=== PATIENT | male | born 1995 | race Caucasian/White ===

== ENCOUNTER 2016-10-31 11:24 | Outpatient (RCR) | payer OTHER ==
--- OUTSIDE RECORDS SUMMARY | 2016-08-06 13:36 | XMS REPORT | Continuity of Care Document ---
Author Author [facility] Organization [facility] Address Unknown Phone Unavailable Care Team Providers Care Product Management Analyst Name Role Phone Benjamín Herron PCP [phone] Source Comments Some departments are not documenting in the electronic medical record. If you do not see the information that you expected, contact Release of Information in the Health Information Management department at [phone] for further assistance in locating additional records.[facility] Active Allergies and Adverse Reactions No Known Allergies Current Medications Prescription Sig. Disp. Refills Start End Date Status Date Protein powd Take by mouth. Active NON-FORMULARY five times weekly. Active Pre-Workout NSF approved cetirizine (ZYRTEC) 10 mg Take 10 mg by mouth every Active tablet morning. clindamycin(+) (CLEOCIN Apply topically to Active T; CLINDAMAX) 1 % topical affected area twice lotion daily. vitamins, multiple tablet Take 1 Tab by mouth Active daily. diphenhydrAMINE HCl Take by mouth at bedtime Active (ZZZQUIL) 50 mg/30 mL as needed. liqd bacitracin 500 unit/gram Apply to the wound area 3.5 g 1 05/17/20 Active ophthalmic ointment starting Friday once a 16 day oxyCODONE/acetaminophen Take 1-2 Tabs by mouth 60 Tab 0 06/27/20 Active (PERCOCET; ENDOCET; every 4 hours as needed 16 ROXICET) 5/325 mg tablet for Pain peginterferon(+) teodora-2B Inject 0.406 mL under the 4 Kit 1 07/23/20 Active (SYLATRON) 120 mcg/0.1 mL skin every 7 days. 16 injection peginterferon(+) teodora-2B Inject 0.406 mL under the 4 Kit 1 07/08/20 07/23/20 Discontin (SYLATRON) 120 mcg/0.1 mL skin once for 1 dose. 16 16 ued injection Active Problems Problem Noted Date Malignant melanoma (HCC) 06/20/2016 Elective surgery 05/16/2016 Melanoma (HCC) 05/10/2016 Melanoma of scalp (HCC) 04/22/2016 History of wisdom tooth extraction 04/22/2016 Most Recent Encounters Date Type Specialty Providers Description 07/31/2016 Hospital Oncology Canceled (Error) Encounter 07/31/2016 Hospital Oncology Walter Mathias II, MD Arrived Encounter 07/31/2016 Telephone Oncology Walter Mathias II, MD Lab Results 07/26/2016 [facility] Oncology Kimberley Meeks, SIXTO Encounter 07/26/2016 Office Visit Oncology Kimberley Meeks APRN Malignant melanoma of scalp (HCC) 07/26/2016 [facility] Oncology Kimberley Meeks APRN Encounter 07/26/2016 Telephone Oncology Walter Mathias II, MD Treatment 07/25/2016 Orders Only Oncology Walter Mathias II, MD Malignant melanoma, unspecified site (HCC) (Primary Dx); Encounter for long-term (current) use of high-risk medication 07/08/2016 Office Visit Oncology Walter Mathias II, MD Melanoma of scalp (HCC) (Primary Dx); S/P dissection of cervical lymph nodes 07/04/2016 Office Visit Oncology John Garsia MD Melanoma of scalp (HCC) (Primary Dx) 06/28/2016 [facility] Oncology John Garsia MD Encounter 06/28/2016 Documentation Oncology John Garsia MD 06/27/2016 Orders Only Oncology John Garsia MD 06/25/2016 Telephone Oncology John Garsia MD Appointment 06/20/2016 Hospital John Garsia MD Malignant melanoma (HCC) - Encounter 06/21/2016 06/20/2016 Anesthesia Pedro Pablo Cohen, PABLO Event 06/20/2016 Surgery John Garsia MD RIGHT MODIFIED RADICAL NECK DISSECTION 06/14/2016 Office Visit Plastic Surgery Ralf Velez MD Melanoma of scalp (HCC) (Primary Dx) 06/06/2016 Office Visit Oncology John Gasria MD Melanoma of scalp (HCC) (Primary Dx) 06/06/2016 Prep for Case Oncology John Garsia MD 06/06/2016 Prep for Case Oncology John Garsia MD 06/03/2016 Office Visit Oncology Walter Mathias II, MD Melanoma of congregational (HCC) (Primary Dx); 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/2016 Office Visit Plastic Surgery Ralf Velez MD Melanoma of scalp (HCC) (Primary Dx) 06/02/2016 Documentation Oncology Walter Mathias II, MD 05/28/2016 Cancer Oncology Walter Mathias II, MD Conference 05/24/2016 Nurse Only Plastic Surgery Sara Zavala LPN 05/24/2016 Telephone Plastic Surgery Ralf Velez MD Medication Refill 05/21/2016 Telephone Oncology John Garsia MD Appointment 05/17/2016 Screening Form 05/16/2016 Hospital Ralf Velez MD Elective surgery - Encounter 05/17/2016 05/16/2016 Telephone Oncology Walter Mathias II, MD Appointment; Treatment 05/16/2016 Surgery Ralf eVlez MD LOCAL TISSUE REARRANGEMENT SCALP 05/15/2016 Anesthesia Willow Gutiérrez, Event ENDODONTIST 05/15/2016 Telephone Oncology Mónica Waddell PA-C Results 05/10/2016 Office Visit Plastic Surgery Ralf Velez MD Melanoma of scalp (HCC) (Primary Dx) 05/10/2016 Surgery John Garsia MD WIDE LOCAL EXCISION OF RIGHT FOREHEAD, INTRAOPERATIVE LYMPHATIC MAPPING; PLACEMENT OF EZ- DERM 05/07/2016 Prep for Case Plastic Surgery Ralf Velez MD Social History Tobacco Use Types Packs/Day Years Used Date Never Smoker Smokeless Tobacco: Never Used Tobacco Cessation: Counseling Given: Yes Comments: Alcohol Use Drinks/Week oz/Week Comments Yes 0 Standard 0.0 social drinks or equivalent Last Filed Vital Signs Vital Sign Reading Time Taken Blood Pressure 119/66 07/26/2016 2:34 PM FINANCE ADMIN Pulse 63 07/26/2016 2:34 PM FINANCE ADMIN Temperature 36.3 C (97.4 F) 07/26/2016 2:34 PM FINANCE ADMIN Respiratory Rate 18 07/26/2016 2:34 PM FINANCE ADMIN Height 1.778 m (5' 10") 07/26/2016 2:34 PM FINANCE ADMIN Weight 81.375 kg (179 lb 6.4 oz) 07/26/2016 2:34 PM FINANCE ADMIN Body Mass Index 25.74 07/26/2016 2:34 PM FINANCE ADMIN Oxygen Saturation 97% 07/26/2016 2:34 PM FINANCE ADMIN Plan of Care Date Type Specialty Providers Description 08/09/2016 Appointment Plastic Surgery Ralf Velez MD [address] [place] [address] [phone] (Fax) 08/09/2016 Appointment Oncology Walter Mathias II, MD [address] [place] [address] [phone] (Fax) 08/09/2016 Appointment Oncology Walter Mathias II, MD [address] [place] [address] [phone] (Fax) 08/23/2016 Appointment Plastic Surgery Ralf Velez MD [address] [place] [address] [phone] (Fax) 08/26/2016 Appointment Oncology Walter Mathias II, MD [address] [place] [address] [phone] (Fax) 08/29/2016 Appointment Oncology Walter Mathias II, MD [address] [place] [address] [phone] (Fax) 11/05/2016 Appointment Oncology Mónica Waddell PA-C [address] [place] [address] [phone] (Fax) Health Maintenance Due Date Last Done Comments Physical (Comprehensive) 2002 Exam Hpv Vaccines (#1) 2006 Pertussis Vaccine 2006 Tetanus Vaccine 2012 Influenza Vaccine 05/09/2016 Procedures from Last 3 Months Procedure Name Priority Date/Time Associated Diagnosis Comments PROCEDURES-SCAN 06/24/2016 Results for this 1:31 PM CDT procedure are in the results section. RIGHT MODIFIED RADICAL 06/20/2016 Malignant melanoma (HCC) NECK DISSECTION 6:00 PM CDT Special Needs 06/06 LEFT VOICEMAIL FOR SARA; DR. GARSIA HAD PREVIOUSLY RELEASED HIS BLOCK FOR THIS DAY SO THIS CASE WILL GO ON WAITING LIST FOR 0800 START TIME - Sally SANTOS RN ([id number])06/07 PER CHANGE FORM, CASE MOVED FROM 06/21 TO 06/20 REQ 1800 START TIME - Alfredo SANTOS RN ([id number])06/13 PER CHANGE FORM, PT STATUS TYPE CHANGED FROM EXT REC TO SDA - Sally SANTOS RN ([id number]) PROCEDURES-SCAN 05/21/2016 Results for this 8:45 AM CDT procedure are in the results section. PROCEDURES-SCAN 05/21/2016 Results for this 8:45 AM CDT procedure are in the results section. LOCAL TISSUE 05/16/2016 Melanoma of scalp (HCC) REARRANGEMENT SCALP 7:30 PM CDT PROCEDURES-SCAN 05/15/2016 Results for this 2:35 PM CDT procedure are in the results section. NECK SENTINEL LYMPH NODE 05/10/2016 Melanoma (HCC) BIOPSY 5:35 PM CDT WIDE LOCAL EXCISION OF 05/10/2016 Melanoma (HCC) RIGHT FOREHEAD, 5:35 PM CDT INTRAOPERATIVE LYMPHATIC MAPPING; PLACEMENT OF EZ- DERM Results from Last 3 Months COMPREHENSIVE METABOLIC PANEL (07/31/2016 12:59 PM)Only the most recent of 4 results within the time period is included. Component Value Range Sodium 138 137-147 MMOL/L Potassium 4.3 3.5-5.1 MMOL/L Chloride 104 98-110 MMOL/L Glucose 103 (H) 70-100 MG/DL Blood Urea Nitrogen 13 7-25 MG/DL Creatinine 1.14 0.4-1.24 MG/DL Calcium 9.2 8.5-10.6 MG/DL Total Protein 7.1 6.0-8.0 G/DL Total Bilirubin 0.4 0.3-1.2 MG/DL Albumin 4.5 3.5-5.0 G/DL Alk Phosphatase 51 25-110 U/L AST (SGOT) 75 (H) 7-40 U/L CO2 28 21-30 MMOL/L ALT (SGPT) 33 7-56 U/L Anion Gap 6 3-12 eGFR Non >60Comment: >60 mL/min The eGFR is not validated for use in drug dosing adjustments. Continue to use estimated creatinine clearance per dosing reference text. Please contact the Clinical Pharmacist for questions. eGFR >60Comment: >60 mL/min The eGFR is not validated for use in drug dosing adjustments. Continue to use estimated creatinine clearance per dosing reference text. Please contact the Clinical Pharmacist for questions. Specimen Blood CBC AND DIFF (07/31/2016 12:59 PM)Only the most recent of 4 results within the time period is included. Component Value Range White Blood Cells 2.5 (L) 4.5-11.0 K/UL RBC 5.15 4.4-5.5 M/UL Hemoglobin 15.9 13.5-16.5 GM/DL Hematocrit 46.5 40-50 % MCV 90.2 80-100 FL MCH 30.9 26-34 PG MCHC 34.2 32.0-36.0 G/DL RDW 13.3 11-15 % Platelet Count 86 (L) 150-400 K/UL MPV 9.0 7-11 FL Neutrophils 42 41-77 % Lymphocytes 45 (H) 24-44 % Monocytes 11 4-12 % Eosinophils 1 0-5 % Basophils 1 0-2 % Absolute Neutrophil Count 1.10 (L) 1.8-7.0 K/UL Absolute Lymph Count 1.10 1.0-4.8 K/UL Absolute Monocyte Count 0.30 0-0.80 K/UL Absolute Eosinophil Count 0.00 0-0.45 K/UL Absolute Basophil Count 0.00 0-0.20 K/UL Specimen Blood LDH-LACTATE DEHYDROGENASE (07/26/2016 2:32 PM)Only the most recent of 3 results within the time period is included. Component Value Range Lactate Dehydrogenase 152 100-210 U/L Specimen Blood PROCEDURES-SCAN (06/24/2016 1:31 PM) Narrative Ordered by an unspecified provider. SURGICAL PATHOLOGY (06/20/2016 8:01 AM)Only the most recent of 3 results within the time period is included. Component Value Range PATHOLOGY REPORT [email or web address] Xochitl Mcneill MD, PhD, Director of Anatomic Pathology Department of Pathology and Laboratory Medicine [address] [place] [phone] Surgical Pathology Office: [phone] SURGICAL PATHOLOGY REPORT NAME: NICKOLAS LUDWIG SURG PATH #: [id number] MR #: [id number] SPECIMEN CLASS: SR BILLING #: [id number] ALT ID #: LOCATION: [id number] DATE OF PROCEDURE: 06/20/2016 AGE: 20 SEX: M DATE RECEIVED: 06/21/2016 : 1995 TIME RECEIVED: 08:01 PHYSICIAN: JOHN GARSIA DATE OF REPORT: 06/24/2016 COPY TO: DATE OF PRINTIN06/24/2016 ################################################## ###################### Final Diagnosis: A. Right cervical contents: --- Negative for melanoma () Attestation: By this signature, I attest that I have personally formulated the final interpretation expressed in this report and that the above diagnosis is based upon my examination of the slides and/or other material indicated in this report. +++Electronically Signed Out By+++ ksw/06/21/2016 Interpreted by: Michael Welch MD, Attending Physician 06/24/2016 ################################################## ###################### Material Received: A: Right Cervical Contents History: 20-year-old male with a clinical history of malignant melanoma. Gross Description: A. Received in formalin, labeled with the patient's name and "right cervical contents" is a 7.6 x 6.3 x 2.8 cm aggregate of yellow, lobulated adipose tissue. One fragment is surfaced by a 2.5 x 0.9 cm ellipse of skin. The skin surface is grossly unremarkable for discrete lesion. The aggregate is sectioned and palpated to reveal twenty-seven possible lymph nodes ranging from 0.5 cm to 2.6 cm. Also, within the aggregate of tissue there is a 3.5 x 1.5 x 1.3 cm possible [place]-brown, lobulated fragment possibly consistent with salivary gland. The specimen is submitted as follows: A1 Object Oriented Developer section of skin. A2 Object Oriented Developer section of possible salivary gland. A3-A4 Each cassette contains 10 possible lymph nodes. A5-A7 Each cassette contains two possible lymph nodes bisected, one is inked black. A8-A11 Each cassette contains one possible lymph node bisected. A12 One possible lymph node trisected. (dlk) ksw/06/21/2016 PROCEDURES-SCAN (05/21/2016 8:45 AM) Narrative Ordered by an unspecified provider. PROCEDURES-SCAN (05/21/2016 8:45 AM) Narrative Ordered by an unspecified provider. MRI HEAD WO/W CONTRAST (05/17/2016 7:34 AM) Impressions Normal MRI of the brain without intracranial metastatic disease. Approved by Deandre Piña M.D. on 05/17/2016 10:16 AM By my electronic signature, I attest that I have personally reviewed the images for this examination and formulated the interpretations and opinions expressed in this report Finalized by Mik Trevino M.D. on 05/17/2016 10:43 AM. Dictated by Deandre Piña M.D. on 05/17/2016 8:39 AM. Narrative EXAM: MRI BRAIN HISTORY: 20-year-old male, melanoma, metastatic melanoma of scalp TECHNIQUE: Multiplanar and multisequence MR imaging of the head was performed. This was done both before and after the administration of gadolinium contrast. COMPARISON: None FINDINGS: Mik Trevino M.D. has personally reviewed these images and formulated the interpretations and opinions expressed in this report. The ventricles and subarachnoid spaces are normal in size and configuration. Brain parenchyma is normal in signal. There is no midline shift or mass effect. There is no area of abnormal contrast enhancement. The vascular flow-voids are unremarkable. Diffusion weighted imaging is not indicative of acute or recent infarct. Procedure Note Interface, Radiant Results - FriMay 17, 2016 10:46 AM CDT EXAM: MRI BRAIN HISTORY: 20-year-old male, melanoma, metastatic melanoma of scalp TECHNIQUE: Multiplanar and multisequence MR imaging of the head was performed. This was done both before and after the administration of gadolinium contrast. COMPARISON: None FINDINGS: Mik Trevino M.D. has personally reviewed these images and formulated the interpretations and opinions expressed in this report. The ventricles and subarachnoid spaces are normal in size and configuration. Brain parenchyma is normal in signal. There is no midline shift or mass effect. There is no area of abnormal contrast enhancement. The vascular flow-voids are unremarkable. Diffusion weighted imaging is not indicative of acute or recent infarct. IMPRESSION Normal MRI of the brain without intracranial metastatic disease. Approved by Deandre Piña M.D. on 05/17/2016 10:16 AM By my electronic signature, I attest that I have personally reviewed the images for this examination and formulated the interpretations and opinions expressed in this report Finalized by Mik Trevino M.D. on 05/17/2016 10:43 AM. Dictated by Deandre Piña M.D. on 05/17/2016 8:39 AM. PROCEDURES-SCAN (05/15/2016 2:35 PM) Narrative Ordered by an unspecified provider. NM LYMPH NODE SPECT (05/10/2016 11:54 AM) Impressions PERIOPERATIVE INTRADERMAL INJECTION OF TC 99M SULFUR COLLOID FOR THE PURPOSE OF LYMPH NODE LOCALIZATION.PLEASE SEE SEPARATELY DICTATED OPERATIVE REPORT FOR COMPLETE DESCRIPTION OF THE PROCEDURE. Approved by Jason Chopra M.D. on 05/10/2016 3:00 PM By my electronic signature, I attest that I have personally reviewed the images for this examination and formulated the interpretations and opinions expressed in this report Finalized by Quintin Coreas M.D. on 05/10/2016 4:07 PM. Dictated by Jason Chopra M.D. on 05/10/2016 1:40 PM. Narrative LYMPH NODE INJECTION: Clinical History: Malignant melanoma. [place] lymph node biopsy TECHNIQUES: After explanation of the procedure, including risks and benefits, verbal consent was obtained. A total of 1 mCi of technetium 99 sulfur colloid was injected in 4 equivalent aliquots surrounding a right temporal scalp lesion. Planar anterior and lateral projections were obtained of the head at 5 and 10 minutes post injection. SPECT-CT imaging was obtained of the head and neck. Findings: No immediate complications were observed. At 5 minutes, radiotracer uptake is visualized inferior to the right scalp injection site at the level of the skull base. SPECT-CT images demonstrate radiotracer uptake at 2 foci within the right parotid gland. The more superior area of uptake was marked for operation. Procedure Note Interface, Radiant Results - Tue May 14, 2016 10:27 AM CDT LYMPH NODE INJECTION: Clinical History: Malignant melanoma. [place] lymph node biopsy TECHNIQUES: After explanation of the procedure, including risks and benefits, verbal consent was obtained. A total of 1 mCi of technetium 99 sulfur colloid was injected in 4 equivalent aliquots surrounding a right temporal scalp lesion. Planar anterior and lateral projections were obtained of the head at 5 and 10 minutes post injection. SPECT-CT imaging was obtained of the head and neck. Findings: No immediate complications were observed. At 5 minutes, radiotracer uptake is visualized inferior to the right scalp injection site at the level of the skull base. SPECT-CT images demonstrate radiotracer uptake at 2 foci within the right parotid gland. The more superior area of uptake was marked for operation. IMPRESSION PERIOPERATIVE INTRADERMAL INJECTION OF TC 99M SULFUR COLLOID FOR THE PURPOSE OF LYMPH NODE LOCALIZATION. PLEASE SEE SEPARATELY DICTATED OPERATIVE REPORT FOR COMPLETE DESCRIPTION OF THE PROCEDURE. Approved by Jason Chopra M.D. on 05/10/2016 3:00 PM By my electronic signature, I attest that I have personally reviewed the images for this examination and formulated the interpretations and opinions expressed in this report Finalized by Quintin Coreas M.D. on 05/10/2016 4:07 PM. Dictated by Jason Chopra M.D. on 05/10/2016 1:40 PM. NM LYMPH NODE SCAN (05/10/2016 11:54 AM) Impressions PERIOPERATIVE INTRADERMAL INJECTION OF TC 99M SULFUR COLLOID FOR THE PURPOSE OF LYMPH NODE LOCALIZATION.PLEASE SEE SEPARATELY DICTATED OPERATIVE REPORT FOR COMPLETE DESCRIPTION OF THE PROCEDURE. Approved by Jason Chopra M.D. on 05/10/2016 3:00 PM By my electronic signature, I attest that I have personally reviewed the images for this examination and formulated the interpretations and opinions expressed in this report Finalized by Quintin Coreas M.D. on 05/10/2016 4:07 PM. Dictated by Jason Chopra M.D. on 05/10/2016 1:40 PM. Narrative LYMPH NODE INJECTION: Clinical History: Malignant melanoma. [place] lymph node biopsy TECHNIQUES: After explanation of the procedure, including risks and benefits, verbal consent was obtained. A total of 1 mCi of technetium 99 sulfur colloid was injected in 4 equivalent aliquots surrounding a right temporal scalp lesion. Planar anterior and lateral projections were obtained of the head at 5 and 10 minutes post injection. SPECT-CT imaging was obtained of the head and neck. Findings: No immediate complications were observed. At 5 minutes, radiotracer uptake is visualized inferior to the right scalp injection site at the level of the skull base. SPECT-CT images demonstrate radiotracer uptake at 2 foci within the right parotid gland. The more superior area of uptake was marked for operation. Procedure Note Interface, Radiant Results - Tue May 14, 2016 10:27 AM CDT LYMPH NODE INJECTION: Clinical History: Malignant melanoma. [place] lymph node biopsy TECHNIQUES: After explanation of the procedure, including risks and benefits, verbal consent was obtained. A total of 1 mCi of technetium 99 sulfur colloid was injected in 4 equivalent aliquots surrounding a right temporal scalp lesion. Planar anterior and lateral projections were obtained of the head at 5 and 10 minutes post injection. SPECT-CT imaging was obtained of the head and neck. Findings: No immediate complications were observed. At 5 minutes, radiotracer uptake is visualized inferior to the right scalp injection site at the level of the skull base. SPECT-CT images demonstrate radiotracer uptake at 2 foci within the right parotid gland. The more superior area of uptake was marked for operation. IMPRESSION PERIOPERATIVE INTRADERMAL INJECTION OF TC 99M SULFUR COLLOID FOR THE PURPOSE OF LYMPH NODE LOCALIZATION. PLEASE SEE SEPARATELY DICTATED OPERATIVE REPORT FOR COMPLETE DESCRIPTION OF THE PROCEDURE. Approved by Jason Chopra M.D. on 05/10/2016 3:00 PM By my electronic signature, I attest that I have personally reviewed the images for this examination and formulated the interpretations and opinions expressed in this report Finalized by Quintin Coreas M.D. on 05/10/2016 4:07 PM. Dictated by Jason Chopra M.D. on 05/10/2016 1:40 PM.
[2016-08-06 13:45] LABS: BASOPHILS % (AUTO) 0 % (0-10); EOSINOPHILS # (AUTO) 0.1 10^3/uL (0.0-0.3); EOSINOPHILS % (AUTO) 2 % (0-10); LYMPHOCYTES # (AUTO) 1.6 X 10^3 (1.0-4.0); LYMPHOCYTES % (AUTO) 42 % (12-44); MEAN CORPUSCULAR HEMOGLOBIN 31 PG (25-34); MEAN CORPUSCULAR HGB CONC 36 G/DL (32-36); MEAN CORPUSCULAR VOLUME 87 FL (80-99); MEAN PLATELET VOLUME 10.2 FL (7.4-10.4); MONOCYTES # (AUTO) 0.4 X 10^3 (0.0-1.0); MONOCYTES % (AUTO) 9 % (0-12); NEUTROPHILS # (AUTO) 1.8 X 10^3 (1.8-7.8); NEUTROPHILS % (AUTO) 47 % (42-75); PLATELET COUNT 230 10^3/uL (130-400); RED BLOOD COUNT 5.03 10^6/uL (4.35-5.85); RED CELL DISTRIBUTION WIDTH 13.2 % (10.0-14.5); WHITE BLOOD COUNT 3.9 10^3/uL (4.3-11.0)
[2016-08-06 14:04] LABS: ALANINE AMINOTRANSFERASE 30 U/L (0-55); ALBUMIN 4.4 G/DL (3.2-4.5); ANION GAP 6 MMOL/L (5-14); ASPARTATE AMINO TRANSFERASE 19 U/L (5-34); BILIRUBIN,TOTAL 0.6 MG/DL (0.1-1.0); BLOOD UREA NITROGEN 11 MG/DL (7-18); BUN/CREATININE RATIO 11; CALCIUM 8.9 MG/DL (8.5-10.1); CARBON DIOXIDE 24 MMOL/L (21-32); CHLORIDE 110 MMOL/L (98-107); CREATININE SERUM 1.01 MG/DL (0.60-1.30); GFR ESTIMATED > 60; GLUCOSE 109 MG/DL (70-105); POTASSIUM 4.3 MMOL/L (3.6-5.0); SODIUM 140 MMOL/L (135-145); TOTAL PROTEIN 6.3 G/DL (6.4-8.2)
[2016-08-15 11:06] LABS: BASOPHILS % (AUTO) 0 % (0-10); EOSINOPHILS % (AUTO) 1 % (0-10); LYMPHOCYTES # (AUTO) 1.4 X 10^3 (1.0-4.0); LYMPHOCYTES % (AUTO) 44 % (12-44); MEAN CORPUSCULAR HEMOGLOBIN 30 PG (25-34); MEAN CORPUSCULAR HGB CONC 35 G/DL (32-36); MEAN CORPUSCULAR VOLUME 86 FL (80-99); MEAN PLATELET VOLUME 11.2 FL (7.4-10.4); MONOCYTES # (AUTO) 0.5 X 10^3 (0.0-1.0); MONOCYTES % (AUTO) 14 % (0-12); NEUTROPHILS # (AUTO) 1.3 X 10^3 (1.8-7.8); NEUTROPHILS % (AUTO) 41 % (42-75); PLATELET COUNT 127 10^3/uL (130-400); RED BLOOD COUNT 5.14 10^6/uL (4.35-5.85); RED CELL DISTRIBUTION WIDTH 12.9 % (10.0-14.5); WHITE BLOOD COUNT 3.2 10^3/uL (4.3-11.0)
[2016-08-15 11:32] LABS: ALANINE AMINOTRANSFERASE 135 U/L (0-55); ALBUMIN 4.3 G/DL (3.2-4.5); ANION GAP 8 MMOL/L (5-14); ASPARTATE AMINO TRANSFERASE 132 U/L (5-34); BILIRUBIN,TOTAL 0.4 MG/DL (0.1-1.0); BLOOD UREA NITROGEN 11 MG/DL (7-18); BUN/CREATININE RATIO 11; CALCIUM 8.9 MG/DL (8.5-10.1); CARBON DIOXIDE 26 MMOL/L (21-32); CHLORIDE 106 MMOL/L (98-107); GFR ESTIMATED > 60; GLUCOSE 96 MG/DL (70-105); POTASSIUM 4.5 MMOL/L (3.6-5.0); SODIUM 140 MMOL/L (135-145); TOTAL PROTEIN 6.8 G/DL (6.4-8.2)
[2016-08-22 11:06] LABS: BASOPHILS % (AUTO) 0 % (0-10); EOSINOPHILS % (AUTO) 1 % (0-10); LYMPHOCYTES # (AUTO) 1.2 X 10^3 (1.0-4.0); LYMPHOCYTES % (AUTO) 37 % (12-44); MEAN CORPUSCULAR HEMOGLOBIN 30 PG (25-34); MEAN CORPUSCULAR HGB CONC 35 G/DL (32-36); MEAN CORPUSCULAR VOLUME 88 FL (80-99); MEAN PLATELET VOLUME 11.6 FL (7.4-10.4); MONOCYTES # (AUTO) 0.5 X 10^3 (0.0-1.0); MONOCYTES % (AUTO) 17 % (0-12); NEUTROPHILS # (AUTO) 1.4 X 10^3 (1.8-7.8); NEUTROPHILS % (AUTO) 45 % (42-75); PLATELET COUNT 140 10^3/uL (130-400); RED BLOOD COUNT 5.34 10^6/uL (4.35-5.85); RED CELL DISTRIBUTION WIDTH 12.9 % (10.0-14.5); WHITE BLOOD COUNT 3.1 10^3/uL (4.3-11.0)
[2016-08-22 11:41] LABS: ALANINE AMINOTRANSFERASE 73 U/L (0-55); ALBUMIN 4.7 G/DL (3.2-4.5); ANION GAP 6 MMOL/L (5-14); ASPARTATE AMINO TRANSFERASE 52 U/L (5-34); BILIRUBIN,TOTAL 0.6 MG/DL (0.1-1.0); BLOOD UREA NITROGEN 9 MG/DL (7-18); BUN/CREATININE RATIO 9; CALCIUM 9.1 MG/DL (8.5-10.1); CARBON DIOXIDE 28 MMOL/L (21-32); CHLORIDE 105 MMOL/L (98-107); CREATININE SERUM 1.01 MG/DL (0.60-1.30); GFR ESTIMATED > 60; GLUCOSE 87 MG/DL (70-105); POTASSIUM 4.4 MMOL/L (3.6-5.0); SODIUM 139 MMOL/L (135-145); TOTAL PROTEIN 7.1 G/DL (6.4-8.2)
[2016-09-19 12:50] LABS: BASOPHILS % (AUTO) 0 % (0-10); EOSINOPHILS % (AUTO) 0 % (0-10); LYMPHOCYTES # (AUTO) 1.4 X 10^3 (1.0-4.0); LYMPHOCYTES % (AUTO) 22 % (12-44); MEAN CORPUSCULAR HEMOGLOBIN 30 PG (25-34); MEAN CORPUSCULAR HGB CONC 35 G/DL (32-36); MEAN CORPUSCULAR VOLUME 84 FL (80-99); MEAN PLATELET VOLUME 10.9 FL (7.4-10.4); MONOCYTES # (AUTO) 0.6 X 10^3 (0.0-1.0); MONOCYTES % (AUTO) 9 % (0-12); NEUTROPHILS # (AUTO) 4.4 X 10^3 (1.8-7.8); NEUTROPHILS % (AUTO) 68 % (42-75); PLATELET COUNT 129 10^3/uL (130-400); RED BLOOD COUNT 4.77 10^6/uL (4.35-5.85); RED CELL DISTRIBUTION WIDTH 12.9 % (10.0-14.5); WHITE BLOOD COUNT 6.5 10^3/uL (4.3-11.0)
[2016-09-19 13:14] LABS: ALANINE AMINOTRANSFERASE 47 U/L (0-55); ALBUMIN 4.3 G/DL (3.2-4.5); ANION GAP 9 MMOL/L (5-14); ASPARTATE AMINO TRANSFERASE 93 U/L (5-34); BILIRUBIN,TOTAL 0.8 MG/DL (0.1-1.0); BLOOD UREA NITROGEN 11 MG/DL (7-18); BUN/CREATININE RATIO 13; CALCIUM 8.6 MG/DL (8.5-10.1); CARBON DIOXIDE 21 MMOL/L (21-32); CHLORIDE 108 MMOL/L (98-107); CREATININE SERUM 0.88 MG/DL (0.60-1.30); GFR ESTIMATED > 60; GLUCOSE 95 MG/DL (70-105); POTASSIUM 4.1 MMOL/L (3.6-5.0); SODIUM 138 MMOL/L (135-145); TOTAL PROTEIN 6.9 G/DL (6.4-8.2)
[2016-10-03 11:24] LABS: BASOPHILS % (AUTO) 0 % (0-10); EOSINOPHILS % (AUTO) 0 % (0-10); LYMPHOCYTES # (AUTO) 1.2 X 10^3 (1.0-4.0); LYMPHOCYTES % (AUTO) 44 % (12-44); MEAN CORPUSCULAR HEMOGLOBIN 30 PG (25-34); MEAN CORPUSCULAR HGB CONC 35 G/DL (32-36); MEAN CORPUSCULAR VOLUME 85 FL (80-99); MEAN PLATELET VOLUME 11.2 FL (7.4-10.4); MONOCYTES # (AUTO) 0.4 X 10^3 (0.0-1.0); MONOCYTES % (AUTO) 15 % (0-12); NEUTROPHILS # (AUTO) 1.1 X 10^3 (1.8-7.8); NEUTROPHILS % (AUTO) 41 % (42-75); PLATELET COUNT 125 10^3/uL (130-400); RED BLOOD COUNT 4.75 10^6/uL (4.35-5.85); RED CELL DISTRIBUTION WIDTH 13.9 % (10.0-14.5); WHITE BLOOD COUNT 2.8 10^3/uL (4.3-11.0)
[2016-10-03 11:42] LABS: ALANINE AMINOTRANSFERASE 47 U/L (0-55); ALBUMIN 4.3 G/DL (3.2-4.5); ANION GAP 7 MMOL/L (5-14); ASPARTATE AMINO TRANSFERASE 45 U/L (5-34); BILIRUBIN,TOTAL 0.5 MG/DL (0.1-1.0); BLOOD UREA NITROGEN 10 MG/DL (7-18); BUN/CREATININE RATIO 11; CALCIUM 8.8 MG/DL (8.5-10.1); CARBON DIOXIDE 24 MMOL/L (21-32); CHLORIDE 104 MMOL/L (98-107); GFR ESTIMATED > 60; GLUCOSE 83 MG/DL (70-105); POTASSIUM 4.4 MMOL/L (3.6-5.0); SODIUM 135 MMOL/L (135-145); TOTAL PROTEIN 6.8 G/DL (6.4-8.2)
[2016-10-31 11:34] LABS: BASOPHILS % (AUTO) 0 % (0-10); EOSINOPHILS % (AUTO) 0 % (0-10); LYMPHOCYTES # (AUTO) 1.4 X 10^3 (1.0-4.0); LYMPHOCYTES % (AUTO) 49 % (12-44); MEAN CORPUSCULAR HEMOGLOBIN 30 PG (25-34); MEAN CORPUSCULAR HGB CONC 35 G/DL (32-36); MEAN CORPUSCULAR VOLUME 86 FL (80-99); MEAN PLATELET VOLUME 10.9 FL (7.4-10.4); MONOCYTES # (AUTO) 0.5 X 10^3 (0.0-1.0); MONOCYTES % (AUTO) 16 % (0-12); NEUTROPHILS % (AUTO) 35 % (42-75); PLATELET COUNT 117 10^3/uL (130-400); RED BLOOD COUNT 4.62 10^6/uL (4.35-5.85); RED CELL DISTRIBUTION WIDTH 14.8 % (10.0-14.5); WHITE BLOOD COUNT 2.9 10^3/uL (4.3-11.0)
[2016-10-31 11:51] LABS: ALANINE AMINOTRANSFERASE 52 U/L (0-55); ALBUMIN 4.2 G/DL (3.2-4.5); ANION GAP 7 MMOL/L (5-14); ASPARTATE AMINO TRANSFERASE 39 U/L (5-34); BILIRUBIN,TOTAL 0.6 MG/DL (0.1-1.0); BLOOD UREA NITROGEN 13 MG/DL (7-18); BUN/CREATININE RATIO 14; CALCIUM 8.8 MG/DL (8.5-10.1); CARBON DIOXIDE 26 MMOL/L (21-32); CHLORIDE 107 MMOL/L (98-107); CREATININE SERUM 0.93 MG/DL (0.60-1.30); GFR ESTIMATED > 60; GLUCOSE 83 MG/DL (70-105); POTASSIUM 4.1 MMOL/L (3.6-5.0); SODIUM 140 MMOL/L (135-145); TOTAL PROTEIN 6.8 G/DL (6.4-8.2)
== END 2016-11-04 | disposition home or self-care (01) ==
LOC: LAB 11:24
PROVIDERS: ATTEND Internal Medicine Hematology & Oncology
DX: C43.9 Malignant melanoma of skin, unspecified (principal); Z79.899 Other long term (current) drug therapy
CPT/HCPCS: 36415; 80053; 85025

== ENCOUNTER 2016-12-26 11:07 | Outpatient (RCR) | payer OTHER ==
--- OUTSIDE RECORDS SUMMARY | 2016-11-14 10:59 | XMS REPORT | Continuity of Care Document ---
Author Author [facility] Organization [facility] Address Unknown Phone Unavailable Care Team Providers Care Family Preservation Worker Name Role Phone Benjamín Herron PCP [phone] Source Comments Some departments are not documenting in the electronic medical record. If you do not see the information that you expected, contact Release of Information in the Health Information Management department at [phone] for further assistance in locating additional records.[facility] Active Allergies and Adverse Reactions No Known [...] as needed. liqd bacitracin 500 unit/gram Apply the areas of the 3.5 g 3 08/28/20 Active ophthalmic ointment incision with blue 16 sutures daily as needed to keep moist oxyCODONE (ROXICODONE, Take 1 Tab by mouth every 60 Tab 0 08/28/20 Active OXY-IR) 5 mg tablet 4 hours as needed for 16 Pain senna (SENOKOT) 8.6 mg Take 2 Tabs by mouth at 90 Tab 3 08/28/20 Active tablet bedtime as needed for 16 Constipation. ondansetron hcl (ZOFRAN) Take 1 Tab by mouth every 50 Tab 0 08/28/20 Active 4 mg tablet 8 hours as needed for 16 Nausea or Vomiting. betamethasone valerate Apply to scar bid 45 g 0 09/16/19 Active (VALISONE) 0.1 % topical 17 cream peginterferon(+) teodora-2b Inject 0.592 mL under the 4 Kit 3 09/26/19 Active (SYLATRON) 40 mcg/0.1 mL skin every 7 days. 17 injection Indications: ADJUVANT TREATMENT OF MELANOMA Active Problems Problem Noted Date Malignant melanoma (HCC) 06/20/2016 Elective surgery 05/16/2016 Melanoma (HCC) 05/10/2016 Melanoma of scalp (HCC) 04/22/2016 History of wisdom tooth extraction 04/22/2016 Most Recent Encounters Date Type Specialty Providers Description 10/31/2016 Orders Only Oncology Walter Mathias II, MD Melanoma of right sikhism (HCC) 10/31/2016 Telephone Oncology Mónica Waddell PA-C Appointment Request 10/14/2016 Office Visit Oncology Walter Mathias II, MD Melanoma of right sikhism (HCC) (Primary Dx); Pancytopenia (HCC); Adverse effect of interferon, sequela 10/14/2016 Hospital Oncology Walter Mathias II, MD Encounter 10/14/2016 Hospital Radiology Walter Mathias II, MD Encounter 10/14/2016 Telephone Oncology Walter Mathias II, MD Results 10/14/2016 Screening Form 10/11/2016 Orders Only Walter Murry II, MD Melanoma of scalp (HCC) (Primary Dx) 10/03/2016 Telephone Walter Murry II, MD Treatment 10/03/2016 Orders Only Walter Murry II, MD Melanoma of scalp (HCC) 09/26/2016 Orders Only Walter Murry II, MD 09/26/2016 Refill Walter Murry II, MD 09/25/2016 Orders Only Walter Murry II, MD 09/20/2016 Telephone Walter Murry II, MD Medication Dose Change 09/20/2016 Telephone Oncology Walter Mathias II, MD Medication Follow- up 09/19/2016 Orders Only Walter Murry II, MD Melanoma of scalp (HCC) 09/18/2016 Orders Only Walter Murry II, MD 09/16/2016 Office Visit Plastic Surgery Osmany Qiu MD Melanoma of scalp (HCC) (Primary Dx) 09/12/2016 Telephone Oncology Osmany Palacio MD Prescription Assistance - [facility] mail order pharmacy 09/10/2016 Telephone Oncology Walter Mathias II, MD Medication Dose Change - Sylatron 09/10/2016 Orders Only Oncology Walter Mathias II, MD 09/06/2016 Office Visit Plastic Surgery Osmany Qiu MD Melanoma of scalp (HCC) (Primary Dx) 09/05/2016 [facility] Oncology Wlater Mtahias II, MD Encounter 09/05/2016 Telephone Oncology Walter Mathias II, MD Appointment 09/05/2016 Orders Only Oncology Bev Lunsford APRN 09/04/2016 Telephone Oncology Osmany Palacio MD Medication Refill 09/03/2016 Orders Only Oncology Merlene Zuniga, PHARMD 08/30/2016 Telephone Oncology Walter Mathias II, MD Results - Lab 08/29/2016 Hospital Oncology Walter Mathias II, MD Encounter 08/29/2016 Office Visit Oncology Walter Mathias II, MD Melanoma of scalp (HCC) (Primary Dx); Other drug-induced neutropenia (HCC); Thrombocytopenia (HCC) 08/28/2016 Hospital Osmany Qiu MD Melanoma of scalp (HCC) Encounter 08/28/2016 Surgery Osmany Qiu MD SCAR REVISION SCALP AND NECK WITH LOCAL TISSUE REARRANGEMENT 08/27/2016 Anesthesia VerMena buckner, PABLO Event 08/26/2016 Prep for Case Plastic Surgery Osmany Qiu MD 08/23/2016 Office Visit Plastic Surgery Osmany Qiu MD Melanoma of scalp (HCC) (Primary Dx) 08/23/2016 Orders Only Oncology Walter Mathias II, MD Malignant melanoma, unspecified site (HCC); Encounter for long-term (current) use of high-risk medication 08/16/2016 Telephone Oncology Walter Mathias II, MD Treatment 08/16/2016 Orders Only Walter Murry II, MD Malignant melanoma, unspecified site (HCC); Encounter for long-term (current) use of high-risk medication Social History Tobacco Use Types Packs/Day Years Used Date Never Smoker Smokeless Tobacco: Never Used Tobacco Cessation: Counseling Given: Yes Comments: Alcohol Use Drinks/Week oz/Week Comments Yes 0 Standard 0.0 social drinks or equivalent Last Filed Vital Signs Vital Sign Reading Time Taken Blood Pressure 115/75 10/14/2016 8:57 AM SLIDE ATTENDANT Pulse 82 10/14/2016 8:57 AM SLIDE ATTENDANT Temperature 36.7 C (98.1 F) 10/14/2016 8:57 AM SLIDE ATTENDANT Respiratory Rate 20 10/14/2016 8:57 AM SLIDE ATTENDANT Height 1.778 m (5' 10") 10/14/2016 8:57 AM SLIDE ATTENDANT Weight 75.297 kg (166 lb) 10/14/2016 8:57 AM SLIDE ATTENDANT Body Mass Index 23.82 10/14/2016 8:57 AM SLIDE ATTENDANT Oxygen Saturation 99% 10/14/2016 8:57 AM SLIDE ATTENDANT Plan of Care Date Type Specialty Providers Description 11/26/2016 Appointment Oncology Mónica Waddell PA-C [address] [place] [address] [phone] (Fax) 12/02/2016 Appointment Oncology 12/02/2016 Appointment Oncology Walter Mathias II, MD [address] [place] [address] [phone] (Fax) Health Maintenance Due Date Last Done Comments Physical (Comprehensive) 2002 Exam Hpv Vaccines (#1) 2006 Pertussis Vaccine 2006 Tetanus Vaccine 2012 Influenza Vaccine 05/09/2017 Procedures from Last 3 Months Procedure Name Priority Date/Time Associated Diagnosis Comments TELEMETRY STRIPS-SCAN 08/29/2016 Results for this 12:49 PM SLIDE ATTENDANT procedure are in the results section. SCAR REVISION SCALP AND 08/28/2016 Melanoma of scalp (HCC) NECK WITH LOCAL TISSUE 1:25 PM SLIDE ATTENDANT REARRANGEMENT Results from Last 3 Months COMPREHENSIVE METABOLIC PANEL (10/31/2016)Only the most recent of 7 results within the time period is included. Specimen Blood CBC AND DIFF (10/31/2016)Only the most recent of 7 results within the time period is included. Specimen Blood NM PET SCAN WHOLEBODY (HEAD-TOES) (10/14/2016 9:22 AM) Impressions 1. No PET/CT evidence of metastatic disease. Finalized by Pedrito Rush M.D. on 10/14/2016 9:24 AM. Dictated by Pedrito Rush M.D. on 10/14/2016 9:00 AM. Narrative PET/CT HEAD, NECK, CHEST, ABDOMEN, PELVIS AND EXTREMITIES (WHOLE BODY) CLINICAL HISTORY: Male, 21 years old.Melanoma. Currently receiving interferon. RADIOPHARMACEUTICAL:15.9 mCi F-18 Fluorodeoxyglucose (FDG) IV. TECHNIQUE:Beginning approximately 63 minutes after tracer administration, routine whole body PET/CT imaging was performed from the top of the head to the tip of the toes.PET images were reviewed in standard orthogonal projections. Low dose non-contrast CT imaging was performed for attenuation correction and localization purposes. BLOOD GLUCOSE LEVEL AT THE TIME OF RADIOPHARMACEUTICAL ADMINISTRATION:97 mg/ dl COMPARISON: PET/CT scan dated 04/26/2016. FINDINGS: The current mean hepatic SUV is 1.8, previously 2.1 Head/Neck: There is prominent symmetrical uptake within both tonsils likely secondary to mild inflammation. No suspicious hypermetabolic lesions are noted within the neck. Chest: No suspicious hypermetabolic lesions are identified within the chest. Abdomen/Pelvis: No suspicious hypermetabolic lesions are seen within the abdomen or pelvis. Physiological activity is noted within the kidneys and bladder. Osseous Structures: No suspicious hypermetabolic osseous lesions are seen. Extremities: No suspicious hypermetabolic lesions are noted within the extremities. Additional significant low dose CT findings: Nothing significant. Uncorrected PET images:The uncorrected PET images demonstrate no additional abnormality. Procedure Note Interface, Radiant Results - FriOct 14, 2016 9:27 AM SLIDE ATTENDANT PET/CT HEAD, NECK, CHEST, ABDOMEN, PELVIS AND EXTREMITIES (WHOLE BODY) CLINICAL HISTORY: Male, 21 years old. Melanoma. Currently receiving interferon. RADIOPHARMACEUTICAL: 15.9 mCi F-18 Fluorodeoxyglucose (FDG) IV. TECHNIQUE: Beginning approximately 63 minutes after tracer administration, routine whole body PET/CT imaging was performed from the top of the head to the tip of the toes. PET images were reviewed in standard orthogonal projections. Low dose non-contrast CT imaging was performed for attenuation correction and localization purposes. BLOOD GLUCOSE LEVEL AT THE TIME OF RADIOPHARMACEUTICAL ADMINISTRATION: 97 mg/dl COMPARISON: PET/CT scan dated 04/26/2016. FINDINGS: The current mean hepatic SUV is 1.8, previously 2.1 Head/Neck: There is prominent symmetrical uptake within both tonsils likely secondary to mild inflammation. No suspicious hypermetabolic lesions are noted within the neck. Chest: No suspicious hypermetabolic lesions are identified within the chest. Abdomen/Pelvis: No suspicious hypermetabolic lesions are seen within the abdomen or pelvis. Physiological activity is noted within the kidneys and bladder. Osseous Structures: No suspicious hypermetabolic osseous lesions are seen. Extremities: No suspicious hypermetabolic lesions are noted within the extremities. Additional significant low dose CT findings: Nothing significant. Uncorrected PET images: The uncorrected PET images demonstrate no additional abnormality. IMPRESSION 1. No PET/CT evidence of metastatic disease. Finalized by Pedrito Rush M.D. on 10/14/2016 9:24 AM. Dictated by Pedrito Rush M.D. on 10/14/2016 9:00 AM. NURSING COMMUNICATION: (09/19/2016)SURGICAL PATHOLOGY (08/29/2016 2: 51 PM) Component Value Range PATHOLOGY REPORT [facility] [email or web address] Xochitl Mcneill MD, PhD, Director of Anatomic Pathology Department of Pathology and Laboratory Medicine [address] [place] [id number] Surgical Pathology Office: [phone] SURGICAL PATHOLOGY REPORT NAME: NICKOLAS MCCURDY SURG PATH #: [id number] MR #: [id number] SPECIMEN CLASS: SR BILLING #: [id number] ALT ID #: LOCATION: [facility] DATE OF PROCEDURE: 08/29/2016 AGE: 20 SEX: M DATE RECEIVED: 08/29/2016 : 1995 TIME RECEIVED: 14:51 PHYSICIAN: OSMANY QIU DATE OF REPORT: 08/30/2016 COPY TO: DATE OF PRINTIN08/30/2016 ################################################## ###################### Final Diagnosis: A. Right sikhism: -- Scar and inflammation; negative for malignancy Attestation: By this signature, I attest that I have personally formulated the final interpretation expressed in this report and that the above diagnosis is based upon my examination of the slides and/or other material indicated in this report. +++Electronically Signed Out By+++ gf/08/30/2016 Interpreted by: Michael Welch MD, Attending Physician 08/30/2016 ################################################## ###################### Material Received: A: right sikhism History: A. Melanoma Gross Description: A. Labeled "right sikhism" excision, measuring 5.8 x 1.2 x 0.8 cm, resection margin inked blue, serially sectioned, retail sales representative sections submitted in [id number]. (jdn) jdn2/08/29/2016 TELEMETRY STRIPS-SCAN (08/29/2016 12:49 PM) Narrative Ordered by an unspecified provider.
[2016-11-14 11:11] LABS: BASOPHILS % (AUTO) 0 % (0-10); EOSINOPHILS % (AUTO) 0 % (0-10); LYMPHOCYTES # (AUTO) 1.3 X 10^3 (1.0-4.0); LYMPHOCYTES % (AUTO) 45 % (12-44); MEAN CORPUSCULAR HEMOGLOBIN 30 PG (25-34); MEAN CORPUSCULAR HGB CONC 35 G/DL (32-36); MEAN CORPUSCULAR VOLUME 86 FL (80-99); MEAN PLATELET VOLUME 11.7 FL (7.4-10.4); MONOCYTES # (AUTO) 0.5 X 10^3 (0.0-1.0); MONOCYTES % (AUTO) 17 % (0-12); NEUTROPHILS # (AUTO) 1.1 X 10^3 (1.8-7.8); NEUTROPHILS % (AUTO) 38 % (42-75); PLATELET COUNT 127 10^3/uL (130-400); RED BLOOD COUNT 4.69 10^6/uL (4.35-5.85); RED CELL DISTRIBUTION WIDTH 14.7 % (10.0-14.5)
[2016-11-14 11:28] LABS: ALANINE AMINOTRANSFERASE 85 U/L (0-55); ALBUMIN 4.3 G/DL (3.2-4.5); ANION GAP 6 MMOL/L (5-14); ASPARTATE AMINO TRANSFERASE 67 U/L (5-34); BILIRUBIN,TOTAL 0.6 MG/DL (0.1-1.0); BLOOD UREA NITROGEN 14 MG/DL (7-18); BUN/CREATININE RATIO 15; CALCIUM 8.8 MG/DL (8.5-10.1); CARBON DIOXIDE 27 MMOL/L (21-32); CHLORIDE 107 MMOL/L (98-107); CREATININE SERUM 0.93 MG/DL (0.60-1.30); GFR ESTIMATED > 60; GLUCOSE 90 MG/DL (70-105); POTASSIUM 4.4 MMOL/L (3.6-5.0); SODIUM 140 MMOL/L (135-145); TOTAL PROTEIN 6.9 G/DL (6.4-8.2)
[2016-11-28 13:28] LABS: BASOPHILS % (AUTO) 0 % (0-10); EOSINOPHILS % (AUTO) 1 % (0-10); LYMPHOCYTES # (AUTO) 1.6 X 10^3 (1.0-4.0); LYMPHOCYTES % (AUTO) 39 % (12-44); MEAN CORPUSCULAR HEMOGLOBIN 30 PG (25-34); MEAN CORPUSCULAR HGB CONC 35 G/DL (32-36); MEAN CORPUSCULAR VOLUME 85 FL (80-99); MEAN PLATELET VOLUME 11.7 FL (7.4-10.4); MONOCYTES # (AUTO) 0.4 X 10^3 (0.0-1.0); MONOCYTES % (AUTO) 11 % (0-12); NEUTROPHILS # (AUTO) 1.9 X 10^3 (1.8-7.8); NEUTROPHILS % (AUTO) 49 % (42-75); PLATELET COUNT 132 10^3/uL (130-400); RED BLOOD COUNT 4.55 10^6/uL (4.35-5.85); RED CELL DISTRIBUTION WIDTH 14.2 % (10.0-14.5)
[2016-11-28 13:44] LABS: ALANINE AMINOTRANSFERASE 41 U/L (0-55); ALBUMIN 4.4 G/DL (3.2-4.5); ANION GAP 9 MMOL/L (5-14); ASPARTATE AMINO TRANSFERASE 36 U/L (5-34); BILIRUBIN,TOTAL 0.6 MG/DL (0.1-1.0); BLOOD UREA NITROGEN 16 MG/DL (7-18); BUN/CREATININE RATIO 17; CALCIUM 8.8 MG/DL (8.5-10.1); CARBON DIOXIDE 24 MMOL/L (21-32); CHLORIDE 107 MMOL/L (98-107); CREATININE SERUM 0.92 MG/DL (0.60-1.30); GFR ESTIMATED > 60; GLUCOSE 88 MG/DL (70-105); POTASSIUM 4.5 MMOL/L (3.6-5.0); SODIUM 140 MMOL/L (135-145); TOTAL PROTEIN 6.8 G/DL (6.4-8.2)
[2016-12-26 11:14] LABS: BASOPHILS % (AUTO) 0 % (0-10); EOSINOPHILS % (AUTO) 1 % (0-10); LYMPHOCYTES # (AUTO) 1.1 X 10^3 (1.0-4.0); LYMPHOCYTES % (AUTO) 35 % (12-44); MEAN CORPUSCULAR HEMOGLOBIN 30 PG (25-34); MEAN CORPUSCULAR HGB CONC 35 G/DL (32-36); MEAN CORPUSCULAR VOLUME 86 FL (80-99); MEAN PLATELET VOLUME 11.6 FL (7.4-10.4); MONOCYTES # (AUTO) 0.3 X 10^3 (0.0-1.0); MONOCYTES % (AUTO) 10 % (0-12); NEUTROPHILS # (AUTO) 1.7 X 10^3 (1.8-7.8); NEUTROPHILS % (AUTO) 54 % (42-75); PLATELET COUNT 124 10^3/uL (130-400); RED BLOOD COUNT 5.02 10^6/uL (4.35-5.85); WHITE BLOOD COUNT 3.2 10^3/uL (4.3-11.0)
[2016-12-26 11:32] LABS: ALANINE AMINOTRANSFERASE 24 U/L (0-55); ALBUMIN 4.5 G/DL (3.2-4.5); ANION GAP 9 MMOL/L (5-14); ASPARTATE AMINO TRANSFERASE 22 U/L (5-34); BILIRUBIN,TOTAL 0.5 MG/DL (0.1-1.0); BLOOD UREA NITROGEN 14 MG/DL (7-18); BUN/CREATININE RATIO 13; CALCIUM 8.7 MG/DL (8.5-10.1); CARBON DIOXIDE 26 MMOL/L (21-32); CHLORIDE 106 MMOL/L (98-107); CREATININE SERUM 1.12 MG/DL (0.60-1.30); GFR ESTIMATED > 60; GLUCOSE 117 MG/DL (70-105); POTASSIUM 4.2 MMOL/L (3.6-5.0); SODIUM 141 MMOL/L (135-145); TOTAL PROTEIN 7.2 G/DL (6.4-8.2)
== END 2017-02-12 | disposition home or self-care (01) ==
LOC: LAB 11:07
PROVIDERS: ATTEND Internal Medicine Hematology & Oncology
DX: C43.9 Malignant melanoma of skin, unspecified (principal); Z79.899 Other long term (current) drug therapy
CPT/HCPCS: 36415; 80053; 85025

== ENCOUNTER 2017-08-05 15:04 | Emergency (ER) | payer OTHER ==
[~2017-08-05] VITALS: Ht 177.8 cm; Wt 79.4 kg
--- OUTSIDE RECORDS SUMMARY | 2017-08-05 15:12 | XMS REPORT | Continuity of Care Document ---
Author Author [facility] Address Unknown Phone Unavailable Care Team Providers Care Solar Sales Energy Advisor Name Role Phone [employer] Unavailable Unavailable Problems Medications Allergies, Adverse Reactions, Alerts Immunizations Results Vital Signs Encounters Location Location Details Encounter Type Encounter Number Reason For Visit Attending Provider ADM Date DC Date Status Source [place] SERIES [id number] MONIKA WANGDA 04/14/2017 04/14/2017 Active [facility] CA SERIES [id number] DUSTY GARSIA 05/01/2017 05/01/2017 Active [facility] OUTPATIENT [id number] 05/02/2017 Active [facility] OUTPATIENT [id number] DUSTY SOMMERSEN 05/04/2017 05/04/2017 Active [facility] CA SERIES [id number] MONIKA WANGDA 05/08/2017 Active [facility] OP SURGERY [id number] DUSTY GARSIA 05/13/2017 05/13/2017 Active [facility] SPECIMEN [id number] 05/19/2017 05/19/2017 Active [facility] OUTPATIENT [id number] MONIKA CHUDA 05/23/2017 05/23/2017 Active [facility] CA SERIES [id number] VIVI BEJARANO 06/05/2017 06/05/2017 Active [facility] OUTPATIENT [id number] VIVI BEJARANO 06/12/2017 06/12/2017 Active [facility] OP SURGERY [id number] VIVI BEJARANO 06/18/2017 06/18/2017 Active [facility] CA SERIES [id number] JAMARI SAMANO 06/20/2017 06/20/2017 Active [facility] CA SERIES [id number] MONIKA JORDAN 06/26/2017 06/26/2017 Active [facility] CA SERIES [id number] MARIE NOGUERA 07/04/20172016 Active [facility] CA SERIES [id number] MARIE NOGUERA 07/25/20172016 Active [facility] Mai ALVARES 09/09/2017 Active [facility] Procedures Plan of Care Social History Assessment and Plan Family History Value Date Source Advance Directives Order Name Results Value Date Source
--- OUTSIDE RECORDS SUMMARY | 2017-08-05 15:13 | XMS REPORT | Encounter Summary ---
Author Author [facility] Organization [facility] Address Unknown Phone Unavailable Care Team Providers Care Car Scrubber Name Role Phone PCP Unavailable Reason for Visit * Reason Comments Heme/Onc Care Encounter Details Date Type Department Care Team Description 07/25/2017 Nurse Only [facility] Brook Bose APRN Malignant melanoma, [facility] Exam [address] unspecified site (HCC) [address] (Primary Dx) [place] [address] [place] [address] [phone] Social History Tobacco Use Types Packs/Day Years Used Date Never Smoker Smokeless Tobacco: Never Used Alcohol Use Drinks/Week oz/Week Comments Yes 0 Standard 0.0 social drinks or equivalent Sex Assigned at Date Recorded Not on file as of this encounter Functional Status Functional Status Response Date of Assessment Does the patient have a hearing impairment: No 02/18/2017 Does the patient have a visual impairment: No 02/18/2017 Does the patient have impaired ambulation: No 02/18/2017 Does the patient have an activity of daily living No 01/31/2017 (ADL) impairment: Does the patient have an instrumental activity of No 02/18/2017 daily living (IADL) impairment: Cognitive Status Response Date of Assessment Does the patient have a cognitive impairment: No 02/18/2017 as of this encounter Plan of Treatment Not on fileas of this encounter Results * CORTISOL,RANDOM (07/25/2017 1:24 PM) Component Value Ref Range Cortisol, Random 5.4 5.0 - 20.0 MCG/DL Specimen Performing Laboratory Blood [facility] [address] [place] [address] * ACTH (07/25/2017 1:24 PM) Component Value Ref Range Adrenocorticotropic 9.7 Hormone Comment: Unit: pg/mL REFERENCE VALUE 7.2-63 (a.m. collection) [facility], [address] [place] [id number] Specimen Performing Laboratory Blood [facility] * TSH WITH FREE T4 REFLEX (07/25/2017 1:24 PM) Component Value Ref Range TSH 0.412 0.35 - 5.00 MCU/ML Specimen Performing Laboratory Blood [facility] [address] [place] [address] * COMPREHENSIVE METABOLIC PANEL (07/25/2017 1:24 PM) Component Value Ref Range Sodium 135 (L) 137 - 147 MMOL/L Potassium 4.4 3.5 - 5.1 MMOL/L Chloride 104 98 - 110 MMOL/L Glucose 75 70 - 100 MG/DL Blood Urea Nitrogen 16 7 - 25 MG/DL Creatinine 1.09 0.4 - 1.24 MG/DL Calcium 9.5 8.5 - 10.6 MG/DL Total Protein 7.2 6.0 - 8.0 G/DL Total Bilirubin 0.6 0.3 - 1.2 MG/DL Albumin 4.4 3.5 - 5.0 G/DL Alk Phosphatase 67 25 - 110 U/L AST (SGOT) 16 7 - 40 U/L CO2 28 21 - 30 MMOL/L ALT (SGPT) 14 7 - 56 U/L Anion Gap 3 3 - 12 eGFR Non >60 >60 mL/min Comment: The eGFR is not validated for use in drug dosing adjustments. Continue to use estimated creatinine clearance per dosing reference text. Please contact the Clinical Pharmacist for questions. eGFR >60 >60 mL/min Comment: The eGFR is not validated for use in drug dosing adjustments. Continue to use estimated creatinine clearance per dosing reference text. Please contact the Clinical Pharmacist for questions. Specimen Performing Laboratory Blood [facility] [address] [place] [address] * CBC AND DIFF (07/25/2017 1:24 PM) Component Value Ref Range White Blood Cells 8.2 4.5 - 11.0 K/UL RBC 4.93 4.4 - 5.5 M/UL Hemoglobin 15.2 13.5 - 16.5 GM/DL Hematocrit 43.9 40 - 50 % MCV 88.9 80 - 100 FL MCH 30.9 26 - 34 PG MCHC 34.7 32.0 - 36.0 G/DL RDW 13.2 11 - 15 % Platelet Count 197 150 - 400 K/UL MPV 8.4 7 - 11 FL Neutrophils 65 41 - 77 % Lymphocytes 25 24 - 44 % Monocytes 6 4 - 12 % Eosinophils 3 0 - 5 % Basophils 1 0 - 2 % Absolute Neutrophil Count 5.20 1.8 - 7.0 K/UL Absolute Lymph Count 2.00 1.0 - 4.8 K/UL Absolute Monocyte Count 0.50 0 - 0.80 K/UL Absolute Eosinophil Count 0.30 0 - 0.45 K/UL Absolute Basophil Count 0.10 0 - 0.20 K/UL Specimen Performing Laboratory Blood [facility] [address] [place] [address] in this encounter Visit Diagnoses Diagnosis Malignant melanoma, unspecified site (HCC) - Primary in this encounter
--- OUTSIDE RECORDS SUMMARY | 2017-08-05 15:13 | XMS REPORT | Encounter Summary ---
Author Author [facility] Organization [facility] Address Unknown Phone Unavailable Care Team Providers Care Executive Recruiter Name Role Phone PCP Unavailable Encounter Details Date Type Department Care Team Description 07/22/2017 Orders Only [facility] Brook Bose APRN [facility] Exam [address] [place] [address] [place] [address] [phone] Social History Tobacco Use Types Packs/Day Years [...] Treatment Not on fileas of this encounter Visit Diagnoses Not on filein this encounter
--- OUTSIDE RECORDS SUMMARY | 2017-08-05 15:13 | XMS REPORT | Encounter Summary ---
Author Author [facility] Organization [facility] Address Unknown Phone Unavailable Care Team Providers Care Social Services Analyst Name Role Phone PCP Unavailable Reason for Visit * Reason Comments Heme/Onc Care Encounter Details Date Type Department Care Team Description 07/25/2017 Office Visit [facility] Brook Bose APRN Melanoma of scalp [facility] Exam [address] (HCC);Encounter for [address] [place] [address] [place] [address] immunotherapy;Bone [phone] metastases (HCC) Social History Tobacco Use Types Packs/Day Years Used Date Never Smoker Smokeless Tobacco: Never Used Alcohol Use Drinks/Week oz/Week Comments Yes 0 Standard 0.0 social drinks or equivalent Sex Assigned at Date Recorded Not on file as of this encounter Last Filed Vital Signs Vital Sign Reading Time Taken Blood Pressure 132/59 07/25/2017 1:37 PM WATER QUALITY SPECIALIST Pulse 58 07/25/2017 1:37 PM WATER QUALITY SPECIALIST Temperature 36.8 C (98.3 F) 07/25/2017 1:37 PM WATER QUALITY SPECIALIST Respiratory Rate 20 07/25/2017 1:37 PM WATER QUALITY SPECIALIST Oxygen Saturation 98% 07/25/2017 1:37 PM WATER QUALITY SPECIALIST Inhaled Oxygen - - Concentration Weight 78.1 kg (172 lb 3.2 oz) 07/25/2017 1:37 PM WATER QUALITY SPECIALIST Height 177.8 cm (5' 10") 07/25/2017 1:37 PM WATER QUALITY SPECIALIST Body Mass Index 24.71 07/25/2017 1:37 PM WATER QUALITY SPECIALIST in this encounter Functional Status Functional Status Response [...] impairment: No 02/18/2017 as of this encounter Progress Notes * Brook Bose, SIXTO - 07/25/2017 1:30 PM WATER QUALITY SPECIALIST Formatting of this note may be different from the original. Name: Nickolas Mccurdy : 1995 AGE: 21 y.o. DATE OF SERVICE: 07/25/2017 Subjective: Reason for Visit: Heme/Onc Care Nickolas Mccurdy is a 21 y.o. male. Melanoma of scalp (HCC) Staging form: Melanoma of the Skin, AJCC 7th Edition - Clinical: Stage Unknown (T4b, NX, M0) - Unsigned History of Present Illness Nickolas presents today for follow up of his metastatic melanoma. He is scheduled for his second cycle of ipilimumab + nivolumab. He tolerated his first cycle well without adverse symptoms. He feels well today. Denies complaints or concerns. He denies signs or symptoms suggestive of infection. He denies pain. Review of Systems Constitutional: Negative for activity change, appetite change, chills, fatigue and fever. HENT: Negative for mouth sores. Respiratory: Negative for shortness of breath. Cardiovascular: Negative for chest pain and leg swelling. Gastrointestinal: Negative for diarrhea, nausea and vomiting. Musculoskeletal: Negative for arthralgias and myalgias. Skin: Negative for rash. Neurological: Negative for seizures, weakness, light-headedness and headaches. Psychiatric/Behavioral: The patient is not nervous/anxious. Objective: cetirizine (ZYRTEC) 10 mg tablet Take 10 mg by mouth every morning. clindamycin(+) (CLEOCIN T; CLINDAMAX) 1 % topical lotion DAPSONE (ACZONE TP) Apply topically to affected area. diphenhydrAMINE HCl (ZZZQUIL) 50 mg/30 mL liqd Take by mouth at bedtime as needed. NON-FORMULARY five times weekly. Pre-Workout [facility] approved ondansetron (ZOFRAN) 8 mg tablet Take 1 tablet by mouth every 8 hours as needed for Nausea or Vomiting. oxyCODONE (ROXICODONE, OXY-IR) 5 mg tablet Take 1-2 tablets by mouth every 4 hours as needed for Pain Earliest Fill Date: 05/13/17 oxyCODONE (ROXICODONE, OXY-IR) 5 mg tablet Take 1 tablet by mouth every 4 hours as needed for Pain Protein powd Take by mouth. vitamins, multiple tablet Take 1 Tab by mouth daily. Vitals: 07/25/17 1337 BP: 132/59 Pulse: 58 Resp: 20 Temp: 36.8 C (98.3 F) TempSrc: Oral SpO2: 98% Weight: 78.1 kg (172 lb 3.2 oz) Height: 177.8 cm (70") Body mass index is 24.71 kg/(m^2). Pain Score: Zero Pain Addressed: N/A Patient Evaluated for a Clinical Trial: No treatment clinical trial available for this patient. Eastern Cooperative Oncology Group performance status is 0, Fully active, able to carry on all pre-disease performance without restriction.. Physical Exam Constitutional: He is oriented to person, place, and time. He appears well- developed and well-nourished. No distress. HENT: Head: Normocephalic. Mouth/Throat: Oropharynx is clear and moist. Postsurgical changes to right face extending in to scalp Eyes: Conjunctivae and EOM are normal. Pupils are equal, round, and reactive to light. Cardiovascular: Normal rate, regular rhythm and normal heart sounds. Pulmonary/Chest: Effort normal and breath sounds normal. Abdominal: Soft. Bowel sounds are normal. He exhibits no mass. There is no hepatosplenomegaly. There is no tenderness. There is no guarding. Musculoskeletal: He exhibits no edema. Lymphadenopathy: Head (right side): Preauricular and posterior auricular adenopathy present. He has cervical adenopathy. Neurological: He is alert and oriented to person, place, and time. No cranial nerve deficit. Skin: Skin is warm and dry. No rash noted. Psychiatric: He has a normal mood and affect. His behavior is normal. Judgment and thought content normal. CBC w/Diff Lab Results Component Value Date/Time WBC 8.2 07/25/2017 01:24 PM RBC 4.93 07/25/2017 01:24 PM HGB 15.2 07/25/2017 01:24 PM HCT 43.9 07/25/2017 01:24 PM MCV 88.9 07/25/2017 01:24 PM MCH 30.9 07/25/2017 01:24 PM MCHC 34.7 07/25/2017 01:24 PM RDW 13.2 07/25/2017 01:24 PM PLTCT 197 07/25/2017 01:24 PM MPV 8.4 07/25/2017 01:24 PM Lab Results Component Value Date/Time NEUT 65 07/25/2017 01:24 PM ANC 5.20 07/25/2017 01:24 PM LYMA 25 07/25/2017 01:24 PM ALC 2.00 07/25/2017 01:24 PM MARITZA 6 07/25/2017 01:24 PM AMC 0.50 07/25/2017 01:24 PM EOSA 3 07/25/2017 01:24 PM AEC 0.30 07/25/2017 01:24 PM BASA 1 07/25/2017 01:24 PM ABC 0.10 07/25/2017 01:24 PM Comprehensive Metabolic Profile Lab Results Component Value Date/Time NA 135 (L) 07/25/2017 01:24 PM K 4.4 07/25/2017 01:24 PM CL 104 07/25/2017 01:24 PM CO2 28 07/25/2017 01:24 PM GAP 3 07/25/2017 01:24 PM BUN 16 07/25/2017 01:24 PM CR 1.09 07/25/2017 01:24 PM GLU 75 07/25/2017 01:24 PM Lab Results Component Value Date/Time CA 9.5 07/25/2017 01:24 PM ALBUMIN 4.4 07/25/2017 01:24 PM TOTPROT 7.2 07/25/2017 01:24 PM ALKPHOS 67 07/25/2017 01:24 PM AST 16 07/25/2017 01:24 PM ALT 14 07/25/2017 01:24 PM TOTBILI 0.6 07/25/2017 01:24 PM GFR >60 07/25/2017 01:24 PM GFRAA >60 07/25/2017 01:24 PM Assessment and Plan: Problem Bone Metastases (Hcc) Encounter for Antineoplastic Immunotherapy Melanoma of Scalp (Hcc) Melanoma of scalp (HCC) Now with right preauricular and cervical adenopathy. This may be an immune response vs progression of disease. Will continue to monitor Encounter for antineoplastic immunotherapy Denies adverse symptoms related to immunotherapy Bone metastases (HCC) Proceed with Xgeva today PLAN -Nickolas has developed right preauricular and right cervical adenopathy. This likely immune response from ipilimumab + nivolumab less likely disease progression. Will continue to monitor closely. -Proceed with cycle 2 ipilimumab + nivolumab today -Xgeva injection today. He will get this monthly -RTC in 3 weeks with labs prior to visit. Will plan for cycle 3 ipi/nivo that day should counts and symptoms allow -Encouraged close F/U in the interim as needed. Nickolas and his parents verbalized understanding and agree to plan as outlined above PIERRE Ortega in this encounter Miscellaneous Notes * Assessment & Plan Note - Brook Bose, SIXTO - 07/25/2017 2:29 PM WATER QUALITY SPECIALIST Associated Problem(s): Bone metastases (HCC) Proceed with Xgeva today * Assessment & Plan Note - Brook Bose, METROLOGY ENGINEER - 07/25/2017 2:29 PM WATER QUALITY SPECIALIST Associated Problem(s): Encounter for antineoplastic immunotherapy Denies adverse symptoms related to immunotherapy * Assessment & Plan Note - Brook Bose, - 07/25/2017 2:28 PM WATER QUALITY SPECIALIST Associated Problem(s): Melanoma of scalp (HCC) Now with right preauricular and cervical adenopathy. This may be an immune response vs progression of disease. Will continue to monitor in this encounter Plan of Treatment Not on fileas of this encounter Visit Diagnoses Diagnosis Melanoma of scalp (HCC) Malignant melanoma of skin of scalp and neck Encounter for antineoplastic immunotherapy Bone metastases (HCC) Secondary malignant neoplasm of bone and bone marrow in this encounter
--- OUTSIDE RECORDS SUMMARY | 2017-08-05 15:13 | XMS REPORT | Encounter Summary ---
Author Author [facility] Organization [facility] Address Unknown Phone Unavailable Care Team Providers Care Windows Systems Architect Name Role Phone PCP Unavailable Encounter Details Date Type Department Care Team Description 08/04/2017 Documentation [facility] Kb [facility] MD [facility] Exam [address] [place] [address] [place] [address] [phone] Social History Tobacco Use Types Packs/Day Years [...] as of this encounter Progress Notes * Sherrie Barksdale, AYALA - 08/04/2017 9:33 AM COMPLETION MANAGER Returned call to patient mother and reports pain im middle of his back, the pain comes and goes. Patient has returned to school. . Called patient and left message to return call today to discuss increased pain. Follow up number given. in this encounter Plan of Treatment Not on fileas of this encounter Visit Diagnoses Not on filein this encounter
--- OUTSIDE RECORDS SUMMARY | 2017-08-05 15:13 | XMS REPORT | Encounter Summary ---
Author Author [facility] Organization [facility] Address Unknown Phone Unavailable Care Team Providers Care Gastroenterology Technician Name Role Phone PCP Unavailable Reason for Visit * Reason Comments Heme/Onc Care labs Encounter Details Date Type Department Care Team Description 07/04/2017 Nurse Only [facility] Brook Bose APRN Malignant melanoma, Cancer Center - [facility] Exam [address] unspecified site (HCC) [address] (Primary Dx) [place] [address] [place] [address] [phone] Social History Tobacco Use Types Packs/Day Years [...] fileas of this encounter Results * CORTISOL,RANDOM (07/04/2017 1:15 PM) Component Value Ref Range Cortisol, Random 7.0 5.0 - 20.0 MCG/DL Specimen Performing Laboratory Blood [facility] [address] [place] [address] * ACTH (07/04/2017 1:15 PM) Component Value Ref Range Adrenocorticotropic 26 Hormone Comment: Unit: pg/mL REFERENCE VALUE 7.2-63 (a.m. collection) [facility], [address] [place] [id number] Specimen Performing Laboratory [facility] * TSH WITH FREE T4 REFLEX (07/04/2017 1:15 PM) Component Value Ref Range TSH 0.602 0.35 - 5.00 MCU/ML Specimen Performing Laboratory Blood [facility] [address] [place] [address] * COMPREHENSIVE METABOLIC PANEL (07/04/2017 1:15 PM) Component Value Ref Range Sodium 137 137 - 147 MMOL/L Potassium 4.0 3.5 - 5.1 MMOL/L Chloride 106 98 - 110 MMOL/L Glucose 98 70 - 100 MG/DL Blood Urea Nitrogen 14 7 - 25 MG/DL Creatinine 1.02 0.4 - 1.24 MG/DL Calcium 9.5 8.5 - 10.6 MG/DL Total Protein 7.1 6.0 - 8.0 G/DL Total Bilirubin 0.5 0.3 - 1.2 MG/DL Albumin 4.4 3.5 - 5.0 G/DL Alk Phosphatase 53 25 - 110 U/L AST (SGOT) 18 7 - 40 U/L CO2 27 21 - 30 MMOL/L ALT (SGPT) 17 7 - 56 U/L Anion Gap 4 3 - 12 eGFR Non >60 >60 [...] Specimen Performing Laboratory Blood [facility] [address] [place] [address] * CBC AND DIFF (07/04/2017 1:15 PM) Component Value Ref Range White Blood Cells 6.1 4.5 - 11.0 K/UL RBC 5.10 4.4 - 5.5 M/UL Hemoglobin 15.9 13.5 - 16.5 GM/DL Hematocrit 45.8 40 - 50 % MCV 89.9 80 - 100 FL MCH 31.1 26 - 34 PG MCHC 34.6 32.0 - 36.0 G/DL RDW 13.7 11 - 15 % Platelet Count 180 150 - 400 K/UL MPV 8.9 7 - 11 FL Neutrophils 61 41 - 77 % Lymphocytes 27 24 - 44 % Monocytes 8 4 - 12 % Eosinophils 3 0 - 5 % Basophils 1 0 - 2 % Absolute Neutrophil Count 3.70 1.8 - 7.0 K/UL Absolute Lymph Count 1.70 1.0 - 4.8 K/UL Absolute Monocyte Count 0.50 0 - 0.80 K/UL Absolute Eosinophil Count 0.20 0 - 0.45 K/UL Absolute Basophil Count 0.10 0 - 0.20 K/UL Specimen Performing Laboratory Blood [facility] [address] [place] [address] in this encounter Visit Diagnoses Diagnosis Malignant melanoma, unspecified site (HCC) - Primary in this encounter
--- OUTSIDE RECORDS SUMMARY | 2017-08-05 15:13 | XMS REPORT | Encounter Summary ---
Author Author [facility] Organization [facility] Address Unknown Phone Unavailable Care Team Providers Care Coater Smoking Pipe Name Role Phone PCP Unavailable Encounter Details Date Type Department Care Team Description 07/11/2017 Orders Only [facility] Brook Bose APRN Bone metastases (HCC) Cancer Center - [facility] Exam [address] [place] [address] [place] [address] [phone] Social History Tobacco Use Types Packs/Day Years [...] fileas of this encounter Visit Diagnoses Diagnosis Bone metastases (HCC) Secondary malignant neoplasm of bone and bone marrow in this encounter
--- OUTSIDE RECORDS SUMMARY | 2017-08-05 15:13 | XMS REPORT | Encounter Summary ---
Author Author [facility] Organization [facility] Address Unknown Phone Unavailable Care Team Providers Care Music Therapist Name Role Phone PCP Unavailable Encounter Details Date Type Department Care Team Description 07/17/2017 Documentation [facility] Kb North MD [facility] Exam [address] [place] [address] [place] [address] [phone] Social History Tobacco Use Types Packs/Day Years [...] Progress Notes * Sherrie Barksdale, AYALA - 07/17/2017 10:24 AM WEIR FISHER returned call to patient mother and answer questions records. Follow up number given in this encounter Plan of Treatment Not on fileas of this encounter Visit Diagnoses Not on filein this encounter
--- OUTSIDE RECORDS SUMMARY | 2017-08-05 15:13 | XMS REPORT | Encounter Summary ---
Author Author [facility] Organization [facility] Address Unknown Phone Unavailable Care Team Providers Care Audit Partner Name Role Phone PCP Unavailable Reason for Visit * Reason Comments Chest Pain Encounter Details Date Type Department Care Team Description 08/05/2017 Telephone [facility] Kb North MD Chest Pain [facility] Exam [address] [place] [address] [place] [address] [phone] Social History Tobacco Use Types Packs/Day Years [...] impairment: No 02/18/2017 as of this encounter Miscellaneous Notes * Telephone Encounter - Mildred Campbell RN - 08/05/2017 2:22 PM STRAPPER AND BUFFER Patient left a message stating he is experiencing back and chest pressure. Called patient and he reports this has been happening since last Friday and has gotten slightly worse. States pressure on his back "feels more muscular" and pressure on his chest is "just pressure". Notified Dr. North and he would like to see patient today. Assisted patient with scheduling appointment. No further needs at this time. in this encounter Plan of Treatment Name Priority Associated Diagnoses Order Schedule CBC AND DIFF Routine Malignant melanoma, Expected: 08/05/2017 unspecified site (HCC) (Approximate), Expires: 08/05/2018 COMPREHENSIVE METABOLIC PANEL Routine Malignant melanoma, Expected: unspecified site (HCC) (Approximate), Expires: 08/05/2018 as of this encounter Visit Diagnoses Diagnosis Malignant melanoma, unspecified site (HCC) - Primary in this encounter
--- OUTSIDE RECORDS SUMMARY | 2017-08-05 15:13 | XMS REPORT | Encounter Summary ---
Author Author [facility] Organization [facility] Address Unknown Phone Unavailable Care Team Providers Care E Learning Specialist Name Role Phone PCP Unavailable Reason for Visit * Reason Comments Heme/Onc Care Encounter Details Date Type Department Care Team Description 07/04/2017 Office Visit [facility] Brook Bose APRN Melanoma of scalp (HCC) [facility] Exam [address] (Primary Dx);Encounter [address] [place] [address] [place] [address] immunotherapy [phone] Social History Tobacco Use Types Packs/Day Years Used Date Never Smoker Smokeless Tobacco: Never Used Alcohol Use Drinks/Week oz/Week Comments Yes 0 Standard 0.0 social drinks or equivalent Sex Assigned at Date Recorded Not on file as of this encounter Last Filed Vital Signs Vital Sign Reading Time Taken Blood Pressure 118/58 07/04/2017 1:26 PM CDT Pulse 58 07/04/2017 1:26 PM CDT Temperature 36.6 C (97.8 F) 07/04/2017 1:26 PM CDT Respiratory Rate 16 07/04/2017 1:26 PM CDT Oxygen Saturation 99% 07/04/2017 1:26 PM CDT Inhaled Oxygen - - Concentration Weight 80.6 kg (177 lb 9.6 oz) 07/04/2017 1:26 PM CDT Height 177.8 cm (5' 10") 07/04/2017 1:26 PM CDT Body Mass Index 25.48 07/04/2017 1:26 PM CDT in this encounter Functional Status Functional Status [...] of this encounter Progress Notes * Brook Bose APRN - 07/04/2017 1:30 PM CDT Formatting of this note may be different from the original. Name: Nickolas Mccurdy : 1995 AGE: 21 y.o. DATE OF SERVICE: 07/04/2017 Subjective: Reason for Visit: melanoma Heme/Onc Care Nickolas Mccurdy is a 21 y.o. male. Melanoma of scalp (HCC) Staging form: Melanoma of the Skin, AJCC 7th Edition - Clinical: Stage Unknown (T4b, NX, M0) - Unsigned History of Present Illness Nickolas Mccurdy presents for follow up of his metastatic melanoma. He is scheduled to start cycle 1 Yervoy today in addition to nivolumab. Prior to now patient has been treated in [place] by Dr. Lyn with single agent nivolumab. He had recent PET scan that showed progression of disease. His treatment approach was changed to incorporate Yervoy for 4 doses every three weeks. He denies signs or symptoms consistent with infection. He is currently in school at [employer] studying business. Review of Systems Constitutional: Negative for appetite change, chills, fatigue, fever and unexpected weight change. HENT: Negative for sore throat and trouble swallowing. Eyes: Negative for visual disturbance. Respiratory: Negative for cough, choking, chest tightness and shortness of breath. Cardiovascular: Negative for chest pain, palpitations and leg swelling. Gastrointestinal: Negative for abdominal distention, abdominal pain, blood in stool, constipation, diarrhea, nausea and vomiting. Genitourinary: Negative for dysuria and hematuria. Musculoskeletal: Negative for arthralgias, myalgias and neck stiffness. Skin: Negative for rash. Neurological: Negative for dizziness, speech difficulty, weakness, light- headedness and numbness. Hematological: Negative for adenopathy. Does not bruise/bleed easily. Psychiatric/Behavioral: Negative for confusion, dysphoric mood and sleep disturbance. The patient is nervous/anxious. All other systems reviewed and are negative. Objective: cetirizine (ZYRTEC) 10 mg tablet Take 10 mg by mouth every morning. clindamycin(+) (CLEOCIN T; CLINDAMAX) 1 % topical lotion DAPSONE (ACZONE TP) Apply topically to affected area. diphenhydrAMINE HCl (ZZZQUIL) 50 mg/30 mL liqd Take by mouth at bedtime as needed. NON-FORMULARY five times weekly. Pre-Workout [facility] approved ondansetron (ZOFRAN) 8 mg tablet [...] Take 1 Tab by mouth daily. Vitals: 07/04/17 1326 BP: 118/58 Pulse: 58 Resp: 16 Temp: 36.6 C (97.8 F) TempSrc: Oral SpO2: 99% Weight: 80.6 kg (177 lb 9.6 oz) Height: 177.8 cm (70") Body mass index is 25.48 kg/(m^2). Pain Score: Zero Pain Addressed: N/A Patient Evaluated for a Clinical Trial: Patient not eligible for a treatment trial (including not needing treatment, needs palliative care, in remission). he has had a dose of nivolumab in the last week [employer] performance status is 0, Fully active, able to carry on all pre-disease performance without restriction.. Physical Exam Constitutional: He is oriented to person, place, and time. He appears well- developed and well-nourished. HENT: Head: Normocephalic and atraumatic. Eyes: EOM are normal. Right eye exhibits no discharge. Left eye exhibits no discharge. No scleral icterus. Neck: Normal range of motion. Neck supple. No JVD present. Cardiovascular: Normal rate, regular rhythm and normal heart sounds. Exam reveals no gallop and no friction rub. No murmur heard. Pulmonary/Chest: Effort normal and breath sounds normal. No respiratory distress. He has no wheezes. He has no rales. He exhibits no tenderness. Abdominal: Soft. Bowel sounds are normal. He exhibits no distension and no mass. There is no hepatosplenomegaly. There is no tenderness. There is no rebound and no guarding. Musculoskeletal: Normal range of motion. He exhibits no edema or tenderness. Lymphadenopathy: Head (right side): No submandibular adenopathy present. Head (left side): No submandibular adenopathy present. He has cervical adenopathy (positive cervical LN on the right). He has no axillary adenopathy. Right: No supraclavicular adenopathy present. Left: No supraclavicular adenopathy present. Neurological: He is alert and oriented to person, place, and time. No cranial nerve deficit. Coordination normal. Skin: Skin is warm and dry. No rash noted. No erythema. Postsurgical changes to right orthodoxy area, no suspicious lesions Psychiatric: He has a normal mood and affect. His behavior is normal. Judgment and thought content normal. Vitals reviewed. CBC w/Diff Lab Results Component Value Date/Time WBC 6.1 07/04/2017 01:15 PM RBC 5.10 07/04/2017 01:15 PM HGB 15.9 07/04/2017 01:15 PM HCT 45.8 07/04/2017 01:15 PM MCV 89.9 07/04/2017 01:15 PM MCH 31.1 07/04/2017 01:15 PM MCHC 34.6 07/04/2017 01:15 PM RDW 13.7 07/04/2017 01:15 PM PLTCT 180 07/04/2017 01:15 PM MPV 8.9 07/04/2017 01:15 PM Lab Results Component Value Date/Time NEUT 61 07/04/2017 01:15 PM ANC 3.70 07/04/2017 01:15 PM LYMA 27 07/04/2017 01:15 PM ALC 1.70 07/04/2017 01:15 PM MARITZA 8 07/04/2017 01:15 PM AMC 0.50 07/04/2017 01:15 PM EOSA 3 07/04/2017 01:15 PM AEC 0.20 07/04/2017 01:15 PM BASA 1 07/04/2017 01:15 PM ABC 0.10 07/04/2017 01:15 PM Comprehensive Metabolic Profile Lab Results Component Value Date/Time NA 137 07/04/2017 01:15 PM K 4.0 07/04/2017 01:15 PM CL 106 07/04/2017 01:15 PM CO2 27 07/04/2017 01:15 PM GAP 4 07/04/2017 01:15 PM BUN 14 07/04/2017 01:15 PM CR 1.02 07/04/2017 01:15 PM GLU 98 07/04/2017 01:15 PM Lab Results Component Value Date/Time CA 9.5 07/04/2017 01:15 PM ALBUMIN 4.4 07/04/2017 01:15 PM TOTPROT 7.1 07/04/2017 01:15 PM ALKPHOS 53 07/04/2017 01:15 PM AST 18 07/04/2017 01:15 PM ALT 17 07/04/2017 01:15 PM TOTBILI 0.5 07/04/2017 01:15 PM GFR >60 07/04/2017 01:15 PM GFRAA >60 07/04/2017 01:15 PM Other labs No results found for: ESR Lab Results Component Value Date/Time LDH 160 01/20/2017 10:19 AM Problem Encounter for Antineoplastic Immunotherapy Melanoma of Scalp (Hcc) Melanoma of scalp (HCC) Now with metastatic disease Proceed with cycle 1 ipilimumab + nivolumab Encounter for antineoplastic immunotherapy Pt educated on immunotherapy: ipilimumab + nivolumab. The side effects were reviewed and include (but are not limited to) the following: fever, chills, headache, myalgias, arthralgias; anorexia; fatigue; confusion; depression; myelosuppression, increases in serum transaminases; renal toxicity (uncommon); thinning hair, sometimes alopecia; impotence, decreased libido; autoimmune disorders are rare including thrombocytopenia, vasculitis, and thyroiditis. Discussed with pt when to call the Cancer Center: fevers, diarrhea, constipation , N/V, pain, rash, mucositis or with any other questions or concerns. Pt verbalized understanding and that all questions had been answered. Informed consent obtained for treatment. PLAN -Proceed with cycle 1 ipilimumab + nivolumab today, consent signed -RTC in 3 weeks with labs prior to visit. Will plan for cycle 2 ipilimumab + nivolumab that day should counts and symptoms allow -Encouraged close F/U in the interim as needed. Nickolas and his father verbalized understanding and agrees to plan of care Total time: 45 minutes, with > 50% time spent counseling with regard to disease status, treatment options, necessity for further testing, and outlining a follow up plan. This conversation was had with the patient, and his father in this encounter Miscellaneous Notes * Assessment & Plan Note - Brook Bose APRN - 07/07/2017 11:57 AM CDT Associated Problem(s): Encounter for antineoplastic immunotherapy Pt educated on immunotherapy: ipilimumab + nivolumab. The side effects were reviewed and include (but are not limited to) the following: fever, chills, headache, myalgias, arthralgias; anorexia; fatigue; confusion; depression; myelosuppression, increases in serum transaminases; renal toxicity (uncommon); thinning hair, sometimes alopecia; impotence, decreased libido; autoimmune disorders are rare including thrombocytopenia, vasculitis, and thyroiditis. Discussed with pt when to call the Cancer Center: fevers, diarrhea, constipation , N/V, pain, rash, mucositis or with any other questions or concerns. Pt verbalized understanding and that all questions had been answered. Informed consent obtained for treatment. * Assessment & Plan Note - Brook Bose APRN - 07/07/2017 11:55 AM CDT Associated Problem(s): Melanoma of scalp (HCC) Now with metastatic disease Proceed with cycle 1 ipilimumab + nivolumab in this encounter Plan of Treatment Not on fileas of this encounter Visit Diagnoses Diagnosis Melanoma of scalp (HCC) - Primary Malignant melanoma of skin of scalp and neck Encounter for antineoplastic immunotherapy in this encounter
--- OUTSIDE RECORDS SUMMARY | 2017-08-05 15:13 | XMS REPORT | Encounter Summary ---
Author Author [facility] Organization [facility] Address Unknown Phone Unavailable Care Team Providers Care Maintenance Planning Clerk Name Role Phone PCP Unavailable Reason for Visit * Reason Comments Heme/Onc Care evans Shepherd Encounter Details Date Type Department Care Team Description 07/04/2017 [facility] Brook Bose APRN Encounter Cancer Center - [address] [place] [address] [place] [address] [place] [address] [facility] [address] [place] [address] [phone] Social History Tobacco Use Types Packs/Day Years [...] impairment: No 02/18/2017 as of this encounter Medications at Time of Discharge Medication Sig. Disp. Refills Start Date End Date cetirizine (ZYRTEC) 10 mg Take 10 mg by mouth every tablet morning. clindamycin(+) (CLEOCIN 06/03/2017 T; CLINDAMAX) 1 % topical lotion DAPSONE (ACZONE TP) Apply topically to affected area. diphenhydrAMINE HCl Take by mouth at bedtime (ZZZQUIL) 50 mg/30 mL as needed. liqd NON-FORMULARY five times weekly. Pre-Workout [facility] approved ondansetron (ZOFRAN) 8 mg Take 1 tablet by mouth 30 tablet 3 2016 tablet every 8 hours as needed for Nausea or Vomiting. oxyCODONE (ROXICODONE, Take 1-2 tablets by mouth 50 tablet 0 2016 OXY-IR) 5 mg tablet every 4 hours as needed for Pain Earliest Fill Date: 05/13/17 oxyCODONE (ROXICODONE, Take 1 tablet by mouth 30 tablet 0 04/15/2017 OXY-IR) 5 mg every 4 hours as needed tabletIndications: Mass for Pain of scalp Protein powd Take by mouth. vitamins, multiple tablet Take 1 Tab by mouth daily. as of this encounter Progress Notes * Amber Villegas RN - 07/04/2017 2:44 PM CDT CHEMO NOTE Verified chemo consent signed and in chart. Verified initiate chemo order in O2 Blood return positive via: Peripheral (22 ga) BSA and dose double checked (agree with orders as written) with: yes Labs/applicable tests checked: CBC and CMP Chemo regime: Drug/cycle/day C1D1 Opdivo 243.6, yervoy 81.2 Rate verified and armband double checkwith second RN: yes Patient education offered and stated understanding. Denies questions at this time. Patient seen in clinic prior to treatment. Patient without questions or concerns. Patient to receive Opdivo, yervoy. Patient given an AVS. Treatment completed without complication. PIV flushed with NS dc'd, and patient discharged ambulatory with family. in this encounter Miscellaneous Notes * Addendum Note - Eli Thapa - 07/04/2017 11:59 PM CDT Encounter addended by: Eli Thapa on: 07/10/2017 10:08 AM
Actions taken: Charge Capture section accepted in this encounter Plan of Treatment Not on fileas of this encounter Visit Diagnoses Diagnosis Malignant melanoma, unspecified site (HCC) in this encounter Administered Medications Medication Order MAR Action Action Date Dose Rate Site ipilimumab (YERVOY) 243.6 mg in sodium Given - New 07/04/2017 243.6 mg 132.5 mL/hr chloride 0.9% (NS) 198.72 mL IVPB Bag 16:46 CDT 243.6 mg (3 mg/kg 81.2 kg Treatment plan recorded weight), Intravenous, 198.72 mL, Administer over 90 Minutes, ONCE, 1 dose, Fri07/04/17 at 1630, Administer second. Start no sooner than 30 minutes after completion of Nivolumab. Flush line with NS after infusion. NOTE: This is a HIGH ALERT Medication. nivolumab (OPDIVO) 81.2 mg in sodium Given - New 07/04/2017 81.2 mg 108.1 mL/hr chloride 0.9% (NS) 108.12 mL IVPB Bag 15:12 CDT 81.2 mg (1 mg/kg 81.2 kg Treatment plan recorded weight), Intravenous, 108.12 mL, Administer over 60 Minutes, ONCE, 1 dose, Fri07/04/17 at 1500, NOTE: This is a HIGH ALERT Medication. in this encounter
--- OUTSIDE RECORDS SUMMARY | 2017-08-05 15:13 | XMS REPORT | Encounter Summary ---
Author Author [facility] Organization [facility] Address Unknown Phone Unavailable Care Team Providers Care Switch Maker Name Role Phone PCP Unavailable Encounter Details Date Type Department Care Team Description 07/25/2017 Orders Only [facility] Brook Bose APRN Cancer [facility] Exam [address] [place] [address] [place] [address] [phone] Social History Tobacco Use Types Packs/Day Years [...]
--- OUTSIDE RECORDS SUMMARY | 2017-08-05 15:13 | XMS REPORT | Clinical Summary ---
Author Author [facility] Organization [facility] Address Unknown Phone Unavailable Care Team Providers Care Bag Worker Name Role Phone PCP Unavailable Source Comments Some departments are not documenting in the electronic medical record. If you do not see the information that you expected, contact Release of Information in the Health Information Management department at [phone] for further assistance in locating additional records.[facility] Allergies No Known Allergies Current Medications Prescription Sig. Disp. Refills Start End Date Status Date Protein powd Take by mouth. Active NON-FORMULARY five times weekly. Active Pre-Workout NSF approved cetirizine (ZYRTEC) 10 mg Take 10 mg by mouth every Active tablet morning. vitamins, multiple tablet Take 1 Tab by mouth Active daily. diphenhydrAMINE HCl Take by mouth at bedtime Active (ZZZQUIL) 50 mg/30 mL as needed. liqd DAPSONE (ACZONE TP) Apply topically to Active affected area. oxyCODONE (ROXICODONE, Take 1 tablet by mouth 30 tablet 0 04/15/20 Active OXY-IR) 5 mg every 4 hours as needed 17 tabletIndications: Mass for Pain of scalp oxyCODONE (ROXICODONE, Take 1-2 tablets by mouth 50 tablet 0 05/13/20 Active OXY-IR) 5 mg tablet every 4 hours as needed 17 for Pain Earliest Fill Date: 05/13/17 clindamycin(+) (CLEOCIN 06/03/20 Active T; CLINDAMAX) 1 % topical 17 lotion ondansetron (ZOFRAN) 8 mg Take 1 tablet by mouth 30 tablet 3 07/04/20 Active tablet every 8 hours as needed 17 for Nausea or Vomiting. Active Problems Problem Noted Date Bone metastases (HCC) 07/11/2017 Last Assessment & Plan: Proceed with Xgeva today Encounter for antineoplastic immunotherapy 07/07/2017 Last Assessment & Plan: Denies adverse symptoms related to immunotherapy Mass of scalp 04/21/2017 Hypertrophic scar - scalp and neck - post surgical 02/18/2017 Malignant melanoma (HCC) 06/20/2016 Melanoma (HCC) 05/10/2016 Last Assessment & Plan: Now with recurrence disease right cervical area. PET shows disease as follows: 1. Right cervical and mediastinal lymph node 2. Right upper lobe subpleural nodule 3. Bone: left scapula, spine, sacrum and sternum, compatible with osseous metastatic disease. 4. 4. Development of a hypermetabolic left hepatic lobe lesion, compatible with hepatic metastatic disease. Melanoma of scalp (HCC) 04/22/2016 Last Assessment & Plan: Now with right preauricular and cervical adenopathy. This may be an immune response vs progression of disease. Will continue to monitor History of wisdom tooth extraction 04/22/2016 Resolved Problems Problem Noted Date Resolved Date Elective surgery 05/16/2016 05/01/2017 Encounters Date Type Specialty Care Team Description 08/05/2017 Telephone Oncology Kb North MD Chest Pain 08/04/2017 Documentation Oncology Kb North MD 07/25/2017 [facility] Oncology Brook Bose APRN Encounter 07/25/2017 Office Visit Oncology Brook Bose APRN Melanoma of scalp (HCC);Encounter for antineoplastic immunotherapy;Bone metastases (HCC) 07/25/2017 Nurse Only Oncology Brook Bose APRN Malignant melanoma, unspecified site (HCC) (Primary Dx) 07/25/2017 Orders Only Oncology Brook Bose APRN 07/22/2017 Orders Only Oncology Brook Bose APRN 07/17/2017 Documentation Oncology Kb North MD 07/11/2017 Orders Only Oncology Brook Bose APRN Bone metastases (HCC) 07/07/2017 Telephone Oncology Kb North MD Other 07/04/2017 Hospital Oncology Brook Bose APRN Encounter 07/04/2017 Office Visit Oncology Brook Bose APRN Melanoma of scalp (HCC) (Primary Dx);Encounter for antineoplastic immunotherapy 07/04/2017 Nurse Only Oncology Brook Bose APRN Malignant melanoma, unspecified site (HCC) (Primary Dx) 06/30/2017 Telephone Oncology Kb North MD Other ( Appointments and f/u in [place], [place]) 06/27/2017 Orders Only Oncology Kb North MD 06/27/2017 Orders Only Oncology Brook Bose APRN 06/26/2017 Office Visit Oncology Kb North MD Malignant melanoma, unspecified site (HCC) 06/26/2017 [facility] Radiology Edson Lyn MD Encounter 06/25/2017 Procedure Pass Radiology 06/25/2017 Orders Only Oncology John Garsia MD ERRONEOUS ENCOUNTER--DISREGARD (Primary Dx) 06/25/2017 Orders Only Oncology Edson Lyn MD Malignant melanoma , unspecified site (HCC) (Primary Dx) 06/24/2017 Procedure Pass Radiology 06/24/2017 Orders Only Oncology Edson Lyn MD Malignant melanoma , unspecified site (HCC) (Primary Dx) 06/23/2017 Documentation Oncology Terri Browne 06/23/2017 Telephone Oncology Vivi Waddell PA-C Results 06/20/2017 Hospital Oncology Kimberley Meeks APRN Encounter 06/20/2017 Office Visit Oncology Kimberley Meeks APRN Malignant melanoma of scalp (HCC) (Primary Dx) 06/20/2017 Hospital Lab Kimberley Meeks, SIXTO Encounter 06/18/2017 [facility] Radiology Vivi Waddell PA-C Encounter Patti Stark RN Dinoni, Quintin Yates MD 06/13/2017 Orders Only Oncology Vivi Waddell PA-C Malignant melanoma of face excluding eyelid, nose, lip, and ear (HCC) (Primary Dx) 06/12/2017 [facility] Radiology Vivi Waddell PA-C Encounter 06/11/2017 Orders Only Oncology Edson Lyn MD Malignant melanoma , unspecified site (HCC) (Primary Dx) 06/09/2017 Orders Only Oncology Edson Lyn MD 06/06/2017 Clinical Oncology Alpa Reno Support 06/05/2017 Office Visit Oncology Waddell, Vivi, PA-C Melanoma of scalp (HCC) (Primary Dx) 06/05/2017 Office Visit Oncology Edson Lyn MD Malignant melanoma of scalp (HCC) (Primary Dx) 05/23/2017 Hospital Lab Edson Lyn MD Malignant melanoma of Encounter scalp and neck (HCC) 05/23/2017 Office Visit Plastic Surgery Ralf Velez MD Melanoma of scalp (HCC) (Primary Dx) 05/19/2017 Hospital Lab Edson Lyn MD Malignant melanoma of Encounter scalp and neck (HCC) 05/19/2017 Orders Only Oncology Edson Lyn MD Melanoma of scalp (HCC) (Primary Dx) 05/15/2017 Telephone Oncology John Garsia MD Results 05/15/2017 Telephone Oncology John Garsia MD Results 05/13/2017 Hospital John Garsia MD Melanoma (HCC) Encounter 05/13/2017 Procedure Pass 05/13/2017 Surgery John Garsia MD WIDE LOCAL EXCISION OF RIGHT SYNAGOGUE 05/12/2017 Anesthesia Shruthi Padron, [facility] SOCIAL WORKER Event 05/05/2017 Telephone Oncology John Garsia MD Results from Last 3 Months Family History Medical History Relation Name Comments Heart Disease Maternal Grandfather Depression Maternal Grandmother Relation Name Status Comments Maternal Grandfather Maternal Grandmother Alive Social History Tobacco Use Types Packs/Day Years Used Date Never Smoker Smokeless Tobacco: Never Used Tobacco Cessation: Counseling Given: Yes Alcohol Use Drinks/Week oz/Week Comments Yes 0 Standard 0.0 social drinks or equivalent Sex Assigned at Date Recorded Not on file Last Filed Vital Signs Vital Sign Reading Time Taken Blood Pressure 132/59 07/25/2017 1:37 PM [employer] Pulse 58 07/25/2017 1:37 PM [employer] Temperature 36.8 C (98.3 F) 07/25/2017 1:37 PM [employer] Respiratory Rate 20 07/25/2017 1:37 PM [employer] Oxygen Saturation 98% 07/25/2017 1:37 PM [employer] Inhaled Oxygen - - Concentration Weight 78.1 kg (172 lb 3.2 oz) 07/25/2017 1:37 PM [employer] Height 177.8 cm (5' 10") 07/25/2017 1:37 PM [employer] Body Mass Index 24.71 07/25/2017 1:37 PM [employer] Plan of Treatment Health Maintenance Due Date Last Done Comments PHYSICAL (COMPREHENSIVE) 2002 EXAM HPV VACCINES (1 of 3 - 2006 Male 3 Dose Series) PERTUSSIS VACCINE 2006 TETANUS VACCINE 2012 INFLUENZA VACCINE 04/08/2017 Implants Implanted Type Area Patient Relations Specialist Device Expiration Model / Identifier Date Serial / Lot Ez Derm Perforated [facility] 05/08/2017 [id number] / Implanted: Qty: 1 on 05/10/2016 by CARE:[facility] [id number] Tom Hua, / [id number] Procedures Procedure Name Priority Date/Time Associated Diagnosis Comments TELEMETRY STRIPS-SCAN 05/14/2017 Results for this 4:10 PM CDT procedure are in the results section. LOCAL TISSUE 05/13/2017 Melanoma (HCC) REARRANGEMENT RIGHT 9:00 AM CDT SYNAGOGUE 5X5 CM, SPLIT THICKNESS SKIN GRAFT 25 CM2 Special Needs 05/06 ANOTHER CASE ADDED TO GO BEFORE THIS ONE, NEW START TIME IS 1435 - C. AYALA SANTOS ([id number]) SPLIT THICKNESS SKIN 05/13/2017 Melanoma (HCC) GRAFT 9:00 AM CDT Special Needs 05/06 ANOTHER CASE ADDED TO GO BEFORE THIS ONE, NEW START TIME IS 1435 - C. AYALA SANTOS ([id number]) WIDE LOCAL EXCISION OF 05/13/2017 Melanoma (HCC) RIGHT SYNAGOGUE 9:00 AM CDT Special Needs 05/06 ANOTHER CASE ADDED TO GO BEFORE THIS ONE, NEW START TIME IS 1435 - C. AYALA SANTOS ([id number]) from Last 3 Months Results * PATHOLOGY REPORTS FROM OUTSIDE SCAN (07/28/2017 11:35 AM) Narrative Ordered by an unspecified provider. * CORTISOL,RANDOM (07/25/2017 1:24 PM) Only the most recent of 2 results within the time period is included. Component Value Ref Range Cortisol, Random 5.4 5.0 - 20.0 MCG/DL Specimen Performing Laboratory [facility] [address] [place] [address] * TSH WITH FREE T4 REFLEX (07/25/2017 1:24 PM) Only the most recent of 4 results within the time period is included. Component Value Ref Range TSH 0.412 0.35 - 5.00 MCU/ML Specimen Performing Laboratory [facility] [address] [place] [address] * ACTH (07/25/2017 1:24 PM) Only the most recent of 2 results within the time period is included. Component Value Ref Range Adrenocorticotropic 9.7 Hormone Comment: Unit: pg/mL REFERENCE VALUE 7.2-63 (a.m. collection) [facility], [address] [place] [address] Specimen Performing Laboratory Blood REFERENCE [facility] * CBC AND DIFF (07/25/2017 1:24 PM) Only the most recent of 4 results within the time period is included. Component Value Ref Range White Blood Cells [...] - 0.20 K/UL Specimen Performing Laboratory Blood [facility] [address] [place] [address] * COMPREHENSIVE METABOLIC PANEL (07/25/2017 1:24 PM) Only the most recent of 4 results within the time period is included. Component Value Ref Range Sodium 135 (L) [...] Specimen Performing Laboratory Blood [facility] [address] [place] [address] * NM PET SCAN WHOLEBODY (HEAD-TOES) (06/26/2017 1:43 PM) Specimen Performing Laboratory [facility] RESULTS Impressions 1. Postsurgical changes along the right moravian with development of hypermetabolic preauricular soft tissue nodules, compatible with biopsy-proven metastatic tumor. 2. Development of hypermetabolic right cervical and mediastinal lymph nodes, compatible with seth metastatic disease. Cluster of small left level 2 lymph nodes demonstrate low-grade FDG uptake and may be reactive or from early seth metastases. 3. Development of a hypermetabolic right upper lobe subpleural nodule, most compatible with pulmonary metastatic disease. Additional tiny pulmonary nodules are too small to characterize by PET/CT, though new since prior examination and suspicious for additional metastases. 4. Development of a hypermetabolic left hepatic lobe lesion, compatible with hepatic metastatic disease. 5. Development of hypermetabolic lytic lesions involving the left scapula, spine , sacrum and sternum, compatible with osseous metastatic disease. 6. Focal nodular FDG uptake within the right parotid gland, suspicious for seth metastatic disease. Although, no discrete mass is visualized on the CT images. By my electronic signature, I attest that I have personally reviewed the images for this examination and formulated the interpretations and opinions expressed in this report Finalized by LUIS HANDY M.D. on 06/26/2017 3:30 PM. Dictated by Polly Arzola M.D. on 06/26/2017 2:13 PM. Narrative PET/CT HEAD, NECK, CHEST, ABDOMEN, PELVIS AND EXTREMITIES (WHOLE BODY) RADIOPHARMACEUTICAL:17.7 mCi F-18 Fluorodeoxyglucose (FDG) IV. TECHNIQUE:Beginning approximately 65 minutes after tracer administration, routine whole body PET/CT imaging was performed from the level of the base of the skull to the tip of the toes.PET images were reviewed in standard orthogonal projections.Low dose non-contrast CT imaging was performed for attenuation correction and localization purposes. BLOOD GLUCOSE LEVEL AT THE TIME OF RADIOPHARMACEUTICAL ADMINISTRATION:86 mg/ dl CLINICAL HISTORY:Melanoma with progressive disease. Melanoma diagnosed in 2016. COMPARISON: Multiple prior examinations dating back to March 26, 2017 FINDINGS: Dr. LUIS HANDY M.D. has personally reviewed these images and formulated the interpretations and opinions expressed in this report. The current mean hepatic SUV is 1.8, previously 1.4 Head/Neck: Postsurgical changes are again noted along the right moravian. Small hypermetabolic preauricular nodules are noted, with maximal SUV of 4.1 (CT image 41). There is more focal nodular uptake within the right parotid gland ( CT image 50), without discrete mass visualized on same-day CT. Mildly enlarged hypermetabolic right level 2A cervical lymph node is present, with maximal SUV of 3.8 (CT image 64). Additional hypermetabolic right level 1B cervical lymph nodes are noted immediately adjacent to the right submandibular gland. Chest: There is a hypermetabolic subpleural nodule within the right lung apex, measuring up to 1.8 cm, maximal SUV of 6.0 (CT image 86). Several additional sub -5 mm pulmonary nodules have developed, which are too small to characterize by PET/CT, for example within the right lung (image 104) and left lung (image 107) . Mildly enlarged hypermetabolic right paratracheal lymph node is present (CT image 92). Abdomen/Pelvis: There has been development of a hypermetabolic lesion within hepatic segment 4, with maximal SUV of 5.1 (CT image 140). Physiological activity is noted within the kidneys and bladder. Osseous Structures: There is a focal hypermetabolic lytic lesion within the left inferior scapula, with maximal SUV of 3.9 (CT image 104). Additional hypermetabolic lytic lesions are now seen within the right aspect of the T7 vertebral body, sternum and left sacrum. Extremities: No suspicious hypermetabolic lesions are noted within the extremities. Additional significant low dose CT findings: None. Uncorrected PET images:The uncorrected PET images demonstrate no additional abnormality. Procedure Note Interface, Radiant Results - 06/26/2017 3:33 PM CDT PET/CT HEAD, NECK, CHEST, ABDOMEN, PELVIS AND EXTREMITIES (WHOLE BODY) RADIOPHARMACEUTICAL: 17.7 mCi F-18 Fluorodeoxyglucose (FDG) IV. TECHNIQUE: Beginning approximately 65 minutes after tracer administration, routine whole body PET/CT imaging was performed from the level of the base of the skull to the tip of the toes. PET images were reviewed in standard orthogonal projections. Low dose non-contrast CT imaging was performed for attenuation correction and localization purposes. BLOOD GLUCOSE LEVEL AT THE TIME OF RADIOPHARMACEUTICAL ADMINISTRATION: 86 mg/dl CLINICAL HISTORY: Melanoma with progressive disease. Melanoma diagnosed in 2016. COMPARISON: Multiple prior examinations dating back to March 26, 2017 FINDINGS: Dr. LUIS HANDY M.D. has personally reviewed these images and formulated the interpretations and opinions expressed in this report. The current mean hepatic SUV is 1.8, previously 1.4 Head/Neck: Postsurgical changes are again noted along the right moravian. Small hypermetabolic preauricular nodules are noted, with maximal SUV of 4.1 (CT image 41). There is more focal nodular uptake within the right parotid gland ( CT image 50), without discrete mass visualized on same-day CT. Mildly enlarged hypermetabolic right level 2A cervical lymph node is present, with maximal SUV of 3.8 (CT image 64). Additional hypermetabolic right level 1B cervical lymph nodes are noted immediately adjacent to the right submandibular gland. Chest: There is a hypermetabolic subpleural nodule within the right lung apex, measuring up to 1.8 cm, maximal SUV of 6.0 (CT image 86). Several additional sub -5 mm pulmonary nodules have developed, which are too small to characterize by PET/CT, for example within the right lung (image 104) and left lung (image 107) . Mildly enlarged hypermetabolic right paratracheal lymph node is present (CT image 92). Abdomen/Pelvis: There has been development of a hypermetabolic lesion within hepatic segment 4, with maximal SUV of 5.1 (CT image 140). Physiological activity is noted within the kidneys and bladder. Osseous Structures: There is a focal hypermetabolic lytic lesion within the left inferior scapula, with maximal SUV of 3.9 (CT image 104). Additional hypermetabolic lytic lesions are now seen within the right aspect of the T7 vertebral body, sternum and left sacrum. Extremities: No suspicious hypermetabolic lesions are noted within the extremities. Additional significant low dose CT findings: None. Uncorrected PET images: The uncorrected PET images demonstrate no additional abnormality. IMPRESSION 1. Postsurgical changes along the right moravian with development of hypermetabolic preauricular soft tissue nodules, compatible with biopsy-proven metastatic tumor. 2. Development of hypermetabolic right cervical and mediastinal lymph nodes, compatible with seth metastatic disease. Cluster of small left level 2 lymph nodes demonstrate low-grade FDG uptake and may be reactive or from early seth metastases. 3. Development of a hypermetabolic right upper lobe subpleural nodule, most compatible with pulmonary metastatic disease. Additional tiny pulmonary nodules are too small to characterize by PET/CT, though new since prior examination and suspicious for additional metastases. 4. Development of a hypermetabolic left hepatic lobe lesion, compatible with hepatic metastatic disease. 5. Development of hypermetabolic lytic lesions involving the left scapula, spine, sacrum and sternum, compatible with osseous metastatic disease. 6. Focal nodular FDG uptake within the right parotid gland, suspicious for seth metastatic disease. Although, no discrete mass is visualized on the CT images. By my electronic signature, I attest that I have personally reviewed the images for this examination and formulated the interpretations and opinions expressed in this report Finalized by LUIS HANDY M.D. on 06/26/2017 3:30 PM. Dictated by Polly Arzola M.D. on 06/26/2017 2:13 PM. * CT NECK W/CONTRAST (06/26/2017 1:43 PM) Specimen Performing Laboratory [facility] RESULTS Impressions 1. Postsurgical changes along the right moravian with development of preauricular soft tissue nodules, compatible with known biopsy-proven metastatic melanoma. 2. Development of right cervical and mediastinal lymphadenopathy, which is hypermetabolic on same-day PET/CT, compatible with seth metastatic disease. Cluster of small left level 2 lymph nodes demonstrate low level FDG uptake on same day PET/CT and may be reactive or early seth metastases. 3. Development of a pleural-based nodule within the right lung apex, which is hypermetabolic on same-day PET/CT, compatible with pulmonary metastatic disease. 4. Please see same day PET/CT for further discussion. By my electronic signature, I attest that I have personally reviewed the images for this examination and formulated the interpretations and opinions expressed in this report Finalized by LUIS HANDY M.D. on 06/26/2017 3:30 PM. Dictated by Polly Arzola M.D. on 06/26/2017 2:[address] Neck Clinical Indication: 21-year-old male with malignant melanoma, unspecified site Technique: Multiple contiguous axial images were obtained through the neck following the administration of Omnipaque 240 IV contrast material. Post processing coronal and sagittal reconstruction images were made from the axial images. Comparison: Same day PET/CT, prior PET/CT of March 26, 2017 Findings: Brain and Orbits: Normal. Sinuses and Mastoids: Normal. Suprahyoid Neck: Normal nasal cavity, nasopharynx, oral cavity, oropharynx, parapharyngeal space, and retropharyngeal space. Infrahyoid Neck: Normal larynx, hypopharynx, and supraglottis. Lymph Nodes: Multiple surgical clips are noted along the right moravian with associated soft tissue thickening of the skin and subcutaneous tissues. There has been development of preauricular soft tissue nodularity, which demonstrates increased FDG uptake within a PET/CT (series 2 images 12 and 19). Interval development of a mildly enlarged right level 2A cervical lymph node, measuring up to 1.6 x 1.1 cm (series 2 image 42), which demonstrates increased FDG uptake on same-day PET/CT. Additional mildly enlarged right level 1B lymph nodes are seen immediately adjacent to the right submandibular gland (series 2 image 40). Cluster of small left level 2 lymph nodes (series 2 image 35) demonstrates low level FDG uptake on same day PET/CT. Parotid and Submandibular Glands: No discrete mass is seen within the right parotid gland to correspond with area of increased FDG uptake seen on same-day PET/CT. The left parotid gland and bilateral submandibular glands are unremarkable. Thyroid: Normal. Vasculature: Normal. Osseous Structures: No destructive osseous lesion is identified. Hypermetabolic lytic lesions involving the sternum and left scapula are not included on the [id number]. Thoracic inlet: Interval development of a 1.7 cm pleural-based nodule within the medial right lung apex, which is hypermetabolic on same-day PET/CT. Mildly enlarged right paratracheal lymph node has developed (series 2 image 85), also hypermetabolic on same-day PET/CT. Procedure Note Interface, Radiant Results - 06/26/2017 3:[address] Neck Clinical Indication: 21-year-old male with malignant melanoma, unspecified site Technique: Multiple contiguous axial images were obtained through the neck following the administration of Omnipaque 240 IV contrast material. Post processing coronal and sagittal reconstruction images were made from the axial images. Comparison: Same day PET/CT, prior PET/CT of March 26, 2017 Findings: Brain and Orbits: Normal. Sinuses and Mastoids: Normal. Suprahyoid Neck: Normal nasal cavity, nasopharynx, oral cavity, oropharynx, parapharyngeal space, and retropharyngeal space. Infrahyoid Neck: Normal larynx, hypopharynx, and supraglottis. Lymph Nodes: Multiple surgical clips are noted along the right moravian with associated soft tissue thickening of the skin and subcutaneous tissues. There has been development of preauricular soft tissue nodularity, which demonstrates increased FDG uptake within a PET/CT (series 2 images 12 and 19). Interval development of a mildly enlarged right level 2A cervical lymph node, measuring up to 1.6 x 1.1 cm (series 2 image 42), which demonstrates increased FDG uptake on same-day PET/CT. Additional mildly enlarged right level 1B lymph nodes are seen immediately adjacent to the right submandibular gland (series 2 image 40). Cluster of small left level 2 lymph nodes (series 2 image 35) demonstrates low level FDG uptake on same day PET/CT. Parotid and Submandibular Glands: No discrete mass is seen within the right parotid gland to correspond with area of increased FDG uptake seen on same-day PET/CT. The left parotid gland and bilateral submandibular glands are unremarkable. Thyroid: Normal. Vasculature: Normal. Osseous Structures: No destructive osseous lesion is identified. Hypermetabolic lytic lesions involving the sternum and left scapula are not included on the [id number]. Thoracic inlet: Interval development of a 1.7 cm pleural-based nodule within the medial right lung apex, which is hypermetabolic on same-day PET/CT. Mildly enlarged right paratracheal lymph node has developed (series 2 image 85), also hypermetabolic on same-day PET/CT. IMPRESSION 1. Postsurgical changes along the right moravian with development of preauricular soft tissue nodules, compatible with known biopsy-proven metastatic melanoma. 2. Development of right cervical and mediastinal lymphadenopathy, which is hypermetabolic on same-day PET/CT, compatible with seth metastatic disease. Cluster of small left level 2 lymph nodes demonstrate low level FDG uptake on same day PET/CT and may be reactive or early seth metastases. 3. Development of a pleural-based nodule within the right lung apex, which is hypermetabolic on same-day PET/CT, compatible with pulmonary metastatic disease. 4. Please see same day PET/CT for further discussion. By my electronic signature, I attest that I have personally reviewed the images for this examination and formulated the interpretations and opinions expressed in this report Finalized by LUIS HANDY M.D. on 06/26/2017 3:30 PM. Dictated by Polly Arzola M.D. on 06/26/2017 2:47 PM. * IR PERCUTANEOUS BIOPSY (06/18/2017 3:46 PM) Specimen Performing Laboratory [facility] RESULTS Impressions 1. Successful right periauricular lymph node FNA biopsy. I, Quintin Coreas M.D, the attending radiologist, was present for the critical and gilmore portions of the procedure with a midlevel, resident, and/or fellow participating.Overlapping portions were non gilmore and I was immediately available.I interpret the critical and gilmore portion of this procedure to have been needle access. @TT Approved by Mraco Hernandez M.D. on 06/18/2017 5:57 PM By my electronic signature, I attest that I have personally reviewed the images for this examination and formulated the interpretations and opinions expressed in this report Finalized by Quintin Coreas M.D. on 06/18/2017 6:03 PM. Dictated by Marco Hernandez M.D. on 06/18/2017 5:54 PM. Narrative ULTRASOUND GUIDED BIOPSY OF RIGHT PERIAURICULAR LYMPHADENOPATHY: Clinical Indication: Periauricular lymphadenopathy. History of periauricular melanoma. Findings/Technique: A brief history and physical was obtained and appropriate imaging studies were reviewed, if available. An explanation of the procedure was provided to the patient including risks and benefits. Written informed consent was obtained. The patient was brought to the procedure room and placed supine on the examination table. The right periauricular region was prepped and draped in the usual sterile fashion. Survey sonographic images demonstrates morphologically abnormal paratracheal lymph nodes, targeted for percutaneous FNA. Local anesthesia was achieved with 1% lidocaine. Multiple 25-gauge FNA samples were then obtained and submitted to cytopathology for analysis confirming adequate sample. The needle was removed and sterile dressing was applied. Patient tolerated procedure well without immediate complication. Procedure Note Interface, Radiant Results - 06/18/2017 6:06 PM CDT ULTRASOUND GUIDED BIOPSY OF RIGHT PERIAURICULAR LYMPHADENOPATHY: Clinical Indication: Periauricular lymphadenopathy. History of periauricular melanoma. Findings/Technique: A brief history and physical was obtained and appropriate imaging studies were reviewed, if available. An explanation of the procedure was provided to the patient including risks and benefits. Written informed consent was obtained. The patient was brought to the procedure room and placed supine on the examination table. The right periauricular region was prepped and draped in the usual sterile fashion. Survey sonographic images demonstrates morphologically abnormal paratracheal lymph nodes, targeted for percutaneous FNA. Local anesthesia was achieved with 1% lidocaine. Multiple 25-gauge FNA samples were then obtained and submitted to cytopathology for analysis confirming adequate sample. The needle was removed and sterile dressing was applied. Patient tolerated procedure well without immediate complication. IMPRESSION 1. Successful right periauricular lymph node FNA biopsy. I, Quintin Coreas M.D, the attending radiologist, was present for the critical and gilmore portions of the procedure with a midlevel, resident, and/or fellow participating. Overlapping portions were non gilmore and I was immediately available. I interpret the critical and gilmore portion of this procedure to have been needle access. @TT Approved by Marco Hernandez M.D. on 06/18/2017 5:57 PM By my electronic signature, I attest that I have personally reviewed the images for this examination and formulated the interpretations and opinions expressed in this report Finalized by Quintin Coreas M.D. on 06/18/2017 6:03 PM. Dictated by Marco Hernandez M.D. on 06/18/2017 5:54 PM. * FINE NEEDLE ASPIRATE (FNA) (06/18/2017 8:11 AM) Component Value Ref Range Cytology [facility] [email or web address] Xochitl Mcneill MD, Director Cytopathology Department of Pathology and Laboratory Medicine [address] [place] [address] Surgical Pathology Office: [phone] CYTOLOGY REPORT NAME: NICKOLAS LUDWIG SURG PATH #: [id number] MR #: [id number] ALT ID #: BILLING #: [id number] LOCATION: DATE OF PROCEDURE: 06/18/2017 AGE: 21 SEX: M DATE RECEIVED: 06/19/2017 : 1995 TIME RECEIVED: 08:11 PHYSICIAN: VIVI WADDELL PA-C DATE OF REPORT: 06/23/2017 COPY TO: DATE OF PRINTIN06/23/2017 Material Received: A: FNA Lymph Node-Right Parotid History: 21 year old male, history of recurrent facial melanoma. Gross Description: (1 DQ, 1 Pap, 1 Cell block) Rapid determination of adequacy was performed by the political researcher, ESTEFANI, on Diff-Quik stained slide(s). The first pass was adequate for evaluation. Two additional passes were obtained for cell block preparation. ################################################## ###################### Final Diagnosis: A. Right Parotid Lymph Node, US-FNA: Malignant cells present, consistent with metastatic melanoma. See comment. Comment: Immunohistochemical stains performed on the cell block show the tumor cells are positive for SOX-10 and MART-1 and negative for CD45 and zepeda-cytokeratin supporting the above diagnosis. Attestation: By this signature, I attest that I have personally formulated the final interpretation expressed in this report and that the above diagnosis is based upon my examination of the slides and/or other material indicated in this report. +++Electronically Signed Out By+++ [facility]/06/23/2017 Interpreted by: Xochitl Mcneill MD, PhD Walter Seth MD Fellow Specimen Performing Laboratory [facility] RESULTS * US HEAD AND NECK (06/12/2017 7:50 AM) Specimen Performing Laboratory [facility] RESULTS Impressions 1.Multiple right preauricular, intraparotid and right cervical nodes which are morphologically suspicious with lobular configuration and loss of normal fatty bill. Percutaneous biopsy could be obtained as clinically indicated. 2.Reactive appearing an indeterminate left cervical nodes. Approved by Luiz Lima M.D. on 06/12/2017 9:01 AM By my electronic signature, I attest that I have personally reviewed the images for this examination and formulated the interpretations and opinions expressed in this report Finalized by Jp Beckford M.D. on 06/12/2017 10:11 AM. Dictated by Luiz Lima M.D. on 06/12/2017 8:03 AM. Narrative Ultrasound of the neck: Clinical Indication: Melanoma of scalp, history of recurrent melanoma of the right moravian with palpable node in the right preauricular region Technique: Multiple real-time grayscale sonographic images were obtained throughout the neck and head with evaluation of the regions of interest. Findings: 2 adjacent lobular hypoechoic lymph nodes are seen within the preauricular region of palpable abnormality measuring 0.9 x 0.8 x 0.8 cm and 0.7 x 0.7 x 0.8 cm. Additional mildly enlarged lobular nodes are seen within the upper right neck and within the right parotid gland with the reference intraparotid node measuring 1.3 x 0.9 x 0.9 cm. Additional sub-5 mm intraparotid nodules are seen. A few additional right neck nodes with preserved bill are seen. Limited imaging of the left neck demonstrate a few mildly prominent upper cervical and submandibular nodes and an indeterminate cervical node measuring 1.6 x 0.4 cm. Limited imaging of the left parotid gland appears unremarkable. No loculated fluid collections are identified. Procedure Note Interface, Radiant Results - 06/12/2017 10:14 AM CDT Ultrasound of the neck: Clinical Indication: Melanoma of scalp, history of recurrent melanoma of the right moravian with palpable node in the right preauricular region Technique: Multiple real-time grayscale sonographic images were obtained throughout the neck and head with evaluation of the regions of interest. Findings: 2 adjacent lobular hypoechoic lymph nodes are seen within the preauricular region of palpable abnormality measuring 0.9 x 0.8 x 0.8 cm and 0.7 x 0.7 x 0.8 cm. Additional mildly enlarged lobular nodes are seen within the upper right neck and within the right parotid gland with the reference intraparotid node measuring 1.3 x 0.9 x 0.9 cm. Additional sub-5 mm intraparotid nodules are seen. A few additional right neck nodes with preserved bill are seen. Limited imaging of the left neck demonstrate a few mildly prominent upper cervical and submandibular nodes and an indeterminate cervical node measuring 1.6 x 0.4 cm. Limited imaging of the left parotid gland appears unremarkable. No loculated fluid collections are identified. IMPRESSION 1. Multiple right preauricular, intraparotid and right cervical nodes which are morphologically suspicious with lobular configuration and loss of normal fatty bill. Percutaneous biopsy could be obtained as clinically indicated. 2. Reactive appearing an indeterminate left cervical nodes. Approved by Luiz Lima M.D. on 06/12/2017 9:01 AM By my electronic signature, I attest that I have personally reviewed the images for this examination and formulated the interpretations and opinions expressed in this report Finalized by Jp Beckford M.D. on 06/12/2017 10:11 AM. Dictated by Luiz Lima M.D. on 06/12/2017 8:03 AM. * RIGOBERTO PATH MOLEC REF LAB SCAN (06/02/2017 11:44 AM) Narrative Ordered by an unspecified provider. * BRAF GENE ANALYSIS (05/19/2017 4:00 PM) Component Value Ref Range BRAF Gene Analysis SEE REGISTERED MEDICAL ASSISTANT FOR REPORT Specimen Performing Laboratory [facility] * TELEMETRY STRIPS-SCAN (05/14/2017 4:10 PM) Narrative Ordered by an unspecified provider. * SURGICAL PATHOLOGY (05/13/2017 1:06 PM) Component Value Ref Range PATHOLOGY REPORT [facility] [email or web address] Xochitl Mcneill MD, PhD, Director of Anatomic Pathology Department of Pathology and Laboratory Medicine [address] [place] [id number] Surgical Pathology Office: [phone] SURGICAL PATHOLOGY REPORT NAME: VANINICKOLAS Lilly SURG PATH #: [id number] MR #: [id number] SPECIMEN CLASS: SR BILLING #: [id number] ALT ID #: LOCATION: WIL DATE OF PROCEDURE: 05/13/2017 AGE: 21 SEX: M DATE RECEIVED: 05/13/2017 : 1995 TIME RECEIVED: 13:06 PHYSICIAN: JOHN GARSIA DATE OF REPORT: 05/15/2017 COPY TO: DATE OF PRINTIN05/15/2017 ################################################## ###################### Final Diagnosis: A. Right moravian, wide local excision: -- Postoperative scar; negative for residual melanoma Attestation: By this signature, I attest that I have personally formulated the final interpretation expressed in this report and that the above diagnosis is based upon my examination of the slides and/or other material indicated in this report. +++ +++ freya/05/13/2017 ################################################## ###################### Material Received: A: wide local excision of right moravian-short superior, long lateral History: 21-year-old male with a history of melanoma. Gross Description: A. Received in formalin, labeled with the patient's name and "wide local excision of right moravian, short superior, long lateral" is an elliptical direct excision of skin measuring 4.6 cm in length, 3.2 cm in width and 0.5 cm in depth. The short suture marked superior by the surgeon is designated as 12:00 and the long suture marked as lateral is designated as 9:00 for orientation purposes. The 9-12-3:00 circumferential and deep margin is inked blue and the 3-6-9:00 circumferential and deep margin is inked black. There is a scar measuring 2.0 cm in length and 0.3 cm in width. The scar is 1.2 cm from the closest peripheral side margin at 6:00. The skin is serially sectioned from 9-3:00 to reveal the scar is 0.4 cm from the deep resection margin. The scar and associated marginal tissue is sequentially submitted from 9-3:00 in cassettes A1-A8. (sld) 05/13/2017 Specimen Performing Laboratory [facility] RESULTS from Last 3 Months
--- OUTSIDE RECORDS SUMMARY | 2017-08-05 15:13 | XMS REPORT | Encounter Summary ---
Author Author [facility] Organization [facility] Address Unknown Phone Unavailable Care Team Providers Care Inspectors And Regulatory Officers Name Role Phone PCP Unavailable Reason for Visit * Reason Comments Other Encounter Details Date Type Department Care Team Description 07/07/2017 Telephone [facility] Kb North MD Other Cancer Center - [facility] Exam [address] [place] [address] [place] [address] [phone] Social History Tobacco Use Types Packs/Day Years [...] Telephone Encounter - Mildred Campbell RN - 07/07/2017 1:40 PM CDT Patient's mom left a message stating she has a few financial questions. This RN emailed Francesca Ravi with Financial counseling and requested she contact patient 's mom. Left patient's mom a message with this information. Left call back number to clinic for any questions or concerns. in this encounter Plan of Treatment Not on fileas of this encounter Visit Diagnoses Not on filein this encounter
--- OUTSIDE RECORDS SUMMARY | 2017-08-05 15:13 | XMS REPORT | Encounter Summary ---
Author Author [facility] Organization [facility] Address Unknown Phone Unavailable Care Team Providers Care Auto Parker Name Role Phone PCP Unavailable Reason for Visit * Reason Comments Heme/Onc Care OPDIVO & ipilimumab (YERVOY) Encounter Details Date Type Department Care Team Description 07/25/2017 [facility] Brook Bose APRN Encounter Cancer Center - [address] [place] [address] [place] [address] [place] [address] [phone] Social History Tobacco Use Types Packs/Day Years [...] needed. liqd NON-FORMULARY five times weekly. Pre-Workout [facility] approved ondansetron (ZOFRAN) 8 mg Take [...] as of this encounter Progress Notes * Dani Prieto RN - 07/25/2017 6:47 PM PROCEDURE RN CHEMO NOTE Verified chemo consent signed and in chart. Yes Verified initiate chemo order in O2 Yes Blood return positive via: Peripheral (24 ga) BSA and dose double checked (agree with orders as written) with: yes Labs/applicable tests checked: CBC and CMP Chemo regime: Drug/cycle/day nivolumab (OPDIVO) 81.2 mg in sodium chloride 0.9% (NS) 108.12 mL IVPB ipilimumab (YERVOY) 240 mg in sodium chloride 0.9% (NS) 198 mL IVPB Rate verified and armband double checkwith second RN: yes Patient education offered and stated understanding. Denies questions at this time. Yes Pt was seen by DASHAWN Vieira in exam room prior coming to treatment area, Pt arrived treatment area ambulatory accompanied by his visitors for D1C2 , issues and concerns addressed in exam, Pt denies any complain, infusion completed without any complication, PIV removed intact, Pt dismissed ambulatory A&O at 1920. in this encounter Miscellaneous Notes * Addendum Note - Tiffanie Perdomo - 07/25/2017 11:59 PM PROCEDURE RN Encounter addended by: Tiffanie Perdomo on: 08/04/2017 11:31 AM
Actions taken : Charge Capture section accepted in this encounter Plan of Treatment Not on fileas of this encounter Visit Diagnoses Diagnosis Malignant melanoma, unspecified site (HCC) Bone metastases (HCC) Secondary malignant neoplasm of bone and bone marrow Malignant melanoma of scalp (HCC) Malignant melanoma of skin of scalp and neck in this encounter Administered Medications Medication Order MAR Action Action Date Dose Rate Site denosumab (XGEVA) injection 120 mg Given 07/25/2017 120 mg Abdomen: LLQ 120 mg, Subcutaneous, ONCE, 1 dose, Fri 18:56 PROCEDURE RN 07/25/17 at 1515, Allow vial to come to room temperature prior to administration. NOTE: This is a HIGH ALERT Medication. ipilimumab (YERVOY) 240 mg in sodium Given - New 07/25/2017 240 mg 132 mL/hr chloride 0.9% (NS) 198 mL IVPB Bag 17:39 PROCEDURE RN 240 mg (rounded from 243.6 mg=3 mg/kg 81.2 kg Treatment plan recorded weight), Intravenous, 198 mL, Administer over 90 Minutes, ONCE, 1 dose, Fri07/25/17 at 1715, Administer second. Start no sooner than 30 minutes after completion of Nivolumab. Flush line with NS after infusion. NOTE: This is a HIGH ALERT Medication. nivolumab (OPDIVO) 81.2 mg in sodium Given - New 07/25/2017 81.2 mg 108.1 mL/hr chloride 0.9% (NS) 108.12 mL IVPB Bag 15:59 PROCEDURE RN 81.2 mg (1 mg/kg 81.2 kg Treatment plan recorded weight), Intravenous, 108.12 mL, Administer over 60 Minutes, ONCE, 1 dose, Fri07/25/17 at 1545, NOTE: This is a HIGH ALERT Medication. in this encounter
--- OUTSIDE RECORDS SUMMARY | 2017-08-05 15:14 | XMS REPORT | Encounter Summary ---
Author Author [facility] Organization [facility] Address Unknown Phone Unavailable Care Team Providers Care Sales Recruiting Coordinator Name Role Phone PCP Unavailable Encounter Details Date Type Department Care Team Description 06/23/[address] [facility] Terri Browne [facility] [address] [place] [address] Social History Tobacco Use Types Packs/Day Years [...] as of this encounter Progress Notes * Terri Browne - 06/23/2017 4:57 PM CDT Nickolas Mccurdy has been enrolled into the [employer] Co-Pay Assistance Program to help cover the costs of Opdivo (Nivolumab). The enrollment dates are 06/23/2017 until 09/07/2017 with a look-back time of 120 days. The maximum amount awarded is $25,000.00. Terri Browne Medication Account Services Associate Cancer Care and Infusion Therapy [phone] in this encounter Plan of Treatment Not on fileas of this encounter Visit Diagnoses Not on filein this encounter
--- OUTSIDE RECORDS SUMMARY | 2017-08-05 15:14 | XMS REPORT | Encounter Summary ---
Author Author [facility] Organization [facility] Address Unknown Phone Unavailable Care Team Providers Care Environmental Engineering Professor Name Role Phone PCP Unavailable Encounter Details Date Type Department Care Team Description 06/25/2017 Procedure Pass [facility] Radiology [address] [place] [address] Social History Tobacco Use Types Packs/Day Years [...]
--- OUTSIDE RECORDS SUMMARY | 2017-08-05 15:14 | XMS REPORT | Encounter Summary ---
Author Author [facility] Organization [facility] Address Unknown Phone Unavailable Care Team Providers Care Cattle Trader Name Role Phone PCP Unavailable Reason for Visit * Reason Comments Results Encounter Details Date Type Department Care Team Description 06/23/2017 Telephone [facility] Mónica Waddell PA-C [facility] - [facility] Exam [address] [place] [address] [place] [address] [phone] Social History Tobacco Use Types Packs/Day Years [...] encounter Miscellaneous Notes * Telephone Encounter - Mónica Waddell PA-C - 06/23/2017 3:17 PM CDT Mother notified of FNA result of the parotid lymph node confirming metastatic melanoma. Nickolas will continue with treatment with Dr. Lyn. Mother expresses understanding and agrees. in this encounter Plan of Treatment Not on fileas of this encounter Visit Diagnoses Not on filein this encounter
--- OUTSIDE RECORDS SUMMARY | 2017-08-05 15:14 | XMS REPORT | Encounter Summary ---
Author Author [facility] Organization [facility] Address Unknown Phone Unavailable Care Team Providers Care Mechanical Fitter Name Role Phone PCP Unavailable Encounter Details Date Type Department Care Team Description 06/27/2017 Orders Only [facility] Kb North MD Cancer Center - [facility] Exam [address] [place] [address] [place] [address] [phone] Social History Tobacco Use Types Packs/Day Years [...]
--- OUTSIDE RECORDS SUMMARY | 2017-08-05 15:14 | XMS REPORT | Encounter Summary ---
Author Author [facility] Organization [facility] Address Unknown Phone Unavailable Care Team Providers Care Manager Performance Name Role Phone PCP Unavailable Reason for Referral * Radiology Services Status Reason Specialty Diagnoses / Referred By Referred To Procedures Contact Contact New Request Radiology Diagnoses Edson Lyn Malignant melanoma, [address] unspecified site [place] (HCC) [address] [address] rocedures Phone: CT NECK [phone] W/CONTRAST Encounter Details Date Type Department Care Team Description 06/25/2017 Orders Only [facility] Edson Lyn MD Malignant melanoma, Cancer Center - Exam [address] [place] unspecified site (HCC) [address] [place] [address] (Primary Dx) [place] [address] [phone] Social History Tobacco Use Types Packs/Day Years [...] as of this encounter Progress Notes * Amalia Funes, RN - 06/25/2017 9:[address] Lyn ordered a CT neck to include hindu and area of concerns. in this encounter Plan of Treatment Not on fileas of this encounter Results * CT NECK W/CONTRAST (06/26/2017 1:43 PM) Specimen Performing Laboratory [facility] RESULTS Impressions 1. Postsurgical changes along the right hindu with development of preauricular soft tissue nodules, [...] surgical clips are noted along the right hindu with associated soft tissue thickening of the [...] left scapula are not included on the srima-ad-fuuk. Thoracic inlet: Interval development of a 1.7 [...] surgical clips are noted along the right hindu with associated soft tissue thickening of the [...] left scapula are not included on the osdkl-sv-kvha. Thoracic inlet: Interval development of a 1.7 cm pleural-based nodule within the medial right lung apex, which is hypermetabolic on same-day PET/CT. Mildly enlarged right paratracheal lymph node has developed (series 2 image 85), also hypermetabolic on same-day PET/CT. IMPRESSION 1. Postsurgical changes along the right hindu with development of preauricular soft tissue nodules, [...] Polly Arzola M.D. on 06/26/2017 2:47 PM. in this encounter Visit Diagnoses Diagnosis Malignant melanoma, unspecified site (HCC) - Primary in this encounter
--- OUTSIDE RECORDS SUMMARY | 2017-08-05 15:14 | XMS REPORT | Encounter Summary ---
Author Author [facility] Organization [facility] Address Unknown Phone Unavailable Care Team Providers Care Electrician Second Name Role Phone PCP Unavailable Reason for Visit * Reason Comments Other Appointments and f/u in [place], [place] Encounter Details Date Type Department Care Team Description 06/30/2017 Telephone [facility] Kb North MD Other (Appointments and Cancer Center - [facility] Exam [address] f/u in [place], [place]) [address] [place] [address] [place] [address] [phone] Social History Tobacco Use Types Packs/Day Years [...] Telephone Encounter - Mildred Campbell RN - 06/30/2017 10:52 AM CDT Patient's mom left a message asking if plastics appointment still necessary on 07/[address] Sinclair and also wondering name of oncologist in [place] for patient to follow up with. Also wondering if appointments for this Friday were still good to go. Called patient's mom to let her know appointment with Dr. Sinclair has been cancelled per Dr. North and oncologist in [place] is Dr. Tracey Light. This RN called and spoke with Dr. Light's RN, faxed most recent clinic note and set tentative appointment with Dr. Light for 08/07 at 9 am. Faxed note to . Confirmed appointment times for this Friday. No further needs at this time. Encouraged her to call with any further questions or concerns. Patient's mom verbalized understanding. in this encounter Plan of Treatment Not on fileas of this encounter Visit Diagnoses Not on filein this encounter
--- OUTSIDE RECORDS SUMMARY | 2017-08-05 15:14 | XMS REPORT | Encounter Summary ---
Author Author [facility] Organization [facility] Address Unknown Phone Unavailable Care Team Providers Care Business Insight And Analytics Manager Name Role Phone PCP Unavailable Reason for Referral * Radiology Services Status Reason Specialty Diagnoses / Referred By Referred To Procedures Contact Contact New Request Radiology Diagnoses Edson Lyn Malignant melanoma, [address] unspecified site [place] (HCC) [place], [place] [address] rocedures Phone: CT NECK [phone] W/CONTRAST * Radiology Services Status Reason Specialty Diagnoses / Referred By Referred To Procedures Contact Contact New Request Radiology Diagnoses Edson Lny Malignant MD melanoma, [address] unspecified site [place] (HCC) [place], [place] [address] rocedures Phone: CT NECK [phone] W/CONTRAST * Radiology Services Status Reason Specialty Diagnoses / Referred By Referred To Procedures Contact Contact No Auth Needed Radiology Diagnoses Edson Lyn Kucc Ls Nuclear Malignant Med melanoma, [address] unspecified site [place] [facility] (HCC) [place] [facility] [place] [address] [facility] Phone: Phone: [place] PET SCAN [phone] [facility] Fax: (HEAD-TOES) [phone] CT HEAD WO/W CONTRAST * Radiology Services Status Reason Specialty Diagnoses / Referred By Referred To Procedures Contact Contact No Auth Needed Radiology Diagnoses Edson Lyn Kucc Ls Nuclear Malignant MD Med melanoma, [address] unspecified site [place] [facility] (HCC) [place], [place], [place] [address] rocedures Phone: Phone: NM PET SCAN [phone] [facility] Fax: (HEAD-TOES) [phone] CT HEAD WO/W CONTRAST Reason for Visit * Radiology Services Status Reason Specialty Diagnoses / Referred By Referred To Procedures Contact Contact No Auth Needed Radiology Diagnoses Edson Lyn katiana Ls Nuclear Malignant MD Med melanoma, [address] unspecified site [place] [facility] (HCC) [place] [facility] [place] [address] rocedures Phone: Phone: NM PET SCAN [phone] [facility] Fax: (HEAD-TOES) [phone] CT HEAD WO/W CONTRAST Encounter Details Date Type Department Care Team Description 06/26/2017 [facility] Edson Lyn MD Encounter Cancer Center Radiology [address] [place] [address] [place] [address] [place] [address] [phone] Social History Tobacco Use Types Packs/Day Years [...] needed. liqd NON-FORMULARY five times weekly. Pre-Workout [facility] approved oxyCODONE (ROXICODONE, Take 1-2 tablets by mouth [...] by mouth daily. as of this encounter Plan of Treatment Not on fileas of this encounter Results * CT NECK W/CONTRAST (06/26/2017 1:43 PM) Specimen Performing Laboratory [facility] RAD RESULTS Impressions 1. Postsurgical changes along the right evangelical with development of preauricular soft tissue nodules, [...] surgical clips are noted along the right evangelical with associated soft tissue thickening of the [...] left scapula are not included on the gokqd-uw-efof. Thoracic inlet: Interval development of a 1.7 [...] surgical clips are noted along the right evangelical with associated soft tissue thickening of the [...] left scapula are not included on the lwuxi-aa-qbbi. Thoracic inlet: Interval development of a 1.7 cm pleural-based nodule within the medial right lung apex, which is hypermetabolic on same-day PET/CT. Mildly enlarged right paratracheal lymph node has developed (series 2 image 85), also hypermetabolic on same-day PET/CT. IMPRESSION 1. Postsurgical changes along the right evangelical with development of preauricular soft tissue nodules, [...] Arzola M.D. on 06/26/2017 2:47 PM. * NM PET SCAN [facility] (HEAD-TOES) (06/26/2017 1:43 PM) Specimen Performing Laboratory [facility] RAD RESULTS Impressions 1. Postsurgical changes along the right evangelical with development of hypermetabolic preauricular soft tissue [...] changes are again noted along the right evangelical. Small hypermetabolic preauricular nodules are noted, with [...] changes are again noted along the right evangelical. Small hypermetabolic preauricular nodules are noted, with [...] IMPRESSION 1. Postsurgical changes along the right evangelical with development of hypermetabolic preauricular soft tissue [...] Polly Arzola M.D. on 06/26/2017 2:13 PM. in this encounter Visit Diagnoses Diagnosis Malignant melanoma, unspecified site (HCC) in this encounter Administered Medications Medication Order MAR Action Action Date Dose Rate Site iohexol (OMNIPAQUE-240) 240 mg/mL Given 06/26/2017 100 mL injection 100 mL 11:45 CDT 100 mL, Intravenous, ONCE, 1 dose, Heather 06/26/17 at 1145, NOTE: This is a HIGH ALERT Medication. RP DX F-18 FDG injection 15 millicurie Given 06/26/2017 17.7 15 millicurie, Intravenous, ONCE, 1 11:45 CDT millicuries dose, Heather 06/26/17 at 1145 in this encounter
--- OUTSIDE RECORDS SUMMARY | 2017-08-05 15:14 | XMS REPORT | Encounter Summary ---
Author Author [facility] Organization [facility] Address Unknown Phone Unavailable Care Team Providers Care Dining Room Hostess Name Role Phone PCP Unavailable Reason for Referral * Radiology Services Status Reason Specialty Diagnoses / Referred By Referred To Procedures Contact Contact No Auth Needed Radiology Diagnoses Edson Lyn, [facility] Nuclear Malignant MD Med melanoma, [address] unspecified site [place] [facility] (HCC) [place] [address] rocedures Phone: Phone: NM PET SCAN [phone] [facility] Fax: (HEAD-TOES) [phone] CT HEAD WO/W CONTRAST Encounter Details Date Type Department Care Team Description 06/24/2017 Orders Only [facility] Edson Lyn MD Malignant melanoma, Cancer Center - Exam [address] [place] unspecified site (HCC) [address] [place] [address] (Primary Dx) [place] [address] [phone] Social History Tobacco Use Types Packs/Day Years [...] as of this encounter Progress Notes * Ania Joyce - 06/24/2017 2:40 PM CDT pet scan @ [facility] 06-26-17 in this encounter Plan of Treatment Not on fileas of this encounter Results * NM PET SCAN [facility] (HEAD-TOES) (06/26/2017 1:43 PM) Specimen Performing Laboratory [facility] RAD RESULTS Impressions 1. Postsurgical changes along the right yarsani with development of hypermetabolic preauricular soft tissue [...] changes are again noted along the right yarsani. Small hypermetabolic preauricular nodules are noted, with [...] changes are again noted along the right yarsani. Small hypermetabolic preauricular nodules are noted, with [...] IMPRESSION 1. Postsurgical changes along the right yarsani with development of hypermetabolic preauricular soft tissue [...]
--- OUTSIDE RECORDS SUMMARY | 2017-08-05 15:14 | XMS REPORT | Encounter Summary ---
Author Author [facility] Organization [facility] Address Unknown Phone Unavailable Care Team Providers Care Music Librarian Name Role Phone PCP Unavailable Encounter Details Date Type Department Care Team Description 06/24/2017 Procedure Pass [facility] Radiology [address] [facility] [place] [address] Social History Tobacco Use Types Packs/Day Years Used Date Never Smoker Smokeless Tobacco: Never Used Alcohol Use Drinks/Week oz/Week Comments Yes 0 Standard 0.0 social drinks or equivalent Sex Assigned at Date Recorded Not on file as of this encounter Last Filed Vital Signs Vital Sign Reading Time Taken Blood Pressure - - Pulse - - Temperature - - Respiratory Rate - - Oxygen Saturation - - Inhaled Oxygen - - Concentration Weight 79.4 kg (175 lb) 06/26/2017 11:23 AM CDT Height - - Body Mass Index 25.11 06/26/2017 11:23 AM CDT in this encounter Functional Status Functional [...]
--- OUTSIDE RECORDS SUMMARY | 2017-08-05 15:14 | XMS REPORT | Encounter Summary ---
Author Author [facility] Organization [facility] Address Unknown Phone Unavailable Care Team Providers Care Emergency Communications Dispatcher Name Role Phone PCP Unavailable Encounter Details Date Type Department Care Team Description 06/25/2017 Orders Only [facility] John Osborn MD [facility] Exam [address] ENCOUNTER--DISREGARD [address] (Primary Dx) [place] [address] [place] [address] [phone] Social History Tobacco Use Types Packs/Day Years [...] fileas of this encounter Visit Diagnoses Diagnosis ERRONEOUS ENCOUNTER--DISREGARD - Primary in this encounter
--- OUTSIDE RECORDS SUMMARY | 2017-08-05 15:14 | XMS REPORT | Encounter Summary ---
Author Author [facility] Organization [facility] Address Unknown Phone Unavailable Care Team Providers Care E Commerce Architect Name Role Phone PCP Unavailable Reason for Visit * Reason Comments Heme/Onc Care New Patient Encounter Details Date Type Department Care Team Description 06/26/2017 Office Visit [facility] Kb North MD Malignant melanoma, [facility] [address] unspecified site (HCC) [address] [place] [address] [place] [address] [phone] Social History Tobacco Use Types Packs/Day Years Used Date Never Smoker Smokeless Tobacco: Never Used Alcohol Use Drinks/Week oz/Week Comments Yes 0 Standard 0.0 social drinks or equivalent Sex Assigned at Date Recorded Not on file as of this encounter Last Filed Vital Signs Vital Sign Reading Time Taken Blood Pressure 128/72 06/26/2017 4:30 PM CDT Pulse 66 06/26/2017 4:30 PM CDT Temperature - - Respiratory Rate 16 06/26/2017 4:30 PM CDT Oxygen Saturation 96% 06/26/2017 4:30 PM CDT Inhaled Oxygen - - Concentration Weight 81.2 kg (179 lb) 06/26/2017 4:30 PM CDT Height 177.8 cm (5' 10") 06/26/2017 4:30 PM CDT Body Mass Index 25.68 06/26/2017 4:30 PM CDT in this encounter Functional Status [...] impairment: No 02/18/2017 as of this encounter Instructions * Patient Instructions - Kierra Hardy - 06/26/2017 5:02 PM CDT We understand that your time is important and want your visit to be as timely as possible. In order for your appointments to occur as closely as possible to the scheduled time, please review the following additional instructions. ? Please arrive 15 minutes prior to your first scheduled appointment time to complete the registration process. ? Bring your photo ID and insurance card with you to check in o If your first appointment is with lab (blood draw) or with your provider, check in on the second floor (Main level). o If your appointment is for lab (blood draw) only, check in on the third floor. Dabrafenib Oral capsule What is this medicine? DABRAFENIB (da braf e nib) is a medicine that targets proteins in cancer cells and stops the cancer cells from growing. It is used to treat melanoma, a type of skin cancer. This medicine may be used for other purposes; ask your health care provider or pharmacist if you have questions. What should I tell my health care provider before I take this medicine? They need to know if you have any of these conditions: diabetes G6PD deficiency liver disease an unusual or allergic reaction to dabrafenib, other medicines, foods, dyes, or preservatives or trying to get breast-feeding How should I use this medicine? Take this medicine by mouth with a glass of water. Follow the directions on the prescription label. Take this medicine on an empty stomach, at least 1 hour before or 2 hours after food. Do not take with food. Do not take with grapefruit juice. Do not cut, crush, or chew this medicine. Avoid taking H2 blockers or antacids within 2 hours of taking this medicine. Take your medicine at regular intervals. Do not take it more often than directed. Do not stop taking except on your doctor's advice. Talk to your dam attendant regarding the use of this medicine in children. Special care may be needed. Overdosage: If you think you've taken too much of this medicine contact a poison control center or emergency room at once. NOTE: This medicine is only for you. Do not share this medicine with others. What if I miss a dose? If you miss a dose, take it as soon as you can. If your next dose is to be taken in less than 6 hours, then do not take the missed dose. Take the next dose at your regular time. Do not take double or extra doses. What may interact with this medicine? This medicine may interact with the following medications: carbamazepine certain medications for stomach problems like cimetidine, famotidine, ranitidine, esomeprazole, dexlansoprazole, lansoprazole, omeprazole, pantoprazole, and rabeprazole clarithromycin dexamethasone female hormones, like estrogens or progestins and control pills, patches, rings, or injections gemfibrozil grapefruit juice ketoconazole nefazodone phenobarbital phenytoin rifampin Graford Wort warfarin This list may not describe all possible interactions. Give your health care provider a list of all the medicines, herbs, non-prescription drugs, or dietary supplements you use. Also tell them if you smoke, drink alcohol, or use illegal drugs. Some items may interact with your medicine. What should I watch for while using this medicine? Visit your doctor or health ambulatory care for regular checks on your progress. Talk to your doctor about your risk of cancer. You may be more at risk for certain types of cancers if you take this medicine. Tell your doctor or health ambulatory care right away if you have any change in your eyesight. Do not become while taking this medicine or for 2 weeks after stopping it. Women should inform their doctor if they wish to become or think they might be . There is a potential for serious side effects to an unborn child. Talk to your health ambulatory care or pharmacist for more information. Do not breast-feed an while taking this medicine or for 2 weeks after stopping it. This medicine may interfere with the ability to have a child. You should talk with your doctor or health ambulatory care if you are concerned about your fertility. What side effects may I notice from receiving this medicine? Side effects that you should report to your doctor or health ambulatory care as soon as possible: allergic reactions like skin rash, itching or hives, swelling of the face, lips, or tongue changes in vision dizziness eye pain fever increased thirst increased urination redness, swelling, or sores on hands or feet Side effects that usually do not require medical attention (Report these to your doctor or health ambulatory care if they continue or are bothersome.): headache joint pain hair loss This list may not describe all possible side effects. Call your doctor for medical advice about side effects. You may report side effects to FDA at 0-846- POI-7962. Where should I keep my medicine? Store between 20 and 25 degrees C (68 and 77 degrees F). Your healthcare provider or pharmacist should throw away any unused medicine after the expiration date. Keep out of the reach of children. NOTE: This sheet is a summary. It may not cover all possible information. If you have questions about this medicine, talk to your doctor, pharmacist, or health care provider. NOTE:This sheet is a summary. It may not cover all possible information. If you have questions about this medicine, talk to your doctor, pharmacist, or health care provider. Copyright 2017 [employer] ([employer]) Trametinib Oral tablet What is this medicine? TRAMETINIB (tra me ti nib) is a medicine that targets proteins in cancer cells and stops the cancer cells from growing. It is used to treat certain types of melanoma, a skin cancer. This medicine may be used for other purposes; ask your health care provider or pharmacist if you have questions. What should I tell my health care provider before I take this medicine? They need to know if you have any of these conditions: eye disease, vision problems heart disease high blood pressure kidney disease liver disease an unusual or allergic reaction to trametinib, other medicines, foods, dyes, or preservatives or trying to get breast-feeding How should I use this medicine? Take this medicine by mouth with a glass of water. Follow the directions on the prescription label. Take this medicine on an empty stomach, at least 1 hour before or 2 hours after food. Do not take with food. Take your medicine at regular intervals. Do not take it more often than directed. Do not stop taking except on your doctor's advice. Talk to your dam attendant regarding the use of this medicine in children. Special care may be needed. Overdosage: If you think you've taken too much of this medicine contact a poison control center or emergency room at once. NOTE: This medicine is only for you. Do not share this medicine with others. What if I miss a dose? If you miss a dose, take it as soon as you can. If your next dose is to be taken in less than 12 hours, then do not take the missed dose. Take the next dose at your regular time. Do not take double or extra doses. What may interact with this medicine? Drug interactions have not been identified. Give your health care provider a list of all the medicines, herbs, non- prescription drugs, or dietary supplements you use. Also tell them if you smoke , drink alcohol, or use illegal drugs. Some items may interact with your medicine. What should I watch for while using this medicine? Visit your doctor or health ambulatory care for regular checks on your progress. Tell your doctor or health ambulatory care right away if you have any change in your eyesight. Do not become while taking this medicine or for 4 months after stopping it. Women should inform their doctor if they wish to become or think they might be . There is a potential for serious side effects to an unborn child. Talk to your health ambulatory care or pharmacist for more information. Do not breast-feed an infant while taking this medicine or for 4 months after stopping it. This medicine may interfere with the ability to have a child. You should talk with your doctor or health ambulatory care if you are concerned about your fertility. What side effects may I notice from receiving this medicine? Side effects that you should report to your doctor or health ambulatory care as soon as possible: allergic reactions like skin rash, itching or hives, swelling of the face, lips, or tongue breathing problems changes in vision cough dizziness fast, irregular heartbeat feeling faint or lightheaded redness, swelling, or sores on hands or feet swelling of the ankles Side effects that usually do not require medical attention (Report these to your doctor or health ambulatory care if they continue or are bothersome.): diarrhea sore throat stomach pain This list may not describe all possible side effects. Call your doctor for medical advice about side effects. You may report side effects to FDA at 1-953- FDA-8124. Where should I keep my medicine? Store between 2 and 8 degrees C (36 and 46 degrees F). Do not freeze. Keep this medicine in the original container. Throw away any unused medicine after the expiration date. Keep out of the reach of children. NOTE: This sheet is a summary. It may not cover all possible information. If you have questions about this medicine, talk to your doctor, pharmacist, or health care provider. NOTE:This sheet is a summary. It may not cover all possible information. If you have questions about this medicine, talk to your doctor, pharmacist, or health care provider. Copyright 2017 [employer] Ipilimumab Solution for injection What is this medicine? IPILIMUMAB (IP i WANG ue mab) is a monoclonal antibody. It is used to treat melanoma, a type of skin cancer. This medicine may be used for other purposes; ask your health care provider or pharmacist if you have questions. What should I tell my health care provider before I take this medicine? They need to know if you have any of these conditions: Fedscreek's disease blood in your stools (black or tarry stools) or if you have blood in your vomit eye disease, vision problems history of pancreatitis history of stomach bleeding immune system problems inflammatory bowel disease kidney disease liver disease lupus myasthenia gravis organ transplant rheumatoid arthritis sarcoidosis stomach or intestine problems thyroid disease tingling of the fingers or toes, or other nerve disorder an unusual or allergic reaction to ipilimumab, other medicines, foods, dyes, or preservatives or trying to get breast-feeding How should I use this medicine? This medicine is for infusion into a vein. It is given by a health ambulatory care in a hospital or clinic setting. A special MedGuide will be given to you before each treatment. Be sure to read this information carefully each time. Talk to your dam attendant regarding the use of this medicine in children. Special care may be needed. Overdosage: If you think you've taken too much of this medicine contact a poison control center or emergency room at once. NOTE: This medicine is only for you. Do not share this medicine with others. What if I miss a dose? It is important not to miss your dose. Call your doctor or health ambulatory care if you are unable to keep an appointment. What may interact with this medicine? Interactions are not expected. This list may not describe all possible interactions. Give your health care provider a list of all the medicines, herbs, non-prescription drugs, or dietary supplements you use. Also tell them if you smoke, drink alcohol, or use illegal drugs. Some items may interact with your medicine. What should I watch for while using this medicine? Tell your doctor or healthcare professional if your symptoms do not start to get better or if they get worse. Do not become while taking this medicine or for 3 months after stopping it. Women should inform their doctor if they wish to become or think they might be . There is a potential for serious side effects to an unborn child. Talk to your health ambulatory care or pharmacist for more information. Do not breast-feed an infant while taking this medicine or for 3 months after the last dose. Your condition will be monitored carefully while you are receiving this medicine. You may need blood work done while you are taking this medicine. What side effects may I notice from receiving this medicine? Side effects that you should report to your doctor or health ambulatory care as soon as possible: allergic reactions like skin rash, itching or hives, swelling of the face, lips, or tongue black, tarry stools bloody or watery diarrhea changes in vision dizziness eye pain fast, irregular heartbeat feeling anxious feeling faint or lightheaded, falls nausea, vomiting pain, tingling, numbness in the hands or feet redness, blistering, peeling or loosening of the skin, including inside the mouth signs and symptoms of liver injury like dark yellow or brown urine; general ill feeling or flu-like symptoms; light-colored stools; loss of appetite; nausea ; right upper belly pain; unusually weak or tired; yellowing of the eyes or skin unusual bleeding or bruising Side effects that usually do not require medical attention (Report these to your doctor or health ambulatory care if they continue or are bothersome.): headache loss of appetite trouble sleeping This list may not describe all possible side effects. Call your doctor for medical advice about side effects. You may report side effects to FDA at 8-520- FDA-8499. Where should I keep my medicine? This drug is given in a hospital or clinic and will not be stored at home. NOTE: This sheet is a summary. It may not cover all possible information. If you have questions about this medicine, talk to your doctor, pharmacist, or health care provider. NOTE:This sheet is a summary. It may not cover all possible information. If you have questions about this medicine, talk to your doctor, pharmacist, or health care provider. Copyright 2017 [employer] Nivolumab Solution for injection What is this medicine? NIVOLUMAB (louie VOL ue mab) is a monoclonal antibody. It is used to treat melanoma, lung cancer, kidney cancer, and Hodgkin lymphoma. This medicine may be used for other purposes; ask your health care provider or pharmacist if you have questions. What should I tell my health care provider before I take this medicine? They need to know if you have any of these conditions: diabetes immune system problems kidney disease liver disease lung disease organ transplant stomach or intestine problems thyroid disease an unusual or allergic reaction to nivolumab, other medicines, foods, dyes, or preservatives or trying to get breast-feeding How should I use this medicine? This medicine is for infusion into a vein. It is given by a health ambulatory care in a hospital or clinic setting. A special MedGuide will be given to you before each treatment. Be sure to read this information carefully each time. Talk to your dam attendant regarding the use of this medicine in children. Special care may be needed. Overdosage: If you think you have taken too much of this medicine contact a poison control center or emergency room at once. NOTE: This medicine is only for you. Do not share this medicine with others. What if I miss a dose? It is important not to miss your dose. Call your doctor or health ambulatory care if you are unable to keep an appointment. What may interact with this medicine? Interactions have not been studied. Give your health care provider a list of all the medicines, herbs, non- prescription drugs, or dietary supplements you use. Also tell them if you smoke , drink alcohol, or use illegal drugs. Some items may interact with your medicine. What should I watch for while using this medicine? This drug may make you feel generally unwell. Continue your course of treatment even though you feel ill unless your doctor tells you to stop. You may need blood work done while you are taking this medicine. Do not become while taking this medicine or for 5 months after stopping it. Women should inform their doctor if they wish to become or think they might be . There is a potential for serious side effects to an unborn child. Talk to your health ambulatory care or pharmacist for more information. Do not breast-feed an infant while taking this medicine. What side effects may I notice from receiving this medicine? Side effects that you should report to your doctor or health ambulatory care as soon as possible: allergic reactions like skin rash, itching or hives, swelling of the face, lips, or tongue black, tarry stools blood in the urine bloody or watery diarrhea changes in vision change in sex drive changes in emotions or moods chest pain confusion cough decreased appetite diarrhea facial flushing feeling faint or lightheaded fever, chills hair loss hallucination, loss of contact with reality headache irritable joint pain loss of memory muscle pain muscle weakness seizures shortness of breath signs and symptoms of high blood sugar such as dizziness; dry mouth; dry skin ; fruity breath; nausea; stomach pain; increased hunger or thirst; increased urination signs and symptoms of kidney injury like trouble passing urine or change in the amount of urine signs and symptoms of liver injury like dark yellow or brown urine; general ill feeling or flu-like symptoms; light-colored stools; loss of appetite; nausea ; right upper belly pain; unusually weak or tired; yellowing of the eyes or skin stiff neck swelling of the ankles, feet, hands weight gain Side effects that usually do not require medical attention (report to your doctor or health ambulatory care if they continue or are bothersome): bone pain constipation tiredness vomiting This list may not describe all possible side effects. Call your doctor for medical advice about side effects. You may report side effects to FDA at 3-218- FDA-1304. Where should I keep my medicine? This drug is given in a hospital or clinic and will not be stored at home. NOTE: This sheet is a summary. It may not cover all possible information. If you have questions about this medicine, talk to your doctor, pharmacist, or health care provider. NOTE:This sheet is a summary. It may not cover all possible information. If you have questions about this medicine, talk to your doctor, pharmacist, or health care provider. Copyright 2017 [employer] in this encounter Progress Notes * Kb North MD - 06/26/2017 4:30 PM CDT Formatting of this note may be different from the original. Name: Nickolas Mccurdy : 1995 AGE: 21 y.o. DATE OF SERVICE: 06/26/2017 Subjective: Reason for Visit: melanoma Heme/Onc Care and New Patient Nickolas Mccurdy is a 21 y.o. male. Melanoma of scalp (HCC) Staging form: Melanoma of the Skin, AJCC 7th Edition - Clinical: Stage Unknown (T4b, NX, M0) - Unsigned History of Present Illness Nickolas Mccurdy presents for a second opinion regarding a diagnosis of melanoma. He has been followed at the [facility] office, first by Dr. Walter Mathias, most recently by Jaleel Lyn MD. 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 for the most part is doing well. He denies pain. He has full energy. There are no signs or symptoms consistent with infection. At this time he is in school at [employer]. He is taking business classes. Review of Systems Constitutional: Negative for appetite [...] Negative for arthralgias, myalgias and neck stiffness. Negative bone pain Skin: Negative for rash. Neurological: Negative for dizziness, speech difficulty, weakness, light- headedness and numbness. Hematological: Negative for adenopathy. Does not bruise/bleed easily. Psychiatric/Behavioral: Negative for confusion, dysphoric mood and sleep disturbance. The patient is not nervous/anxious. All other systems reviewed and are negative. Objective: cetirizine (ZYRTEC) 10 mg tablet Take 10 mg by mouth every morning. clindamycin(+) (CLEOCIN T; CLINDAMAX) 1 % topical lotion DAPSONE (ACZONE TP) Apply topically to affected area. diphenhydrAMINE HCl (ZZZQUIL) 50 mg/30 mL liqd Take by mouth at bedtime as needed. NON-FORMULARY five times weekly. Pre-Workout [facility] approved oxyCODONE (ROXICODONE, OXY-IR) 5 mg tablet Take 1-2 tablets by mouth every 4 hours as needed for Pain Earliest Fill Date: 05/13/17 oxyCODONE (ROXICODONE, OXY-IR) 5 mg tablet Take 1 tablet by mouth every 4 hours as needed for Pain Protein powd Take by mouth. vitamins, multiple tablet Take 1 Tab by mouth daily. Vitals: 06/26/17 1630 BP: 128/72 Pulse: 66 Resp: 16 SpO2: 96% Weight: 81.2 kg (179 lb) Height: 177.8 cm (70") Body mass index is 25.68 kg/(m^2). Pain Score: Zero Pain Addressed: N/A [...] and dry. No rash noted. No erythema. Post surgery, right confucianist area, no evidence of local recurrence Psychiatric: He has a normal mood and affect. His behavior is normal. Judgment and thought content normal. Vitals reviewed. CBC w/Diff Lab Results Component Value Date/Time WBC 6.7 06/20/2017 01:34 PM RBC 4.88 06/20/2017 01:34 PM HGB 15.3 06/20/2017 01:34 PM HCT 44.7 06/20/2017 01:34 PM MCV 91.5 06/20/2017 01:34 PM MCH 31.2 06/20/2017 01:34 PM MCHC 34.1 06/20/2017 01:34 PM RDW 14.3 06/20/2017 01:34 PM PLTCT 179 06/20/2017 01:34 PM MPV 9.0 06/20/2017 01:34 PM Lab Results Component Value Date/Time NEUT 59 06/20/2017 01:34 PM ANC 4.00 06/20/2017 01:34 PM LYMA 29 06/20/2017 01:34 PM ALC 1.90 06/20/2017 01:34 PM MARITZA 9 06/20/2017 01:34 PM AMC 0.60 06/20/2017 01:34 PM EOSA 2 06/20/2017 01:34 PM AEC 0.10 06/20/2017 01:34 PM BASA 1 06/20/2017 01:34 PM ABC 0.10 06/20/2017 01:34 PM Comprehensive Metabolic Profile Lab Results Component Value Date/Time NA 136 (L) 06/20/2017 01:34 PM K 4.2 06/20/2017 01:34 PM CL 104 06/20/2017 01:34 PM CO2 25 06/20/2017 01:34 PM GAP 7 06/20/2017 01:34 PM BUN 22 06/20/2017 01:34 PM CR 1.12 06/20/2017 01:34 PM GLU 91 06/20/2017 01:34 PM Lab Results Component Value Date/Time CA 9.3 06/20/2017 01:34 PM ALBUMIN 4.2 06/20/2017 01:34 PM TOTPROT 6.8 06/20/2017 01:34 PM ALKPHOS 50 06/20/2017 01:34 PM AST 19 06/20/2017 01:34 PM ALT 18 06/20/2017 01:34 PM TOTBILI 0.4 06/20/2017 01:34 PM GFR >60 06/20/2017 01:34 PM GFRAA >60 06/20/2017 01:34 PM Other labs No results found for: ESR Lab Results Component Value Date/Time LDH 160 01/20/2017 10:19 AM IMPRESSION: 1. Postsurgical changes along the right confucianist with development of preauricular soft tissue nodules, [...] see same day PET/CT for further discussion. IMPRESSION: 1. Postsurgical changes along the right confucianist with development of hypermetabolic preauricular soft tissue [...] mass is visualized on the CT images. Assessment and Plan: We discussed the results of the recent PET scan. Problem Melanoma (Hcc) Melanoma (HCC) Now with recurrence disease right cervical area. PET shows disease as follows: 1. Right cervical and mediastinal lymph node 2. Right upper lobe subpleural nodule 3. Bone: left scapula, spine, sacrum and sternum, compatible with osseous metastatic disease. 4. 4. Development of a hypermetabolic left hepatic lobe lesion, compatible with hepatic metastatic disease. PLAN: 1. We reviewed the results of the recent PET scan. This scan shows disease in the right upper lobe, liver, and bony areas including left scapula, spine, sacrum and sternum. 2. We discussed treatment options. This melanoma is positive. BRAF mutation. there is 3. Nickolas is a candidate for immunotherapy, he is also a candidate for targeted therapy. I would recommend broadening the immunotherapy to include [place]. Nickolas will like to proceed with immunotherapy. 4. At some point, Nickolas may be a candidate for targeted therapy. 5. His insurance company to verify payment for immunotherapy. He would like to move ahead as soon as possible. 6. Total time: 55 minutes, with > 50% time spent counseling with regard to disease status, treatment options, necessity for further testing, and outlining a follow up plan. This conversation was had with the patient, and his parents. in this encounter Miscellaneous Notes * Assessment & Plan Note - Kb North MD - 06/29/2017 12:53 PM CDT Associated Problem(s): Melanoma (HCC) Now with recurrence disease right cervical area. PET shows disease as follows: 1. Right cervical and mediastinal lymph node 2. Right upper lobe subpleural nodule 3. Bone: left scapula, spine, sacrum and sternum, compatible with osseous metastatic disease. 4. 4. Development of a hypermetabolic left hepatic lobe lesion, compatible with hepatic metastatic disease. in this encounter Plan of Treatment Not on fileas of this encounter Visit Diagnoses Diagnosis Malignant melanoma, unspecified site (HCC) in this encounter
--- OUTSIDE RECORDS SUMMARY | 2017-08-05 15:14 | XMS REPORT | Encounter Summary ---
Author Author [facility] Organization [facility] Address Unknown Phone Unavailable Care Team Providers Care Bolt Labeler Name Role Phone PCP Unavailable Encounter Details Date Type Department Care Team Description 06/27/2017 Orders Only [facility] Brook Bose APRN Cancer Center - WW Exam [address] [place] [address] [place] [address] [phone] Social History Tobacco Use Types Packs/Day Years [...]
--- OUTSIDE RECORDS SUMMARY | 2017-08-05 15:14 | XMS REPORT | Encounter Summary ---
Author Author [facility] Organization [facility] Address Unknown Phone Unavailable Care Team Providers Care Supervisor Customer Records Division Name Role Phone PCP Unavailable Encounter Details Date Type Department Care Team Description 06/20/2017 [facility] Kimberley Meeks APRN Encounter Cancer Center - Lab [address] [place] [address] [place] [address] [phone] Social History Tobacco Use Types Packs/Day Years [...] needed. liqd NON-FORMULARY five times weekly. Pre-Workout [facility] approved oxyCODONE (ROXICODONE, Take 1-2 tablets by [...] on fileas of this encounter Results * TSH WITH FREE T4 REFLEX (06/20/2017 1:34 PM) Component Value Ref Range TSH 0.489 0.35 - 5.00 MCU/ML Specimen Performing Laboratory Blood MAIN LAB [address] [place] [address] * COMPREHENSIVE METABOLIC PANEL (06/20/2017 1:34 PM) Component Value Ref Range Sodium 136 (L) 137 - 147 MMOL/L Potassium 4.2 3.5 - 5.1 MMOL/L Chloride 104 98 - 110 MMOL/L Glucose 91 70 - 100 MG/DL Blood Urea Nitrogen 22 7 - 25 MG/DL Creatinine 1.12 0.4 - 1.24 MG/DL Calcium 9.3 8.5 - 10.6 MG/DL Total Protein 6.8 6.0 - 8.0 G/DL Total Bilirubin 0.4 0.3 - 1.2 MG/DL Albumin 4.2 3.5 - 5.0 G/DL Alk Phosphatase 50 25 - 110 U/L AST (SGOT) 19 7 - 40 U/L CO2 25 21 - 30 MMOL/L ALT (SGPT) 18 7 - 56 U/L Anion Gap 7 3 - 12 eGFR Non >60 >60 [...] Pharmacist for questions. Specimen Performing Laboratory Blood [facility] [address] [place] [address] * CBC AND DIFF (06/20/2017 1:34 PM) Component Value Ref Range White Blood Cells 6.7 4.5 - 11.0 K/UL RBC 4.88 4.4 - 5.5 M/UL Hemoglobin 15.3 13.5 - 16.5 GM/DL Hematocrit 44.7 40 - 50 % MCV 91.5 80 - 100 FL MCH 31.2 26 - 34 PG MCHC 34.1 32.0 - 36.0 G/DL RDW 14.3 11 - 15 % Platelet Count 179 150 - 400 K/UL MPV 9.0 7 - 11 FL Neutrophils 59 41 - 77 % Lymphocytes 29 24 - 44 % Monocytes 9 4 - 12 % Eosinophils 2 0 - 5 % Basophils 1 0 - 2 % Absolute Neutrophil Count 4.00 1.8 - 7.0 K/UL Absolute Lymph Count 1.90 1.0 - 4.8 K/UL Absolute Monocyte Count 0.60 0 - 0.80 K/UL Absolute Eosinophil Count 0.10 0 - 0.45 K/UL Absolute Basophil Count 0.10 0 - 0.20 K/UL Specimen Performing Laboratory Blood [facility] [address] [facility] [place] [address] in this encounter Visit Diagnoses Diagnosis Malignant melanoma, unspecified site (HCC) in this encounter
--- OUTSIDE RECORDS SUMMARY | 2017-08-05 15:15 | XMS REPORT | Encounter Summary ---
Author Author [facility] Organization [facility] Address Unknown Phone Unavailable Care Team Providers Care Mat Machine Operator Name Role Phone PCP Unavailable Reason for Visit * Reason Comments Post Operative Visit melanoma of scalp Encounter Details Date Type Department Care Team Description 05/23/2017 Office Visit [facility] Ralf Velez MD Melanoma of scalp (HCC) Physicians - Plastic [address] [facility] (Primary Dx) Surgery [address] [place] [address] [facility] [phone] [place] [address] Social History Tobacco Use Types Packs/Day Years Used Date Never Smoker Smokeless Tobacco: Never Used Tobacco Cessation: Counseling Given: Yes Alcohol Use Drinks/Week oz/Week Comments Yes 0 Standard 0.0 social drinks or equivalent Sex Assigned at Date Recorded Not on file as of this encounter Last Filed Vital Signs Vital Sign Reading Time Taken Blood Pressure 134/87 05/23/2017 9:30 AM CDT Pulse 73 05/23/2017 9:30 AM CDT Temperature - - Respiratory Rate - - Oxygen Saturation - - Inhaled Oxygen - - Concentration Weight 79.4 kg (175 lb) 05/23/2017 9:30 AM CDT Height 177.8 cm (5' 10") 05/23/2017 9:30 AM CDT Body Mass Index 25.11 05/23/2017 9:30 AM CDT in this encounter Functional Status [...] as of this encounter Progress Notes * Ralf Velez MD - 05/23/2017 9:15 AM CDT Formatting of this note may be different from the original. Date of Service: 05/23/2017 Subjective: Nickolas Mccurdy is a 21 y.o. male. History of Present Illness Right scalp melanoma excision and skin graft reconstruction. No concerns. Review of Systems Objective: cetirizine (ZYRTEC) 10 mg tablet Take 10 mg by mouth every morning. DAPSONE (ACZONE TP) Apply topically to affected area. diphenhydrAMINE HCl (ZZZQUIL) 50 mg/30 mL liqd Take by mouth at bedtime as needed. NON-FORMULARY five times weekly. Pre-Workout [facility] approved oxyCODONE (ROXICODONE, OXY-IR) 5 mg tablet Take 1-2 tablets by mouth every 4 hours as needed for Pain Earliest Fill Date: 05/13/17 oxyCODONE (ROXICODONE, OXY-IR) 5 mg tablet Take 1 tablet by mouth every 4 hours as needed for Pain Protein powd Take by mouth. vitamins, multiple tablet Take 1 Tab by mouth daily. Vitals: 05/23/17 0930 BP: 134/87 Pulse: 73 Weight: 79.4 kg (175 lb) Height: 177.8 cm (70") Body mass index is 25.11 kg/(m^2). Physical Exam Bolster in place. With post remove full take of skin graft. Suture line closed. Assessment and Plan: Wound care talked. Healing fine. Problem Melanoma of Scalp (Hcc) in this encounter Plan of Treatment Not on fileas of this encounter Visit Diagnoses Diagnosis Melanoma of scalp (HCC) - Primary Malignant melanoma of skin of scalp and neck in this encounter
--- OUTSIDE RECORDS SUMMARY | 2017-08-05 15:15 | XMS REPORT | Encounter Summary ---
Author Author [facility] Organization [facility] Address Unknown Phone Unavailable Care Team Providers Care Dictaphone Transcriber Name Role Phone PCP Unavailable Encounter Details Date Type Department Care Team Description 06/11/2017 Orders Only [facility] Edson Lyn MD Malignant melanoma, Cancer Center - [place] Exam [address] unspecified site (HCC) [address] [place] [address] (Primary Dx) [place] [address] [phone] Social History Tobacco Use Types Packs/Day Years [...] as of this encounter Plan of Treatment Name Priority Associated Diagnoses Order Schedule CBC AND DIFF Routine Malignant melanoma, Every 2 Weeks for 2 unspecified site (HCC) Occurrences starting 06/11/2017 until 09/07/2018 COMPREHENSIVE METABOLIC PANEL Routine Malignant melanoma, Every 2 Weeks for 2 unspecified site (HCC) Occurrences starting 06/11/2017 until 09/07/2018 TSH WITH FREE T4 REFLEX Routine Malignant melanoma, Every 2 Weeks for 2 unspecified site (HCC) Occurrences starting 06/11/2017 until 09/07/2018 as of this encounter Visit Diagnoses Diagnosis Malignant melanoma, unspecified site (HCC) - Primary in this encounter
--- OUTSIDE RECORDS SUMMARY | 2017-08-05 15:15 | XMS REPORT | Encounter Summary ---
Author Author [facility] Organization [facility] Address Unknown Phone Unavailable Care Team Providers Care Setter Off Name Role Phone PCP Unavailable Reason for Referral * Radiology Services Status Reason Specialty Diagnoses / Referred By Referred To Procedures Contact Contact No Auth Needed Radiology Diagnoses Mónica Waddell, 2 Ir Malignant [address]AD [address] melanoma of face [address] [place], [place] eyelid, nose, [place] [address] lip, and ear [place], [place] Phone: ([facility]) [address] P Phone: rocedures [phone] IR PERCUTANEOUS Fax: BIOPSY [phone] Encounter Details Date Type Department Care Team Description 06/13/2017 Orders Only [facility] Mónica Waddell PA-C Malignant melanoma of Cancer Center - [facility] Exam [address] face excluding eyelid, [address] [place] [address] nose, lip, and ear ([facility]) [place] [address] [place] [address] (Primary Dx) [phone] Social History Tobacco Use Types Packs/Day Years [...] on fileas of this encounter Results * IR PERCUTANEOUS BIOPSY (06/18/2017 3:46 PM) [...] Marco Hernandez M.D. on 06/18/2017 5:54 PM. in this encounter Visit Diagnoses Diagnosis Malignant melanoma of face excluding eyelid, nose, lip, and ear (HCC) - Primary in this encounter
--- OUTSIDE RECORDS SUMMARY | 2017-08-05 15:15 | XMS REPORT | Encounter Summary ---
Author Author [facility] Organization [facility] Address Unknown Phone Unavailable Care Team Providers Care Licensed Embalmer Supervisor Name Role Phone PCP Unavailable Reason for Visit * Reason Comments Heme/Onc Care Encounter Details Date Type Department Care Team Description 06/05/2017 Office Visit [facility] Edson Lyn MD Malignant melanoma of Cancer Center - [place] Exam [address] scalp (HCC) (Primary Dx) [address] [place] [address] [place] [address] [phone] Social History Tobacco Use Types Packs/Day Years Used Date Never Smoker Smokeless Tobacco: Never Used Alcohol Use Drinks/Week oz/Week Comments Yes 0 Standard 0.0 social drinks or equivalent Sex Assigned at Date Recorded Not on file as of this encounter Last Filed Vital Signs Vital Sign Reading Time Taken Blood Pressure 138/76 06/05/2017 8:56 AM CDT Pulse 57 06/05/2017 8:56 AM CDT Temperature 36.4 C (97.5 F) 06/05/2017 8:56 AM CDT Respiratory Rate 20 06/05/2017 8:56 AM CDT Oxygen Saturation 99% 06/05/2017 8:56 AM CDT Inhaled Oxygen - - Concentration Weight 81.3 kg (179 lb 3.2 oz) 06/05/2017 8:56 AM CDT Height 177.8 cm (5' 10") 06/05/2017 8:56 AM CDT Body Mass Index 25.71 06/05/2017 8:56 AM CDT in this encounter Functional Status [...] as of this encounter Progress Notes * Edson Lyn MD - 06/05/2017 9:00 AM CDT Formatting of this note may be different from the original. Date of Service: 06/05/2017 Reason for Visit: Heme/Onc Care Melanoma of scalp (HCC) Staging form: Melanoma of the Skin, AJCC 7th Edition - Clinical: T4b, NX, M0 - Unsigned History of Present Illness Nickolas Mccurdy is a 21 y.o. male Mr. Mccurdy is a pleasant 21 y.o. male referred by Dr. Benjamín Herron for evaluation of 4.6 mm melanoma located on the right scalp. He had noticed about 12 months prior to presentation that there was a sore on the right side of the scalp in the temporal area about a centimeter in diameter and if it brushed against his ball cap or if he rubbed it , it might bleed or scab over. He sought medical attention and had a biopsy of this right central frontal scalp lesion that revealed an invasive malignant melanoma focally ulcerated extending into a depth of at least 4.60 mm with extension to the lateral and deep margins. On 05/10/2016, I performed a wide local excision of the right baptist, intraoperative lymphatic mapping, right parotid and right deep cervical sentinel lymph node biopsy. Pathology revealed residual melanoma of 1.9 mm that was completely excised; right parotid 0/2 LNs; right deep cervical 1/1 LN positive for metastatic melanoma. He was taken back to the OR on 06/20/2016 for a right modified radical neck dissection. Pathology showed no melanoma in additional 28 lymph nodes. He initiated interferon July 2016 and plan is for him to receive this for total of 18 months. He recently noted increasing thickening in an area of scar on his right baptist and PET scan showed increased uptake. He had excision of this lesion on apr 2017 which came back as Metastatic melanoma, focally extending to deep margin. He subsequently had a wider excision on May 13, 2017 which showed no evidence of disease. Analytical Results DETECTED. 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 Interval history: He is recovering well after the surgery. He felt a small node just anterior to the earlobe and wanted to know if this is related to cancer. He has no fevers chills. His scar has healed well. Personal history: He has a younger brother. He goes to [employer]. 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 He likes playing baseball. Past Medical History: Diagnosis Date Cancer (HCC) melanoma scalp Past Surgical History: Procedure Laterality Date HX WISDOM TEETH EXTRACTION 2011 MALIGNANT SKIN LESION EXCISION Right 05/10/2016 WIDE LOCAL EXCISION OF RIGHT FOREHEAD, INTRAOPERATIVE LYMPHATIC MAPPING; PLACEMENT OF EZ- DERM performed by [facility] LYMPH NODE BIOPSY Right 05/10/2016 NECK SENTINEL LYMPH NODE BIOPSY performed by John Osborn MD at [facility]/ [facility]iop [place] ADJT/REARRGMT SCALP/ARM/LEG 10.1-30.0 SQ CM Right 05/16/2016 LOCAL TISSUE REARRANGEMENT SCALP performed by Ralf Velez MD at [facility]/ [facility]iop [place] CERVICAL LYMPHADEC MODIFIED RADICAL NECK DSJ Right 06/20/2016 RIGHT MODIFIED RADICAL NECK DISSECTION performed by John Osborn MD at [facility] [place] ADJT/REARRGMT SCALP/ARM/LEG 10.1-30.0 SQ CM Right 08/28/2016 SCAR REVISION SCALP AND NECK WITH LOCAL TISSUE REARRANGEMENT performed by Ralf Velez MD at [facility] [place] EXCISION MALIGNANT LESION S/N/H/F/G >4.0 CM Right 04/15/2017 EXCISION OF RIGHT RASTAFARI MASS performed by John Osborn MD at [facility]/ Periop [place] ADJT/REARRGMT SCALP/ARM/LEG 10.1-30.0 SQ CM Right 04/15/2017 LOCAL TISSUE REARRANGEMENT performed by Ralf Velez MD at [facility]iop [place] EXCISION MALIGNANT LESION S/N/H/F/G >4.0 CM Right 05/13/2017 WIDE LOCAL EXCISION OF RIGHT RASTAFARI performed by John Osborn MD at [facility]/ Periop [place] SPLIT AGRFT F/S/N/H/F/G/M/D GT 1ST 100 CM/</1 % Left 05/13/2017 SPLIT THICKNESS SKIN GRAFT performed by Ralf Velez MD at [facility] [place] ADJT TIS TRNSFR/REARGMT SCALP/ARM/LEG 10 SQ CM/< Right 05/13/2017 LOCAL TISSUE REARRANGEMENT RIGHT RASTAFARI 5X5 CM, SPLIT THICKNESS SKIN GRAFT 25 CM2 performed by Ralf Velez MD at [facility] Family History Problem Relation Age of Onset Depression Maternal Grandmother Heart Disease Maternal Grandfather No Known Allergies Social History Social History Narrative Review of Systems Constitutional: Negative for appetite change and fatigue. HENT: Negative for facial swelling. Eyes: Negative. Respiratory: Negative. Cardiovascular: Negative. Negative for palpitations and leg swelling. Gastrointestinal: Negative. Negative for abdominal distention. Genitourinary: Negative. Negative for difficulty urinating, dysuria and frequency. Musculoskeletal: Positive for arthralgias. Negative for back pain and neck pain. Skin: Multiple skin moles which are all stable all over the body no changes in size or color. Skin over the forehead and right baptist areas shows there is a scar frandy and surgical incision noted. Neck surgical incisions noted. Neurological: Negative for dizziness, numbness and headaches. Hematological: Negative for adenopathy. Does not bruise/bleed easily. Psychiatric/Behavioral: Negative for agitation, behavioral problems and confusion. Objective: cetirizine (ZYRTEC) 10 mg tablet Take 10 mg by mouth every morning. clindamycin(+) (CLEOCIN T; CLINDAMAX) 1 % topical lotion DAPSONE (ACZONE TP) Apply topically to affected area. diphenhydrAMINE HCl (ZZZQUIL) 50 mg/30 mL liqd Take by mouth at bedtime as needed. NON-FORMULARY five times weekly. Pre-Workout [facility] approved oxyCODONE (ROXICODONE, OXY-IR) 5 mg tablet Take 1-2 tablets by mouth every 4 hours as needed for Pain Earliest Fill Date: 05/13/17 oxyCODONE (ROXICODONE, OXY-IR) 5 mg tablet Take 1 tablet by mouth every 4 hours as needed for Pain Protein powd Take by mouth. vitamins, multiple tablet Take 1 Tab by mouth daily. Vitals: 06/05/17 0856 BP: 138/76 Pulse: 57 Resp: 20 Temp: 36.4 C (97.5 F) TempSrc: Oral SpO2: 99% Weight: 81.3 kg (179 lb 3.2 oz) Height: 177.8 cm (70") Body mass index is 25.71 kg/(m^2). Pain Score: Zero Pain Addressed: Patient to call office if pain not relieved or worsened Patient Evaluated for a Clinical Trial: Patient not eligible for a treatment trial (including does not qualify, Getting standard of care, not needing treatment, needs palliative care, in remission). Eastern Cooperative Oncology Group performance status is 0, Fully active, able to carry on all pre-disease performance without restriction. Physical Exam Constitutional: He is oriented to person, place, and time. HENT: Head: Normocephalic and atraumatic. Eyes: EOM are normal. No scleral icterus. Neck: Normal range of motion. Neck supple. No thyromegaly present. Cardiovascular: Normal rate and regular rhythm. Pulmonary/Chest: Effort normal. No respiratory distress. Abdominal: Soft. He exhibits no distension. There is no tenderness. Musculoskeletal: He exhibits no edema or deformity. Neurological: He is alert and oriented to person, place, and time. Skin: Skin is warm. Multiple skin moles which are all stable all over the body no changes in size or color. Skin over the forehead and right baptist areas shows there is a scar frandy and surgical incision noted. Neck surgical incisions noted. Examination of the nodule anterior to the earlobe on the right side suggests this most likely a temporomandibular joint and no lymph node or other soft tissue mass. It is hard to palpate, fixed like a bone consistency. Psychiatric: He has a normal mood and affect. His behavior is normal. Nursing note and vitals reviewed. CBC w/DIFF CBC with Diff Latest Ref Rng & Units 05/23/2017 04/14/2017 03/21/2017 02/19/201701/20 WBC 4.5 - 11.0 K/UL 7.6 4.1(L) 8.0 5.0 3.5(L) RBC 4.4 - 5.5 M/UL 5.47 4.97 4.46 5.03 5.10 HGB 13.5 - 16.5 GM/DL 16.5 15.1 13.6 14.8 15.2 HCT 40 - 50 % 49.8 44.7 39.0(L) 44.3 43.8 MCV 80 - 100 FL 91.1 89.9 87.5 88.2 86.0 MCH 26 - 34 PG 30.1 30.5 30.6 29.4 29.7 MCHC 32.0 - 36.0 G/DL 33.1 33.9 35.0 33.3 34.6 RDW 11 - 15 % 13.7 14.2 13.8 13.7 12.8 PLT 150 - 400 K/UL 248 130(L) 143(L) 141(L) 120(L) MPV 7 - 11 FL 8.4 9.3 9.1 9.5 9.2 NEUT 41 - 77 % 68 52 85(H) 79(H) 68 ANC 1.8 - 7.0 K/UL 5.10 2.20 6.90 4.00 2.30 LYMA 24 - 44 % 23(L) 33 5(L) 10(L) 21(L) ALYM 1.0 - 4.8 K/UL 1.80 1.30 0.40(L) 0.50(L) 0.70(L) MARITZA 4 - 12 % 8 14(H) 9 8 10 AMONO 0 - 0.80 K/UL 0.60 0.60 0.70 0.40 0.30 EOSA 0 - 5 % 1 1 1 1 1 AEOS 0 - 0.45 K/UL 0.10 0.00 0.00 0.00 0.00 BASA 0 - 2 % 0 0 0 2 0 ABAS 0 - 0.20 K/UL 0.00 0.00 0.00 0.10 0.00 Comprehensive Metabolic Profile CMP Latest Ref Rng & Units 05/23/2017 04/14/2017 03/21/2017 02/19/2017 01/20/2017 NA 137 - 147 MMOL/L 138 139 135(L) 140 139 K 3.5 - 5.1 MMOL/L 4.4 4.3 4.1 4.3 4.1 CL 98 - 110 MMOL/L 103 108 103 107 106 CO2 21 - 30 MMOL/L 27 25 25 27 27 GAP 3 - 12 8 6 7 6 6 BUN 7 - 25 MG/DL 17 14 17 15 15 CR 0.4 - 1.24 MG/DL 0.98 1.01 1.12 0.93 1.02 GLUX 70 - 100 MG/DL 93 92 119(H) 75 112(H) CA 8.5 - 10.6 MG/DL 10.3 9.3 9.5 9.3 9.3 TP 6.0 - 8.0 G/DL 8.0 7.5 7.1 7.2 7.2 ALB 3.5 - 5.0 G/DL 4.7 4.4 4.4 4.4 4.4 ALKP 25 - 110 U/L 59 63 46 55 63 ALT 7 - 56 U/L 20 17 21 22 20 TBILI 0.3 - 1.2 MG/DL 0.5 0.6 0.6 0.5 0.8 GFR >60 mL/min >60 >60 >60 >60 >60 GFRAA >60 mL/min >60 >60 >60 >60 >60 Assessment and Plan: Patient Nickolas Mccurdy is a 21-year-old white male with past medical history of melanoma of the right temporal region with 1 sentinel lymph node involvement status post resection and radical neck dissection on the right side. He has started pegylated interferon in July 2016. He has been tolerating it well. He has recently had a nodule in the surgical scar area and it was positive on the PET scan. It was resected and pathology was positive for melanoma. Subsequently he underwent a wide resection and there was no residual melanoma in the subsequent pathology specimen. He is here for follow-up after the surgery. We talked about his BRAF mutation being positive. Since he has progressed while being on interferon, we should stop it. We talked about immunotherapy with nivolumab vs dabrafenib/tremitinib for locally recurrent/ metastatic melanoma at the site of previous surgery. I have given them information about the both and I shall await for them to decide on which therapy they would like to choose. I should set up a nurse practitioner appointment in a week to 10 days and I will see him midway through the first cycle to evaluate for symptom check. I explained the common side effects of each of these treatments have given him the recently published articles in any gym. in this encounter Plan of Treatment Not on fileas of this encounter Visit Diagnoses Diagnosis Malignant melanoma of scalp (HCC) - Primary Malignant melanoma of skin of scalp and neck in this encounter
--- OUTSIDE RECORDS SUMMARY | 2017-08-05 15:15 | XMS REPORT | Encounter Summary ---
Author Author [facility] Organization [facility] Address Unknown Phone Unavailable Care Team Providers Care Driver Sales Name Role Phone PCP Unavailable Reason for Visit * Reason Comments Heme/Onc Care * Treatment (Routine) Status Reason Specialty Diagnoses / Referred By Referred To Procedures Contact Contact Closed Diagnoses Edson Lyn, [facility] [place] Ls Cln Trt Malignant [address] [place] melanoma, [address] [place] unspecified site [place] ([facility]) [place] [address] P [address] Phone: [email or web address] Opdivo [phone] Encounter Details Date Type Department Care Team Description 06/20/2017 [facility] Kimberley Meeks APRN Encounter Cancer Center - [address] Treatment [place] [address] [address] [place] [phone] [place] [address] [phone] Social History Tobacco Use Types Packs/Day Years [...] impairment: No 02/18/2017 as of this encounter Discharge Instructions * Patient Instructions - Jamila Rodarte RN - 06/20/2017 1:37 PM CDT [facility] Chemotherapy Instructions Nickolas Mccurdy 06/20/2017 Call Immediately to report the following: Uncontrolled nausea and/or vomiting, uncontrolled pain, or unusual bleeding. Temperature of 100.5 F or greater and/or any sign/symptom of infection (redness , warmth, tenderness) Painful mouth or difficulty swallowing Red, cracked, or painful hands and/or feet Diarrhea Swelling of arms or legs Rash Other: Important Phone Numbers: Cancer Center Main Number (answered 24 hours a day) [phone] Install And Repair Technician available for Friday appointments Ship Propeller Finisher available for Friday appointments Cancer Action (for nutritional supplement ) [phone] in this encounter Medications at Time of Discharge Medication Sig. Disp. Refills Start Date End Date cetirizine (ZYRTEC) 10 mg Take 10 mg by mouth every tablet morning. clindamycin(+) (CLEOCIN 06/03/2017 T; CLINDAMAX) 1 % topical lotion DAPSONE (ACZONE TP) Apply topically to affected area. diphenhydrAMINE HCl Take by mouth at bedtime (ZZZQUIL) 50 mg/30 mL as needed. liqd NON-FORMULARY five times weekly. Pre-Workout [facility] approved oxyCODONE (ROXICODONE, Take 1-2 [...] as of this encounter Progress Notes * Jamila Rodarte RN - 06/20/2017 1:36 PM CDT CHEMO NOTE Verified chemo consent signed and in chart. Verified initiate chemo order in O2 Blood return positive via: Peripheral (22 ga) BSA and dose double checked (agree with orders as written) with: yes Latesha Matamoros RN Labs/applicable tests checked. Chemo regime: Pt seen here today in f/u with Kimberley WEIR and for Day 1, Cycle 1 of Opdivo. Pt tolerated treatment without any new c/o. Pt and family educated on f/u appts, state understanding. Rate verified and armband double checkwith second RN: yes Patient education offered and stated understanding. Denies questions at this time. in this encounter Miscellaneous Notes * Addendum Note - Amalia Garvin - 06/20/2017 11:59 PM CDT Encounter addended by: Amalia Garvin on: 06/26/2017 12:08 PM
Actions taken : Charge Capture section accepted in this encounter Plan of Treatment Not on fileas of this encounter Visit Diagnoses Diagnosis Malignant melanoma, unspecified site (HCC) in this encounter Administered Medications Medication Order MAR Action Action Date Dose Rate Site nivolumab (OPDIVO) 240 mg in sodium Given - New 06/20/2017 240 mg 124 mL/hr chloride 0.9% (NS) 124 mL IVPB Bag 13:54 CDT 240 mg, Intravenous, 124 mL, Administer over 60 Minutes, ONCE, 1 dose, Fri06/20/17 at 1400, NOTE: This is a HIGH ALERT Medication. in this encounter
--- OUTSIDE RECORDS SUMMARY | 2017-08-05 15:15 | XMS REPORT | Encounter Summary ---
Author Author [facility] Organization [facility] Address Unknown Phone Unavailable Care Team Providers Care Patient Attendant Name Role Phone PCP Unavailable Encounter Details Date Type Department Care Team Description 06/06/2017 Clinical [facility] Alpa Reno [facility] Exam [address] [place] [address] Social History Tobacco Use Types Packs/Day Years [...] as of this encounter Progress Notes * Alpa Reno - 06/06/2017 11:27 AM CDT Health and Behavior Assessment and Intervention Nickolas Mccurdy [id number] Date of Service: 06/05/2017 Time of Service: 11:30 am- 11:50 am Location of Service: [facility] Necessity of Service: Pt is an 21 y.o. year old male diagnosed with melanoma of scalp. He was seen for a follow-up in clinic with Jose Cantu. Patient was accompanied by his father. Review of Problem and Assessment: This assessment focused on the biological, psychological and social factors affecting the physical health and treatment plan of the patient. Patient stated that he was "doing okay." He reported that he was ready to return to "normal," expressing his desire to return to school. He indicated that a majority of his social support was located at school. Provider validated and normalized patient's desire to get back to "normal" and a familiar schedule. Provider reinforced patient and his caregiver's use of social support and encouraged engagement in identified self-care activities ( e.g., watching sports with friends) as a way to cope with current and future stressors. MSE: Patient alert and Ox3. Speech fluid. Thoughts lucid and w/o evidence of psychoses. Memory grossly intact. Patient cooperative and with appropriate eye contact. Mood calm with congruent affect. Insight, judgment, and impulse control sufficient. No SI/HI, plans, or intent endorsed at this time. Symptoms noted above. Plan of Care and Rationale: The patient was provided an overview of onco- psychology services and given the contact information of the clinic. Behavioral health will follow-up with the patient during subsequent oncology appointments, and the patient and family members were encouraged to pursue stand-alone behavioral health services as needed. Diagnosis Code: Diagnosis Deferred Note: Services and documentation were provided under the supervision of a licensed psychologist, Baljeet Bonner, Ph.D. [facility] M[facility]P.H[facility] M.A., Health Psychology Practicum Student in this encounter Plan of Treatment Not on fileas of this encounter Visit Diagnoses Not on filein this encounter
--- OUTSIDE RECORDS SUMMARY | 2017-08-05 15:15 | XMS REPORT | Encounter Summary ---
Author Author [facility] Organization [facility] Address Unknown Phone Unavailable Care Team Providers Care Elevator Conductor Name Role Phone PCP Unavailable Encounter Details Date Type Department Care Team Description 06/09/2017 Orders Only [facility] Edson Lyn MD [facility] - [place] Exam [address] [place] [address] [place] [address] [place] [address] [phone] Social History Tobacco Use Types Packs/Day Years [...]
--- OUTSIDE RECORDS SUMMARY | 2017-08-05 15:15 | XMS REPORT | Encounter Summary ---
Author Author [facility] Organization [facility] Address Unknown Phone Unavailable Care Team Providers Care Celebrity Chef Entrepreneur Media Personality Name Role Phone PCP Unavailable Encounter Details Date Type Department Care Team Description 05/23/2017 [facility] Edson Lyn MD Malignant melanoma of Encounter [address] [facility] scalp and neck ( HCC) [place] [address] [place] [address] [phone] Social History Tobacco Use Types Packs/Day Years [...] 10 mg by mouth every tablet morning. DAPSONE (ACZONE TP) Apply topically to affected area. diphenhydrAMINE HCl Take by mouth at bedtime (ZZZQUIL) 50 mg/30 mL as needed. liqd NON-FORMULARY five times weekly. Pre-Workout [facility] approved oxyCODONE (ROXICODONE, Take 1-2 tablets by [...] Results * TSH WITH FREE T4 REFLEX (05/23/2017 10:06 AM) Component Value Ref Range TSH 1.348 0.35 - 5.00 MCU/ML Specimen Performing Laboratory Blood MAIN LAB [address] [place] [address] * COMPREHENSIVE METABOLIC PANEL (05/23/2017 10:06 AM) Component Value Ref Range Sodium 138 137 - 147 MMOL/L Potassium 4.4 3.5 - 5.1 MMOL/L Chloride 103 98 - 110 MMOL/L Glucose 93 70 - 100 MG/DL Blood Urea Nitrogen 17 7 - 25 MG/DL Creatinine 0.98 0.4 - 1.24 MG/DL Calcium 10.3 8.5 - 10.6 MG/DL Total Protein 8.0 6.0 - 8.0 G/DL Total Bilirubin 0.5 0.3 - 1.2 MG/DL Albumin 4.7 3.5 - 5.0 G/DL Alk Phosphatase 59 25 - 110 U/L AST (SGOT) 19 7 - 40 U/L CO2 27 21 - 30 MMOL/L ALT (SGPT) 20 7 - 56 U/L Anion Gap 8 3 - 12 eGFR Non >60 >60 [...] Pharmacist for questions. Specimen Performing Laboratory Blood MAIN LAB [address] [place] [address] * CBC AND DIFF (05/23/2017 10:06 AM) Component Value Ref Range White Blood Cells 7.6 4.5 - 11.0 K/UL RBC 5.47 4.4 - 5.5 M/UL Hemoglobin 16.5 13.5 - 16.5 GM/DL Hematocrit 49.8 40 - 50 % MCV 91.1 80 - 100 FL MCH 30.1 26 - 34 PG MCHC 33.1 32.0 - 36.0 G/DL RDW 13.7 11 - 15 % Platelet Count 248 150 - 400 K/UL MPV 8.4 7 - 11 FL Neutrophils 68 41 - 77 % Lymphocytes 23 (L) 24 - 44 % Monocytes 8 4 - 12 % Eosinophils 1 0 - 5 % Basophils 0 0 - 2 % Absolute Neutrophil Count 5.10 1.8 - 7.0 K/UL Absolute Lymph Count 1.80 1.0 - 4.8 K/UL Absolute Monocyte Count 0.60 0 - 0.80 K/UL Absolute Eosinophil Count 0.10 0 - 0.45 K/UL Absolute Basophil Count 0.00 0 - 0.20 K/UL Specimen Performing Laboratory Blood [facility] MAIN [facility] [address] [place] [address] * BRAF GENE ANALYSIS (05/19/2017 4:00 PM) Component Value Ref Range BRAF Gene Analysis SEE BLACK TOP ROLLER FOR REPORT Specimen Performing Laboratory REFERENCE LAB in this encounter Visit Diagnoses Diagnosis Melanoma of scalp (HCC) Malignant melanoma of skin of scalp and neck in this encounter Admitting Diagnoses Diagnosis Malignant melanoma of scalp and neck (HCC) Malignant melanoma of scalp and neck in this encounter
--- OUTSIDE RECORDS SUMMARY | 2017-08-05 15:15 | XMS REPORT | Encounter Summary ---
Author Author [facility] Organization [facility] Address Unknown Phone Unavailable Care Team Providers Care Workers Compensation Claims Supervisor Name Role Phone PCP Unavailable Encounter Details Date Type Department Care Team Description 06/12/2017 [facility] Mónica Waddell PA-C Encounter [facility] [address] [place] [address] [place] [address] [phone] Social History Tobacco Use Types Packs/Day Years [...] needed. liqd NON-FORMULARY five times weekly. Pre-Workout [facility] approved oxyCODONE (ROXICODONE, Take 1-2 tablets [...] on fileas of this encounter Results * US HEAD AND NECK (06/12/2017 7:50 [...] history of recurrent melanoma of the right islam with palpable node in the right preauricular [...] history of recurrent melanoma of the right islam with palpable node in the right preauricular [...] Luiz Lima M.D. on 06/12/2017 8:03 AM. in this encounter Visit Diagnoses Diagnosis Melanoma of scalp (HCC) Malignant melanoma of skin of scalp and neck in this encounter
--- OUTSIDE RECORDS SUMMARY | 2017-08-05 15:15 | XMS REPORT | Encounter Summary ---
Author Author [facility] Organization [facility] Address Unknown Phone Unavailable Care Team Providers Care Grain Processor Name Role Phone PCP Unavailable Reason for Visit * Reason Comments Heme/Onc Care Encounter Details Date Type Department Care Team Description 06/20/2017 Office Visit [facility] Kimberley Meeks APRN Malignant melanoma of Cancer Center - [place] Exam [address] scalp (HCC) (Primary Dx) [address] [place] [address] [place] [address] [phone] Social History Tobacco Use Types Packs/Day Years Used Date Never Smoker Smokeless Tobacco: Never Used Alcohol Use Drinks/Week oz/Week Comments Yes 0 Standard 0.0 social drinks or equivalent Sex Assigned at Date Recorded Not on file as of this encounter Last Filed Vital Signs Vital Sign Reading Time Taken Blood Pressure 126/66 06/20/2017 1:02 PM CDT Pulse 55 06/20/2017 1:02 PM CDT Temperature 37.1 C (98.8 F) 06/20/2017 1:02 PM CDT Respiratory Rate 20 06/20/2017 1:02 PM CDT Oxygen Saturation 98% 06/20/2017 1:02 PM CDT Inhaled Oxygen - - Concentration Weight 81.4 kg (179 lb 6.4 oz) 06/20/2017 1:02 PM CDT Height 177.8 cm (5' 10") 06/20/2017 1:02 PM CDT Body Mass Index 25.74 06/20/2017 1:02 PM CDT in this encounter Functional Status [...] as of this encounter Progress Notes * Kimberley Meeks APRN - 06/20/2017 1:00 PM CDT Formatting of this note may be different from the original. Name: Nickolas Mccurdy : 1995 AGE: 21 y.o. DATE OF SERVICE: 06/20/2017 Subjective: Reason for Visit: Heme/Onc Care Nickolas Mccurdy is a 21 y.o. male. Melanoma of scalp (HCC) Staging form: Melanoma of the Skin, AJCC 7th Edition - Clinical: Stage Unknown (T4b, NX, M0) - Unsigned Nickolas comes in today for a new teaching visit on [employer] for his metastatic melanoma. He states overall he is feeling pretty well. No new complaints or problems. He states he does have fatigue but manages this pretty well. He tells me while he was on interferon he continued to play baseball while studying at [employer]. That is where he is going to college. He continues to stay there during the week and then travel home on the weekends. Denies fevers or chills. No nausea vomiting or change in bowel habits. Eating and drinking without any difficulty. His parents are with him today and very supportive. History of Present Illness Nickolas Mccurdy is a 21 y.o. male followed by Dr. Lyn. He was referred by Dr. Benjamín Herron for evaluation of 4.6 mm melanoma located on the right scalp. He had noticed about 12 months prior to presentation that there was a sore on the right side of the scalp in the temporal area about a centimeter in diameter and if it brushed against his ball cap or if he rubbed it, it might bleed or scab over. He sought medical attention and had a biopsy of this right central frontal scalp lesion that revealed an invasive malignant melanoma focally ulcerated extending into a depth of at least 4.60 mm with extension to the lateral and deep margins. On 05/10/2016, I performed a wide local excision of the right voodoo, intraoperative lymphatic mapping, right parotid and right [...] an area of scar on his right voodoo and PET scan showed increased uptake. He [...] has a younger brother. He goes to [employer]. 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 He likes playing baseball. Review of Systems Constitutional: Positive for fatigue. Negative for fever. Respiratory: Negative for shortness of breath. Gastrointestinal: Negative for constipation, diarrhea and nausea. Musculoskeletal: Negative for arthralgias. Neurological: Negative for dizziness and headaches. Objective: cetirizine (ZYRTEC) 10 mg tablet Take 10 mg by mouth every morning. clindamycin(+) (CLEOCIN T; CLINDAMAX) 1 % topical lotion DAPSONE (ACZONE TP) Apply topically to affected area. diphenhydrAMINE HCl (ZZZQUIL) 50 mg/30 mL liqd Take by mouth at bedtime as needed. NON-FORMULARY five times weekly. Pre-Workout [facility] approved oxyCODONE (ROXICODONE, OXY-IR) 5 mg tablet Take 1-2 tablets by mouth every 4 hours as needed for Pain Earliest Fill Date: 05/13/17 oxyCODONE (ROXICODONE, OXY-IR) 5 mg tablet Take 1 tablet by mouth every 4 hours as needed for Pain Protein powd Take by mouth. vitamins, multiple tablet Take 1 Tab by mouth daily. Vitals: 06/20/17 1302 BP: 126/66 Pulse: 55 Resp: 20 Temp: 37.1 C (98.8 F) TempSrc: Oral SpO2: 98% Weight: 81.4 kg (179 lb 6.4 oz) Height: 177.8 cm (70") Body mass index is 25.74 kg/(m^2). Pain Score: Zero Pain Addressed: N/A Patient Evaluated for a Clinical Trial: No treatment clinical trial available for this patient. Eastern Cooperative Oncology Group performance status is 0, Fully active, able to carry on all pre-disease performance without restriction.. Physical Exam Constitutional: He is oriented to person, place, and time. He appears well- developed and well-nourished. HENT: Head: Normocephalic. Mouth/Throat: Oropharynx is clear and moist. Eyes: Conjunctivae and EOM are normal. Pupils are equal, round, and reactive to light. Neck: Normal range of motion. Neck supple. Cardiovascular: Normal rate, regular rhythm and normal heart sounds. Pulmonary/Chest: Effort normal and breath sounds normal. Abdominal: Soft. Bowel sounds are normal. Musculoskeletal: Normal range of motion. Neurological: He is alert and oriented to person, place, and time. Skin: Skin is warm and dry. Wide excision of right temporal area is healing without any problems. No signs of infection. Psychiatric: He has a normal mood and affect. His behavior is normal. Judgment and thought content normal. Vitals reviewed. Results for orders placed or performed during the hospital encounter of (from the past 336 hour(s)) CBC AND DIFF Result Value Ref Range White Blood Cells 6.7 [...] Basophil Count 0.10 0 - 0.20 K/UL Assessment and Plan: Encounter Diagnoses Name Primary? Malignant melanoma of scalp (HCC): Patient will initiate treatment today in our clinic with Opbetovo. Treatments will continue every 14 days. Plan of administration and side effects of the drugs were reviewed with the patient. Side effects include, but are not limited to fever, chills, allergic type reaction, thyroid/adrenal dysfunction, GI changes such as diarrhea, skin rash, kidney and liver changes, and fatigue. The patient reported understanding and consent was signed. A patient education sheet was also reviewed and provided. Patient denies questions and was instructed to call the clinic with problems or concerns in the interim. He will follow-up with Dr. Lyn prior to cycle #2. Yes in this encounter Plan of Treatment Not on fileas of this encounter Visit Diagnoses Diagnosis Malignant melanoma of scalp (HCC) - Primary Malignant melanoma of skin of scalp and neck in this encounter
--- OUTSIDE RECORDS SUMMARY | 2017-08-05 15:15 | XMS REPORT | Encounter Summary ---
Author Author [facility] Organization [facility] Address Unknown Phone Unavailable Care Team Providers Care Healthcare Corporate Account Director Name Role Phone PCP Unavailable Reason for Visit * Reason Comments Heme/Onc Care Encounter Details Date Type Department Care Team Description 06/05/2017 Office Visit [facility] Mónica Waddell PA-C Melanoma of scalp (HCC) [facility] Exam [address] (Primary Dx) [address] [place] [address] [place] [address] [phone] Social History Tobacco Use Types Packs/Day Years Used Date Never Smoker Smokeless Tobacco: Never Used Alcohol Use Drinks/Week oz/Week Comments Yes 0 Standard 0.0 social drinks or equivalent Sex Assigned at Date Recorded Not on file as of this encounter Last Filed Vital Signs Vital Sign Reading Time Taken Blood Pressure 129/75 06/05/2017 11:17 AM CDT Pulse 51 06/05/2017 11:17 AM CDT Temperature 36.8 C (98.2 F) 06/05/2017 11:17 AM CDT Respiratory Rate 16 06/05/2017 11:17 AM CDT Oxygen Saturation 100% 06/05/2017 11:17 AM CDT Inhaled Oxygen - - Concentration Weight 80.8 kg (178 lb 3.2 oz) 06/05/2017 11:17 AM CDT Height 177.8 cm (5' 10") 06/05/2017 11:17 AM CDT Body Mass Index 25.57 06/05/2017 11:17 AM CDT in this encounter Functional Status [...] this encounter Instructions * Patient Instructions - Nader Bassett - 06/05/2017 11:00 AM CDT We understand that your time is [...] only, check in on the third floor. in this encounter Progress Notes * Mónica Waddell PA-C - 06/05/2017 11:00 AM CDT Formatting of this note may be different from the original. Date of Service: 06/05/2017 Subjective Reason for Visit: Heme/Onc Care Nickolas Mccurdy is a 21 y.o. male. Melanoma of scalp (HCC) Staging form: Melanoma of the Skin, AJCC 7th Edition - Clinical: T4b, NX, M0 - Unsigned HPI Comments: Mr. Mccurdy is a pleasant 21 y.o. [...] the lateral and deep margins. On 05/10/2016, Dr. Osborn performed a wide local excision of the right buddhism, intraoperative lymphatic mapping, right parotid and right deep cervical sentinel lymph node biopsy. Pathology revealed residual melanoma of 1.9 mm that was completely excised; right parotid 0/2 LNs; right deep cervical 1/1 LN positive for metastatic melanoma. He was taken back to the OR on 06/20/2016 for a right modified radical neck dissection. Pathology showed no melanoma in additional 28 lymph nodes. He is has been receiving Stylatron and recently noted increasing thickening in an area of scar on his right buddhism. On 04/15/2017, Dr. Osborn performed excision of the right buddhism nodule and Dr. Velez performed closure. Pathology showed metastatic melanoma, focally extending to the deep margin. He was taken back to the OR on 05/13/2017 for resection with clear margins. He presents today for postoperative evaluation. A skin graft was placed by Dr. Velez and is healing well. Pt is concerned about a new right preauricular node. Review of Systems Constitutional: Negative for chills, fatigue and fever. Skin: surgical site healing well Hematological: Positive for adenopathy (right preauricular). Past Medical History: Diagnosis Date Cancer (HCC) melanoma scalp Past Surgical History: Procedure Laterality Date HX WISDOM TEETH EXTRACTION 2012 MALIGNANT SKIN LESION EXCISION Right 05/10/2016 WIDE LOCAL EXCISION OF RIGHT FOREHEAD, INTRAOPERATIVE LYMPHATIC MAPPING; PLACEMENT OF EZ- DERM performed by [facility]/Periop LYMPH NODE BIOPSY Right 05/10/2016 NECK SENTINEL LYMPH NODE BIOPSY performed by John Osborn MD at [facility] OR/ Periop VT ADJT/REARRGMT SCALP/ARM/LEG 10.1-30.0 SQ CM Right 05/16/2016 LOCAL TISSUE REARRANGEMENT SCALP performed by Ralf Velez MD at [facility] OR/ Periop VT CERVICAL LYMPHADEC MODIFIED RADICAL NECK DSJ Right 06/20/2016 RIGHT MODIFIED RADICAL NECK DISSECTION performed by John Osborn MD at [facility] OR/Periop VT ADJT/REARRGMT SCALP/ARM/LEG 10.1-30.0 SQ CM Right 08/28/2016 SCAR REVISION SCALP AND NECK WITH LOCAL TISSUE REARRANGEMENT performed by Ralf Velez MD at [facility] OR/Periop VT EXCISION MALIGNANT LESION S/N/H/F/G >4.0 CM Right 04/15/2017 EXCISION OF RIGHT YAZDANISM MASS performed by John Osborn MD at [facility] OR/ Periop VT ADJT/REARRGMT SCALP/ARM/LEG 10.1-30.0 SQ CM Right 04/15/2017 LOCAL TISSUE REARRANGEMENT performed by Ralf Velez MD at [facility] OR/Periop VT EXCISION MALIGNANT LESION S/N/H/F/G >4.0 CM Right 05/13/2017 WIDE LOCAL EXCISION OF RIGHT YAZDANISM performed by John Osborn MD at [facility] OR/ Periop VT SPLIT AGRFT F/S/N/H/F/G/M/D GT 1ST 100 CM/</1 % Left 05/13/2017 SPLIT THICKNESS SKIN GRAFT performed by Ralf Velez MD at [facility] OR/Periop VT ADJT TIS TRNSFR/REARGMT SCALP/ARM/LEG 10 SQ CM/< Right 05/13/2017 LOCAL TISSUE REARRANGEMENT RIGHT YAZDANISM 5X5 CM, SPLIT THICKNESS SKIN GRAFT 25 CM2 performed by Ralf Velez MD at [facility] OR/Periop Family History Problem Relation Age of Onset Depression Maternal Grandmother Heart Disease Maternal Grandfather Social History Social History Marital status: Single Spouse name: N/A Number of children: N/A Years of education: N/A Social History Main Topics Smoking status: Never Smoker Smokeless tobacco: Never Used Alcohol use 0.0 oz/week 0 Standard drinks or equivalent per week Comment: social Drug use: Yes Special: Marijuana Comment: Last tried 04/01/2016 Sexual activity: Not Asked Other Topics Concern None Social History Narrative Objective: cetirizine (ZYRTEC) 10 mg tablet Take 10 mg by mouth every morning. clindamycin(+) (CLEOCIN T; CLINDAMAX) 1 % topical lotion DAPSONE (ACZONE TP) Apply topically to affected area. diphenhydrAMINE HCl (ZZZQUIL) 50 mg/30 mL liqd Take by mouth at bedtime as needed. NON-FORMULARY five times weekly. Pre-Workout [facility] approved oxyCODONE (ROXICODONE, OXY-IR) 5 mg tablet Take 1-2 tablets by mouth every 4 hours as needed for Pain Earliest Fill Date: 05/13/17 oxyCODONE (ROXICODONE, OXY-IR) 5 mg tablet Take 1 tablet by mouth every 4 hours as needed for Pain Protein powd Take by mouth. vitamins, multiple tablet Take 1 Tab by mouth daily. Vitals: 06/05/17 1117 BP: 129/75 Pulse: 51 Resp: 16 Temp: 36.8 C (98.2 F) TempSrc: Oral SpO2: 100% Weight: 80.8 kg (178 lb 3.2 oz) Height: 177.8 cm (70") Body mass index is 25.57 kg/(m^2). Pain Score: Zero Pain Ratin Pain Addressed: N/A Patient Evaluated for a Clinical Trial: No treatment clinical trial available for this patient. Eastern Cooperative Oncology Group performance status is 0, Fully active, able to carry on all pre-disease performance without restriction.. Physical Exam Constitutional: He is oriented to person, place, and time. He appears well- developed and well-nourished. HENT: Head: Normocephalic and atraumatic. Eyes: Pupils are equal, round, and reactive to light. Neck: Normal range of motion. Neck supple. Cardiovascular: Normal rate, regular rhythm and normal heart sounds. Pulmonary/Chest: Effort normal and breath sounds normal. Musculoskeletal: Normal range of motion. Lymphadenopathy: Head (right side): Preauricular adenopathy present. No submandibular, no tonsillar and no posterior auricular adenopathy present. Head (left side): No submandibular, no tonsillar, no preauricular and no posterior auricular adenopathy present. He has no cervical adenopathy. Right cervical: No superficial cervical, no deep cervical and no posterior cervical adenopathy present. Left cervical: No superficial cervical, no deep cervical and no posterior cervical adenopathy present. He has no axillary adenopathy. Neurological: He is alert and oriented to person, place, and time. Skin: Skin is warm and dry. Psychiatric: He has a normal mood and affect. His behavior is normal. Judgment and thought content normal. Vitals reviewed. Assessment and Plan: 21 y.o. male with recurrent melanoma on the right buddhism - Recommend US evaluation of the new palpable right preauricular lymph node. Could be reactive due to recent surgery but presence of the node is concerning given its location and being firm - Further recommendations pending US - Please schedule a 4 month surveillance appt - Medical oncology with Dr. Eboni Waddell PA-C Collaborating physician: John Osborn MD in this encounter Plan of Treatment Not [...] history of recurrent melanoma of the right buddhism with palpable node in the right preauricular [...] history of recurrent melanoma of the right buddhism with palpable node in the right preauricular [...]
--- OUTSIDE RECORDS SUMMARY | 2017-08-05 15:15 | XMS REPORT | Encounter Summary ---
Author Author [facility] Organization [facility] Address Unknown Phone Unavailable Care Team Providers Care Sorting Livestock Worker Name Role Phone PCP Unavailable Reason for Referral * Radiology Services Status Reason Specialty Diagnoses / Referred By Referred To Procedures Contact Contact No Auth Needed Radiology Diagnoses Vivi Waddell Bh2 Ir Malignant PA-C [address] melanoma of face [address] [place], [place] eyelid, nose, [place] [address] lip, and [place], [place] Phone: [facility] [address] P Phone: rocedures [phone] IR PERCUTANEOUS Fax: BIOPSY [phone] * Radiology Services Status Reason Specialty Diagnoses / Referred By Referred To Procedures Contact Contact No Auth Needed Radiology Diagnoses Vivi Waddell Bh2 Ir Malignant PA-C [address] melanoma of face [address] [place], [place] eyelid, nose, [place] [address] lip, and [place] Phone: [facility] [address] P Phone: rocedures [phone] IR PERCUTANEOUS Fax: BIOPSY [phone] Reason for Visit * Radiology Services Status Reason Specialty Diagnoses / Referred By Referred To Procedures Contact Contact No Auth Needed Radiology Diagnoses Vivi Waddell Bh2 Ir Malignant PA-C [address] melanoma of face [address] [place], [place] eyelid, nose, [place] [address] lip, and [place] Phone: [facility] [address] P Phone: rocedures [phone] IR PERCUTANEOUS Fax: BIOPSY [phone] Encounter Details Date Type Department Care Team Description 06/18/2017 Hospital [facility] Vivi Waddell PA-C Encounter Hospital Radiology [address] [place] [address] [place] [address] [phone] Patti Donaldson, Gilson Hopson Zachary S, MD [address] [place] [address] [phone] Social History Tobacco Use Types Packs/Day Years Used Date Never Smoker Smokeless Tobacco: Never Used Alcohol Use Drinks/Week oz/Week Comments Yes 0 Standard 0.0 social drinks or equivalent Sex Assigned at Date Recorded Not on file as of this encounter Last Filed Vital Signs Vital Sign Reading Time Taken Blood Pressure 117/73 06/18/2017 4:45 PM CDT Pulse 57 06/18/2017 4:45 PM CDT Temperature 36.8 C (98.2 F) 06/18/2017 4:30 PM CDT Respiratory Rate - - Oxygen Saturation 97% 06/18/2017 4:45 PM CDT Inhaled Oxygen - - Concentration Weight - - Height - - Body Mass Index - - in this encounter Functional Status Functional Status [...] encounter Discharge Instructions * Patient Instructions - Shaheen Steven RN - 06/18/2017 4:33 PM CDT INTERVENTIONAL RADIOLOGY DISCHARGE INSTRUCTIONS LYMPH NODE BIOPSY A lymph node biopsy is a procedure in which a tiny amount of tissue or a small sample of cells is removed from a lymph node. This procedure may also be referred to as a fine needle aspiration and may involve one or more lymph nodes in various parts of the body such as the neck, the axillae or armpits, the chest, abdomen, pelvis or the groin area. Lymph nodes are part of the immune system and may become enlarged for reasons such as infection or cancer. POST-PROCEDURE ACTIVITY: A responsible adult must drive you home. If you receive sedation for the procedure,you should not drive, operate heavy machinery or do anything that requires concentration for at least 24 hours after receiving sedation. It is recommended that a responsible adult be with you until morning. POST-PROCEDURE SITE CARE: You will have a small bandage over the site. Keep this dry. You may remove it in 24 hours. You may shower in 24 hours, after removing the bandage. Do not submerge the site underwater for one week (no swimming, hot tub, etc.) Be sure your hands are clean when touching near the site. Do not use ointments, creams or powders on the puncture site. DIET/MEDICATIONS: You may resume your previous diet after the procedure. If you receive sedation or narcotic pain medications, avoid any foods or beverages containing alcohol for at least 24 hours. Please see the Medication reconciliation sheet for instructions regarding resuming your home medications. CALL THE DOCTOR IF: Bright red blood has soaked the bandage. You have pain not relieved by medication. Some soreness at the site is to be expected. You have signs of infections such as: Chills, body aches, fever greater than 101F, redness, swelling or warmth at the puncture site, red streaks leading from the puncture site. For problems or concerns related to the procedure, call [phone] from 7am -5pm, Friday-Friday. After-hours and weekends, please call [phone] and ask for the Interventional Sales Agent [employer] Service on-call. For procedures performed at the [facility], please call the Radiology dept. [phone], Friday-Friday, 8am-5pm. in this encounter Medications at Time of [...] needed. liqd NON-FORMULARY five times weekly. Pre-Workout [facility] approved oxyCODONE (ROXICODONE, Take 1-2 tablets [...] as of this encounter Progress Notes * Krista Landeros RN - 06/18/2017 2:30 PM CDT Interventional Radiology Outpatient Scheduling Checklist 1. Procedure: Right Parotid Lymph Node Bx 2. Date of Procedure: 06/18/17 3. Arrival Time: 1330 4. Procedure Time: 1430 5. Correct Procedural Room Assignment: [facility] 7 6. Blood Thinners Triaged and instructed per protocol: NA 7. Order Verified: Yes 8. Patient informed regarding procedure: Yes 9. Patient instructed to have a driver sales: Yes 10. Patient instructed on NPO status: No solids after 06:00, clear liquids till 12:00, NPO @ 12:00 till after procedure. 11. Specimen needed: Y/N: Yes 12. Allergies Verified: Y/N: Yes 13. Iodine Allergy: Y/N: If yes and receiving Iodine has the patient been premedicated: Y/N: No 14. Does the patient have labs according to IR procedural policy: Y/N: Yes 15. Will the patient need to be admitted/possible admission: Y/N: NA 16. If YES to possible admission has the patient been instructed: Y/N: NA 17. Patient States Understanding: Y/N Yes 18. Pt's mother denies NOEMÍ for this pt in this encounter H&P Notes * Zia Sinclair APRN-CARMELLA - 06/18/2017 1:52 PM CDT Formatting of this note may be different from the original. Pre-Procedure History and Physical/Sedation Plan Procedure Date: 06/18/2017 Planned Procedure(s): US-guided biopsy of right parotid lymph node Indication: Enlarged right parotid lymph node Chief Complaint: See above History of Present Illness: Nickolas Mccurdy is a 21 y.o. male with a history of malignant melanoma of the scalp who presents today for procedure. Patient Active Problem List Diagnosis Date Noted Mass of scalp 04/21/2017 Hypertrophic scar - scalp and neck - post surgical 02/18/2017 Malignant melanoma (HCC) 06/20/2016 Melanoma (HCC) 05/10/2016 Melanoma of scalp (HCC) 04/22/2016 History of wisdom tooth extraction 04/22/2016 Past Medical History: Diagnosis Date Cancer (HCC) [...] John Osborn MD at [facility]/ Periop CT ADJT/REARRGMT SCALP/ARM/LEG 10.1-30.0 SQ CM Right 05/16/2016 LOCAL TISSUE REARRANGEMENT SCALP performed by Ralf Velez MD at [facility]/ Periop CT CERVICAL LYMPHADEC MODIFIED RADICAL NECK DSJ Right 06/20/2016 RIGHT MODIFIED RADICAL NECK DISSECTION performed by John Osborn MD at [facility] OR/Periop CT ADJT/REARRGMT SCALP/ARM/LEG 10.1-30.0 SQ CM Right 08/28/2016 SCAR REVISION SCALP AND NECK WITH LOCAL TISSUE REARRANGEMENT performed by Ralf Velez MD at [facility] OR/Periop CT EXCISION MALIGNANT LESION S/N/H/F/G >4.0 CM Right 04/15/2017 EXCISION OF RIGHT GNOSTICISM MASS performed by John Osborn MD at [facility] OR/ Periop CT ADJT/REARRGMT SCALP/ARM/LEG 10.1-30.0 SQ CM Right 04/15/2017 LOCAL TISSUE REARRANGEMENT performed by Ralf Velez MD at [facility] OR/Periop CT EXCISION MALIGNANT LESION S/N/H/F/G >4.0 CM Right 05/13/2017 WIDE LOCAL EXCISION OF RIGHT GNOSTICISM performed by John Osborn MD at [facility] OR/ Periop CT SPLIT AGRFT F/S/N/H/F/G/M/D GT 1ST 100 CM/</1 % Left 05/13/2017 SPLIT THICKNESS SKIN GRAFT performed by Ralf Velez MD at [facility] OR/Periop CT ADJT TIS TRNSFR/REARGMT SCALP/ARM/LEG 10 SQ CM/< Right 05/13/2017 LOCAL TISSUE REARRANGEMENT RIGHT GNOSTICISM 5X5 CM, SPLIT THICKNESS SKIN GRAFT 25 CM2 performed by Ralf Velez MD at [facility] OR/Periop (Not in a hospital admission) No Known Allergies Social History: Social History Substance Use Topics Smoking status: Never Smoker Smokeless tobacco: Never Used Alcohol use 0.0 oz/week 0 Standard drinks or equivalent per week Comment: social Family History Problem Relation Age of Onset Depression Maternal Grandmother Heart Disease Maternal Grandfather Review of Systems A comprehensive review of systems was negative. Previous Personal Anesthetic/Sedation History: Denies adverse events related to sedation/anesthesia. Previous Family Anesthetic/Sedation History: Denies adverse events related to sedation/anesthesia. Physical Exam: Vital Signs: Last Filed In 24 Hours Vital Signs: 24 Hour Range General appearance: alert and no distress noted. Neurologic: Grossly normal. Lungs: Non labored. Heart: regular rate and rhythm Airway: airway assessment performed Mallampati II (soft palate, uvula, fauces visible) Head and Neck: no abnormalities noted Mouth: no abnormalities noted NPO status: Acceptable Status: Not Anesthesia Classification: ASA III (A patient with a severe systemic disease that limits activity, but is not incapacitating) Sedation/Medication Plan: Lidocaine Discussion/Reviews: Physician has discussed risks and alternatives of this type of sedation and above planned procedures with patient Lab/Radiology/Other Diagnostic Tests: Labs: Pertinent labs reviewed Zia Sinclair APRN-ROTOR COIL TAPER Pager [phone] in this encounter Miscellaneous Notes * Procedures (Immed Post or Bedside) - Marco Hernandez MD - 06/18/2017 4:55 PM CDT Immediate Post Procedure Note Date: 06/18/2017 Attending Physician: Dr. Coreas Performing Provider: Marco Hernandez MD Consent: Consent obtained from patient. Time out performed: Consent obtained, correct patient verified, correct procedure verified, correct site verified, patient marked as necessary. Pre/Post Procedure Diagnosis: Right Periauricular melanoma Indications: Right periauricular LAD Anesthesia: Local 10 mL 1% lidocaine without epinephrine Procedure(s): Right periauricular LN biopsy Findings: FNA samples Estimated Blood Loss: None/Negligible Specimen(s) Removed/Disposition: Yes, sent to pathology and Cytology present Complications: None Patient Tolerated Procedure: Well Post-Procedure Condition: stable Marco Hernandez MD in this encounter Plan of Treatment Not on fileas of this encounter Results * IR PERCUTANEOUS BIOPSY (06/18/2017 3:46 PM) Specimen Performing Laboratory [facility] RESULTS Impressions 1. Successful right periauricular lymph node FNA biopsy. I, Quintin Croeas M.D, the attending radiologist, was present for [...] AM) Component Value Ref Range Cytology [facility] [email or web address] Xochitl Mcneill MD, Director Cytopathology Department of Pathology and Laboratory Medicine [address] [place] [id number] Surgical Pathology Office: [phone] CYTOLOGY REPORT NAME: NICKOLAS MCCURDY SURG PATH #: [id number] MR #: [id number] ALT ID #: [id number]: [id number] LOCATION: IR DATE OF PROCEDURE: 06/18/2017 AGE: 21 SEX: M DATE RECEIVED: 06/19/2017 : 1995 TIME RECEIVED: 08:11 PHYSICIAN: VIVI WADDELL PA-C DATE OF REPORT: 06/23/2017 COPY TO: DATE OF PRINTIN06/23/2017 Material Received: A: FNA Lymph Node-Right Parotid History: 21 year old male, history of recurrent facial melanoma. Gross Description: (1 DQ, 1 Pap, 1 Cell block) Rapid determination of adequacy was performed by the advertising coordinator, ESTEFANI, on Diff-Quik stained slide(s). The first [...] in this report. +++Electronically Signed Out By+++ seema/06/23/2017 Interpreted by: Xochitl Mcneill MD, PhD Walter Seth MD Fellow Specimen Performing Laboratory [facility] RESULTS in this encounter Visit Diagnoses Diagnosis Malignant melanoma of face excluding eyelid, nose, lip, and ear (HCC) in this encounter
--- OUTSIDE RECORDS SUMMARY | 2017-08-05 15:16 | XMS REPORT | Encounter Summary ---
Author Author [facility] Organization [facility] Address Unknown Phone Unavailable Care Team Providers Care Senior Mechanical Design Engineer Name Role Phone PCP Unavailable Encounter Details Date Type Department Care Team Description 05/19/2017 [facility] Edson Lyn MD Malignant melanoma of Encounter [address] [facility] scalp and neck ( HCC) [place] [address] [address] [place] [address] [phone] Social History Tobacco Use Types Packs/Day Years [...] tablet Take 1 Tab by mouth daily. senna (SENOKOT) 8.6 mg Take 2 tablets by mouth 90 tablet 3 04/15/2017 05/23/2017 tabletIndications: Mass at bedtime as needed for of scalp Constipation. senna/docusate Take 1 tablet by mouth 60 tablet 1 05/13/20172016 (SENOKOT-S) 8.6/50 mg twice daily. tablet as of this encounter Plan of Treatment Not on fileas of this encounter Visit Diagnoses Not on filein this encounter Admitting Diagnoses Diagnosis Malignant melanoma of scalp and neck (HCC) Malignant melanoma of scalp and neck in this encounter
--- OUTSIDE RECORDS SUMMARY | 2017-08-05 15:16 | XMS REPORT | Encounter Summary ---
Author Author [facility] Organization [facility] Address Unknown Phone Unavailable Care Team Providers Care Exterior Interior Specialist Name Role Phone PCP Unavailable Encounter Details Date Type Department Care Team Description 05/13/2017 Procedure Pass Main Operating Room [address] [place] [address] Social History Tobacco Use Types Packs/Day Years [...]
--- OUTSIDE RECORDS SUMMARY | 2017-08-05 15:16 | XMS REPORT | Encounter Summary ---
Author Author [facility] Organization [facility] Address Unknown Phone Unavailable Care Team Providers Care Pet Counselor Name Role Phone PCP Unavailable Reason for Visit * Auth/Cert Status Reason Specialty Diagnoses / Referred By Referred To Procedures Contact Contact Diagnoses Melanoma (HCC) Procedures GA EXCISION MALIGNANT LESION S/N/H/F/G >4.0 CM EXCISION LESION SKIN MALIGNANT HEAD/NECK Encounter Details Date Type Department Care Team Description 05/13/2017 Hospital Main Operating Room John Garsia MD Melanoma ( HCC) Encounter [id number] [facility] [address] [place] [address] [place] [address] [place] [address] [phone] Social History Tobacco Use Types Packs/Day Years Used Date Never Smoker Smokeless Tobacco: Never Used Alcohol Use Drinks/Week oz/Week Comments Yes 0 Standard 0.0 social drinks or equivalent Sex Assigned at Date Recorded Not on file as of this encounter Last Filed Vital Signs Vital Sign Reading Time Taken Blood Pressure 140/84 05/13/2017 12:00 PM CDT Pulse 75 05/13/2017 12:00 PM CDT Temperature 36.5 C (97.7 F) 05/13/2017 12:00 PM CDT Respiratory Rate - - Oxygen Saturation 97% 05/13/2017 12:00 PM CDT Inhaled Oxygen - - Concentration Weight 78.3 kg (172 lb 9.9 oz) 05/13/2017 7:29 AM CDT Height 177.8 cm (5' 10") 05/13/2017 7:29 AM CDT Body Mass Index 24.77 05/13/2017 7:29 AM CDT in this encounter Functional Status [...] needed. liqd NON-FORMULARY five times weekly. Pre-Workout [facility] approved oxyCODONE (ROXICODONE, Take [...] twice daily. tablet as of this encounter H&P Notes * John Garsia MD - 05/13/2017 7:51 AM CDT History and Physical Update Note Allergies: Review of patient's allergies indicates no known allergies. Lab/Radiology/Other Diagnostic Tests: 24-hour labs: No results found for this visit on 05/13/17 (from the past 24 hour(s)). Point of Care Testing: (Last 24 hours): I have examined the patient, and there are no significant changes in their condition, from the previous H&P performed on 05/01/2017.. John Garsia MD Pager [phone] * John Garsia MD - 05/01/2017 2:10 PM CDT Formatting of this note may be different from the original. Date of Service: 05/01/2017 Subjective Reason for Visit: Heme/Onc Care Nickolas [...] lateral and deep margins. On 05/10/2016, Dr. Garsia performed a wide local excision of the right judaism, intraoperative lymphatic mapping, right parotid and right [...] an area of scar on his right judaism. On 04/15/2017, Dr. Garsia performed excision of the right judaism nodule and Dr. Velez performed closure. Pathology showed metastatic melanoma, focally extending to the deep margin. He presents today to discuss further resection. He is scheduled to meet with Dr. Velez tomorrow and may have tissue inventory clerk placed in the scalp. MRI brain is scheduled for early next week. Review of Systems Constitutional: Negative for chills, fatigue and fever. Respiratory: Negative for cough, shortness of breath and wheezing. Cardiovascular: Negative for chest pain, palpitations and leg swelling. Musculoskeletal: Negative for arthralgias and back pain. Hematological: Negative for adenopathy. Does not bruise/bleed easily. All other systems reviewed and are negative. Past Medical History: Diagnosis Date Cancer (HCC) melanoma scalp Past Surgical History: Procedure Laterality Date HX WISDOM TEETH EXTRACTION 2011 LYMPH NODE BIOPSY Right 05/10/2016 NECK SENTINEL LYMPH NODE BIOPSY performed by John Garsia MD at Main OR/ Periop MALIGNANT SKIN LESION EXCISION Right 05/10/2016 WIDE LOCAL EXCISION OF RIGHT FOREHEAD, INTRAOPERATIVE LYMPHATIC MAPPING; PLACEMENT OF EZ- DERM performed by John Garsia MD at Main OR/Periop GA ADJT/REARRGMT SCALP/ARM/LEG 10.1-30.0 SQ CM Right 05/16/2016 LOCAL TISSUE REARRANGEMENT SCALP performed by Ralf Velez MD at Main OR/ Periop GA ADJT/REARRGMT SCALP/ARM/LEG 10.1-30.0 SQ CM Right 08/28/2016 SCAR REVISION SCALP AND NECK WITH LOCAL TISSUE REARRANGEMENT performed by Ralf Velez MD at Main OR/Periop GA ADJT/REARRGMT SCALP/ARM/LEG 10.1-30.0 SQ CM Right 04/15/2017 LOCAL TISSUE REARRANGEMENT performed by Ralf Velez MD at Main OR/Periop GA CERVICAL LYMPHADEC MODIFIED RADICAL NECK DSJ Right 06/20/2016 RIGHT MODIFIED RADICAL NECK DISSECTION performed by oJhn Garsia MD at Main OR/Periop GA EXCISION MALIGNANT LESION S/N/H/F/G >4.0 CM Right 04/15/2017 EXCISION OF RIGHT [facility]IST MASS performed by John Garsia MD at Main OR/ Periop Family History Problem Relation Age of Onset [...] as needed. NON-FORMULARY five times weekly. Pre-Workout [facility] approved oxyCODONE (ROXICODONE, OXY-IR) 5 mg tablet Take 1 tablet by mouth every 4 hours as needed for Pain peginterferon(+) teodora-2b (SYLATRON) 60 mcg/0.1 mL injection Inject 0.4ml weekly. Protein powd Take by mouth. senna (SENOKOT) 8.6 mg tablet Take 2 tablets by mouth at bedtime as needed for Constipation. vitamins, multiple tablet Take 1 Tab by mouth daily. Vitals: 05/01/17 1458 BP: 128/67 Pulse: 52 Resp: 14 Temp: 37 C (98.6 F) TempSrc: Oral Weight: 78.5 kg (173 lb) Height: 177.8 cm (70") Body mass index is 24.82 kg/(m^2). Pain Score: Zero Pain Ratin Pain [...] sounds normal. Musculoskeletal: Normal range of motion. Neurological: He is alert and oriented to person, place, and time. Skin: Skin is warm and dry. Psychiatric: He has a normal mood and affect. His behavior is normal. Judgment and thought content normal. Vitals reviewed. Assessment and Plan: 21 y.o. male with recurrent melanoma - MRI brain for full staging is scheduled for 05/04/2017. - We will plan for further resection of the right judaism by Dr. Garsia and reconstruction by Dr. Velez. - The procedure, risks, and benefits were discussed in detail with the patient. The pt was provided the opportunity to have all questions and concerns addressed to satisfaction and is in agreement in the proposed plan of care. - RTC 2 weeks post op - Pt was evaluated and plan developed in conjunction with Dr. John Garsia. Mónica Waddell PA-C ATTESTATION I personally performed the gilmore portions of the E/M visit, discussed case with Physician Wharf Labourer and concur with documentation of history, physical exam, assessment, and treatment plan unless otherwise noted. Staff name: John Garsia MD Date: 05/04/2017 in this encounter Miscellaneous Notes * Operative Report (DICTATED ONLY) - Ralf Velez MD - 05/13/2017 12:25 PM CDT [facility] [address] [place] [address]. [place], [place] [address] PATIENT NAME: NICKOLAS MCCURDY MR#/PT#: [id number] Page 1 OPERATIVE REPORT DATE OF OPERATION: 05/13/2017 SURGEON: Ralf Velez MD JUVENILE OFFICER(S): Aydee Villalta MD FLUIDS: Per Anesthesia. PREOPERATIVE DIAGNOSIS: Melanoma of the right temporal area. POSTOPERATIVE DIAGNOSIS: Melanoma of right temporal area. OPERATIVE PROCEDURE: 1. Local tissue rearrangement of forehead scalp measuring 8 sq cm. 2. Split-thickness skin graft to forehead measuring 7 x 3 cm. ANESTHESIA: General. INDICATIONS FOR OPERATIVE PROCEDURE: Nickolas is well known to me, who has stage III melanoma. He has a recurrence. He has underwent a resection with Dr. Garsia. He needs reconstruction. DESCRIPTION AND FINDINGS OF OPERATIVE PROCEDURE: After informed consent was obtained from the patient, the patient was brought to the operating room and placed on the operating table in supine position. He was intubated per Anesthesia. Head of bed was rotated 90 degrees. He was draped and prepped in usual fashion. Dr. Garsia performed the surgical excision of his melanoma. When we came in, the surgical margins of the defect were 4 x 5 cm. Decision was made to perform a local tissue rearrangement of the scalp to re-establish his hairline posteriorly. Local tissue arrangement was 8 sq cm. It was based upon a rotation flap from the superior aspect of the defect. The upper outer and lateral quadrant of the scalp was then rotated down and sewed into place in the sideburn area. This was closed in a linear fashion. A small dog-ear was excised posteriorly. A split-thickness skin graft was then needed to reconstruct the forehead skin defect. This defect after the local tissue rearrangement was changed in its shape. It was 7 x 3 cm. Split-thickness skin graft was harvested from the left flank. It was 10:100th of an inch thick. It was laid on top and small fenestrations were placed into the skin graft. A bolster dressing was used to secure the skin graft. Once again, the skin graft was 7 x 3 cm. Once the bolster was secured, the patient was then awakened in the operating room in satisfactory condition. I performed the entire operation. There were no complications. Dr. Garsia removed the melanoma. ESTIMATED BLOOD LOSS: About 20 mL. SPECIMENS REMOVED: There were no specimens during my portion of the case. Ralf Velez MD BA / MEDQ /[id number] cc: - Ralf Velez MD * Operative Report (DICTATED ONLY) - John Garsia MD - 05/13/2017 11:01 AM CDT [facility] [address] [facility]. [place], [place] [address] PATIENT NAME: NICKOLAS MCCURDY MR#/PT#: [id number] Page 2 OPERATIVE REPORT DATE OF OPERATION: 05/13/2017 SURGEON: John Garsia MD JUVENILE OFFICER(S): Berhane Busby MD PREOPERATIVE DIAGNOSIS: 1. At least 4 mm malignant melanoma of the right judaism. 2. On 05/10/2016, wide local excision with sentinel lymph node biopsy. 3. 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 4. Completion right cervical lymphadenectomy on 06/20/2016. 5. Recurrent melanoma in the right judaism. 6. Local excisional biopsy on 04/15/2017. POSTOPERATIVE DIAGNOSIS: Same. OPERATIVE PROCEDURE: Wide local excision of right judaism with a 6 cm diameter. ANESTHESIA: General. INDICATIONS FOR OPERATIVE PROCEDURE: Mr. Mccurdy is a 21-year-old gentleman who presents to me with a local recurrence of the melanoma of his right judaism. I recommended a wide local excision. Risks, benefits, and alternatives were discussed with the patient. He was eager to proceed. DESCRIPTION AND FINDINGS OF OPERATIVE PROCEDURE: The patient was taken to the operative theater and placed in supine position. He was endotracheally intubated to secure his airway as well as to induce general anesthesia. Time- out procedure was performed to confirm the patient's identity as well as the procedure to be performed. Right face was prepped and draped in routine sterile fashion. I created 2 cm margin in all directions, which created a 6 mm diameter. I excised this using a scalpel and Bovie cautery down to the underlying musculature. The excisional biopsy had showed a positive deep margin , so I did excise deeper than that site. Hemostasis was obtained with Bovie cautery and then Dr. Ralf Velez presented for the reconstructive portion of the procedure. ATTESTATION: I attest, I was scrubbed and present for the entirety of the procedure. I attest, I performed the procedure with the assistance of resident. ESTIMATED BLOOD LOSS: 10mL SPECIMENS REMOVED: Wide local excision of right judaism. MD DWIGHT Linda / SHEKHAR /[id number] cc: - John Garsia MD * Procedures (Immed Post or Bedside) - John Garsia MD - 05/13/2017 10:08 AM CDT Formatting of this note may be different from the original. Brief Operative Note Name: Nickolas Mccurdy is a 21 y.o. male : 1995 DATE OF OPERATION: 05/13/2017 Date: 05/13/2017 Preoperative Dx: Melanoma (HCC) [C43.9] Post-op Diagnosis * Melanoma (HCC) [C43.9] Procedure(s) (LRB): WIDE LOCAL EXCISION OF RIGHT METHODIST (Right) SPLIT THICKNESS SKIN GRAFT (Right) VERSUS LOCAL TISSUE REARRANGEMENT OF SCALP (Right) Anesthesia Type: Defer to Anesthesia Surgeon(s) and Role: Panel 1: * John Garsia MD - Primary * Berhane Busby MD - Resident - Assisting Panel 2: * Aydee Villalta MD - Resident - Assisting * Ralf Velez MD - Primary Findings: 2 cm margin taken circumferentially around original incision Estimated Blood Loss: 20 ml Specimen(s) Removed/Disposition: ID Type Source Tests Collected by Time Destination 1 : wide local excision of right judaism, short superior long lateral Tissue Face SURGICAL PATHOLOGY John Garsia MD 05/13/2017926 Complications: None Implants: None Drains: None Disposition: Continue OR reconstruction with plastic surgery Berhane Busby MD Pager [phone] ATTESTATION I performed this procedure with a resident. I was scrubbed and present for all critical portions of the procedure. Staff name: John Garsia MD Date: 05/13/2017 in this encounter Plan of Treatment Name Priority Associated Diagnoses Order Schedule SURGICAL PATHOLOGY Routine Melanoma (HCC) ONCE for 1 Occurrences starting 05/13/2017 as of this encounter Procedures Procedure Name Priority Date/Time Associated Diagnosis Comments TELEMETRY STRIPS-SCAN 05/14/2017 Results for this 4:10 PM CDT procedure are in the results section. LOCAL TISSUE 05/13/2017 Melanoma (HCC) REARRANGEMENT RIGHT 9:00 AM CDT [facility] 5X5 CM, SPLIT THICKNESS SKIN GRAFT 25 CM2 Special Needs 05/06 ANOTHER CASE ADDED TO GO BEFORE THIS ONE, NEW START TIME IS 1435 - Sally SANTOS RN ([id number]) SPLIT THICKNESS SKIN 05/13/2017 Melanoma (HCC) GRAFT 9:00 AM CDT Special Needs 05/06 ANOTHER CASE ADDED TO GO BEFORE THIS ONE, NEW START TIME IS 1435 - C. AYALA SANTOS ([id number]) WIDE LOCAL EXCISION OF 05/13/2017 Melanoma (HCC) RIGHT [facility]IST 9:00 AM CDT Special Needs 05/06 ANOTHER CASE ADDED TO GO BEFORE THIS ONE, NEW START TIME IS 1435 - C. AYALA SANTOS ([id number]) in this encounter Results * TELEMETRY STRIPS-SCAN (05/14/2017 4:10 PM) Narrative Ordered by an unspecified provider. * SURGICAL PATHOLOGY (05/13/2017 1:06 PM) Component Value Ref Range PATHOLOGY REPORT [facility] [email or web address] Xochitl Mcneill MD, PhD, Director of Anatomic Pathology Department of Pathology and Laboratory Medicine [address] [place] [id number] Surgical Pathology Office: [phone] SURGICAL PATHOLOGY REPORT NAME: NICKOLAS MCCURDY SURG PATH #: [id number] MR #: [id number] SPECIMEN CLASS: SR BILLING #: [id number] ALT ID #: LOCATION: [facility]IL DATE OF PROCEDURE: 05/13/2017 AGE: 21 SEX: M DATE RECEIVED: 05/13/2017 : 1995 TIME RECEIVED: 13:06 PHYSICIAN: JOHN GARSIA DATE OF REPORT: 05/15/2017 COPY TO: DATE OF PRINTIN05/15/2017 ################################################## ###################### Final Diagnosis: A. Right judaism, wide local excision: -- Postoperative scar; negative for residual melanoma Attestation: By this signature, I attest that I have personally formulated the final interpretation expressed in this report and that the above diagnosis is based upon my examination of the slides and/or other material indicated in this report. +++ +++ freya/05/13/2017 ################################################## ###################### Material Received: A: wide local excision of right judaism-short superior, long lateral History: 21-year-old male with a history of melanoma. Gross Description: A. Received in formalin, labeled with the patient's name and "wide local excision of right judaism, short superior, long lateral" is an elliptical [...] 05/13/2017 Specimen Performing Laboratory [facility] RESULTS in this encounter Visit Diagnoses Diagnosis Melanoma (HCC) Melanoma of skin, site unspecified in this encounter Admitting Diagnoses Diagnosis Melanoma (HCC) Melanoma of skin, site unspecified in this encounter Administered Medications Medication Order MAR Action Action Date Dose Rate Site fentaNYL citrate PF (SUBLIMAZE) Given 05/13/2017 25 mcg injection 50 mcg 11:22 CDT 50 mcg, Intravenous, EVERY 5 MIN PRN, Starting 05/13/17 at 1026, Until 05/13/17 at 1432, For VAS score 4-6, Maximum total dose 200 mcg Hold if RR < 10 Given 05/13/2017 50 mcg 11:34 CDT Given 05/13/2017 25 mcg 11:50 CDT lactated ringers infusion Given - New 05/13/2017 1,000 mL 20 mL/hr 1,000 mL, 1,000 mL, Intravenous, at 20 Bag 07:39 CDT mL/hr, CONTINUOUS, Starting Fri05/13/17 at 0730, Until Fri05/13/17 at 1432, Pre-Op Given - New Bag 05/13/2017 10:16 CDT lidocaine PF 1% (10 mg/mL) injection Given 05/13/2017 0.2 mL 0.1-2 mL 07:39 CDT 0.1-2 mL, Injection, NEEDED, Starting Fri05/13/17 at 0715, Until Fri05/13/17 at 1432, Other..., for IV insertion, Pre-Op oxyCODONE (ROXICODONE, OXY-IR) tablet Given 05/13/2017 10 mg 5-10 mg 11:53 CDT 5-10 mg, Oral, ONCE, 1 dose, Fri05/13/17 at 1145, PACU (only) in this encounter
--- OUTSIDE RECORDS SUMMARY | 2017-08-05 15:16 | XMS REPORT | Encounter Summary ---
Author Author [facility] Organization [facility] Address Unknown Phone Unavailable Care Team Providers Care Pulmonary Physical Therapist Name Role Phone PCP Unavailable Reason for Visit * Auth/Cert Status Reason Specialty Diagnoses / Referred By Referred To Procedures Contact Contact Diagnoses Melanoma (HCC) Procedures [place] EXCISION MALIGNANT LESION S/N/H/F/G >4.0 CM EXCISION LESION SKIN MALIGNANT HEAD/NECK Encounter Details Date Type Department Care Team Description 05/13/2017 Anesthesia Main Operating Room Shruthi Padron CRNA [address] [place] [address] [place] [address] [phone] Social History Tobacco Use Types Packs/Day Years [...] impairment: No 02/18/2017 as of this encounter OR Notes * Anesthesia Postprocedure Evaluation - Pedro Pablo Loya MD - 05/13/2017 12:19 PM CDT Post-Anesthesia Evaluation Name: Nickolas Mccurdy : 1995 Age: 21 y.o. Sex: male Procedure Date: 05/13/2017 Procedure: Procedure(s) with comments: WIDE LOCAL EXCISION OF RIGHT RASTAFARIAN - CASE LENGTH [address] GARSIA'S PART, COMBO CASE WITH DR. QIU SPLIT THICKNESS SKIN GRAFT - CASE LENGTH [address] RASHEED DALY LOCAL TISSUE REARRANGEMENT RIGHT RASTAFARIAN 5X5 CM, SPLIT THICKNESS SKIN GRAFT 25 CM2 Surgeon: Surgeon(s): MD Ralf Linda, MD Berhane Cleary, MD Berhane Busby MD Post-Anesthesia Vitals BP: 140/84 (05/13 1200) Temp: 36.5 C (97.7 F) (05/13 1200) Pulse: 75 (05/13 1200) Respirations: 11 PER MINUTE (05/13 1200) SpO2: 97 % (05/13 1200) O2 Delivery: None (Room Air) (05/13 1200) SpO2 Pulse: 75 (05/13 1200) Height: 177.8 cm (70") (05/13 729) Post Anesthesia Evaluation Note Evaluation location: Pre/Post Patient participation: recovered; patient participated in evaluation Level of consciousness: alert Pain management: adequate Hydration: normovolemia Temperature: 36.0C - 38.4C Airway patency: adequate Perioperative Events Perioperative events: no Post-op nausea and vomiting: no PONV Postoperative Status Cardiovascular status: hemodynamically stable Respiratory status: spontaneous ventilation Perioperative Events Perioperative Event: No Associated attestation - Yvan Santiago MD - 05/13/2017 12:39 PM CDT I agree with the resident's assessment and directed the PACU care. * Anesthesia Preprocedure Evaluation - Walter Hoffman MD - 05/13/2017 7:40 AM CDT Formatting of this note may be different from the original. Anesthesia Pre-Procedure Evaluation Name: Nickolas Mccurdy : 1995 Age: 21 y.o. Sex: male Procedure Date: 05/13/2017 Procedure: Procedure(s) with comments: WIDE LOCAL EXCISION OF RIGHT RASTAFARIAN - CASE LENGTH [address] GARSIA'Dipesh DALY, COMBO CASE WITH DR. QIU SPLIT THICKNESS SKIN GRAFT - CASE LENGTH [address] QIU' PART VERSUS LOCAL TISSUE REARRANGEMENT OF SCALP Physical Assessment Vital Signs (last filed in past 24 hours): BP: 138/72 (05/13 730) Temp: 36.6 C (97.9 F) (05/13 729) Pulse: 46 (05/13 730) Respirations: 20 PER MINUTE (05/13 729) SpO2: 99 % (05/13 729) O2 Delivery: None (Room Air) (05/13 729) Height: 177.8 cm (70") (05/13 729) Weight: 78.3 kg (172 lb 9.9 oz) (05/13 729) Patient History No Known Allergies Current Medications Medication Directions cetirizine (ZYRTEC) 10 mg tablet Take 10 mg by mouth every morning. DAPSONE (ACZONE TP) Apply topically to affected area. diphenhydrAMINE HCl (ZZZQUIL) 50 mg/30 mL liqd Take by mouth at bedtime as needed. NON-FORMULARY five times weekly. Pre-Workout [facility] approved oxyCODONE (ROXICODONE, OXY-IR) 5 mg tablet Take 1 tablet by mouth every 4 hours as needed for Pain Protein powd Take by mouth. senna (SENOKOT) 8.6 mg tablet Take 2 tablets by mouth at bedtime as needed for Constipation. vitamins, multiple tablet Take 1 Tab by mouth daily. Review of Systems/Medical History Patient summary reviewed Nursing notes reviewed Pertinent labs reviewed PONV Screening: Non-smoker and Postoperative opioids No history of anesthetic complications No family history of anesthetic complications Airway - negative Pulmonary - negative Cardiovascular - negative Exercise tolerance: >4 METS GI/Hepatic/Renal - negative Neuro/Psych - negative Musculoskeletal - negative Endocrine/Other Malignancy (melanoma, previous surgery on right neck to biopsy lymphnodes) Physical Exam Airway Findings Mallampati: I TM distance: >3 FB Neck ROM: full Mouth opening: good Airway patency: adequate Dental Findings: Negative Cardiovascular Findings: Negative Rhythm: regular Rate: normal Pulmonary Findings: Negative Breath sounds clear to auscultation. Abdominal Findings: Negative Neurological Findings: Negative Diagnostic Tests Hematology: Lab Results Component Value Date HGB 15.1 04/14/2017 HCT 44.7 04/14/2017 PLTCT 130 04/14/2017 WBC 4.1 04/14/2017 NEUT 52 04/14/2017 ANC 2.20 04/14/2017 ALC 1.30 04/14/2017 MARITZA 14 04/14/2017 AMC 0.60 04/14/2017 EOSA 1 04/14/2017 ABC 0.00 04/14/2017 MCV 89.9 04/14/2017 MCH 30.5 04/14/2017 MCHC 33.9 04/14/2017 MPV 9.3 04/14/2017 RDW 14.2 04/14/2017 General Chemistry: Lab Results Component Value Date NA 139 04/14/2017 K 4.3 04/14/2017 CL 108 04/14/2017 CO2 25 04/14/2017 GAP 6 04/14/2017 BUN 14 04/14/2017 CR 1.01 04/14/2017 GLU 92 04/14/2017 CA 9.3 04/14/2017 ALBUMIN 4.4 04/14/2017 TOTBILI 0.6 04/14/2017 Coagulation: No results found for: PT, PTT, INR Anesthesia Plan ASA score: 2 Plan: general Induction method: intravenous NPO status: acceptable Informed Consent Anesthetic plan and risks discussed with patient. Use of blood products discussed with patient; consented to blood products. Plan discussed with: anesthesiologist. in this encounter Plan of Treatment Not on fileas of this encounter Visit Diagnoses Not on filein this encounter Administered Medications Medication Order MAR Action Action Date Dose Rate Site ceFAZolin (ANCEF) injection Given 05/13/2017 2 g INTRA-PROCEDURE MED, Starting Fri05/13/17 09:12 CDT at 0912, Until Fri05/13/17 at 1100, Anesthesia Intra-op dexamethasone (DECADRON) injection Given 05/13/2017 4 mg Intravenous, INTRA-PROCEDURE MED, 09:09 CDT Starting Fri05/13/17 at 0909, Until Fri05/13/17 at 1100, Nausea/Vomiting Injectable, Anesthesia Intra-op ePHEDrine 50 mg/mL 50 mg in sodium Given - New 05/13/2017 10 mg chloride PF 0.9% 5 mL IV syringe Bag 10:37 CDT 5 mL, INTRA-PROCEDURE MED(CONT), Starting Fri05/13/17 at 1037, Until Fri05/13/17 at 1100, Anesthesia Intra-op fentaNYL citrate PF (SUBLIMAZE) Given 05/13/2017 25 mcg injection 10:16 CDT INTRA-PROCEDURE MED, Starting Fri05/13/17 at 0852, Until Fri05/13/17 at 1100, Pain Injectable, Anesthesia Intra-op Given 05/13/2017 25 mcg 10:42 CDT Given 05/13/2017 25 mcg 10:44 CDT lactated ringers infusion Given - New 05/13/2017 1,000 mL 20 mL/hr 1,000 mL, 1,000 mL, Intravenous, at 20 Bag 07:39 CDT mL/hr, CONTINUOUS, Starting Fri05/13/17 at 0730, Until Fri05/13/17 at 1432, Pre-Op Given - New Bag 05/13/2017 10:16 CDT lidocaine (PF) injection Given 05/13/2017 80 mg INTRA-PROCEDURE MED, Starting Fri05/13/17 08:57 CDT at 0857, Until Fri05/13/17 at 1100, Anesthesia Intra-op midazolam (VERSED) injection Given 05/13/2017 2 mg Intravenous, INTRA-PROCEDURE MED, 08:48 CDT Starting Fri05/13/17 at 0848, Until Fri05/13/17 at 1100, Agitation Injectable, Anxiety Injectable, Anesthesia Intra-op ondansetron (ZOFRAN) injection Given 05/13/2017 4 mg Intravenous, INTRA-PROCEDURE MED, 10:44 CDT Starting Fri05/13/17 at 1044, Until Fri05/13/17 at 1100, Nausea/Vomiting Injectable, Anesthesia Intra-op phenylephrine in NS Injection Given 05/13/2017 100 mcg Intravenous, INTRA-PROCEDURE MED, 10:16 CDT Starting Fri05/13/17 at 0954, Until Fri05/13/17 at 1100, Symptomatic Hypotension, Anesthesia Intra-op Given 05/13/2017 100 mcg 10:24 CDT Given 05/13/2017 100 mcg 10:33 CDT propofol (DIPRIVAN) injection Given 05/13/2017 180 mg INTRA-PROCEDURE MED, Starting Fri05/13/17 08:57 CDT at 0857, Until Fri05/13/17 at 1100, Anesthesia Intra-op Given 05/13/2017 20 mg 09:38 CDT succinylcholine (ANECTINE) injection Given 05/13/2017 90 mg Intravenous, INTRA-PROCEDURE MED, 08:57 CDT Starting Fri05/13/17 at 0857, Until Fri05/13/17 at 1100, Anesthesia Intra-op in this encounter
--- OUTSIDE RECORDS SUMMARY | 2017-08-05 15:16 | XMS REPORT | Encounter Summary ---
Author Author [facility] Organization [facility] Address Unknown Phone Unavailable Care Team Providers Care Airbrush Painter Name Role Phone PCP Unavailable Reason for Visit * Reason Comments Results Encounter Details Date Type Department Care Team Description 05/15/2017 Telephone [facility] John Osborn MD [facility] Exam [address] [place] [address] [place] [address] [phone] Social History Tobacco Use Types Packs/Day Years [...] encounter Miscellaneous Notes * Telephone Encounter - Sasha Bills RN - 05/15/2017 3:51 PM CDT Called and spoke with pt's mother to discuss pathology results. She voiced understanding and had no further questions at this time. ----- Message from Mónica Waddell PA-C sent at 05/15/2017 3:19 PM CDT ----- Please notify pt of pathology result showing no residual melanoma at the excision site. in this encounter Plan of Treatment Not on fileas of this encounter Visit Diagnoses Not on filein this encounter
--- OUTSIDE RECORDS SUMMARY | 2017-08-05 15:16 | XMS REPORT | Encounter Summary ---
Author Author [facility] Organization [facility] Address Unknown Phone Unavailable Care Team Providers Care Aerospace Manager Name Role Phone PCP Unavailable Reason for Referral * Consult, Test & Treat Status Reason Specialty Diagnoses / Referred By Referred To Procedures Contact Contact New Request Specialty Diagnoses Edson Lyn, Kalyani Melanoma of MD Required scalp ([facility]) [address] [place] [address] Encounter Details Date Type Department Care Team Description 05/19/2017 Orders Only [facility] Edson Lyn MD Melanoma of scalp ([facility]) Cancer Center - [facility] Exam [address] (Primary Dx) [address] [place] [address] [place] [address] [phone] Social History Tobacco Use Types Packs/Day Years [...] of this encounter Progress Notes * Amalia Funes RN - 05/19/2017 1:32 PM CDT Order for BRAF testing sent to [facility] on last biopsy. in this encounter Plan of Treatment Name Priority Associated Diagnoses Order Schedule AMB REFERRAL TO PATHOLOGY & LABORATORY Routine Melanoma of scalp (HCC) Ordered: 05/19/2017 MEDICINE PHYSICIAN as of this encounter Visit Diagnoses Diagnosis Melanoma of scalp (HCC) - Primary Malignant melanoma of skin of scalp and neck in this encounter
--- OUTSIDE RECORDS SUMMARY | 2017-08-05 15:16 | XMS REPORT | Encounter Summary ---
Author Author [facility] Organization [facility] Address Unknown Phone Unavailable Care Team Providers Care Associate Product Integrity Engineer Name Role Phone PCP Unavailable Reason for Visit * Auth/Cert Status Reason Specialty Diagnoses / Referred By Referred To Procedures Contact Contact Diagnoses Melanoma (HCC) Procedures [place] EXCISION MALIGNANT LESION S/N/H/F/G >4.0 CM EXCISION LESION SKIN MALIGNANT HEAD/NECK Encounter Details Date Type Department Care Team Description 05/13/2017 Surgery Main Operating Room John Garsia MD WIDE LOCAL EXCISION OF [address] [place] [address] [address] [place] [address] [phone] Social History Tobacco Use Types Packs/Day Years [...] needed. liqd NON-FORMULARY five times weekly. Pre-Workout [facility] approved oxyCODONE (ROXICODONE, Take 1-2 tablets by [...] performed on 05/01/2017.. John Garsia MD Pager [phone] * John Garsia MD - 05/01/2017 2:10 [...] a wide local excision of the right orthodox, intraoperative lymphatic mapping, right parotid and right [...] an area of scar on his right orthodox. On 04/15/2017, Dr. Garsia performed excision of the right orthodox nodule and Dr. Velez performed closure. Pathology showed metastatic melanoma, focally extending to the deep margin. He presents today to discuss further resection. He is scheduled to meet with Dr. Velez tomorrow and may have tissue hydraulic press tender placed in the scalp. MRI brain is [...] by John Garsia MD at Main OR/Periop TX ADJT/REARRGMT SCALP/ARM/LEG 10.1-30.0 SQ CM Right 05/16/2016 LOCAL TISSUE REARRANGEMENT SCALP performed by Ralf Velez MD at Main OR/ Periop TX ADJT/REARRGMT SCALP/ARM/LEG 10.1-30.0 SQ CM Right 08/28/2016 SCAR REVISION SCALP AND NECK WITH LOCAL TISSUE REARRANGEMENT performed by Ralf Velez MD at Main OR/Periop TX ADJT/REARRGMT SCALP/ARM/LEG 10.1-30.0 SQ CM Right 04/15/2017 LOCAL TISSUE REARRANGEMENT performed by Ralf Velez MD at Main OR/Periop TX CERVICAL LYMPHADEC MODIFIED RADICAL NECK DSJ Right 06/20/2016 RIGHT MODIFIED RADICAL NECK DISSECTION performed by John Garsia MD at Main OR/Periop [place] EXCISION MALIGNANT LESION S/N/H/F/G >4.0 CM Right 04/15/2017 EXCISION OF RIGHT EPISCOPALIAN MASS performed by John Garsia MD at [...] as needed. NON-FORMULARY five times weekly. Pre-Workout [facility] approved oxyCODONE (ROXICODONE, OXY-IR) 5 mg tablet [...] plan for further resection of the right orthodox by Dr. Garsia and reconstruction by Dr. [...] the E/M visit, discussed case with Physician Shuttle Inspector and concur with documentation of history, physical exam, assessment, and treatment plan unless otherwise noted. Staff name: John Garsia MD Date: 05/04/2017 in this encounter Miscellaneous Notes * Operative Report (DICTATED ONLY) - Ralf Velez MD - 05/13/2017 12:25 PM CDT [facility] [address] [place] [address]. [place], [place] [address] PATIENT NAME: NICKOLAS MCCURDY MR#/PT#: [id number] Page 1 OPERATIVE REPORT DATE OF OPERATION: 05/13/2017 SURGEON: Ralf Velez MD CIRCUIT DESIGN ENGINEER(S): Aydee Villalta MD FLUIDS: Per Anesthesia. PREOPERATIVE [...] case. Ralf Velez MD BA / MEDQ /[id number] cc: - Ralf Velez MD * Operative Report (DICTATED ONLY) - Jonh Garsia MD - 05/13/2017 11:01 AM CDT [facility] [address] [facility] [facility] [place], [place] [address] PATIENT NAME: NICKOLAS MCCURDY MR#/PT#: [id number] Page 2 OPERATIVE REPORT DATE OF OPERATION: 05/13/2017 SURGEON: John Garsia MD CIRCUIT DESIGN ENGINEER(S): Berhane Busby MD PREOPERATIVE DIAGNOSIS: 1. At least 4 mm malignant melanoma of the right orthodox. 2. On 05/10/2016, wide local excision with sentinel lymph node biopsy. 3. 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 4. Completion right cervical lymphadenectomy on 06/20/2016. 5. Recurrent melanoma in the right orthodox. 6. Local excisional biopsy on 04/15/2017. POSTOPERATIVE DIAGNOSIS: Same. OPERATIVE PROCEDURE: Wide local excision of right orthodox with a 6 cm diameter. ANESTHESIA: General. INDICATIONS FOR OPERATIVE PROCEDURE: Mr. Mccurdy is a 21-year-old gentleman who presents to me with a local recurrence of the melanoma of his right orthodox. I recommended a wide local excision. Risks, [...] SPECIMENS REMOVED: Wide local excision of right orthodox. MD DWIGHT Linda / SHEKHAR /[id number] cc: - John Garsia MD * Procedures [...] Procedure(s) (LRB): WIDE LOCAL EXCISION OF RIGHT EPISCOPALIAN (Right) SPLIT THICKNESS SKIN GRAFT (Right) VERSUS LOCAL TISSUE REARRANGEMENT OF SCALP (Right) Anesthesia Type: Defer to Anesthesia Surgeon(s) and Role: Panel 1: * John Gasria MD - Primary * Berhane Busby MD - Resident - Assisting Panel 2: * Aydee Villalta MD - Resident - Assisting * Ralf Velez MD - Primary Findings: 2 cm margin taken circumferentially around original incision Estimated Blood Loss: 20 ml Specimen(s) Removed/Disposition: ID Type Source Tests Collected by Time Destination 1 : wide local excision of right orthodox, short superior long lateral Tissue Face SURGICAL PATHOLOGY John Garsia MD 05/13/2017926 Complications: None Implants: None Drains: None Disposition: Continue OR reconstruction with plastic surgery Berhane Busby MD Pager [phone] ATTESTATION I performed this procedure with a [...] Melanoma (HCC) REARRANGEMENT RIGHT 9:00 AM CDT EPISCOPALIAN 5X5 CM, SPLIT THICKNESS SKIN GRAFT 25 CM2 Special Needs 05/06 ANOTHER CASE ADDED TO GO BEFORE THIS ONE, NEW START TIME IS 1435 - C. AYALA SANTOS ([id number]) SPLIT THICKNESS SKIN 05/13/2017 Melanoma (HCC) GRAFT 9:00 AM CDT Special Needs 05/06 ANOTHER CASE ADDED TO GO BEFORE THIS ONE, NEW START TIME IS 1435 - C. AYALA SANTOS ([id number]) WIDE LOCAL EXCISION OF 05/13/2017 Melanoma (HCC) RIGHT EPISCOPALIAN 9:00 AM CDT Special Needs 05/06 ANOTHER CASE ADDED TO GO BEFORE THIS ONE, NEW START TIME IS 1435 - C. AYALA SANTOS ([id number]) in this encounter Results * TELEMETRY STRIPS-SCAN (05/14/2017 4:10 PM) Narrative Ordered by an unspecified provider. * SURGICAL PATHOLOGY (05/13/2017 1:06 PM) Component Value Ref Range PATHOLOGY REPORT [facility] [email or web address] Xochitl Mcneill MD, PhD, Director of Anatomic Pathology Department of Pathology and Laboratory Medicine [address] [place] [id number] Surgical Pathology Office: [phone] SURGICAL PATHOLOGY REPORT NAME: NICKOLAS MCCURDY SURG PATH #: [id number] MR #: [id number] SPECIMEN CLASS: SR BILLING #: [id number] ALT ID #: LOCATION: [facility]IL DATE OF PROCEDURE: 05/13/2017 AGE: 21 SEX: M DATE RECEIVED: 05/13/2017 : 1995 TIME RECEIVED: 13:06 PHYSICIAN: JOHN GARSIA DATE OF REPORT: 05/15/2017 COPY TO: DATE OF PRINTIN05/15/2017 ################################################## ###################### Final Diagnosis: A. Right orthodox, wide local excision: -- Postoperative scar; negative for residual melanoma Attestation: By this signature, I attest that I have personally formulated the final interpretation expressed in this report and that the above diagnosis is based upon my examination of the slides and/or other material indicated in this report. +++ +++ freya/05/13/2017 ################################################## ###################### Material Received: A: wide local excision of right orthodox-short superior, long lateral History: 21-year-old male with a history of melanoma. Gross Description: A. Received in formalin, labeled with the patient's name and "wide local excision of right orthodox, short superior, long lateral" is an elliptical [...] MAR Action Action Date Dose Rate Site bupivacaine 0.25%/EPINEPHrine 1:200,000 Given 05/13/2017 16 mL injection 09:38 CDT INTRA-PROCEDURE MED, Starting Fri05/13/17 at 0938, Until Fri05/13/17 at 1432, Intra-op fentaNYL citrate PF (SUBLIMAZE) Given 05/13/2017 25 mcg injection 50 mcg 11:22 CDT 50 mcg, Intravenous, EVERY 5 MIN PRN, Starting Fri05/13/17 at 1026, Until Fri05/13/17 at 1432, For VAS score 4-6, Maximum [...] at 1432, Other..., for IV insertion, Pre-Op mineral oil (topical) Given 05/13/2017 6 mL INTRA-PROCEDURE MED, Starting Fri05/13/17 09:37 CDT at 0937, Until Fri05/13/17 at 1432, Intra-op oxyCODONE (ROXICODONE, OXY-IR) tablet Given 05/13/2017 10 mg 5-10 mg 11:53 CDT 5-10 mg, Oral, ONCE, 1 dose, Fri05/13/17 at 1145, PACU (only) in this encounter
--- OUTSIDE RECORDS SUMMARY | 2017-08-05 15:16 | XMS REPORT | Encounter Summary ---
Author Author [facility] Organization [facility] Address Unknown Phone Unavailable Care Team Providers Care Survey Rodman Name Role Phone PCP Unavailable Reason for Visit * Reason Comments Results Encounter Details Date Type Department Care Team Description 05/15/2017 Telephone [facility] John Osborn MD [facility] Exam [address] [place] [address] [place] [address] [phone] Social History Tobacco Use Types Packs/Day Years [...] Encounter - Sasha Bills RN - 05/15/2017 3:46 PM CDT Called to inform pt of pathology results but unable to reach pt, left VM with call back number for pt to call. in this encounter Plan of Treatment Not on fileas of this encounter Visit Diagnoses Not on filein this encounter
--- OUTSIDE RECORDS SUMMARY | 2017-08-05 15:16 | XMS REPORT | Encounter Summary ---
Author Author [facility] Organization [facility] Address Unknown Phone Unavailable Care Team Providers Care Grand Scribe Name Role Phone PCP Unavailable Reason for Visit * Reason Comments Results Encounter Details Date Type Department Care Team Description 05/05/2017 Telephone [facility] John Osborn MD Results [facility] - [facility] Exam [address] [place] [address] [place] [address] [phone] Social History Tobacco Use Types Packs/Day Years [...] encounter Miscellaneous Notes * Telephone Encounter - Sara Torres RN - 05/05/2017 4:20 PM CDT Patient's mother notified of recent MRI results, verbalized understanding and will call with any other questions or concerns. in this encounter Plan of Treatment Not on fileas of this encounter Visit Diagnoses Not on filein this encounter
[2017-08-05] MEDS ORDERED: KETOROLAC 30 MG/ML VIAL ONE (15:58)
[2017-08-05] MEDS ORDERED: IOHEXOL 350 MG/ML 100 ML (OMNIPAQUE 350) VIAL IV ONE (16:00)
[2017-08-05] MEDS ORDERED: CATHETER FLUSH 10 ML SYR IV PRN (16:00)
[2017-08-05] MEDS ORDERED: NS 100 ML (IVPB) BAG IV ONE (16:00)
[2017-08-05] MEDS ORDERED: KETOROLAC 30 MG/ML VIAL IVP ONE (16:15)
--- NOTE | 2017-08-05 17:07 | ED General ---
General Chief Complaint: General Problems/Pain Stated Complaint: CHEST/MID BACK PAIN Nursing Triage Note: INTERMITTENTLY BUT HURTS THE WORST WHEN HE SNEEZES. HE IS ALSO HAVING PAIN IN HIS BACK THAT HURTS MOSTLY WITH ROM.PATIENT HAS MELANOMA. HE HAD HIS 2ND CHEMO TREATMENT LAST WEEK AND ON Friday07/31/17 HE BEGAN HAVING PRESSURE IN HIS CHEST THAT HURTS MOSTLY WITH ROM. Nursing Sepsis Screen: No Definite Risk Source of Information: Patient Exam Limitations: No Limitations History of Present Illness Time Seen by Provider: 15:20 Initial Comments This 21-year-old young man presents to the emergency room with complaints of generalized chest and back discomfort. He reports starting chemotherapy recently and has received 2 doses. He was informed by his oncology team that the chemotherapy may cause the cancer lesions to become swollen and painful. He requests that I contact his oncology team to discuss potential imaging. He reports pain rated as 4/10. This pain is worse with coughing, certain movements , and sneezing. He denies any cough, shortness of air, or fever. His oncologist is Dr. North at [facility]. Allergies and Home Medications Allergies Coded Allergies: No Allergy Information Available (Unverified , 08/05/17) Home Medications Oxycodone HCl/Acetaminophen 1 Each Tablet, 1 EACH PO Q4H PRN for PAIN-MODERATE TO SEVERE, #30 Prescribed by: DUSTY BARRIOS on 08/05/17 4703 Constitutional: no symptoms reported EENTM: no symptoms reported Respiratory: see HPI Cardiovascular: no symptoms reported Gastrointestinal: no symptoms reported Genitourinary: no symptoms reported Musculoskeletal: see HPI Skin: see HPI Psychiatric/Neurological: No Symptoms Reported Hematologic/Lymphatic: No Symptoms Reported Past Aleyoet-Vxqnmy-Itgltx Hx Patient Social History Alcohol Use: Denies Use Recreational Drug Use: Yes Drug of Choice: MARIJUANA Smoking Status: Never a Smoker 2nd Hand Smoke Exposure: No Recent Foreign Travel: No Contact w/Someone Who Travel: No Recent Infectious Disease Expo: No Recent Hopitalizations: Yes (SURGERY FOR MELANOMA) Physical Abuse: No Sexual Abuse: No Seasonal Allergies Seasonal Allergies: No Surgeries History of Surgeries: Yes (5-7 SURGERIES R/T MELANOMA) Respiratory History of Respiratory Disorde: No Cardiovascular History of Cardiac Disorders: No Neurological History of Neurological Disord: No Genitourinary History of Genitourinary Disor: No Gastrointestinal History of Gastrointestinal Di: No Musculoskeletal History of Musculoskeletal Dis: No Endocrine History of Endocrine Disorders: No HEENT History of HEENT Disorders: No Cancer History of Cancer: Yes Cancer: Melanoma Did You Recieve Any Treatments: Yes Type of Tx Receive: Chemotherapy, Surgical Intervention Cancer Comment: LAST IV TREATMENT WAS 07/26. Psychosocial History of Psychiatric Problem: No Suicide Risk Score: 0 Integumentary History of Skin or Integumenta: No Blood Transfusions History of Blood Disorders: No Physical Exam Vital Signs Vital Sign - Last 12Hours 08/05/17 15:11 Temp 99.7 Pulse 97 Resp 20 B/P (MAP) 139/80 Pulse Ox 95 Capillary Refill : Less Than 3 Seconds General Appearance: No Apparent Distress, WD/WN HEENT: PERRL/EOMI, Other (scarring and pigmented skin changes to the right side of face) Neck: Normal Inspection Respiratory: Chest Non Tender, Lungs Clear, Normal Breath Sounds, No Accessory Muscle Use, No Respiratory Distress Cardiovascular: Regular Rate, Rhythm, No Edema, No Murmur Gastrointestinal: Normal Bowel Sounds, Non Tender, Soft Extremity: Normal Inspection, No Pedal Edema Neurologic/Psychiatric: Alert, Oriented x3, No Motor/Sensory Deficits, Normal Mood/Affect, figure clerk II-XII Norm as Tested Skin: Normal Color, Warm/Dry Progress/Results/Core Measures Suspected Sepsis Recent Fever Within 48 Hours: No Infection Criteria Present: None New/Unexplained Altered Menta: No Sepsis Screen: No Definite Risk Sepsis Diagnosis: SIRS Temperature:99.7 Pulse: 97 Respiratory Rate: 20 Blood Pressure 139 /80 Mean: 99 Results/Orders My Orders Orders - DUSTY GONZALEZ MD Ct Chest/Abdomen W (08/05/17 15:53) Saline Lock/Iv-Start (08/05/17 15:55) Iohexol Injection (Omnipaque 350 Mg/Ml 1 (08/05/17 16:00) Ns (Ivpb) (Sodium Chloride 0.9% Ivpb Bag (08/05/17 16:00) Sodium Chloride Flush (Catheter Flush Sy (08/05/17 16:00) Ketorolac Injection (Toradol Injection) (08/05/17 16:15) Ketorolac Injection (Toradol Injection) (08/05/17 15:58) Medications Given in ED Vital Signs/I&O Capillary Refill : Less Than 3 Seconds Blood Pressure Mean: 99 Progress Note #1: Time: 17:08 Progress Note Case was reviewed with Dr. North at [facility]. He requested CT of the chest and abdomen with contrast. He requested these images be clouded to [facility] for comparison. He suggested I treat pain with whatever modality as effective. He may ultimately alter the chemotherapy regimen based on progression or regression of tumor burden. Patient was given Toradol which improved his pain to a minimal degree. Progress Note #2: Progress Note Toradol did little to improve patient's pain. He is given a prescription for Percocet for further pain management. The CT scan results were discussed with Dr. North who plan to discuss with the patient. A copy of the images was sent with the patient and images were also transmitted via the cloud to [facility]. Patient had some infiltration of contrast into the left upper arm. This was treated with ice pack. Diagnostic Imaging Diagonstic Imaging: CT Plain Films/CT/US/NM/MRI: chest, abdomen Comments CT of the chest and abdomen viewed by me and report reviewed. Discussed with Dr. Valenzuela and Dr. North. See report below: NAME: FERNANDO LUDWIG MED REC#: [id number] PT STATUS: REG ER : 1995 PHYSICIAN: DUSTY GONZALEZ MD ADMIT DATE: 08/05/17/ER Signed Date of Exam: 08/05/17 CT CHEST/ABDOMEN W PROCEDURE: CT chest and abdomen with contrast. TECHNIQUE: Multiple contiguous axial images were obtained through the chest and abdomen after the administration of intravenous contrast. INDICATION: Metastatic melanoma. Upper abdominal and chest pain. 100 mL of Omnipaque 350 is administered intravenously. FINDINGS: CT CHEST: There are multiple pulmonary metastases. The largest pulmonary nodule is in the medial aspect of the right upper lobe measuring 1.9 x 1.2 cm. Other nodules in the lungs are mostly under a centimeter bilaterally. The heart size is normal. Pericardial or pleural effusion. The mediastinum demonstrates a right paratracheal lymph node measuring 0.9 CM in short axis and a 1 cm left hilar lymph node is also seen. These are borderline in size and neoplastic involvement in these nodes is possible but not definite. The osseous structures demonstrate a lytic lesion in the lower right aspect of the sternum measuring 1.7 x [address] ABDOMEN: There are numerous liver metastases, the largest in the right hepatic lobe measures 4 x 3.2 cm and the largest in the left hepatic lobe adjacent to the falciform ligament is 2.9 x 2.7 cm. No intrahepatic biliary dilatation. The gallbladder demonstrates no calcified stones. The spleen is slightly heterogenous but is homogeneous on the delayed phase images which is in favor of differential perfusion on the arterial phase rather than actual metastasis. The pancreas and the adrenal glands appear unremarkable. The kidneys are symmetric in enhancement and excretion. There is no hydronephrosis. The abdominal aorta is normal in caliber. No periaortic significantly enlarged lymph node is seen. The osseous structures demonstrate lytic lesions in L1, L2 and L3 up to 0.9 cm in the posterior left side aspect of L3. The lesions in L1 and L2 are subcentimeter. IMPRESSION: CT CHEST: : 1. Numerous pulmonary metastases mostly less than a centimeter in size with one dominant lesion, measuring 1.9 cm in the medial upper aspect of the right upper lobe. 2. Borderline sized left hilar and right paratracheal nodes. 3. A 1.7 cm lytic lesion in the lower right aspect of the sternum. CT ABDOMEN: 1. Numerous liver metastases up to 4 cm in size. 2. Lytic metastasis in L1, L2 and L3 up to 0.9 cm in size. The findings were discussed with Dr. Gonzalez at the time of dictation. Dictated by: Dictated on workstation # [id number] Dict: 08/05/17 1657 Trans: 08/06/17 1154 Interpreted by: JAIRO HERNANDEZ MD Electronically signed by: JAIRO HERNANDEZ MD 08/06/17 1154 Departure Impression Impression: Primary Impression: Metastatic melanoma Additional Impressions: Chest pain Qualified Codes: R07.9 - Chest pain, unspecified Back pain Qualified Codes: M54.9 - Dorsalgia, unspecified Disposition: 01 HOME, SELF-CARE Condition: Improved Departure-Patient Inst. Decision time for Depature: 17:40 Referrals: ANNA NORTH MD (PCP/Family) Primary Care Physician Patient Instructions: NO INSTRUCTIONS GIVEN Add. Discharge Instructions: Follow-up with Dr. [place] for further instructions. You may take ibuprofen up to 600 mg every 6 hours as needed for pain. Take Percocet as prescribed for pain not controlled by ibuprofen. Return to the emergency room if symptoms worsen. All discharge instructions reviewed with patient and/or family. Voiced understanding. Scripts Oxycodone HCl/Acetaminophen (Percocet 5-325 mg Tablet) 1 Each Tablet 1 EACH PO Q4H Y for PAIN-MODERATE TO SEVERE, #30 TAB Prov: DUSTY GONZALEZ MD 08/05/17 DUSTY GONZALEZ MD Aug 05, 2017 17:07
--- NOTE | 2017-08-05 17:28 | Diagnostic Imaging Report ---
PROCEDURE: CT chest and abdomen with contrast. TECHNIQUE: Multiple contiguous axial images were obtained through the chest and abdomen after the administration of intravenous contrast. INDICATION: Metastatic melanoma. Upper abdominal and chest pain. 100 mL of Omnipaque 350 is administered intravenously. FINDINGS: CT CHEST: There are multiple pulmonary metastases. The largest pulmonary nodule is in the medial aspect of the right upper lobe measuring 1.9 x 1.2 cm. Other nodules in the lungs are mostly under a centimeter bilaterally. The heart size is normal. Pericardial or pleural effusion. The mediastinum demonstrates a right paratracheal lymph node measuring 0.9 CM in short axis and a 1 cm left hilar lymph node is also seen. These are borderline in size and neoplastic involvement in these nodes is possible but not definite. The osseous structures demonstrate a lytic lesion in the lower right aspect of the sternum measuring 1.7 x [address] ABDOMEN: There are numerous liver metastases, the largest in the right hepatic lobe measures 4 x 3.2 cm and the largest in the left hepatic lobe adjacent to the falciform ligament is 2.9 x 2.7 cm. No intrahepatic biliary dilatation. The gallbladder demonstrates no calcified stones. The spleen is slightly heterogenous but is homogeneous on the delayed phase images which is in favor of differential perfusion on the arterial phase rather than actual metastasis. The pancreas and the adrenal glands appear unremarkable. The kidneys are symmetric in enhancement and excretion. There is no hydronephrosis. The abdominal aorta is normal in caliber. No periaortic significantly enlarged lymph node is seen. The osseous structures demonstrate lytic lesions in L1, L2 and L3 up to 0.9 cm in the posterior left side aspect of L3. The lesions in L1 and L2 are subcentimeter. IMPRESSION: CT CHEST: : 1. Numerous pulmonary metastases mostly less than a centimeter in size with one dominant lesion, measuring 1.9 cm in the medial upper aspect of the right upper lobe. 2. Borderline sized left hilar and right paratracheal nodes. 3. A 1.7 cm lytic lesion in the lower right aspect of the sternum. CT ABDOMEN: 1. Numerous liver metastases up to 4 cm in size. 2. Lytic metastasis in L1, L2 and L3 up to 0.9 cm in size. The findings were discussed with Dr. Gonzalez at the time of dictation. Dictated by: Dictated on workstation # [id number]
[2017-08-05] MEDS ORDERED: OXYC-197 PO (17:42)
[2017-08-05 17:51] VITALS: BP 139/80
== END 2017-08-05 17:51 | disposition home or self-care (01) ==
LOC: EDUNIT# 15:04 → ER 15:07
DX: C43.9 Malignant melanoma of skin, unspecified (principal); R07.89 Other chest pain; M54.9 Dorsalgia, unspecified; F12.10 Cannabis abuse, uncomplicated
CPT/HCPCS: 71260; 74160

== ENCOUNTER 2017-10-22 09:46 | Outpatient (RCR) | payer OTHER ==
[~2017-10-22 09:46] MED LIST: DENOSUMAB 120 MG/1.7 ML (XGEVA) SQ SCH; FERRIC CARBOXYMALTOSE (CANCER) 750 MG in NS (IVPB) CANCER CENTER 250 ML IV SCH; OXYC-197 PO
[2017-10-22 09:58] LABS: BASOPHILS % (AUTO) 1 % (0-10); EOSINOPHILS # (AUTO) 0.3 10^3/uL (0.0-0.3); EOSINOPHILS % (AUTO) 4 % (0-10); HEMATOCRIT 43 % (40-54); HEMOGLOBIN 14.9 G/DL (13.3-17.7); LYMPHOCYTES # (AUTO) 2.2 X 10^3 (1.0-4.0); LYMPHOCYTES % (AUTO) 34 % (12-44); MEAN CORPUSCULAR HEMOGLOBIN 31 PG (25-34); MEAN CORPUSCULAR HGB CONC 35 G/DL (32-36); MEAN CORPUSCULAR VOLUME 88 FL (80-99); MEAN PLATELET VOLUME 10.8 FL (7.4-10.4); MONOCYTES # (AUTO) 0.4 X 10^3 (0.0-1.0); MONOCYTES % (AUTO) 7 % (0-12); NEUTROPHILS # (AUTO) 3.7 X 10^3 (1.8-7.8); NEUTROPHILS % (AUTO) 55 % (42-75); PLATELET COUNT 126 10^3/uL (130-400); RED BLOOD COUNT 4.84 10^6/uL (4.35-5.85); RED CELL DISTRIBUTION WIDTH 14.3 % (10.0-14.5); WHITE BLOOD COUNT 6.6 10^3/uL (4.3-11.0)
[2017-10-22 10:27] LABS: ALANINE AMINOTRANSFERASE 18 U/L (0-55); ALBUMIN 3.9 GM/DL (3.2-4.5); ALKALINE PHOSPHATASE 59 U/L (40-136); BILIRUBIN,TOTAL 0.4 MG/DL (0.1-1.0); BUN/CREATININE RATIO 16; CALCIUM 8.8 MG/DL (8.5-10.1); CARBON DIOXIDE 27 MMOL/L (21-32); CHLORIDE 107 MMOL/L (98-107); CREATININE SERUM 0.85 MG/DL (0.60-1.30); GFR ESTIMATED > 60; GLUCOSE 103 MG/DL (70-105); POTASSIUM 4.2 MMOL/L (3.6-5.0); SODIUM 139 MMOL/L (135-145); TOTAL PROTEIN 6.5 GM/DL (6.4-8.2)
== END 2017-12-21 | disposition home or self-care (01) ==
LOC: ONC 09:46
PROVIDERS: ATTEND Internal Medicine Hematology & Oncology
DX: C43.4 Malignant melanoma of scalp and neck (principal); C77.0 Secondary and unspecified malignant neoplasm of lymph nodes of head, face and neck; C79.51 Secondary malignant neoplasm of bone; C78.7 Secondary malignant neoplasm of liver and intrahepatic bile duct; Z79.899 Other long term (current) drug therapy
CPT/HCPCS: 80053; 85025; 96372; 99214

== ENCOUNTER 2017-11-08 12:08 | Emergency (ER) | payer OTHER ==
[~2017-11-08] VITALS: Ht 177.8 cm; Wt 74.8 kg
[~2017-11-08 12:08] MED LIST changes: -DENOSUMAB 120 MG/1.7 ML (XGEVA) SQ SCH; -FERRIC CARBOXYMALTOSE (CANCER) 750 MG in NS (IVPB) CANCER CENTER 250 ML IV SCH
--- OUTSIDE RECORDS SUMMARY | 2017-11-08 12:13 | XMS REPORT | Continuity of Care Document ---
Author Author [employer] Organization [facility] Address Unknown Phone Unavailable Care Team Providers Care Supervisor [employer] Name Role Phone [employer] Unavailable Unavailable Problems Medications Allergies, Adverse Reactions, Alerts Immunizations Results Vital Signs Encounters Location Location Details Encounter Type Encounter Number Reason For Visit Attending Provider ADM Date DC Date Status Source [place] SER[place] [id number] MONIKA WANGDA 04/14/2017 04/14/2017 Active [facility] [place] SERIES [id number] DUSTY GARSIA 05/01/2017 05/01/2017 Active [facility] OUTPATIENT [id number] 05/02/2017 Active [facility] OUTPATIENT [id number] DUSTY SOMMERSEN 05/04/2017 05/04/2017 Active [facility] [place] SERIES [id number] MONIKA WANGDA 05/08/2017 Active [facility] OP SURGERY [id number] DUSTY GARSIA 05/13/2017 05/13/2017 Active [facility] SPECIMEN [id number] 05/19/2017 05/19/2017 Active [facility] OUTPATIENT [id number] MONIKA CHUDA 05/23/2017 05/23/2017 Active [facility] [place] SERIES [id number] VIVI BEJARANO 06/05/2017 06/05/2017 Active [facility] OUTPATIENT [id number] VIVI BEJARANO 06/12/2017 06/12/2017 Active [facility] OP SURGERY [id number] VIVI BEJARANO 06/18/2017 06/18/2017 Active [facility] [place] SERIES [id number] JAMARI SAMANO 06/20/2017 06/20/2017 Active [facility] [place] SERIES [id number] MONIKA JORDAN 06/26/2017 06/26/2017 Active [facility] [place] SERIES [id number] MARIE POORNIMA 07/04/20172016 Active [facility] [place] SERIES [id number] MARIE POORNIMA 07/25/20172016 Active [facility] [place] SERIES [id number] ANNA DIA 08/05/2017 Active [facility] [place] SERIES [id number] ANNA DIA 08/06/20172016 Active [facility] OUTPATIENT [id number] 08/07/2017 Active [facility] OUTPATIENT [id number] ANNA DIA 08/15/20172016 Active [facility] OUTPATIENT [id number] ANNA DIA 08/15/20172016 Active [facility] [place] SERIES [id number] ANNA DIA 08/26/20172016 Active [facility] [place] SERIES [id number] ANNA DIA 09/09/20172017 Active [facility] [place] SERIES [id number] ANNA DIA 10/03/20172017 Active [facility] OUTPATIENT [id number] ANNA DIA 10/05/20172017 Active [facility] [place] SERIES [id number] ANNA DIA 10/06/20172017 Active [facility] [place] SERIES [id number] 10/28/2017 Active [facility] OUTPATIENT [id number] 10/28/2017 Active [facility] OUTPATIENT [id number] ANNA DIA 10/29/20172017 Active [facility] [place] SERIES [id number] ANNA DIA 10/29/2017 Active [facility] INPATIENT [id number] DIANNE MARSHAL 10/29/2017 10/30/2017 Active [facility] [place] SERIES [id number] 11/03/2017 Active [facility] O ANNA ALVARES Active [facility] Procedures Plan of Care Social History Assessment and Plan Family History Advance Directives Functional Status
--- OUTSIDE RECORDS SUMMARY | 2017-11-08 12:14 | XMS REPORT | Clinical Summary ---
Author Author [facility] Organization [facility] Address Unknown Phone Unavailable Care Team Providers Care Groover Runner Name Role Phone Benjamín Herron MD PCP John Osborn MD Unavailable Ralf Velez MD Unavailable Trisha Fiore RN Unavailable Unavailable Mónica Waddell PA-C Unavailable Karla Mandel RN Unavailable Unavailable Edson Lyn MD Unavailable Adri Russell 7 Source Comments Some departments are not documenting in the electronic medical record. If you do not see the information that you expected, contact Release of Information in the Health Information Management department at [phone] for further assistance in locating additional records.[facility] Allergies No Known Allergies Current Medications Prescription Sig. Disp. Refills Start End Date Status Date NON-FORMULARY five times weekly. Active Pre-Workout NSF approved cetirizine (ZYRTEC) 10 mg Take 10 mg by mouth daily Active tablet as needed for Allergy symptoms. clindamycin(+) (CLEOCIN Apply topically to 06/03/20 Active T; CLINDAMAX) 1 % topical affected area as Needed. 17 lotion melatonin 10 mg tab Take 1 tablet by mouth at Active bedtime as needed. APPLE CIDER VINEGAR PO Take 1 Dose by mouth Active daily. other medication Essiac Tea- Drink 1 cup Active of tea daily. ERGOCALCIFEROL (VITAMIN Take 1 tablet by mouth Active D2) (VITAMIN D PO) daily. L.ACID/L.CASEI/B.BIF/B.LO Take 1 Scoop by mouth Active N/FOS (PROBIOTIC BLEND daily. In morning shake PO) VITAMIN B COMPLEX (B Take 1 Scoop by mouth Active COMPLEX PO) daily. In morning shake other medication Super Green- Take 1 scoop Active in shake every morning. other medication Bone Broth- Take 1 scoop Active in shake every morning. Collagenase powd Take 1 Scoop by mouth Active daily. In morning shakes. BETA GLUCAN (1,3/1,4-D) Take 1 Scoop by mouth Active MISC daily. In morning shakes LORazepam (ATIVAN) 0.5 mg Take 1 tablet by mouth 90 tablet 1 08/28/20 Active tablet every 4 hours as needed 17 for Nausea. prochlorperazine maleate Take 1 tablet by mouth 60 tablet 3 09/09/19 Active (COMPAZINE) 10 mg tablet every 6 hours as needed 18 for Nausea or Vomiting. dabrafenib (TAFINLAR) 75 Take 2 capsules by mouth 120 capsule 2 Active mg capsuleIndications: twice daily. Take at 18 Malignant melanoma, least 1 hour before or 2 unspecified site (HCC) hours after food. trametinib (MEKINIST) 2 Take 1 tablet by mouth 30 tablet 2 09/11/19 Active mg tabletIndications: daily. Take at least 1 18 Malignant melanoma, hour before or 2 hours unspecified site (HCC) after food. dronabinol (MARINOL) 5 mg Take 1 capsule by mouth 60 capsule 0 Active capsule twice daily. 18 ondansetron (ZOFRAN) 8 mg Take 1 tablet by mouth 30 tablet 3 10/27/19 Active tablet every 8 hours as needed 18 for Nausea or Vomiting. zolpidem (AMBIEN) 5 mg Take 1 tablet by mouth at 30 tablet 0 10/30/19 Active tablet bedtime as needed for 18 Sleep. oxyCODONE (ROXICODONE, Take 1 tablet by mouth 120 tablet 0 11/03/19 Active OXY-IR) 5 mg tablet every 4 hours as needed 18 for Pain vitamins, multiple tablet Take 1 Tab by mouth 10/30/19 Discontin daily. 18 ued oxyCODONE (ROXICODONE, Take 1-2 tablets by mouth 50 tablet 0 05/13/20 10/30/19 Discontin OXY-IR) 5 mg tablet every 4 hours as needed 17 18 ued for Pain Earliest Fill Date: 05/13/17 turmeric root extract 500 Take 2 capsules by mouth 10/30/19 Discontin mg cap daily. 18 ued FISH Take 1 capsule by mouth 10/30/19 Discontin OIL/BORAGE/FLAX/OM3,6,9 1 daily. 18 ued (OMEGA 3-6-9 COMPLEX PO) other medication Mycelium complex blend 10/30/19 Discontin 600 mg- Take 2 capsules 18 ued by mouth daily. RESVERATROL-GRAPE SKIN Take 1 tablet by mouth 10/30/19 Discontin EXTRACT PO daily. 18 ued prednisone (DELTASONE) 10 Take 6 tablets by mouth 180 tablet 0 10/30/19 Discontin mg tablet daily. 17 18 ued ondansetron (ZOFRAN) 8 mg Take 1 tablet by mouth 30 tablet 3 08/28/20 10/27/19 Discontin tablet every 8 hours as needed 17 18 ued for Nausea or Vomiting. dronabinol (MARINOL) 5 mg Take 1 capsule by mouth 60 capsule 0 10/22/19 Discontin capsule twice daily. 18 18 ued Active Problems Problem Noted Date Headache 11/03/2017 Last Assessment & Plan: Etiology uncertain. It is severe, requiring narcotic medications. There has been some associated nausea. MRI does not show clear evidence of melanoma. It is concerning for possible meningitis. 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 Meningitis 10/29/2017 On prednisone therapy 08/26/2017 Last Assessment & Plan: Got prescription for prednisone but did not end up taking it. Will hang on to it just in case while he goes back to college. Fatigue 08/15/2017 Last Assessment & Plan: Grade 1. Related to disease but getting better. Bone metastases (HCC) 07/11/2017 Last Assessment & Plan: Xgeva treatment today. 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 Melanoma (HCC) 05/10/2016 Last Assessment & Plan: No clear progression of disease noted today on exam. Melanoma of scalp (HCC) 04/22/2016 Overview: Current Therapy: Dabrafenib + trametinib started 08/09/2007 L ast Assessment & Plan: Responding to oral targeted agents. History of wisdom tooth extraction 04/22/2016 Resolved Problems Problem Noted Date Resolved Date Elective surgery 05/16/2016 05/01/2017 Encounters Date Type Specialty Care Team Description 11/03/2017 Documentation Oncology Kb North MD 10/29/2017 [facility] Dianne Valenzuela MD Meningitis - Encounter 10/30/2017 10/29/2017 Hospital Kb French MD Encounter 10/29/2017 Office Visit Oncology Kb North MD Intractable episodic headache, unspecified headache type 10/29/2017 Lab Only Oncology Kb North MD Malignant melanoma, unspecified site (HCC) 10/29/2017 Hospital Radiology Kb North MD Encounter 10/29/2017 Documentation Oncology Kb North MD 10/29/2017 Documentation Oncology Kb North MD 10/29/2017 Documentation Oncology Sherrie Barksdale RN Fatigue, unspecified type (Primary Dx); Fever, unspecified fever cause 10/28/2017 Documentation Oncology Kb North MD Malignant melanoma, unspecified site (HCC) (Primary Dx) 10/27/2017 Procedure Pass Radiology 10/27/2017 Refill Oncology Kb North MD 10/27/2017 Documentation Oncology Kb North MD Malignant melanoma, unspecified site (HCC) (Primary Dx) 10/27/2017 Documentation Oncology Kb North MD Malignant melanoma, unspecified site (HCC) (Primary Dx) 10/27/2017 Documentation Oncology Kb North MD 10/22/2017 Refill Oncology Kb North MD 10/22/2017 Documentation Oncology Mario Mccoy MD 10/06/2017 Office Visit Oncology Kb North MD Melanoma of scalp (HCC) 10/05/2017 Hospital Radiology Kb North MD Encounter 10/03/2017 Hospital Radiology Kb North MD Encounter 10/03/2017 Hospital Lab Kb North MD Encounter 09/23/2017 Documentation Oncology Kb North MD 09/19/2017 Documentation Lab Brook Bose APRN 09/15/2017 Documentation Oncology Robert Awada 09/11/2017 Orders Only Oncology Minor, Leatha, PHARMD Malignant melanoma, unspecified site (HCC) (Primary Dx) 09/11/2017 Orders Only Oncology Minor, Leatha, PHARMD 09/11/2017 Documentation Christi Padilla 09/11/2017 Pharmacy Visit 09/10/2017 Pharmacy Visit 09/09/2017 Office Visit Oncology Kb North MD Melanoma of scalp (HCC) (Primary Dx); Fatigue, unspecified type; On prednisone therapy 09/09/2017 Procedure Pass Radiology 09/09/2017 Procedure Pass Radiology 09/09/2017 Procedure Pass Radiology 09/09/2017 Procedure Pass Radiology 09/09/2017 [address] On[address] Eli Cruz RD 09/03/2017 Telephone Oncology Kb North MD Appointment Request 09/03/2017 Documentation Oncology Kb North MD Malignant melanoma, unspecified site (HCC) (Primary Dx) 08/28/2017 Documentation Oncology Kb North MD 08/26/2017 [facility] Oncology Kb North MD Encounter 08/26/2017 Office Visit Oncology Kb North MD Bone metastases (HCC); Melanoma of scalp (HCC); Fatigue, unspecified type 08/26/2017 Nurse Only Oncology Kb North MD Bone metastases ( HCC) (Primary Dx); Malignant melanoma of scalp (HCC) 08/22/2017 Telephone Oncology Luisa Edwards, PHARMD Pt Ed 08/19/2017 Pharmacy Visit 08/15/2017 Office Visit Oncology Kb North MD Melanoma of scalp (HCC); Brook Bose APRN Bone metastases (HCC); Fatigue, unspecified type 08/15/2017 Nurse Only Oncology Kb North MD Malignant melanoma, unspecified site (HCC) 08/15/2017 [facility] Cardiology Kb North MD Encounter 08/12/2017 Documentation Oncology Kb North MD 08/12/2017 Documentation Joanne Quigley 08/12/2017 Documentation Oncology Kb North MD 08/12/2017 Pharmacy Visit 08/11/2017 Pharmacy Visit from Last 3 Months Family History Medical [...] Vital Sign Reading Time Taken Blood Pressure 96/40 10/30/2017 1:08 PM CUT AND PRINT MACHINE OPERATOR Pulse 56 10/30/2017 1:08 PM CUT AND PRINT MACHINE OPERATOR Temperature 36.9 C (98.4 F) 10/30/2017 1:08 PM CUT AND PRINT MACHINE OPERATOR Respiratory Rate 16 10/29/2017 12:21 PM CUT AND PRINT MACHINE OPERATOR Oxygen Saturation 98% 10/30/2017 1:08 PM CUT AND PRINT MACHINE OPERATOR Inhaled Oxygen - - Concentration Weight 72.2 kg (159 lb 2.8 oz) 10/29/2017 5:10 PM CUT AND PRINT MACHINE OPERATOR Height 177.8 cm (5' 10") 10/29/2017 12:21 PM CUT AND PRINT MACHINE OPERATOR Body Mass Index 22.84 10/29/2017 5:10 PM CUT AND PRINT MACHINE OPERATOR Plan of Treatment Health Maintenance Due Date Last Done Comments PHYSICAL (COMPREHENSIVE) 2002 EXAM PERTUSSIS VACCINE 2006 TETANUS VACCINE 2012 INFLUENZA VACCINE 04/08/2018 HPV VACCINES Aged Out No longer eligible based on patient's age to complete this topic Implants Implanted Type Area Blaster Helper Device Expiration Model / Identifier Date Serial / Lot Ez Derm Perfor[facility]08[facility]2017 [id number] / Implanted: Qty: 1 on 05/10/2016 by CARE:SUE CARE [id number] Tom Hua DO / [id number] Results * MONO SPOT (10/30/2017 1:49 PM) Component Value Ref Range Davis Screen NEG NEG-NEG Specimen Performing Laboratory Blood [facility] [address] [place] [address] * CBC AND DIFF (10/30/2017 6:12 AM) Only the most recent of 5 results within the time period is included. Component Value Ref Range White Blood Cells 12.2 (H) 4.5 - 11.0 K/UL RBC 4.91 4.4 - 5.5 M/UL Hemoglobin 15.0 13.5 - 16.5 GM/DL Hematocrit 43.0 40 - 50 % MCV 87.5 80 - 100 FL MCH 30.5 26 - 34 PG MCHC 34.9 32.0 - 36.0 G/DL RDW 14.3 11 - 15 % Platelet Count 182 150 - 400 K/UL MPV 9.3 7 - 11 FL Neutrophils 79 (H) 41 - 77 % Lymphocytes 15 (L) 24 - 44 % Monocytes 6 4 - 12 % Eosinophils 0 0 - 5 % Basophils 0 0 - 2 % Absolute Neutrophil Count 9.60 (H) 1.8 - 7.0 K/UL Absolute Lymph Count 1.80 1.0 - 4.8 K/UL Absolute Monocyte Count 0.80 0 - 0.80 K/UL Absolute Eosinophil Count 0.00 0 - 0.45 K/UL Absolute Basophil Count 0.00 0 - 0.20 K/UL Specimen Performing Laboratory Blood MAIN LAB [address] [place] [address] * MAGNESIUM (10/30/2017 6:12 AM) Only the most recent of 2 results within the time period is included. Component Value Ref Range Magnesium 2.6 1.6 - 2.6 mg/dL Specimen Performing Laboratory Blood MAIN LAB [address] [place] [address] * COMPREHENSIVE METABOLIC PANEL (10/30/2017 6:12 AM) Only the most recent of 6 results within the time period is included. Component Value Ref Range Sodium 131 (L) 137 - 147 MMOL/L Potassium 3.2 (L) 3.5 - 5.1 MMOL/L Chloride 101 98 - 110 MMOL/L Glucose 128 (H) 70 - 100 MG/DL Blood Urea Nitrogen 13 7 - 25 MG/DL Creatinine 0.78 0.4 - 1.24 MG/DL Calcium 8.0 (L) 8.5 - 10.6 MG/DL Total Protein 6.7 6.0 - 8.0 G/DL Total Bilirubin 0.8 0.3 - 1.2 MG/DL Albumin 4.1 3.5 - 5.0 G/DL Alk Phosphatase 49 25 - 110 U/L AST (SGOT) 12 7 - 40 U/L CO2 21 21 - 30 MMOL/L ALT (SGPT) 9 7 - 56 U/L Anion Gap 9 3 - 12 eGFR Non >60 >60 [...] Specimen Performing Laboratory Blood MAIN LAB [address] [place] [address] * RVP VIRAL PANEL PCR (10/30/2017 12:47 AM) Component Value Ref Range Specimen Source NASAL WASH Adenovirus NOT DETECTED Coronavirus 229E NOT DETECTED Coronavirus HKU1 NOT DETECTED Coronavirus NL63 NOT DETECTED Coronavirus OC43 NOT DETECTED Human Metapneumovirus NOT DETECTED Human NOT DETECTED Rhinovirus/ENTEROVIRUS Influenza A H1N1 2009 NOT DETECTED Influenza A H1 NOT DETECTED Influenza A H3 NOT DETECTED Influenza B NOT DETECTED Parainfluenza 1 NOT DETECTED Parainfluenza 2 NOT DETECTED Parainfluenza 3 NOT DETECTED Parainfluenza 4 NOT DETECTED RSV NOT DETECTED Bordetella Pertussis NOT DETECTED Chlamydophila Pneumoniae NOT DETECTED Mycoplasma Pneumoniae NOT DETECTED Specimen Performing Laboratory Nasopharyngeal Swab MAIN LAB [address] [place] [address] * CHEST 2 VIEWS (10/29/2017 9:59 PM) Specimen Performing Laboratory [facility] RAD RESULTS Impressions 1. No acute cardiopulmonary abnormality. 2. Previously described right upper lobe pulmonary nodule better seen on prior CT chest. Approved by Amish Euceda M.D. on 10/30/2017 10:51 AM By my electronic signature, I attest that I have personally reviewed the images for this examination and formulated the interpretations and opinions expressed in this report Finalized by Ventura Figueroa M.D. on 10/30/2017 11:21 AM. Dictated by Amish Euceda M.D. on 10/30/2017 9:27 AM. Narrative Procedure: CHEST 2 VIEWS Clinical Indication: Leukocytosis. Upper respiratory tract infection. Comparison: CT chest October 03, 2017. FINDINGS: Upright PA and lateral chest radiograph were obtained. Heart is normal in size without pulmonary venous congestion. No pneumothorax, pleural effusion, or focal consolidation. Previously described right upper lobe pulmonary nodule better seen on prior CT chest. 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 Upper respiratory tract infection. Comparison: CT chest October 03, 2017. FINDINGS: Upright PA and lateral chest radiograph were obtained. Heart is normal in size without pulmonary venous congestion. No pneumothorax, pleural effusion, or focal consolidation. Previously described right upper lobe pulmonary nodule better seen on prior CT chest. IMPRESSION 1. No acute cardiopulmonary abnormality. 2. Previously described right upper lobe pulmonary nodule better seen on prior CT chest. Approved by Amish Euceda M.D. on 10/30/2017 10:51 AM By my electronic signature, I attest that I have personally reviewed the images for this examination and formulated the interpretations and opinions expressed in this report Finalized by Ventura Figueroa M.D. on 10/30/2017 11:21 AM. Dictated by Amish Euceda M.D. on 10/30/2017 9:27 AM. * UA REFLEX CULTURE LABEL (10/29/2017 8:23 PM) Component Value Ref Range UA Reflex Culture LAB LABEL Specimen Performing Laboratory Urine MAIN LAB [address] [place] [address] * URINALYSIS MICROSCOPIC REFLEX TO CULTURE (10/29/2017 8:23 PM) Component Value Ref Range WBCs,UA 0-2 0 - 2 /HPF RBCs,UA NONE 0 - 3 /HPF Comment,UA Urine submitted for reflex culture if criteria are met:WBC>10, positive nitrite and/or >=1+ leukocyte esterase. If quantity is not sufficient, an addendum will follow. MucousUA TRACE Specimen Performing Laboratory Urine MAIN LAB [address] [place] [address] * URINALYSIS DIPSTICK REFLEX TO CULTURE (10/29/2017 8:23 PM) Component Value Ref Range Color,UA STRAW Turbidity,UA CLEAR CLEAR-CLEAR Specific [place]-Urine 1.003 1.003 - 1.035 pH,UA 7.0 5.0 - 8.0 Protein,UA NEG NEG-NEG Glucose,UA NEG NEG-NEG Ketones,UA NEG NEG-NEG Bilirubin,UA NEG NEG-NEG Blood,UA NEG NEG-NEG Urobilinogen,UA NORMAL NORM-NORMAL Nitrite,UA NEG NEG-NEG Leukocytes,UA NEG NEG-NEG Urine Ascorbic Acid, UA NEG NEG-NEG Specimen Performing Laboratory Urine [facility] [address] [place] [address] * [place] IGG/IGM SERUM (10/29/2017 8:15 PM) Component Value Ref Range [place] IGG, Serum Negative Reference range: Negative [facility], [address] [place] [id number] [place] IGM, Serum Negative Reference range: Negative [facility], [address] [place] [phone] WNS INTERPRETATION No antibodies to WNV detected. Repeat testing in 10-14 days if clinical suspicion persists. [facility], [address] [place] [address] Specimen Performing Laboratory Blood REFERENCE LAB * LYMPHOCYTIC CHORIOMENINGITIS AB (10/29/2017 8:15 PM) Component Value Ref Range LCM Virus AB, IgG <1:10 Reference range: <1:10 INTERPRETIVE INFORMATION: LCM Virus Ab, IgG <1:10 Negative - No significant level of LCM Virus IgG antibody detected >=1:10 Positive - Presence of IgG antibody to the LCM virus detected, suggestive of current or past infection. The best evidence for current infection is a significant change on two appropriately timed specimens, where both tests are done in the same laboratory at the same time. Test developed and characteristics determined by [facility]. See Compliance Statement D: [facility]/CS LCM Virus AB, IgM <1:10 Reference range: <1:10 INTERPRETIVE INFORMATION: LCM Virus Ab, IgM <1:10 Negative - No significant level of LCM Virus IgM antibody detected >=1:10 Positive - Presence of IgM antibody to the LCM virus detected, suggestive of current or past infection. The best evidence for current infection is a significant change on two appropriately timed specimens, where both tests are done in the same laboratory at the same time. Test developed and characteristics determined by [facility]. See Compliance Statement D: [email or web address]/CS Performed by [facility], [address] [place] [id number] [email or web address], Jame Lorenzo MD, Lab. Director Specimen Performing Laboratory Blood REFERENCE LAB * CULTURE-BLOOD W/SENSITIVITY (10/29/2017 6:55 PM) Component Value Ref Range Battery Name BLOOD CULTURE Specimen Description BLOOD RIGHT ANTECUBITAL Special Requests NONE Culture NO GROWTH 5 DAYS Report Status FINAL 11/04/2017 Specimen Performing Laboratory Blood [facility] [address] [place] [address] * ABIGAIL BESS QNT CSF (10/29/2017 6:20 PM) Component Value Ref Range EBV CSF Quant Not Detected Unit: IU/mL Assay Range: 52 IU/mL to 1.13d58x3 IU/mL Expected Value: Not Detected- As of December 28, 2012 results for quantitative EBV testing are resulted in International Units (IU).-One IU is equal to 0.59 copies of EBV. The limit of quantitation (LOQ) is 52 IU/mL.- EBV DNA detected below the LOQ will be reported as Detected: <52 IU/mL. This test was developed and its performance characteristics determined by [facility]. It has not been cleared or approved by the U.S. Food and Drug Administration.-Results should be used in conjunction with clinical findings, and should not form the sole basis for a diagnosis or treatment decision.- PCR tests are performed pursuant to a license agreement with [employer]. Testing Performed At: [facility] [address] [place] [address] [place] [address] CLIA ID: [id number] Specimen Performing Laboratory Cerebrospinal Fluid REFERENCE LAB * ENTEROVIRUS QUANT PCR CSF (10/29/2017 6:20 PM) Component Value Ref Range Enterovirus CSF PCR Quant Not Detected Unit: RNA copies/ml Assay Range: 83 copies/mL to 1x10e8 copies/mL Expected Value: Not Detected The limit of quantitation (LOQ) is 83 copies/mL. Enterovirus RNA detected below the LOQ will be reported as Detected: <83 copies/mL. This assay is designed to specifically detect enteroviruses; however, rhinoviruses are a closely related and highly diverse group of pathogens. Cross-reactivity has been observed with some strains of rhinovirus. This test was developed and its performance characteristics determined by [facility]. It has not been cleared or approved by the U.S. Food and Drug Administration. Results should be used in conjunction with clinical findings, and should not form the sole basis for a diagnosis or treatment decision. PCR tests are performed pursuant to a license agreement with [employer]. Testing Performed At: [facility] [address] [place], [place] [id number] CLIA ID: [id number] Specimen Performing Laboratory Cerebrospinal Fluid REFERENCE LAB * HERPES SIMPLEX PCR - NON-BLOOD (10/29/2017 6:20 PM) Component Value Ref Range Specimen, Herpes CSF Herpes Simplex PCR HSV 1 and 2 NOT DETECTED Orlebar Brown HSV 1&2 Assay is a qualitative real-time PCR test for the direct detection and differentiation of HSV 1 and 2 DNA. This assay is FDA approved for testing cutaneous or mucocutaneous lesions from symptomatic patients. Performance on modifications of this test as well as other specimen types has been validated by the Department of Pathology and Laboratory Medicine at the [facility]. Specimen Performing Laboratory Cerebrospinal Fluid MAIN LAB [address] [place] [address] * GRAM STAIN (10/29/2017 6:20 PM) Component Value Ref Range Battery Name GRAM STAIN Specimen Description CSF Special Requests NONE Gram Stain NO NEUTROPHILS SEEN NO ORGANISMS SEEN Report Status FINAL 10/29/2017 Specimen Performing Laboratory Cerebrospinal Fluid MAIN LAB [address] [place] [address] * CULTURE-CSF W/SENSITIVITY (10/29/2017 6:20 PM) Component Value Ref Range Battery Name CSF CULTURE Specimen Description CSF Special Requests NONE Direct Gram Stain NO NEUTROPHILS SEEN NO ORGANISMS SEEN Culture NO GROWTH 3 DAYS Report Status FINAL 11/01/2017 Specimen Performing Laboratory Cerebrospinal fluid - [facility] Cerebrospinal Fluid [address] [place] [address] * [place] IGG/IGM-CSF (10/29/2017 6:20 PM) Component Value Ref Range [place] IGG, CSF Negative Reference range: Negative [facility], [address] [place] [address] [place] IGM, CSF Negative Reference range: Negative [email or web address], [address] [place] [address] WN INTERPRETATION No antibodies to WNV detected. Repeat testing in 10-14 days if clinical suspicion persists. ADDITIONAL INFORMATION This test has been modified from the ruffling machine operator's instructions. Its performance characteristics were determined by [facility] in a manner consistent with CLIA requirements. This test has not been cleared or approved by the U.S. Food and Drug Administration. [facility], [address] [place] [phone] Specimen Performing Laboratory Cerebrospinal fluid - REFERENCE LAB Cerebrospinal Fluid * CRYPTOCOCCUS AG-CSF (10/29/2017 6:20 PM) Component Value Ref Range Cryptococcal AG NEG NEG-NEG Screen,CSF Specimen Performing Laboratory Cerebrospinal fluid - [facility] Cerebrospinal Fluid [address] [place], [place] [id number] * CELL COUNT W/DIFF-CSF (10/29/2017 6:20 PM) Component Value Ref Range Cell Count Tube,CSF TUBE 4 White Blood Cells,CSF 3 <5 /UL Red Blood Cells,CSF 1 /UL Neutrophils, CSF 5 % Lymphocytes, CSF 35 % Monocyte/Hisotocyte, CSF 45 % Other, CSF 15 % Clarity,CSF CLEAR Path Interpretation, CSF ATYPICAL CELLS SUSPICIOUS FOR MALIGNANCY CYTOPATHOLOGY CORRELATION RECOMMENDED Pathologist Signature INTERPRETED BY CLARA ALMEIDA M.D. By the PATH SIGNATURE ABOVE, I attest that I have personally formulated the final interpretation expressed in this report and that the above diagnosis is based upon my examination of the slides and/or other material indicated in this report. Specimen Performing Laboratory Cerebrospinal fluid - [facility] Cerebrospinal Fluid [address] [place] [address] * TOTAL PROTEIN-CSF (10/29/2017 6:20 PM) Component Value Ref Range Total Protein,CSF 40 15 - 45 MG/DL Specimen Performing Laboratory Cerebrospinal fluid - [facility] Cerebrospinal Fluid [address] [place] [address] * GLUCOSE-CSF (10/29/2017 6:20 PM) Component Value Ref Range Glucose,CSF 56 40 - 75 MG/DL Xanthrochromia,CSF NONE Specimen Performing Laboratory Cerebrospinal fluid [facility] Cerebrospinal Fluid [address] [place] [id number] * IR LUMBAR PUNCTURE (10/29/2017 5:56 PM) Specimen Performing Laboratory [facility] Impressions Diagnostic lumbar puncture with opening pressure measuring 25 cm of water. IGeovanni M.D., the attending interventional radiologist, performed the entire procedure, personally reviewed the images, and formulated the interpretations and opinions expressed in this report. @TT Finalized by Geovanni Doss M.D. on 10/30/2017 9:05 AM. Dictated by Geovanni Doss M.D. on 10/30/2017 9:04 AM. Narrative Lumbar puncture under fluoroscopic guidance: Clinical Indication: Melanoma, meningitis Radiation dose: 5 mgy Medication: 2% lidocaine Technique andFindings: The nature of the procedure, risks, benefits, alternatives, and expected outcomes were discussed with the patient. The patient then provided informed written and verbal consent. The patient was placed on the fluoroscopic table in the left lateral decubitus position.The lower back was then prepped and draped in the usual sterile fashion.After obtaining local anesthesia with 2% lidocaine, a 22 gauge spinal needle was advanced, under fluoroscopic guidance, into the thecal sac at the L3-4 level. Opening pressure was then measured at 25 cm of water. Approximately 15 ml of clear CSF was obtained following needle placement. Closing pressure measured at 19 cm of water.The stylet was replaced and the needle was removed. Hemostasis was obtained spontaneously.The patient tolerated the procedure well and left the department in stable, unchanged condition. 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 The patient then provided informed written and verbal consent. The patient was placed on the fluoroscopic table in the left lateral decubitus position. The lower back was then prepped and draped in the usual sterile fashion. After obtaining local anesthesia with 2% lidocaine, a 22 gauge spinal needle was advanced, under fluoroscopic guidance, into the thecal sac at the L3- 4 level. Opening pressure was then measured at 25 cm of water. Approximately 15 ml of clear CSF was obtained following needle placement. Closing pressure measured at 19 cm of water. The stylet was replaced and the needle was removed. Hemostasis was obtained spontaneously. The patient tolerated the procedure well and left the department in stable, unchanged condition. IMPRESSION Diagnostic lumbar puncture with opening pressure measuring 25 cm of water. I, Geovanni Doss M.D., the attending interventional radiologist, performed the entire procedure, personally reviewed the images, and formulated the interpretations and opinions expressed in this report. @TT Finalized by Geovanni Doss M.D. on 10/30/2017 9:05 AM. Dictated by Geovanni Doss M.D. on 10/30/2017 9:04 AM. * INFLUENZA A/B AG (RAPID TEST) (10/29/2017 12:40 PM) Component Value Ref Range Battery Name INFLUENZA A/B ANTIGEN Specimen Description NASOPHARYNGEAL SWAB Special Requests NONE Direct Antigen NEGATIVE FOR INFLUENZA A/B Report Status FINAL 10/29/2017 Specimen Performing Laboratory Nasopharyngeal Swab [facility] [address] [place] [address] * LDH-LACTATE DEHYDROGENASE (10/29/2017 12:16 PM) Component Value Ref Range Lactate Dehydrogenase 185 100 - 210 U/L Specimen Performing Laboratory Blood [facility] [address] [place] [address] * MRI HEAD WO/W CONTRAST (10/29/2017 11:19 AM) Only the most recent of 2 results within the time period is included. Specimen Performing Laboratory [facility] Impressions 1. Development of scattered abnormal sulcal FLAIR hyperintensities, without definite associated abnormal intracranial enhancement, suspicious for infectious meningitis or carcinomatosis. 2. 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 These findings were discussed by telephone with Dr. North at 3:15 PM on 10/29. Approved by Yvan Rosado M.D. on 10/29/2017 3:30 PM By my electronic signature, I attest that I have personally reviewed the images for this examination and formulated the interpretations and opinions expressed in this report Finalized by Walter Dockery M.D. on 10/29/2017 3:55 PM. Dictated by Yvan Rosado M.D. on 10/29/2017 1:26 PM. Narrative EXAM: MRI BRAIN HISTORY: 22-year-old male, melanoma, headache x 3 days with n/v TECHNIQUE: Multiplanar and multisequence MR imaging of the head was performed. This was done both before and after the administration of MultiHancecontrast. COMPARISON: MRI brain October 05, 2017 FINDINGS: There is subtle scattered abnormal sulcal FLAIR hyperintensity along the bilateral cerebral and cerebellar convexities without definite associated abnormal leptomeningeal enhancement. There is slight increased distention of the ventricles. Brain parenchyma is normal in signal. There is no midline shift or mass effect. No definite abnormal contrast enhancement. The vascular flow- voids are unremarkable. Diffusion weighted imaging is not indicative of acute or recent infarct. 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 This was done both before and after the administration of MultiHancecontrast. COMPARISON: MRI brain October 05, 2017 FINDINGS: There is subtle scattered abnormal sulcal FLAIR hyperintensity along the bilateral cerebral and cerebellar convexities without definite associated abnormal leptomeningeal enhancement. There is slight increased distention of the ventricles. Brain parenchyma is normal in signal. There is no midline shift or mass effect. No definite abnormal contrast enhancement. The vascular flow- voids are unremarkable. Diffusion weighted imaging is not indicative of acute or recent infarct. IMPRESSION 1. Development of scattered abnormal sulcal FLAIR hyperintensities, without definite associated abnormal intracranial enhancement, suspicious for infectious meningitis or carcinomatosis. 2. 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 These findings were discussed by telephone with Dr. North at 3:15 PM on 10/29. Approved by Yvan Rosado M.D. on 10/29/2017 3:30 PM By my electronic signature, I attest that I have personally reviewed the images for this examination and formulated the interpretations and opinions expressed in this report Finalized by Walter Dockery M.D. on 10/29/2017 3:55 PM. Dictated by Yvan Rosado M.D. on 10/29/2017 1:26 PM. * NON-WARP DYEING VAT TENDER CYTOLOGY (BODY FLUIDS/TISSUE) (10/29/2017 8:52 AM) Component Value Ref Range Cytology [facility] [email or web address] Department of Pathology and Laboratory Medicine [address] [place] [id number] Surgical Pathology Office: [phone] CYTOLOGY REPORT NAME: NICKOLAS LUDWIG CYTOLOGY #: [id number] MR #: [id number] ALT ID #: [id number] #: [id number] LOCATION: [address] [place] [address] DATE OF PROCEDURE: 10/29/2017 AGE: 22 SEX: M DATE RECEIVED: 10/30/2017 : 1995 TIME RECEIVED: 08:52 PHYSICIAN: DIANNE VALENZUELA MD DATE OF REPORT: 10/30/2017 COPY TO: DATE OF PRINTIN10/30/2017 Material Received: A: Cerebrospinal Fluid History: 22 year-old male with a history of metastatic melanoma. Gross Description: ( 1 ThinPrep) 2 mls clear colorless fluid. ik/10/30/2017 ################################################## ###################### Final Diagnosis: A. Cerebrospinal Fluid: Negative for malignant cells. Attestation: By this signature, I attest that I have personally formulated the final interpretation expressed in this report and that the above diagnosis is based upon my examination of the slides and/or other material indicated in this report. +++Electronically Signed Out By+++ ik10/30/2017 Interpreted by: Xochitl Mcneill MD, PhD Reilly Caballero MD Resident Specimen Performing Laboratory [facility] * CT ABD/PELV W CONTRAST (10/03/2017 3:06 PM) Specimen Performing Laboratory [facility] Impressions Neck: 1. Postsurgical changes of prior right temporal scalp and right neck dissection. Stable periarticular soft tissue lesion suspicious for metastatic disease. Clinical correlation is recommended. 2. Improvement in right cervical lymphadenopathy, compatible with improvement in seth metastases. Residual lymph nodes are within normal limits in size. Chest: 1. Decrease in size of the medial right upper lobe nodule with apparent resolution of scattered bilateral sub-5 mm pulmonary nodules, compatible with positive response to therapy. No new or enlarging pulmonary nodules. 2.Improvement in previously hypermetabolic mediastinal lymphadenopathy. No new or enlarging thoracic lymph nodes. 3. Small lytic metastasis involving the right side of the sternum unchanged from 08/05/2017. No new osseous metastases are identified within the chest. Abdomen and Pelvis: 1. Interval overall improvement in the vast majority of the previously noted multifocal hepatic metastases throughout both hepatic lobes noted on the outside study dated 07/28/2017. However, there has been increase in size of a dominant 4.4 cm enhancing lesion within segment 5 of the liver consistent with progression at the site. 2. No abdominopelvic lymphadenopathy. 3. Scattered osseous metastases involving the L3 vertebral body, left sacrum and proximal right femur which have progressed from the prior PET/CT scan dated 06/26/2017. The L3 lesion is essentially stable from 08/05/2017. The left sacral and right femoral lesions were not included on that study. By my electronic signature, I attest that I have personally reviewed the images for this examination and formulated the interpretations and opinions expressed in this report Finalized by Pedrito Rush M.D. on 10/03/2017 4:39 PM. Dictated by Luiz Warren M.D. on 10/03/2017 3:[address] Neck, Chest, Abdomen and Pelvis with Contrast Clinical Indication:Male, 22 years old.Melanoma of the right temporal scalp status post excision and right neck dissection. Technique: Multiple contiguous axial images were obtained through the neck, chest, abdomen and pelvis following the uneventful administration of Omnipaque 240 IV contrast material. Post processing coronal and sagittal reconstruction images were made from the axial images. Comparison: CT neck 06/26/2017, PET/CT 06/26/2017, outside CT chest/abdomen Neck findings: Brain and Orbits: The visualized intracranial and intraorbital structures appear grossly unremarkable. Sinuses and Mastoids: The visualized paranasal sinuses and mastoid air cells are clear. Parotid and Submandibular Glands: The parotid and submandibular glands appear unremarkable. Cervical Lymph Nodes and Soft Tissues: Redemonstration of postsurgical changes of prior right temporal scalp and right neck dissection. There is no significant change in the right preauricular soft tissue stranding and thickening (series 6 image 14), which was hypermetabolic on prior PET/CT. There has been interval improvement in right cervical lymphadenopathy, with the previously measured left level 2A cervical lymph node now measuring 1.0 x 0.6 cm (series 6 image 35), previously 1.6 x 1.1 cm. Residual scattered lymph nodes are within normal limits in size. No pathologically enlarged cervical lymph nodes are identified. Thyroid: No significant thyroid abnormalities are seen. Larynx and Hypopharynx: The larynx and hypopharynx appear normal. Oral Cavity, Oropharynx, and Nasopharynx: The base of the tongue, oropharyngeal region, and posterior nasopharynx appear unremarkable. Cervical Vasculature: The carotid arteries are patent. Osseous Structures: No destructive osseous lesions are seen. Chest Findings: Axilla, Mediastinum and Candice: Decrease in size in the previously identified right paratracheal lymph node, now measuring 1.1 x 0.7 cm (series 3 image 32), previously 1.8 x 1.0 cm on 06/26/2017 1 measured in a similar fashion. This was previously hypermetabolic. No significant residual thoracic lymphadenopathy. Heart and Great Vessels: Heart size is normal. The aorta is normal in caliber. No significant pericardial effusion is present. Airway, Lungs, and Pleura: Central airways are patent. Interval decrease in size of the medial right lung apex nodule, now measuring up to 1.6 cm (series 2 image 30), previously 2.0 cm when measured in a similar fashion. There is decreased conspicuity of numerous additional bilateral subcentimeter pulmonary nodules. No new or enlarging pulmonary nodules are identified. No pulmonary consolidation or pleural effusion. Chest Wall and Osseous Structures: Stable lytic lesion involving the right side of the sternum on image 52 of series 3 unchanged from 08/05/2017. Abdomen and Pelvis Findings: Liver and Biliary system: Liver is normal in size. There is redemonstration of innumerable bilateral low-density hepatic lesions, which have mostly decreased in size. A personal financial representative lesion in the inferior right lobe posteriorly measures up to 1.4 cm (series 4 image 33), previously 2.3 cm on 07/28/2017 when measured in a similar manner. There has however been increase in size of a solitary lesion 4.4 x 4.1 cm (series 4 image 32), previously 4.1 x 3.1 cm, and now demonstrates increased internal enhancement. The major portal veins are patent. No calcified gallstone or biliary ductal dilatation. The major portal veins are patent. No calcified gallstone or biliary ductal dilatation is identified. Spleen: Unremarkable. Adrenal Glands and Kidneys: Unremarkable. Pancreas and Retroperitoneum: The pancreas appears unremarkable. No significant retroperitoneal adenopathy is seen. Aorta and Major Vessels: The abdominal aorta is normal in caliber. Bowel, Mesentery, and Peritoneal Space: The large and small bowel loops are normal in caliber. Pelvis: No significant pelvic adenopathy is seen.No significant free pelvic fluid is seen. Abdominal wall and Osseous Structures: There is a lytic lesion in the left sacral ala (series 7 image 59), which was hypermetabolic on prior PET/CT. This now measures 1.9 cm, previously 1.3 cm. Redemonstration of a small lucent lesion in the left L3 vertebral body near the pedicle (series 7 image 37), which is new since 06/26/2017, though not significantly changed since 2016. Small 1.3 cm lytic lesion is also now noted within the greater trochanter of the right femur on image 85 of series 7 which is new from 06/26/2017. 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 Melanoma of the right temporal scalp status post excision and right neck dissection. Technique: Multiple contiguous axial images were obtained through the neck, chest, abdomen and pelvis following the uneventful administration of Omnipaque 240 IV contrast material. Post processing coronal and sagittal reconstruction images were made from the axial images. Comparison: CT neck 06/26/2017, PET/CT 06/26/2017, outside CT chest/abdomen Neck findings: Brain and Orbits: The visualized intracranial and intraorbital structures appear grossly unremarkable. Sinuses and Mastoids: The visualized paranasal sinuses and mastoid air cells are clear. Parotid and Submandibular Glands: The parotid and submandibular glands appear unremarkable. Cervical Lymph Nodes and Soft Tissues: Redemonstration of postsurgical changes of prior right temporal scalp and right neck dissection. There is no significant change in the right preauricular soft tissue stranding and thickening (series 6 image 14), which was hypermetabolic on prior PET/CT. There has been interval improvement in right cervical lymphadenopathy, with the previously measured left level 2A cervical lymph node now measuring 1.0 x 0.6 cm (series 6 image 35), previously 1.6 x 1.1 cm. Residual scattered lymph nodes are within normal limits in size. No pathologically enlarged cervical lymph nodes are identified. Thyroid: No significant thyroid abnormalities are seen. Larynx and Hypopharynx: The larynx and hypopharynx appear normal. Oral Cavity, Oropharynx, and Nasopharynx: The base of the tongue, oropharyngeal region, and posterior nasopharynx appear unremarkable. Cervical Vasculature: The carotid arteries are patent. Osseous Structures: No destructive osseous lesions are seen. Chest Findings: Axilla, Mediastinum and Candice: Decrease in size in the previously identified right paratracheal lymph node, now measuring 1.1 x 0.7 cm (series 3 image 32), previously 1.8 x 1.0 cm on 06/26/2017 1 measured in a similar fashion. This was previously hypermetabolic. No significant residual thoracic lymphadenopathy. Heart and Great Vessels: Heart size is normal. The aorta is normal in caliber. No significant pericardial effusion is present. Airway, Lungs, and Pleura: Central airways are patent. Interval decrease in size of the medial right lung apex nodule, now measuring up to 1.6 cm (series 2 image 30), previously 2.0 cm when measured in a similar fashion. There is decreased conspicuity of numerous additional bilateral subcentimeter pulmonary nodules. No new or enlarging pulmonary nodules are identified. No pulmonary consolidation or pleural effusion. Chest Wall and Osseous Structures: Stable lytic lesion involving the right side of the sternum on image 52 of series 3 unchanged from 08/05/2017. Abdomen and Pelvis Findings: Liver and Biliary system: Liver is normal in size. There is redemonstration of innumerable bilateral low-density hepatic lesions, which have mostly decreased in size. A personal financial representative lesion in the inferior right lobe posteriorly measures up to 1.4 cm (series 4 image 33), previously 2.3 cm on 07/28/2017 when measured in a similar manner. There has however been increase in size of a solitary lesion 4.4 x 4.1 cm (series 4 image 32), previously 4.1 x 3.1 cm, and now demonstrates increased internal enhancement. The major portal veins are patent. No calcified gallstone or biliary ductal dilatation. The major portal veins are patent. No calcified gallstone or biliary ductal dilatation is identified. Spleen: Unremarkable. Adrenal Glands and Kidneys: Unremarkable. Pancreas and Retroperitoneum: The pancreas appears unremarkable. No significant retroperitoneal adenopathy is seen. Aorta and Major Vessels: The abdominal aorta is normal in caliber. Bowel, Mesentery, and Peritoneal Space: The large and small bowel loops are normal in caliber. Pelvis: No significant pelvic adenopathy is seen. No significant free pelvic fluid is seen. Abdominal wall and Osseous Structures: There is a lytic lesion in the left sacral ala (series 7 image 59), which was hypermetabolic on prior PET/CT. This now measures 1.9 cm, previously 1.3 cm. Redemonstration of a small lucent lesion in the left L3 vertebral body near the pedicle (series 7 image 37), which is new since 06/26/2017, though not significantly changed since 2016. Small 1.3 cm lytic lesion is also now noted within the greater trochanter of the right femur on image 85 of series 7 which is new from 06/26/2017. IMPRESSION Neck: 1. Postsurgical changes of prior right temporal scalp and right neck dissection. Stable periarticular soft tissue lesion suspicious for metastatic disease. Clinical correlation is recommended. 2. Improvement in right cervical lymphadenopathy, compatible with improvement in seth metastases. Residual lymph nodes are within normal limits in size. Chest: 1. Decrease in size of the medial right upper lobe nodule with apparent resolution of scattered bilateral sub-5 mm pulmonary nodules, compatible with positive response to therapy. No new or enlarging pulmonary nodules. 2. Improvement in previously hypermetabolic mediastinal lymphadenopathy. No new or enlarging thoracic lymph nodes. 3. Small lytic metastasis involving the right side of the sternum unchanged from 08/05/2017. No new osseous metastases are identified within the chest. Abdomen and Pelvis: 1. Interval overall improvement in the vast majority of the previously noted multifocal hepatic metastases throughout both hepatic lobes noted on the outside study dated 07/28/2017. However, there has been increase in size of a dominant 4.4 cm enhancing lesion within segment 5 of the liver consistent with progression at the site. 2. No abdominopelvic lymphadenopathy. 3. Scattered osseous metastases involving the L3 vertebral body, left sacrum and proximal right femur which have progressed from the prior PET/CT scan dated 06/26/2017. The L3 lesion is essentially stable from 08/05/2017. The left sacral and right femoral lesions were not included on that study. By my electronic signature, I attest that I have personally reviewed the images for this examination and formulated the interpretations and opinions expressed in this report Finalized by Pedrito Rush M.D. on 10/03/2017 4:39 PM. Dictated by Luiz Warren M.D. on 10/03/2017 3:30 PM. * CT CHEST W CONTRAST (10/03/2017 3:06 PM) Specimen Performing Laboratory [facility] Impressions Neck: 1. Postsurgical changes of prior right temporal scalp and right neck dissection. Stable periarticular soft tissue lesion suspicious for metastatic disease. Clinical correlation is recommended. 2. Improvement in right cervical lymphadenopathy, compatible with improvement in seth metastases. Residual lymph nodes are within normal limits in size. Chest: 1. Decrease in size of the medial right upper lobe nodule with apparent resolution of scattered bilateral sub-5 mm pulmonary nodules, compatible with positive response to therapy. No new or enlarging pulmonary nodules. 2.Improvement in previously hypermetabolic mediastinal lymphadenopathy. No new or enlarging thoracic lymph nodes. 3. Small lytic metastasis involving the right side of the sternum unchanged from 08/05/2017. No new osseous metastases are identified within the chest. Abdomen and Pelvis: 1. Interval overall improvement in the vast majority of the previously noted multifocal hepatic metastases throughout both hepatic lobes noted on the outside study dated 07/28/2017. However, there has been increase in size of a dominant 4.4 cm enhancing lesion within segment 5 of the liver consistent with progression at the site. 2. No abdominopelvic lymphadenopathy. 3. Scattered osseous metastases involving the L3 vertebral body, left sacrum and proximal right femur which have progressed from the prior PET/CT scan dated 06/26/2017. The L3 lesion is essentially stable from 08/05/2017. The left sacral and right femoral lesions were not included on that study. By my electronic signature, I attest that I have personally reviewed the images for this examination and formulated the interpretations and opinions expressed in this report Finalized by Pedrito Rush M.D. on 10/03/2017 4:39 PM. Dictated by Luiz Warren M.D. on 10/03/2017 3:[address] Neck, Chest, Abdomen and Pelvis with Contrast Clinical Indication:Male, 22 years old.Melanoma of the right temporal scalp status post excision and right neck dissection. Technique: Multiple contiguous axial images were obtained through the neck, chest, abdomen and pelvis following the uneventful administration of Omnipaque 240 IV contrast material. Post processing coronal and sagittal reconstruction images were made from the axial images. Comparison: CT neck 06/26/2017, PET/CT 06/26/2017, outside CT chest/abdomen Neck findings: Brain and Orbits: The visualized intracranial and intraorbital structures appear grossly unremarkable. Sinuses and Mastoids: The visualized paranasal sinuses and mastoid air cells are clear. Parotid and Submandibular Glands: The parotid and submandibular glands appear unremarkable. Cervical Lymph Nodes and Soft Tissues: Redemonstration of postsurgical changes of prior right temporal scalp and right neck dissection. There is no significant change in the right preauricular soft tissue stranding and thickening (series 6 image 14), which was hypermetabolic on prior PET/CT. There has been interval improvement in right cervical lymphadenopathy, with the previously measured left level 2A cervical lymph node now measuring 1.0 x 0.6 cm (series 6 image 35), previously 1.6 x 1.1 cm. Residual scattered lymph nodes are within normal limits in size. No pathologically enlarged cervical lymph nodes are identified. Thyroid: No significant thyroid abnormalities are seen. Larynx and Hypopharynx: The larynx and hypopharynx appear normal. Oral Cavity, Oropharynx, and Nasopharynx: The base of the tongue, oropharyngeal region, and posterior nasopharynx appear unremarkable. Cervical Vasculature: The carotid arteries are patent. Osseous Structures: No destructive osseous lesions are seen. Chest Findings: Axilla, Mediastinum and Candice: Decrease in size in the previously identified right paratracheal lymph node, now measuring 1.1 x 0.7 cm (series 3 image 32), previously 1.8 x 1.0 cm on 06/26/2017 1 measured in a similar fashion. This was previously hypermetabolic. No significant residual thoracic lymphadenopathy. Heart and Great Vessels: Heart size is normal. The aorta is normal in caliber. No significant pericardial effusion is present. Airway, Lungs, and Pleura: Central airways are patent. Interval decrease in size of the medial right lung apex nodule, now measuring up to 1.6 cm (series 2 image 30), previously 2.0 cm when measured in a similar fashion. There is decreased conspicuity of numerous additional bilateral subcentimeter pulmonary nodules. No new or enlarging pulmonary nodules are identified. No pulmonary consolidation or pleural effusion. Chest Wall and Osseous Structures: Stable lytic lesion involving the right side of the sternum on image 52 of series 3 unchanged from 08/05/2017. Abdomen and Pelvis Findings: Liver and Biliary system: Liver is normal in size. There is redemonstration of innumerable bilateral low-density hepatic lesions, which have mostly decreased in size. A personal financial representative lesion in the inferior right lobe posteriorly measures up to 1.4 cm (series 4 image 33), previously 2.3 cm on 07/28/2017 when measured in a similar manner. There has however been increase in size of a solitary lesion 4.4 x 4.1 cm (series 4 image 32), previously 4.1 x 3.1 cm, and now demonstrates increased internal enhancement. The major portal veins are patent. No calcified gallstone or biliary ductal dilatation. The major portal veins are patent. No calcified gallstone or biliary ductal dilatation is identified. Spleen: Unremarkable. Adrenal Glands and Kidneys: Unremarkable. Pancreas and Retroperitoneum: The pancreas appears unremarkable. No significant retroperitoneal adenopathy is seen. Aorta and Major Vessels: The abdominal aorta is normal in caliber. Bowel, Mesentery, and Peritoneal Space: The large and small bowel loops are normal in caliber. Pelvis: No significant pelvic adenopathy is seen.No significant free pelvic fluid is seen. Abdominal wall and Osseous Structures: There is a lytic lesion in the left sacral ala (series 7 image 59), which was hypermetabolic on prior PET/CT. This now measures 1.9 cm, previously 1.3 cm. Redemonstration of a small lucent lesion in the left L3 vertebral body near the pedicle (series 7 image 37), which is new since 06/26/2017, though not significantly changed since 2016. Small 1.3 cm lytic lesion is also now noted within the greater trochanter of the right femur on image 85 of series 7 which is new from 06/26/2017. 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 Melanoma of the right temporal scalp status post excision and right neck dissection. Technique: Multiple contiguous axial images were obtained through the neck, chest, abdomen and pelvis following the uneventful administration of Omnipaque 240 IV contrast material. Post processing coronal and sagittal reconstruction images were made from the axial images. Comparison: CT neck 06/26/2017, PET/CT 06/26/2017, outside CT chest/abdomen Neck findings: Brain and Orbits: The visualized intracranial and intraorbital structures appear grossly unremarkable. Sinuses and Mastoids: The visualized paranasal sinuses and mastoid air cells are clear. Parotid and Submandibular Glands: The parotid and submandibular glands appear unremarkable. Cervical Lymph Nodes and Soft Tissues: Redemonstration of postsurgical changes of prior right temporal scalp and right neck dissection. There is no significant change in the right preauricular soft tissue stranding and thickening (series 6 image 14), which was hypermetabolic on prior PET/CT. There has been interval improvement in right cervical lymphadenopathy, with the previously measured left level 2A cervical lymph node now measuring 1.0 x 0.6 cm (series 6 image 35), previously 1.6 x 1.1 cm. Residual scattered lymph nodes are within normal limits in size. No pathologically enlarged cervical lymph nodes are identified. Thyroid: No significant thyroid abnormalities are seen. Larynx and Hypopharynx: The larynx and hypopharynx appear normal. Oral Cavity, Oropharynx, and Nasopharynx: The base of the tongue, oropharyngeal region, and posterior nasopharynx appear unremarkable. Cervical Vasculature: The carotid arteries are patent. Osseous Structures: No destructive osseous lesions are seen. Chest Findings: Axilla, Mediastinum and Candice: Decrease in size in the previously identified right paratracheal lymph node, now measuring 1.1 x 0.7 cm (series 3 image 32), previously 1.8 x 1.0 cm on 06/26/2017 1 measured in a similar fashion. This was previously hypermetabolic. No significant residual thoracic lymphadenopathy. Heart and Great Vessels: Heart size is normal. The aorta is normal in caliber. No significant pericardial effusion is present. Airway, Lungs, and Pleura: Central airways are patent. Interval decrease in size of the medial right lung apex nodule, now measuring up to 1.6 cm (series 2 image 30), previously 2.0 cm when measured in a similar fashion. There is decreased conspicuity of numerous additional bilateral subcentimeter pulmonary nodules. No new or enlarging pulmonary nodules are identified. No pulmonary consolidation or pleural effusion. Chest Wall and Osseous Structures: Stable lytic lesion involving the right side of the sternum on image 52 of series 3 unchanged from 08/05/2017. Abdomen and Pelvis Findings: Liver and Biliary system: Liver is normal in size. There is redemonstration of innumerable bilateral low-density hepatic lesions, which have mostly decreased in size. A personal financial representative lesion in the inferior right lobe posteriorly measures up to 1.4 cm (series 4 image 33), previously 2.3 cm on 07/28/2017 when measured in a similar manner. There has however been increase in size of a solitary lesion 4.4 x 4.1 cm (series 4 image 32), previously 4.1 x 3.1 cm, and now demonstrates increased internal enhancement. The major portal veins are patent. No calcified gallstone or biliary ductal dilatation. The major portal veins are patent. No calcified gallstone or biliary ductal dilatation is identified. Spleen: Unremarkable. Adrenal Glands and Kidneys: Unremarkable. Pancreas and Retroperitoneum: The pancreas appears unremarkable. No significant retroperitoneal adenopathy is seen. Aorta and Major Vessels: The abdominal aorta is normal in caliber. Bowel, Mesentery, and Peritoneal Space: The large and small bowel loops are normal in caliber. Pelvis: No significant pelvic adenopathy is seen. No significant free pelvic fluid is seen. Abdominal wall and Osseous Structures: There is a lytic lesion in the left sacral ala (series 7 image 59), which was hypermetabolic on prior PET/CT. This now measures 1.9 cm, previously 1.3 cm. Redemonstration of a small lucent lesion in the left L3 vertebral body near the pedicle (series 7 image 37), which is new since 06/26/2017, though not significantly changed since 2016. Small 1.3 cm lytic lesion is also now noted within the greater trochanter of the right femur on image 85 of series 7 which is new from 06/26/2017. IMPRESSION Neck: 1. Postsurgical changes of prior right temporal scalp and right neck dissection. Stable periarticular soft tissue lesion suspicious for metastatic disease. Clinical correlation is recommended. 2. Improvement in right cervical lymphadenopathy, compatible with improvement in seth metastases. Residual lymph nodes are within normal limits in size. Chest: 1. Decrease in size of the medial right upper lobe nodule with apparent resolution of scattered bilateral sub-5 mm pulmonary nodules, compatible with positive response to therapy. No new or enlarging pulmonary nodules. 2. Improvement in previously hypermetabolic mediastinal lymphadenopathy. No new or enlarging thoracic lymph nodes. 3. Small lytic metastasis involving the right side of the sternum unchanged from 08/05/2017. No new osseous metastases are identified within the chest. Abdomen and Pelvis: 1. Interval overall improvement in the vast majority of the previously noted multifocal hepatic metastases throughout both hepatic lobes noted on the outside study dated 07/28/2017. However, there has been increase in size of a dominant 4.4 cm enhancing lesion within segment 5 of the liver consistent with progression at the site. 2. No abdominopelvic lymphadenopathy. 3. Scattered osseous metastases involving the L3 vertebral body, left sacrum and proximal right femur which have progressed from the prior PET/CT scan dated 06/26/2017. The L3 lesion is essentially stable from 08/05/2017. The left sacral and right femoral lesions were not included on that study. By my electronic signature, I attest that I have personally reviewed the images for this examination and formulated the interpretations and opinions expressed in this report Finalized by Pedrito Rush M.D. on 10/03/2017 4:39 PM. Dictated by Luiz Warren M.D. on 10/03/2017 3:30 PM. * CT NECK W/CONTRAST (10/03/2017 3:06 PM) Specimen Performing Laboratory [facility] RESULTS Impressions Neck: 1. Postsurgical changes of prior right temporal scalp and right neck dissection. Stable periarticular soft tissue lesion suspicious for metastatic disease. Clinical correlation is recommended. 2. Improvement in right cervical lymphadenopathy, compatible with improvement in seth metastases. Residual lymph nodes are within normal limits in size. Chest: 1. Decrease in size of the medial right upper lobe nodule with apparent resolution of scattered bilateral sub-5 mm pulmonary nodules, compatible with positive response to therapy. No new or enlarging pulmonary nodules. 2.Improvement in previously hypermetabolic mediastinal lymphadenopathy. No new or enlarging thoracic lymph nodes. 3. Small lytic metastasis involving the right side of the sternum unchanged from 08/05/2017. No new osseous metastases are identified within the chest. Abdomen and Pelvis: 1. Interval overall improvement in the vast majority of the previously noted multifocal hepatic metastases throughout both hepatic lobes noted on the outside study dated 07/28/2017. However, there has been increase in size of a dominant 4.4 cm enhancing lesion within segment 5 of the liver consistent with progression at the site. 2. No abdominopelvic lymphadenopathy. 3. Scattered osseous metastases involving the L3 vertebral body, left sacrum and proximal right femur which have progressed from the prior PET/CT scan dated 06/26/2017. The L3 lesion is essentially stable from 08/05/2017. The left sacral and right femoral lesions were not included on that study. By my electronic signature, I attest that I have personally reviewed the images for this examination and formulated the interpretations and opinions expressed in this report Finalized by Pedrito Rush M.D. on 10/03/2017 4:39 PM. Dictated by Luiz Warren M.D. on 10/03/2017 3:[address] Neck, Chest, Abdomen and Pelvis with Contrast Clinical Indication:Male, 22 years old.Melanoma of the right temporal scalp status post excision and right neck dissection. Technique: Multiple contiguous axial images were obtained through the neck, chest, abdomen and pelvis following the uneventful administration of Omnipaque 240 IV contrast material. Post processing coronal and sagittal reconstruction images were made from the axial images. Comparison: CT neck 06/26/2017, PET/CT 06/26/2017, outside CT chest/abdomen Neck findings: Brain and Orbits: The visualized intracranial and intraorbital structures appear grossly unremarkable. Sinuses and Mastoids: The visualized paranasal sinuses and mastoid air cells are clear. Parotid and Submandibular Glands: The parotid and submandibular glands appear unremarkable. Cervical Lymph Nodes and Soft Tissues: Redemonstration of postsurgical changes of prior right temporal scalp and right neck dissection. There is no significant change in the right preauricular soft tissue stranding and thickening (series 6 image 14), which was hypermetabolic on prior PET/CT. There has been interval improvement in right cervical lymphadenopathy, with the previously measured left level 2A cervical lymph node now measuring 1.0 x 0.6 cm (series 6 image 35), previously 1.6 x 1.1 cm. Residual scattered lymph nodes are within normal limits in size. No pathologically enlarged cervical lymph nodes are identified. Thyroid: No significant thyroid abnormalities are seen. Larynx and Hypopharynx: The larynx and hypopharynx appear normal. Oral Cavity, Oropharynx, and Nasopharynx: The base of the tongue, oropharyngeal region, and posterior nasopharynx appear unremarkable. Cervical Vasculature: The carotid arteries are patent. Osseous Structures: No destructive osseous lesions are seen. Chest Findings: Axilla, Mediastinum and Candice: Decrease in size in the previously identified right paratracheal lymph node, now measuring 1.1 x 0.7 cm (series 3 image 32), previously 1.8 x 1.0 cm on 06/26/2017 1 measured in a similar fashion. This was previously hypermetabolic. No significant residual thoracic lymphadenopathy. Heart and Great Vessels: Heart size is normal. The aorta is normal in caliber. No significant pericardial effusion is present. Airway, Lungs, and Pleura: Central airways are patent. Interval decrease in size of the medial right lung apex nodule, now measuring up to 1.6 cm (series 2 image 30), previously 2.0 cm when measured in a similar fashion. There is decreased conspicuity of numerous additional bilateral subcentimeter pulmonary nodules. No new or enlarging pulmonary nodules are identified. No pulmonary consolidation or pleural effusion. Chest Wall and Osseous Structures: Stable lytic lesion involving the right side of the sternum on image 52 of series 3 unchanged from 08/05/2017. Abdomen and Pelvis Findings: Liver and Biliary system: Liver is normal in size. There is redemonstration of innumerable bilateral low-density hepatic lesions, which have mostly decreased in size. A personal financial representative lesion in the inferior right lobe posteriorly measures up to 1.4 cm (series 4 image 33), previously 2.3 cm on 07/28/2017 when measured in a similar manner. There has however been increase in size of a solitary lesion 4.4 x 4.1 cm (series 4 image 32), previously 4.1 x 3.1 cm, and now demonstrates increased internal enhancement. The major portal veins are patent. No calcified gallstone or biliary ductal dilatation. The major portal veins are patent. No calcified gallstone or biliary ductal dilatation is identified. Spleen: Unremarkable. Adrenal Glands and Kidneys: Unremarkable. Pancreas and Retroperitoneum: The pancreas appears unremarkable. No significant retroperitoneal adenopathy is seen. Aorta and Major Vessels: The abdominal aorta is normal in caliber. Bowel, Mesentery, and Peritoneal Space: The large and small bowel loops are normal in caliber. Pelvis: No significant pelvic adenopathy is seen.No significant free pelvic fluid is seen. Abdominal wall and Osseous Structures: There is a lytic lesion in the left sacral ala (series 7 image 59), which was hypermetabolic on prior PET/CT. This now measures 1.9 cm, previously 1.3 cm. Redemonstration of a small lucent lesion in the left L3 vertebral body near the pedicle (series 7 image 37), which is new since 06/26/2017, though not significantly changed since 2016. Small 1.3 cm lytic lesion is also now noted within the greater trochanter of the right femur on image 85 of series 7 which is new from 06/26/2017. 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 Melanoma of the right temporal scalp status post excision and right neck dissection. Technique: Multiple contiguous axial images were obtained through the neck, chest, abdomen and pelvis following the uneventful administration of Omnipaque 240 IV contrast material. Post processing coronal and sagittal reconstruction images were made from the axial images. Comparison: CT neck 06/26/2017, PET/CT 06/26/2017, outside CT chest/abdomen Neck findings: Brain and Orbits: The visualized intracranial and intraorbital structures appear grossly unremarkable. Sinuses and Mastoids: The visualized paranasal sinuses and mastoid air cells are clear. Parotid and Submandibular Glands: The parotid and submandibular glands appear unremarkable. Cervical Lymph Nodes and Soft Tissues: Redemonstration of postsurgical changes of prior right temporal scalp and right neck dissection. There is no significant change in the right preauricular soft tissue stranding and thickening (series 6 image 14), which was hypermetabolic on prior PET/CT. There has been interval improvement in right cervical lymphadenopathy, with the previously measured left level 2A cervical lymph node now measuring 1.0 x 0.6 cm (series 6 image 35), previously 1.6 x 1.1 cm. Residual scattered lymph nodes are within normal limits in size. No pathologically enlarged cervical lymph nodes are identified. Thyroid: No significant thyroid abnormalities are seen. Larynx and Hypopharynx: The larynx and hypopharynx appear normal. Oral Cavity, Oropharynx, and Nasopharynx: The base of the tongue, oropharyngeal region, and posterior nasopharynx appear unremarkable. Cervical Vasculature: The carotid arteries are patent. Osseous Structures: No destructive osseous lesions are seen. Chest Findings: Axilla, Mediastinum and Candice: Decrease in size in the previously identified right paratracheal lymph node, now measuring 1.1 x 0.7 cm (series 3 image 32), previously 1.8 x 1.0 cm on 06/26/2017 1 measured in a similar fashion. This was previously hypermetabolic. No significant residual thoracic lymphadenopathy. Heart and Great Vessels: Heart size is normal. The aorta is normal in caliber. No significant pericardial effusion is present. Airway, Lungs, and Pleura: Central airways are patent. Interval decrease in size of the medial right lung apex nodule, now measuring up to 1.6 cm (series 2 image 30), previously 2.0 cm when measured in a similar fashion. There is decreased conspicuity of numerous additional bilateral subcentimeter pulmonary nodules. No new or enlarging pulmonary nodules are identified. No pulmonary consolidation or pleural effusion. Chest Wall and Osseous Structures: Stable lytic lesion involving the right side of the sternum on image 52 of series 3 unchanged from 08/05/2017. Abdomen and Pelvis Findings: Liver and Biliary system: Liver is normal in size. There is redemonstration of innumerable bilateral low-density hepatic lesions, which have mostly decreased in size. A personal financial representative lesion in the inferior right lobe posteriorly measures up to 1.4 cm (series 4 image 33), previously 2.3 cm on 07/28/2017 when measured in a similar manner. There has however been increase in size of a solitary lesion 4.4 x 4.1 cm (series 4 image 32), previously 4.1 x 3.1 cm, and now demonstrates increased internal enhancement. The major portal veins are patent. No calcified gallstone or biliary ductal dilatation. The major portal veins are patent. No calcified gallstone or biliary ductal dilatation is identified. Spleen: Unremarkable. Adrenal Glands and Kidneys: Unremarkable. Pancreas and Retroperitoneum: The pancreas appears unremarkable. No significant retroperitoneal adenopathy is seen. Aorta and Major Vessels: The abdominal aorta is normal in caliber. Bowel, Mesentery, and Peritoneal Space: The large and small bowel loops are normal in caliber. Pelvis: No significant pelvic adenopathy is seen. No significant free pelvic fluid is seen. Abdominal wall and Osseous Structures: There is a lytic lesion in the left sacral ala (series 7 image 59), which was hypermetabolic on prior PET/CT. This now measures 1.9 cm, previously 1.3 cm. Redemonstration of a small lucent lesion in the left L3 vertebral body near the pedicle (series 7 image 37), which is new since 06/26/2017, though not significantly changed since 2016. Small 1.3 cm lytic lesion is also now noted within the greater trochanter of the right femur on image 85 of series 7 which is new from 06/26/2017. IMPRESSION Neck: 1. Postsurgical changes of prior right temporal scalp and right neck dissection. Stable periarticular soft tissue lesion suspicious for metastatic disease. Clinical correlation is recommended. 2. Improvement in right cervical lymphadenopathy, compatible with improvement in seth metastases. Residual lymph nodes are within normal limits in size. Chest: 1. Decrease in size of the medial right upper lobe nodule with apparent resolution of scattered bilateral sub-5 mm pulmonary nodules, compatible with positive response to therapy. No new or enlarging pulmonary nodules. 2. Improvement in previously hypermetabolic mediastinal lymphadenopathy. No new or enlarging thoracic lymph nodes. 3. Small lytic metastasis involving the right side of the sternum unchanged from 08/05/2017. No new osseous metastases are identified within the chest. Abdomen and Pelvis: 1. Interval overall improvement in the vast majority of the previously noted multifocal hepatic metastases throughout both hepatic lobes noted on the outside study dated 07/28/2017. However, there has been increase in size of a dominant 4.4 cm enhancing lesion within segment 5 of the liver consistent with progression at the site. 2. No abdominopelvic lymphadenopathy. 3. Scattered osseous metastases involving the L3 vertebral body, left sacrum and proximal right femur which have progressed from the prior PET/CT scan dated 06/26/2017. The L3 lesion is essentially stable from 08/05/2017. The left sacral and right femoral lesions were not included on that study. By my electronic signature, I attest that I have personally reviewed the images for this examination and formulated the interpretations and opinions expressed in this report Finalized by Pedrito Rush M.D. on 10/03/2017 4:39 PM. Dictated by Luiz Warren M.D. on 10/03/2017 3:30 PM. * POC CREATININE, RAD (10/03/2017 2:22 PM) Component Value Ref Range Creatinine, POC 0.9 0.4 - 1.24 MG/DL Specimen Performing Laboratory [facility] [address] [place] [address] * 2-D + DOPPLER ECHOCARDIOGRAM (08/15/2017 11:40 AM) Component Value Ref Range BSA 1.95 m2 Referring Provider [facility] [place] LVIDD 5.3 4.2 - 5.9 cm IVS 0.9 0.6 - 1.0 cm PW 0.9 0.6 - 1.0 cm LVIDS 3.5 cm LA volume 42.8 18 - 58 mL Sinus 2.9 2.1 - 3.5 cm LA size 3.9 3.0 - 4.0 cm AV peak velocity 1.1 m/s TDI e' 0.150 m/s TV rest pulmonary artery n/a mmHg pressure Right Ventricular Basal 3.7 2.5 - 4.1 cm Diameter Right Ventricular Mid 2.1 1.9 - 3.5 cm Diameter Right Atrial Area 16.6 <=18 cm2 Right Atrial Major 4.8 <=5.3 cm Dimension MV Peak E Alli PW 0.700 m/s MV Peak A Alli 0.300 m/s Interp Only [employer] ST: [facility] FS 33.96 28 - 44 % EF 57.73 % Left Atrium Index 21.95 10 - 32 E/A ratio 2.33 E/E' ratio 4.67 ECHO EF 60 % Specimen Performing Laboratory OTHER OUTSIDE LAB Narrative LVEF=60%. Normal left ventricular size, wall thickness and function. No regional wall motion abnormalities. Right ventricular size and function are normal. Normal chamber dimensions. Normal valve structures; no significant valvular stenosis or regurgitation. Normal aortic root and ascending aorta dimensions. No pericardial effusion. Unable to estimate PA systolic pressure with this study. There are no previous studies available for comparison. from Last 3 Months
--- OUTSIDE RECORDS SUMMARY | 2017-11-08 12:14 | XMS REPORT | Encounter Summary ---
Author Author [facility] Organization [facility] Address Unknown Phone Unavailable Care Team Providers Care Production Line Assembler Name Role Phone Benjamín Herron MD PCP John Osborn MD Unavailable Ralf Velez MD Unavailable Trisha Fiore RN Unavailable Unavailable Mónica Waddell PA-C Unavailable Karla Mandel RN Unavailable Unavailable Edson Lyn MD Unavailable Adri Russell 7 Encounter Details Date Type Department Care Team Description 11/03/2017 Documentation [facility] [address] [place] [address] [place] [address] [phone] Social History Tobacco Use Types Packs/Day Years Used Date Never Smoker Smokeless Tobacco: Never Used Alcohol Use Drinks/Week oz/Week Comments Yes 0 Standard 0.0 social drinks or equivalent Sex Assigned at Date Recorded Not on file as of this encounter Functional Status Functional Status Response Date of Assessment Does the patient have a hearing impairment: No 10/30/2017 Does the patient have a visual impairment: No 10/30/2017 Does the patient have impaired ambulation: No 10/30/2017 Does the patient have an activity of daily living No 10/30/2017 (ADL) impairment: Does the patient have an instrumental activity of No 10/30/2017 daily living (IADL) impairment: Cognitive Status Response Date of Assessment Does the patient have a cognitive impairment: No 10/30/2017 as of this encounter Plan of Treatment Not on fileas of this encounter Visit Diagnoses Not on filein this encounter
--- OUTSIDE RECORDS SUMMARY | 2017-11-08 12:15 | XMS REPORT | Encounter Summary ---
Author Author [facility] Organization [facility] Address Unknown Phone Unavailable Care Team Providers Care Assistant In Nursing Name Role Phone Benjamín Herron MD PCP John Osborn MD Unavailable Ralf Velez MD Unavailable Trisha Fiore RN Unavailable Unavailable Mónica Waddell PA-C Unavailable Karla Mandel RN Unavailable Unavailable Edson Lyn MD Unavailable Adri RussellP 7 Reason for Visit * Auth/Cert Status Reason Specialty Diagnoses / Referred By Referred To Procedures Contact Contact Diagnoses N/v Meningitis Encounter Details Date Type Department Care Team Description 10/29/2017 Hospital 45 HEM/ONC Dianne Valenzuela MD [facility] - [facility] [id number] [facility] [address] 10/30/2017 [place] [address] [address] [place], [place] [id number] Social History Tobacco Use Types Packs/Day Years Used Date Never Smoker Smokeless Tobacco: Never Used Alcohol Use Drinks/Week oz/Week Comments Yes 0 Standard 0.0 social drinks or equivalent Sex Assigned at Date Recorded Not on file as of this encounter Last Filed Vital Signs Vital Sign Reading Time Taken Blood Pressure 96/40 10/30/2017 1:08 PM TRASH COLLECTOR Pulse 56 10/30/2017 1:08 PM TRASH COLLECTOR Temperature 36.9 C (98.4 F) 10/30/2017 1:08 PM TRASH COLLECTOR Respiratory Rate - - Oxygen Saturation 98% 10/30/2017 1:08 PM TRASH COLLECTOR Inhaled Oxygen - - Concentration Weight 72.2 kg (159 lb 2.8 oz) 10/29/2017 5:10 PM TRASH COLLECTOR Height - - Body Mass Index 22.84 10/29/2017 5:10 PM TRASH COLLECTOR in this encounter Functional Status Functional Status [...] impairment: No 10/30/2017 as of this encounter Discharge Summaries * Phillip Almanza MD - 10/30/2017 5:05 PM TRASH COLLECTOR Formatting of this note may be different from the original. Physician Discharge Summary Name: Nickolas Ludwig Date Of : 1995 Age: 22 years Admit date: 10/29/2017 Discharge date: 10/30/2017 Attending Physician: Dianne Valenzuela Service: Oncology Physician Summary completed by: Phillip Almanza MD Reason for hospitalization: Meningitis vs Carcinomatosis Vs. Other work up Significant PMH: Past Medical History: Diagnosis Date Cancer (HCC) melanoma scalp Allergies: Patient has no known allergies. Admission Physical Exam notable for: General appearance: fatigued, well-developed and no distress Head: R side of head with skin changes from bx Eyes: negative findings: conjunctivae and sclerae normal, pupils equal, round, reactive to light and accomodation and EOMI Throat: normal findings: lips normal without lesions and palate normal Lungs: clear to auscultation bilaterally Heart: regular rate and rhythm Abdomen: soft, non-tender. Bowel sounds normal. No masses, no organomegaly Extremities: No Edema in BLE Neurologic: Brudzinski and Kernig negative, no nuchal rigidity, Cranial nerves intact, reflexs normal, sensation and strength intact Peripheral pulses: 2+ and symmetric Musculoskeletal: 5/5 strenght in all extremties Admission Lab/Radiology studies notable for: 24-hour labs: Results for orders placed or performed during the hospital encounter of (from the past 24 hour(s)) CELL COUNT W/DIFF-CSF Collection Time: 10/29/17 6:20 PM Result Value Ref Range Cell Count Tube,CSF TUBE 4 White Blood Cells,CSF 3 <5 /UL Red Blood Cells,CSF 1 /UL Neutrophils, CSF 5 % Lymphocytes, CSF 35 % Monocyte/Hisotocyte, CSF 45 % Other, CSF 15 % Clarity,CSF CLEAR Path Interpretation, CSF Pathologist Signature TOTAL PROTEIN-CSF Collection Time: 10/29/17 6:20 PM Result Value Ref Range Total Protein,CSF 40 15 - 45 MG/DL GLUCOSE-CSF Collection Time: 10/29/17 6:20 PM Result Value Ref Range Glucose,CSF 56 40 - 75 MG/DL Xanthrochromia,CSF NONE CULTURE-CSF W/SENSITIVITY Collection Time: 10/29/17 6:20 PM Result Value Ref Range Battery Name CSF CULTURE Specimen Description CSF Special Requests NONE Direct Gram Stain NO NEUTROPHILS SEEN NO ORGANISMS SEEN Culture Report Status GRAM STAIN Collection Time: 10/29/17 6:20 PM Result Value Ref Range Battery Name GRAM STAIN Specimen Description CSF Special Requests NONE Gram Stain NO NEUTROPHILS SEEN NO ORGANISMS SEEN Report Status FINAL 10/29/2017 COMPREHENSIVE METABOLIC PANEL Collection Time: 10/29/17 6:55 PM Result Value Ref Range Sodium 133 (L) 137 - 147 MMOL/L Potassium 3.2 (L) 3.5 - 5.1 MMOL/L Chloride 100 98 - 110 MMOL/L Glucose 119 (H) 70 - 100 MG/DL Blood Urea Nitrogen 13 7 - 25 MG/DL Creatinine 0.88 0.4 - 1.24 MG/DL Calcium 8.0 (L) 8.5 - 10.6 MG/DL Total Protein 6.8 6.0 - 8.0 G/DL Total Bilirubin 0.7 0.3 - 1.2 MG/DL Albumin 4.3 3.5 - 5.0 G/DL Alk Phosphatase 57 25 - 110 U/L AST (SGOT) 11 7 - 40 U/L CO2 25 21 - 30 MMOL/L ALT (SGPT) 11 7 - 56 U/L Anion Gap 8 3 - 12 eGFR Non >60 >60 mL/min eGFR >60 >60 mL/min CBC AND DIFF Collection Time: 10/29/17 6:55 PM Result Value Ref Range White Blood Cells 11.3 (H) 4.5 - 11.0 K/UL RBC 4.93 4.4 - 5.5 M/UL Hemoglobin 15.1 13.5 - 16.5 GM/DL Hematocrit 43.4 40 - 50 % MCV 88.0 80 - 100 FL MCH 30.7 26 - 34 PG MCHC 34.9 32.0 - 36.0 G/DL RDW 14.3 11 - 15 % Platelet Count 157 150 - 400 K/UL MPV 10.0 7 - 11 FL Neutrophils 78 (H) 41 - 77 % Lymphocytes 16 (L) 24 - 44 % Monocytes 6 4 - 12 % Eosinophils 0 0 - 5 % Basophils 0 0 - 2 % Absolute Neutrophil Count 8.80 (H) 1.8 - 7.0 K/UL Absolute Lymph Count 1.80 1.0 - 4.8 K/UL Absolute Monocyte Count 0.70 0 - 0.80 K/UL Absolute Eosinophil Count 0.00 0 - 0.45 K/UL Absolute Basophil Count 0.00 0 - 0.20 K/UL MAGNESIUM Collection Time: 10/29/17 6:55 PM Result Value Ref Range Magnesium 2.6 1.6 - 2.6 mg/dL URINALYSIS DIPSTICK REFLEX TO CULTURE Collection Time: 10/29/17 8:23 PM Result Value Ref Range Color,UA STRAW Turbidity,UA CLEAR CLEAR-CLEAR Specific [place]-Urine 1.003 1.003 - 1.035 pH,UA 7.0 5.0 - 8.0 Protein,UA NEG NEG-NEG Glucose,UA NEG NEG-NEG Ketones,UA NEG NEG-NEG Bilirubin,UA NEG NEG-NEG Blood,UA NEG NEG-NEG Urobilinogen,UA NORMAL NORM-NORMAL Nitrite,UA NEG NEG-NEG Leukocytes,UA NEG NEG-NEG Urine Ascorbic Acid, UA NEG NEG-NEG URINALYSIS MICROSCOPIC REFLEX TO CULTURE Collection Time: 10/29/17 8:23 PM Result Value Ref Range WBCs,UA 0-2 0 - 2 /HPF RBCs,UA NONE 0 - 3 /HPF Comment,UA Urine submitted for reflex culture if criteria are met:WBC>10, positive nitrite and/or >=1+ leukocyte esterase. If quantity is not sufficient, an addendum will follow. MucousUA TRACE Glucose: (!) 119 (10/29/17 6858) Brief Hospital Course: The patient was admitted and the following issues were addressed during this hospitalization: 22 yo Male with PMH metastatic melanoma on dabrafenib and trametinib who presented with 4 days of headaches, nausea, vomiting, and 2 days of lethargy. 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 LP was performed the evening of admission and he was started empirically on cefepime, vancomycin, and acyclovir. Neurology was consulted. His dabrafenib and trametinib were initially held. CSF cell count did not resemble bacterial meningitis, so cefepime and vancomycin were discontinued the next morning. Patient was continued on acyclovir until HSV from the CSF came back negative. Cell count showed atypical cells suspicious for malignancy, but cytology was negative for malignant cells. Patient had leukocytosis as well as nausea, vomiting, and body aches on admission. Blood cultures showed no growth at time of discharge. Chest xray did not show any signs of consolidation. RVP and monospot were negative, and UA was negative for infection as well. Patient's dabrafenib an trametinib were resumed upon discharge. Patient's oncologist will determine further need for high volume LP to look for malignancy. Patient was discharged in stable condition to home on 10/30/2017. Condition at Discharge: Stable Discharge Diagnoses: Hospital Problems Active Problems Meningitis Surgical Procedures: None Significant Diagnostic Studies and Procedures: noted in brief hospital course Consults: Interventional Radiology Patient Disposition: Home Patient instructions/medications: Activity as Tolerated It is important to keep increasing your activity level after you leave the hospital. Moving around can help prevent blood clots, lung infection (pneumonia ) and other problems. Gradually increasing the number of times you are up moving around will help you return to your normal activity level more quickly. Continue to increase the number of times you are up to the chair and walking daily to return to your normal activity level. Begin to work toward your normal activity level at discharge Report These Signs and Symptoms Please contact your doctor if you have any of the following symptoms: temperature higher than 100 degrees F, uncontrolled pain, persistent nausea and/ or vomiting, difficulty breathing, chest pain, severe abdominal pain, headache, unable to urinate or unable to have bowel movement Questions About Your Stay For questions or concerns regarding your hospital stay. Call [phone] Discharging attending physician: DIANNE VALENZUELA [[id number]] Regular Diet You have no dietary restriction. Please continue with a healthy balanced diet. Current Discharge Medication List START taking these medications Details zolpidem (AMBIEN) 5 mg tablet Take 1 tablet by mouth at bedtime as needed for Sleep. Qty: 30 tablet, Refills: 0 PRESCRIPTION TYPE: Print CONTINUE these medications which have NOT CHANGED Details APPLE CIDER VINEGAR PO Take 1 Dose by mouth daily. PRESCRIPTION TYPE: Historical Med BETA GLUCAN (1,3/1,4-D) MISC Take 1 Scoop by mouth daily. In morning shakes PRESCRIPTION TYPE: Historical Med cetirizine (ZYRTEC) 10 mg tablet Take 10 mg by mouth daily as needed for Allergy symptoms. PRESCRIPTION TYPE: Historical Med clindamycin(+) (CLEOCIN T; CLINDAMAX) 1 % topical lotion Apply topically to affected area as Needed. PRESCRIPTION TYPE: Historical Med Collagenase powd Take 1 Scoop by mouth daily. In morning shakes. PRESCRIPTION TYPE: Historical Med dabrafenib (TAFINLAR) 75 mg capsule Take 2 capsules by mouth twice daily. Take at least 1 hour before or 2 hours after food. Qty: 120 capsule, Refills: 2 PRESCRIPTION TYPE: Normal Associated Diagnoses: Malignant melanoma, unspecified site (HCC) dronabinol (MARINOL) 5 mg capsule Take 1 capsule by mouth twice daily. Qty: 60 capsule, Refills: 0 PRESCRIPTION TYPE: Print ERGOCALCIFEROL (VITAMIN D2) (VITAMIN D PO) Take 1 tablet by mouth daily. PRESCRIPTION TYPE: Historical Med L.ACID/L.CASEI/B.BIF/B.[place]/FOS (PROBIOTIC BLEND PO) Take 1 Scoop by mouth daily. In morning shake PRESCRIPTION TYPE: Historical Med LORazepam (ATIVAN) 0.5 mg tablet Take 1 tablet by mouth every 4 hours as needed for Nausea. Qty: 90 tablet, Refills: 1 PRESCRIPTION TYPE: Phone In melatonin 10 mg tab Take 1 tablet by mouth at bedtime as needed. PRESCRIPTION TYPE: Historical Med NON-FORMULARY five times weekly. Pre-Workout [facility] approved PRESCRIPTION TYPE: Historical Med ondansetron (ZOFRAN) 8 mg tablet Take 1 tablet by mouth every 8 hours as needed for Nausea or Vomiting. Qty: 30 tablet, Refills: 3 PRESCRIPTION TYPE: Normal !! other medication Essiac Tea- Drink 1 cup of tea daily. PRESCRIPTION TYPE: Historical Med !! other medication Super Green- Take 1 scoop in shake every morning. PRESCRIPTION TYPE: Historical Med !! other medication Bone Broth- Take 1 scoop in shake every morning. PRESCRIPTION TYPE: Historical Med prochlorperazine maleate (COMPAZINE) 10 mg tablet Take 1 tablet by mouth every 6 hours as needed for Nausea or Vomiting. Qty: 60 tablet, Refills: 3 PRESCRIPTION TYPE: Normal trametinib (MEKINIST) 2 mg tablet Take 1 tablet by mouth daily. Take at least 1 hour before or 2 hours after food. Qty: 30 tablet, Refills: 2 PRESCRIPTION TYPE: Normal Associated Diagnoses: Malignant melanoma, unspecified site (HCC) VITAMIN B COMPLEX (B COMPLEX PO) Take 1 Scoop by mouth daily. In morning shake PRESCRIPTION TYPE: Historical Med !! - Potential duplicate medications found. Please discuss with provider. The following medications were removed from your list. This list includes medications discontinued this stay and those removed from your prior med list in our system FISH OIL/BORAGE/FLAX/OM3,6,9 1 (OMEGA 3-6-9 COMPLEX PO) oxyCODONE (ROXICODONE, OXY-IR) 5 mg tablet prednisone (DELTASONE) 10 mg tablet RESVERATROL-GRAPE SKIN EXTRACT PO turmeric root extract 500 mg cap vitamins, multiple tablet Scheduled appointments: Nov 03, 2017 8:00 AM TRASH COLLECTOR (Arrive by 7:45 AM) Lab with CC PHLEBOTOMY CHAIR [facility] Ex[facility] ([facility] Exam) [address] [id number] Nov 03, 2017 8:30 AM TRASH COLLECTOR (Arrive by 8:15 AM) Mid-Level Visit with Brook Bose APRN [facility] ([facility] Exam) [address] [id number] Pending items needing follow up: CSF Viral studies, bacterial culture, AFB, and fungal culture; final blood cultures Signed: Phillip Almanza MD 10/30/2017 cc: Primary Care Physician: Benjamín Herron Verified Referring physicians: Self, Referral Additional provider(s): in this encounter Discharge Instructions * Patient Instructions - Carmen Lopez RN - 10/29/2017 6:05 PM TRASH COLLECTOR INTERVENTIONAL RADIOLOGY DISCHARGE INSTRUCTIONS LUMBAR PUNCTURE A lumbar puncture is a procedure in which a needle is carefully inserted into the spinal canal in the lower portion of your back (the lumbar area). A small amount of cerebrospinal fluid (CSF) is collected followed by removal of the needle. CSF is a clear fluid that surrounds the brain and spinal cord and helps protect them from injury. The collected fluid is then used for specific lab tests ordered by your physician. In some instances, the pressure of the CSF may also be measured during the procedure. POST-PROCEDURE ACTIVITY: A responsible adult must drive you home. If you receive sedation or anesthesia for the procedure, you should not drive or operate heavy machinery or do anything that requires concentration for at least 24 hours after receiving sedation or anesthesia. It is recommended that a responsible adult be with you until morning. You should rest for 6-8 hours after the procedure with your head at about a 30-45?angle. If you develop a spinal headache, lie flat for 6-8 hours. A spinal headache is caused by a CSF leak; you would typically have greater pain when you are up and less pain when lying flat. You may plan to resume normal activity tomorrow. POST-PROCEDURE SITE CARE: You will have a small bandage over the site. Keep this dry. You may remove it in 24 hours. You may shower in 24 hours, after removing the bandage. Do not submerge the site underwater for several days until fully healed (no tub bath, swimming/hot tub, etc.) Be sure your hands are clean when touching near the site. Do not use ointments, creams or powders on the puncture site. DIET/MEDICATIONS: You may resume your previous diet after the procedure. If you receive sedation or narcotic pain medications, avoid any foods or beverages containing alcohol for at least 24 hours after the procedure. Please see the Medication Reconciliation sheet for instructions regarding resuming your home medications. Keep well-hydrated; you are encouraged to drink plenty of caffeinated fluids as this can help to prevent a spinal headache. CALL THE DOCTOR IF: Bright red blood has soaked the bandage. You have pain not relieved by medication. Some soreness at the site is to be expected. You have signs of infection such as: Chills, body aches, fever greater than 101F, redness, swelling or warmth at the puncture site. You have an uncontrolled headache. For problems or concerns related to the procedure, call [phone] from 7am- 5pm, Friday-Friday. After-hours and weekends, please call [phone] and ask for the Interventional Confectionery Cooker on-call. For procedures performed at the [facility], please call the Radiology dept. [phone], Friday-Friday, 8am-5pm in this encounter Medications at Time of Discharge Medication Sig. Disp. Refills Start Date End Date APPLE CIDER VINEGAR PO Take 1 Dose by mouth daily. BETA GLUCAN (1,3/,4-D) Take 1 Scoop by mouth MISC daily. In morning shakes cetirizine (ZYRTEC) 10 mg Take 10 mg by mouth daily tablet as needed for Allergy symptoms. clindamycin(+) (CLEOCIN Apply topically to 06/03/2017 T; CLINDAMAX) 1 % topical affected area as Needed. lotion Collagenase powd Take 1 Scoop by mouth daily. In morning shakes. dabrafenib (TAFINLAR) 75 Take 2 capsules by mouth 120 capsule 2 2017 mg capsuleIndications: twice daily. Take at Malignant melanoma, least 1 hour before or 2 unspecified site (HCC) hours after food. dronabinol (MARINOL) 5 mg Take 1 capsule by mouth 60 capsule 0 2017 capsule twice daily. ERGOCALCIFEROL (VITAMIN Take 1 tablet by mouth D2) (VITAMIN D PO) daily. L.ACID/L.CASEI/B.BIF/B.LO Take 1 Scoop by mouth N/FOS (PROBIOTIC BLEND daily. In morning shake PO) LORazepam (ATIVAN) 0.5 mg Take 1 tablet by mouth 90 tablet 1 2016 tablet every 4 hours as needed for Nausea. melatonin 10 mg tab Take 1 tablet by mouth at bedtime as needed. NON-FORMULARY five times weekly. Pre-Workout [facility] approved ondansetron (ZOFRAN) 8 mg Take 1 tablet by mouth 30 tablet 3 2017 tablet every 8 hours as needed for Nausea or Vomiting. other medication Essiac Tea- Drink 1 cup of tea daily. other medication Super Green- Take 1 scoop in shake every morning. other medication Bone Broth- Take 1 scoop in shake every morning. prochlorperazine maleate Take 1 tablet by mouth 60 tablet 3 2017 (COMPAZINE) 10 mg tablet every 6 hours as needed for Nausea or Vomiting. trametinib (MEKINIST) 2 Take 1 tablet by mouth 30 tablet 2 09/11/2017 mg tabletIndications: daily. Take at least 1 Malignant melanoma, hour before or 2 hours unspecified site (HCC) after food. VITAMIN B COMPLEX (B Take 1 Scoop by mouth COMPLEX PO) daily. In morning shake zolpidem (AMBIEN) 5 mg Take 1 tablet by mouth at 30 tablet 0 2017 tablet bedtime as needed for Sleep. as of this encounter Progress Notes * Elly Matute RN - 10/30/2017 5:05 PM TRASH COLLECTOR Nickolas Ludwig discharged on 10/30/2017. Discharge instructions reviewed with patient, all questions and concerns addressed. Peripheral IV removed prior to discharge, cannula intact. Educated patient on care and reportable s/s of LP site, verbalized understanding Pt sent with appropriate prescription. . Discharge instructions reviewed with patient. Valuables returned: All Personal Items / Valuables: Clothing, Electronics Electronic Devices: Cell Phone. Home medications: Pt sent home with own medications, dabrafenib and trametinib. . Functional assessment at discharge complete: Yes . * Sonny Teixeira MD - 10/30/2017 4:32 PM TRASH COLLECTOR Formatting of this note may be different from the original. Neurology Progress Note Today's Date: 10/30/2017 Name: Nickolas Ludwig Admission Date: 10/29/2017 LOS: 1 day Assessment: Nickolas Ludwig is a 22 y.o. male. With medical history of metastatic melanoma, currently on adjuvant Dabrafenib + trametinib , was admitted after an abnormal brain MRI to get a lumbar puncture. Brain MRI: Development of scattered abnormal sulcal FLAIR hyperintensities without definitive associated abnormal leptomeningeal or intracranial enhancement. Suspicious for infectious meningitis or carcinomatosis. LP: WBC 3, glucose 56, total protein 40, atypical cells suspicious for malignancy. Broad-spectrum antibiotic were stopped, patient still on acyclovir ---- Patient spinal tap basic chemistry is within normal limits despite that suspicion for meningeal carcinomatosis is still there given the abnormal brain MRI and patient history of metastatic melanoma. Impression: Abnormal brain MRI in a patient with metastatic melanoma, suspicious for leptomeningeal carcinomatosis. Recommendations: Follow-up official pathology report for the atypical cells. F lumbar puncture was negative then a repeated high-volume dedicated cytology tap is required. Agree with primary team on stopping antibiotic, and stopping acyclovir with HSV PCR comes back negative. Neurology Private Consult Service: Pager: [phone] . Pages will be returned by this service attending from the hours of 2PM-10PM Mon- Fri and 1200-1000PM Sat and Sun. Urgent questions can otherwise be directed to the Neurology teaching service at pager [phone]. Active Problems: Meningitis Subjective: Patient feels fatigue today but otherwise he denies any nausea, vomiting, headache, blurred vision, back pain. Review of Systems: All other systems reviewed and are negative. Vital Signs: Last Filed Vital Signs: 24 Hour Range BP: 96/40 (10/30 1307) Temp: 36.9 C (98.4 F) (10/30 1307) Pulse: 56 (10/30 1307) Respirations: 14 PER MINUTE (10/30 1307) SpO2: 98 % (10/30 1307) O2 Delivery: None (Room Air) (10/30 1307) SpO2 Pulse: 55 (10/29 1825) BP: (96-132)/(40-67) Temp: [36.4 C (97.6 F)-36.9 C (98.4 F)] Pulse: [38-58] Respirations: [12 PER MINUTE-22 PER MINUTE] SpO2: [97 %-100 %] O2 Delivery: None (Room Air) Intensity Pain Scale 0-10 (Pain 1): Asleep (10/30/17 1500) ICP Monitoring: Intake/Output Summary: (Last 24 hours) Intake/Output Summary (Last 24 hours) at 10/30/17 1632 Last data filed at 10/30/17 0854 Gross per 24 hour Intake 2463 ml Output 715 ml Net 1748 ml Neuro Exam: Mental Status: Alert and Oriented x3, normal attention, concentration and grossly intact memory. Speech: No dysarthria, no aphasia Cranial nerves: visual cadena intact in all quadrants to finger confrontation, normal EOM movements, no facial weakness and normal facial sensation, intact hearing to finger rub bilateral, intact SCM, tongue midline. Motor: Strength: 5/5 RUE, 5/5 RLE, 5/5 LUE, 5/5 LLE, normal tone and muscle bulk. DTRs: +1 in BJ, TJ, BRJ, KJ Sensory: Intact for light touch and tempeture in UEs, LEs. Negative Romberg. Coordination: Intact finger to nose test, rapid alternating movements. Gait: Not done for now Laboratory Review: 24-hour labs: Results for orders placed or performed during the hospital encounter of (from the past 24 hour(s)) CELL COUNT W/DIFF-CSF Collection Time: 10/29/17 6:20 PM Result Value Ref Range Cell Count Tube,CSF TUBE [...] and/or other material indicated in this report. TOTAL PROTEIN-CSF Collection Time: 10/29/17 6:20 PM Result Value Ref Range Total Protein,CSF 40 15 - 45 MG/DL GLUCOSE-CSF Collection Time: 10/29/17 6:20 PM Result Value Ref Range Glucose,CSF 56 40 - 75 MG/DL Xanthrochromia,CSF NONE CULTURE-CSF W/SENSITIVITY Collection Time: 10/29/17 6:20 PM Result Value Ref Range Battery Name CSF CULTURE Specimen Description CSF Special Requests NONE Direct Gram Stain NO NEUTROPHILS SEEN NO ORGANISMS SEEN Culture NO GROWTH 1 DAY Report Status CULTURE-TB (AFB) Collection Time: 10/29/17 6:20 PM Result Value Ref Range Battery Name AFB CULTURE Specimen Description CSF Special Requests NONE Culture Report Status CRYPTOCOCCUS AG-CSF Collection Time: 10/29/17 6:20 PM Result Value Ref Range Cryptococcal AG Screen,CSF NEG NEG-NEG HERPES SIMPLEX PCR - NON-BLOOD Collection Time: 10/29/17 6:20 PM Result Value Ref Range Specimen, Herpes CSF Herpes Simplex PCR HSV 1 and 2 NOT DETECTED [employer] HSV 1&2 Assay is a qualitative real-time PCR test for the direct detection and differentiation of HSV 1 and 2 DNA. This assay is FDA approved for testing cutaneous or mucocutaneous lesions from symptomatic patients. Performance on modifications of this test as well as other specimen types has been validated by the Department of Pathology and Laboratory Medicine at the [facility]. GRAM STAIN Collection Time: 10/29/17 6:20 PM Result Value Ref Range Battery Name GRAM STAIN Specimen Description CSF Special Requests NONE Gram Stain NO NEUTROPHILS SEEN NO ORGANISMS SEEN Report Status FINAL 10/29/2017 COMPREHENSIVE METABOLIC PANEL Collection Time: 10/29/17 6:55 PM Result Value Ref Range Sodium 133 (L) 137 - 147 MMOL/L Potassium 3.2 (L) 3.5 - 5.1 MMOL/L Chloride 100 98 - 110 MMOL/L Glucose 119 (H) 70 - 100 MG/DL Blood Urea Nitrogen 13 7 - 25 MG/DL Creatinine 0.88 0.4 - 1.24 MG/DL Calcium 8.0 (L) 8.5 - 10.6 MG/DL Total Protein 6.8 6.0 - 8.0 G/DL Total Bilirubin 0.7 0.3 - 1.2 MG/DL Albumin 4.3 3.5 - 5.0 G/DL Alk Phosphatase 57 25 - 110 U/L AST (SGOT) 11 7 - 40 U/L CO2 25 21 - 30 MMOL/L ALT (SGPT) 11 7 - 56 U/L Anion Gap 8 3 - 12 eGFR Non >60 >60 mL/min eGFR >60 >60 mL/min CBC AND DIFF Collection Time: 10/29/17 6:55 PM Result Value Ref Range White Blood Cells 11.3 (H) 4.5 - 11.0 K/UL RBC 4.93 4.4 - 5.5 M/UL Hemoglobin 15.1 13.5 - 16.5 GM/DL Hematocrit 43.4 40 - 50 % MCV 88.0 80 - 100 FL MCH 30.7 26 - 34 PG MCHC 34.9 32.0 - 36.0 G/DL RDW 14.3 11 - 15 % Platelet Count 157 150 - 400 K/UL MPV 10.0 7 - 11 FL Neutrophils 78 (H) 41 - 77 % Lymphocytes 16 (L) 24 - 44 % Monocytes 6 4 - 12 % Eosinophils 0 0 - 5 % Basophils 0 0 - 2 % Absolute Neutrophil Count 8.80 (H) 1.8 - 7.0 K/UL Absolute Lymph Count 1.80 1.0 - 4.8 K/UL Absolute Monocyte Count 0.70 0 - 0.80 K/UL Absolute Eosinophil Count 0.00 0 - 0.45 K/UL Absolute Basophil Count 0.00 0 - 0.20 K/UL MAGNESIUM Collection Time: 10/29/17 6:55 PM Result Value Ref Range Magnesium 2.6 1.6 - 2.6 mg/dL CULTURE-BLOOD W/SENSITIVITY Collection Time: 10/29/17 6:55 PM Result Value Ref Range Battery Name BLOOD CULTURE Specimen Description BLOOD RIGHT ANTECUBITAL Special Requests NONE Culture NO GROWTH 1 DAY Report Status URINALYSIS DIPSTICK REFLEX TO CULTURE Collection Time: 10/29/17 8:23 PM Result Value Ref Range Color,UA STRAW Turbidity,UA CLEAR CLEAR-CLEAR Specific [place]-Urine 1.003 1.003 - 1.035 pH,UA 7.0 5.0 - 8.0 Protein,UA NEG NEG-NEG Glucose,UA NEG NEG-NEG Ketones,UA NEG NEG-NEG Bilirubin,UA NEG NEG-NEG Blood,UA NEG NEG-NEG Urobilinogen,UA NORMAL NORM-NORMAL Nitrite,UA NEG NEG-NEG Leukocytes,UA NEG NEG-NEG Urine Ascorbic Acid, UA NEG NEG-NEG URINALYSIS MICROSCOPIC REFLEX TO CULTURE Collection Time: 10/29/17 8:23 PM Result Value Ref Range WBCs,UA 0-2 0 - 2 /HPF RBCs,UA NONE 0 - 3 /HPF Comment,UA Urine submitted for reflex culture if criteria are met:WBC>10, positive nitrite and/or >=1+ leukocyte esterase. If quantity is not sufficient, an addendum will follow. MucousUA TRACE RVP VIRAL PANEL PCR Collection Time: 10/30/17 12:47 AM Result Value Ref Range Specimen Source NASAL WASH Adenovirus NOT DETECTED Coronavirus 229E NOT DETECTED Coronavirus HKU1 NOT DETECTED Coronavirus NL63 NOT DETECTED Coronavirus OC43 NOT DETECTED Human Metapneumovirus NOT DETECTED Human Rhinovirus/ENTEROVIRUS NOT DETECTED Influenza A H1N1 2009 NOT DETECTED Influenza A H1 NOT DETECTED Influenza A H3 NOT DETECTED Influenza B NOT DETECTED Parainfluenza 1 NOT DETECTED Parainfluenza 2 NOT DETECTED Parainfluenza 3 NOT DETECTED Parainfluenza 4 NOT DETECTED RSV NOT DETECTED Bordetella Pertussis NOT DETECTED Chlamydophila Pneumoniae NOT DETECTED Mycoplasma Pneumoniae NOT DETECTED CBC AND DIFF Collection Time: 10/30/17 6:12 AM Result Value Ref Range White Blood Cells 12.2 [...] Basophil Count 0.00 0 - 0.20 K/UL COMPREHENSIVE METABOLIC PANEL Collection Time: 10/30/17 6:12 AM Result Value Ref Range Sodium 131 (L) 137 [...] - 12 eGFR Non >60 >60 mL/min eGFR >60 >60 mL/min MAGNESIUM Collection Time: 10/30/17 6:12 AM Result Value Ref Range Magnesium 2.6 1.6 - 2.6 mg/dL MONO SPOT Collection Time: 10/30/17 1:49 PM Result Value Ref Range Traill Screen NEG NEG-NEG Point of Care Testing: (Last 24 hours): Glucose: (!) 128 (10/30/17 0612) Radiology and Other Diagnostics Review: Pertinent radiological images and reports were reviewed. Sonny Teixeira MD * Phillip Almanza MD - 10/30/2017 10:44 AM TRASH COLLECTOR Formatting of this note may be different from the original. General Progress Note Name: Nickolas Ludwig Today's Date: 10/30/2017 Admission Date: 10/29/2017 LOS: 1 day Assessment/Plan: Active Problems: Meningitis 22 yo Male PMH metastatic melanoma on dabrafenib and trametinib who presents with 4 days of headaches, nausea, vomiting, and 2 days of lethargy. MRI showed carcinomatosis vs meningitis # Carcinomatosis vs. Meningitis vs. other - headache, lethargy, nausea, vomiting - no kernig, brudzinski, or nuchal rigidity - MRI brain 10/29: infectious meningitis vs. carcinomatosis - s/p LP by IR on 10/30 Plan: > CSF: - Cell count: 3 WBC, 1 RBC, atypical cells suspicious for malignancy - gram stain: no neutrophils, no organisms - cryptococcal Ag neg - AFB, viral studiespending - cytology pending > d/c vanc and cef > cont. Acyclovir until HSV neg > neuro consulted # Leukocytosis - WBC 14 10/29 - nausea, vomiting, body aches - UA: neg for infx - CXR: no PNA, RUL pulm nodule redemonstarted - RVP: negative Plan: > Blood clx: NGTD > ordered monospot > CSF # Metastatic Melanoma - Follows with Dr. North - R scalp melanoma - mets to lung, liver, bones, and lymph nodes - currently on Dabrafenib and trametinib Plan: > cont. dabrafenib and trametinib # FEN: > IVF with acyclovir > replace lytes prn > regular diet # Ppx: lovenox # Code Status: Full Code # Dispo: Admit to Onc Subjective Nickolas Ludwig is a 22 y.o. male. Patient had no acute events overnight. Patient states that his headache is improved from yesterday. He denies any fevers, chills, or neck stiffness. Patient states that he is very tired as he did not sleep well last night. Medications Scheduled Meds: acyclovir (ZOVIRAX) 722 mg in dextrose 5% (D5W) IVPB 10 mg/kg Intravenous Q8H* cetirizine (ZYRTEC) tablet 10 mg 10 mg Oral QAM8 dronabinol (MARINOL) capsule 5 mg 5 mg Oral BID enoxaparin (LOVENOX) syringe 40 mg 40 mg Subcutaneous QDAY() lactobacillus rhamnosus GG (CULTURELLE) 15 billion cell capsule 1 capsule 1 capsule Oral BID w/meals potassium chloride SR (K-DUR) tablet 40 mEq 40 mEq Oral Q4H* Continuous Infusions: sodium chloride 0.9 % infusion 1,000 mL (10/30/17 0844) PRN and Respiratory Meds:acetaminophen Q6H PRN, LORazepam Q4H PRN, melatonin QHS PRN, ondansetron Q8H PRN, oxyCODONE Q4H PRN, prochlorperazine maleate Q6H PRN Review of Systems: Denies fevers, chills, shortness of breath and neck stiffness. Confirms fatigue. Objective: Vital Signs: Last Filed Vital Signs: 24 Hour Range BP: 132/64 (10/30 924) Temp: 36.7 C (98.1 F) (10/30 924) Pulse: 47 (10/30 924) Respirations: 16 PER MINUTE (10/30 924) SpO2: 98 % (10/30 924) O2 Delivery: None (Room Air) (10/30 924) SpO2 Pulse: 55 (10/29 1825) Height: 177.8 cm (70") (10/29 1221) BP: (99-132)/(46-71) Temp: [36.4 C (97.6 F)-36.7 C (98.1 F)] Pulse: [38-58] Respirations: [12 PER MINUTE-22 PER MINUTE] SpO2: [97 %-100 %] O2 Delivery: None (Room Air) Intensity Pain Scale 0-10 (Pain 1): 2 (10/30/17 09) Vitals: 10/29/17 1710 Weight: 72.2 kg (159 lb 2.8 oz) Intake/Output Summary: (Last 24 hours) Intake/Output Summary (Last 24 hours) at 10/30/17 1049 Last data filed at 10/30/17 0854 Gross per 24 hour Intake 2463 ml Output 715 ml Net 1748 ml Physical Exam General appearance: fatigued, well-developed and no distress Head: R side of head with skin changes from bx Eyes: negative findings: conjunctivae and sclerae normal, pupils equal, round, reactive to light and accomodation and EOMI Lungs: clear to auscultation bilaterally Heart: regular rate and rhythm Abdomen: soft, non-tender. Bowel sounds normal. No masses, no organomegaly Extremities: No Edema in BLE Neurologic: Brudzinski and Kernig negative, no nuchal rigidity, Peripheral pulses: 2+ and symmetric Lab Review 24-hour labs: Results for orders placed or performed during the hospital encounter of (from the past 24 hour(s)) CELL COUNT W/DIFF-CSF Collection Time: 10/29/17 6:20 PM Result Value Ref Range Cell Count Tube,CSF TUBE [...] and/or other material indicated in this report. TOTAL PROTEIN-CSF Collection Time: 10/29/17 6:20 PM Result Value Ref Range Total Protein,CSF 40 15 - 45 MG/DL GLUCOSE-CSF Collection Time: 10/29/17 6:20 PM Result Value Ref Range Glucose,CSF 56 40 - 75 MG/DL Xanthrochromia,CSF NONE CULTURE-CSF W/SENSITIVITY Collection Time: 10/29/17 6:20 PM Result Value Ref Range Battery Name CSF CULTURE Specimen Description CSF Special Requests NONE Direct Gram Stain NO NEUTROPHILS SEEN NO ORGANISMS SEEN Culture NO GROWTH 1 DAY Report Status CULTURE-TB (AFB) Collection Time: 10/29/17 6:20 PM Result Value Ref Range Battery Name AFB CULTURE Specimen Description CSF Special Requests NONE Culture Report Status CRYPTOCOCCUS AG-CSF Collection Time: 10/29/17 6:20 PM Result Value Ref Range Cryptococcal AG Screen,CSF NEG NEG-NEG GRAM STAIN Collection Time: 10/29/17 6:20 PM Result Value Ref Range Battery Name GRAM STAIN Specimen Description CSF Special Requests NONE Gram Stain NO NEUTROPHILS SEEN NO ORGANISMS SEEN Report Status FINAL 10/29/2017 COMPREHENSIVE METABOLIC PANEL Collection Time: 10/29/17 6:55 PM Result Value Ref Range Sodium 133 (L) 137 - 147 MMOL/L Potassium 3.2 (L) 3.5 - 5.1 MMOL/L Chloride 100 98 - 110 MMOL/L Glucose 119 (H) 70 - 100 MG/DL Blood Urea Nitrogen 13 7 - 25 MG/DL Creatinine 0.88 0.4 - 1.24 MG/DL Calcium 8.0 (L) 8.5 - 10.6 MG/DL Total Protein 6.8 6.0 - 8.0 G/DL Total Bilirubin 0.7 0.3 - 1.2 MG/DL Albumin 4.3 3.5 - 5.0 G/DL Alk Phosphatase 57 25 - 110 U/L AST (SGOT) 11 7 - 40 U/L CO2 25 21 - 30 MMOL/L ALT (SGPT) 11 7 - 56 U/L Anion Gap 8 3 - 12 eGFR Non >60 >60 mL/min eGFR >60 >60 mL/min CBC AND DIFF Collection Time: 10/29/17 6:55 PM Result Value Ref Range White Blood Cells 11.3 (H) 4.5 - 11.0 K/UL RBC 4.93 4.4 - 5.5 M/UL Hemoglobin 15.1 13.5 - 16.5 GM/DL Hematocrit 43.4 40 - 50 % MCV 88.0 80 - 100 FL MCH 30.7 26 - 34 PG MCHC 34.9 32.0 - 36.0 G/DL RDW 14.3 11 - 15 % Platelet Count 157 150 - 400 K/UL MPV 10.0 7 - 11 FL Neutrophils 78 (H) 41 - 77 % Lymphocytes 16 (L) 24 - 44 % Monocytes 6 4 - 12 % Eosinophils 0 0 - 5 % Basophils 0 0 - 2 % Absolute Neutrophil Count 8.80 (H) 1.8 - 7.0 K/UL Absolute Lymph Count 1.80 1.0 - 4.8 K/UL Absolute Monocyte Count 0.70 0 - 0.80 K/UL Absolute Eosinophil Count 0.00 0 - 0.45 K/UL Absolute Basophil Count 0.00 0 - 0.20 K/UL MAGNESIUM Collection Time: 10/29/17 6:55 PM Result Value Ref Range Magnesium 2.6 1.6 - 2.6 mg/dL CULTURE-BLOOD W/SENSITIVITY Collection Time: 10/29/17 6:55 PM Result Value Ref Range Battery Name BLOOD CULTURE Specimen Description BLOOD RIGHT ANTECUBITAL Special Requests NONE Culture NO GROWTH 1 DAY Report Status URINALYSIS DIPSTICK REFLEX TO CULTURE Collection Time: 10/29/17 8:23 PM Result Value Ref Range Color,UA STRAW Turbidity,UA CLEAR CLEAR-CLEAR Specific [place]-Urine 1.003 1.003 - 1.035 pH,UA 7.0 5.0 - 8.0 Protein,UA NEG NEG-NEG Glucose,UA NEG NEG-NEG Ketones,UA NEG NEG-NEG Bilirubin,UA NEG NEG-NEG Blood,UA NEG NEG-NEG Urobilinogen,UA NORMAL NORM-NORMAL Nitrite,UA NEG NEG-NEG Leukocytes,UA NEG NEG-NEG Urine Ascorbic Acid, UA NEG NEG-NEG URINALYSIS MICROSCOPIC REFLEX TO CULTURE Collection Time: 10/29/17 8:23 PM Result Value Ref Range WBCs,UA 0-2 0 - 2 /HPF RBCs,UA NONE 0 - 3 /HPF Comment,UA Urine submitted for reflex culture if criteria are met:WBC>10, positive nitrite and/or >=1+ leukocyte esterase. If quantity is not sufficient, an addendum will follow. MucousUA TRACE RVP VIRAL PANEL PCR Collection Time: 10/30/17 12:47 AM Result Value Ref Range Specimen Source NASAL WASH Adenovirus NOT DETECTED Coronavirus 229E NOT DETECTED Coronavirus HKU1 NOT DETECTED Coronavirus NL63 NOT DETECTED Coronavirus OC43 NOT DETECTED Human Metapneumovirus NOT DETECTED Human Rhinovirus/ENTEROVIRUS NOT DETECTED Influenza A H1N1 2009 NOT DETECTED Influenza A H1 NOT DETECTED Influenza A H3 NOT DETECTED Influenza B NOT DETECTED Parainfluenza 1 NOT DETECTED Parainfluenza 2 NOT DETECTED Parainfluenza 3 NOT DETECTED Parainfluenza 4 NOT DETECTED RSV NOT DETECTED Bordetella Pertussis NOT DETECTED Chlamydophila Pneumoniae NOT DETECTED Mycoplasma Pneumoniae NOT DETECTED CBC AND DIFF Collection Time: 10/30/17 6:12 AM Result Value Ref Range White Blood Cells 12.2 [...] Basophil Count 0.00 0 - 0.20 K/UL COMPREHENSIVE METABOLIC PANEL Collection Time: 10/30/17 6:12 AM Result Value Ref Range Sodium 131 (L) 137 [...] - 12 eGFR Non >60 >60 mL/min eGFR >60 >60 mL/min MAGNESIUM Collection Time: 10/30/17 6:12 AM Result Value Ref Range Magnesium 2.6 1.6 - 2.6 mg/dL Point of Care Testing (Last 24 hours) Glucose: (!) 128 (10/30/17 0612) Radiology and other Diagnostics Review: Pertinent radiology reviewed. Phillip Almanza MD Pager [phone] Associated attestation - Dianne Valenzuela MD - 10/30/2017 9:24 PM TRASH COLLECTOR Formatting of this note may be different from the original. ATTESTATION I personally performed the [place]il[place] portions of the E/M visit, discussed case with resident and concur with resident documentation of history, physical exam, assessment, and treatment plan unless otherwise noted. Staff name: Dianne Valenzuela MD Date: 10/30/2017 * Asa Barajas - 10/29/2017 8:55 PM TRASH COLLECTOR Pharmacy Note: Patients Own Med The following medications have been identified by pharmacy and placed in the medication room refrigerator and locked medication box for storage: Medication: trametinib (MEKINIST) 2mg tablets Pharmacy: [facility] RX #: [id number] Exp: 06/2018 Refrigerated Medication: Dabrafenib (TAFINLAR) 75mg capsules Pharmacy: [facility] RX #: [id number] Exp: 09/2018 The patient may use their own supply of these medications during this admission. All doses should be administered and documented per hospital policy. Asa Barajas Clinical Forming Yardage Control Operator * Carmen Joyce RN - 10/29/2017 7:04 PM TRASH COLLECTOR Patient back on the unit from IR in this encounter H&P Notes * Phillip Almanza MD - 10/29/2017 9:23 PM TRASH COLLECTOR Formatting of this note may be different from the original. Admission History and Physical Examination Name: Nickolas Ludwig Admission Date: 10/29/2017 Assessment/Plan: Active Problems: Meningitis 22 yo Male PMH metastatic melanoma on dabrafenib and trametinib who presents with 4 days of headaches, nausea, vomiting, and 2 days of lethargy. MRI showed carcinomatosis vs meningitis # Carcinomatosis vs. Meningitis - headache, lethargy, nausea, vomiting - no kernig, brudzinski, or nuchal rigidity - MRI brain 10/29: infectious meningitis vs. carcinomatosis Plan: > LP by IR: will follow up results > treat empirically with vanc, cefepime, and acyclovir > neuro consulted # Leukocytosis - WBC 14 10/29 - nausea, vomiting, body aches Plan: > UA > Blood clx > CXR > RVP > LP # Metastatic Melanoma - Follows with Dr. North - R scalp melanoma - mets to lung, liver, bones, and lymph nodes - currently on Dabrafenib and trametinib Plan: > holding dabrafenib and trametinib for now # FEN: > IVF with acyclovir > replace lytes prn > regular diet # Ppx: lovenox # Code Status: Full Code # Dispo: Admit to Onc __ Primary Care Physician: Benjamín Herron Verified Chief Complaint: Headache, nausea, vomiting History of Present Illness: Nickolas Ludwig is a 22 y.o. male PMH metastatic melanoma on dabrafenib and trametinib who presents with 4 days of headaches, nausea, vomiting. His headaches have been worsening over the past 4 days. His nausea and vomiting has been mildly improving. He has also had body aches over his pectoral muscles and shoulders. He denies any changes in vision, fevers, chills, night sweats, cough, neck stiffness, diarrhea, or constipation. Family states that he has been more lethargic over the last two days, and that when his father was driving him home a couple days ago, his answers to questions did not always make sense. He lives in a house with roommates and attends college. He has no known sick contacts. Past Medical History: Diagnosis Date Cancer (HCC) [...] [facility] MD [facility]/ Periop CA ADJT/REARRGMT SCALP/ARM/LEG 10.1-30.0 SQ CM Right 05/16/2016 LOCAL TISSUE REARRANGEMENT SCALP performed by Ralf Velez MD at [facility]/ Periop CA CERVICAL LYMPHADEC MODIFIED RADICAL NECK DSJ Right 06/20/2016 RIGHT MODIFIED RADICAL NECK DISSECTION performed by John Osborn MD at [facility] CA ADJT/REARRGMT SCALP/ARM/LEG 10.1-30.0 SQ CM Right 08/28/2016 SCAR REVISION SCALP AND NECK WITH LOCAL TISSUE REARRANGEMENT performed by Ralf Velez MD at [facility]iop CA EXCISION MALIGNANT LESION S/N/H/F/G >4.0 CM Right 04/15/2017 EXCISION OF RIGHT SABIANISM MASS performed by John Osborn MD at [facility]/ Periop CA ADJT/REARRGMT SCALP/ARM/LEG 10.1-30.0 SQ CM Right 04/15/2017 LOCAL TISSUE REARRANGEMENT performed by Ralf Velez MD at [facility]iop CA EXCISION MALIGNANT LESION S/N/H/F/G >4.0 CM Right 05/13/2017 WIDE LOCAL EXCISION OF RIGHT SABIANISM performed by John Osborn MD at [facility]/ Periop CA SPLIT AGRFT F/S/N/H/F/G/M/D GT 1ST 100 CM/</1 % Left 05/13/2017 SPLIT THICKNESS SKIN GRAFT performed by Ralf Velez MD at [facility]/Periop CA ADJT TIS TRNSFR/REARGMT SCALP/ARM/LEG 10 SQ CM/< Right 05/13/2017 LOCAL TISSUE REARRANGEMENT RIGHT SABIANISM 5X5 CM, SPLIT THICKNESS SKIN GRAFT 25 [...] tobacco: Never Used Alcohol use 0.0 oz/week Comment: social Drug use: Yes Types: Marijuana Comment: Last tried 04/01/2016 Sexual activity: Not on file Other Topics Concern Not on file Social History Narrative No narrative on file Immunizations (includes history and patient reported): There is no immunization history on file for this patient. Allergies: Patient has no known allergies. Medications: Prescriptions Prior to Admission Medication Sig APPLE CIDER VINEGAR PO Take 1 Dose by mouth daily. BETA GLUCAN (1,3/1,4-D) MISC Take 1 tablet by mouth daily. cetirizine (ZYRTEC) 10 mg tablet Take 10 mg by mouth every morning. clindamycin(+) (CLEOCIN T; CLINDAMAX) 1 % topical lotion as Needed. Collagenase powd Take 1 Scoop by mouth daily. In morning shakes. dabrafenib (TAFINLAR) 75 mg capsule Take 2 capsules by mouth twice daily. Take at least 1 hour before or 2 hours after food. dronabinol (MARINOL) 5 mg capsule Take 1 capsule by mouth twice daily. ERGOCALCIFEROL (VITAMIN D2) (VITAMIN D PO) Take 1 tablet by mouth daily. FISH OIL/BORAGE/FLAX/OM3,6,9 1 (OMEGA 3-6-9 COMPLEX PO) Take 1 capsule by mouth daily. L.ACID/L.CASEI/B.BIF/B.BARR[place]/FOS (PROBIOTIC BLEND PO) Take 1 capsule by mouth daily. LORazepam (ATIVAN) 0.5 mg tablet Take 1 tablet by mouth every 4 hours as needed for Nausea. melatonin 10 mg tab Take 1 tablet by mouth at bedtime as needed. NON-FORMULARY five times weekly. Pre-Workout [facility] approved ondansetron (ZOFRAN) 8 mg tablet Take 1 tablet by mouth every 8 hours as needed for Nausea or Vomiting. other medication Essiac Tea- Drink 1 cup of tea daily. other medication Mycelium complex blend 600 mg- Take 2 capsules by mouth daily. other medication Super Green- Take 1 scoop in shake every morning. other medication Bone Broth- Take 1 scoop in shake every morning. oxyCODONE (ROXICODONE, OXY-IR) 5 mg tablet Take 1-2 tablets by mouth every 4 hours as needed for Pain Earliest Fill Date: 05/13/17 prednisone (DELTASONE) 10 mg tablet Take 6 tablets by mouth daily. prochlorperazine maleate (COMPAZINE) 10 mg tablet Take 1 tablet by mouth every 6 hours as needed for Nausea or Vomiting. RESVERATROL-GRAPE SKIN EXTRACT PO Take 1 tablet by mouth daily. trametinib (MEKINIST) 2 mg tablet Take 1 tablet by mouth daily. Take at least 1 hour before or 2 hours after food. turmeric root extract 500 mg cap Take 2 capsules by mouth daily. VITAMIN B COMPLEX (B COMPLEX PO) Take 1 tablet by mouth daily. vitamins, multiple tablet Take 1 Tab by mouth daily. Review of Systems: A 14 point review of systems was negative except for: headache, nausea, vomiting , body aches, lethargy Physical Exam: Vital Signs: Last Filed In 24 Hours Vital Signs: 24 Hour Range BP: 99/56 (10/29 1827) Temp: 36.4 C (97.6 F) (10/29 1709) Pulse: 58 (10/29 1824) Respirations: 14 PER MINUTE (10/29 1824) SpO2: 100 % (10/29 1824) O2 Delivery: None (Room Air) (10/29 1827) SpO2 Pulse: 55 (10/29 1824) Height: 177.8 cm (70") (10/29 1221) BP: (99-127)/(46-71) Temp: [36.4 C (97.6 F)-36.7 C (98.1 F)] Pulse: [38-58] Respirations: [12 PER MINUTE-22 PER MINUTE] SpO2: [98 %-100 %] O2 Delivery: None (Room Air) Intensity Pain Scale 0-10 (Pain 1): 2 (10/29/172040) General appearance: fatigued, well-developed and no distress Head: R side of head with skin changes from bx Eyes: negative findings: conjunctivae and sclerae normal, pupils equal, round, reactive to light and accomodation and EOMI Throat: normal findings: lips normal without lesions and palate normal Lungs: clear to auscultation bilaterally Heart: regular rate and rhythm Abdomen: soft, non-tender. Bowel sounds normal. No masses, no organomegaly Extremities: No Edema in BLE Neurologic: Brudzinski and Kernig negative, no nuchal rigidity, Cranial nerves intact, reflexs normal, sensation and strength intact Peripheral pulses: 2+ and symmetric Musculoskeletal: 5/5 strenght in all extremties Lab/Radiology/Other Diagnostic Tests: 24-hour labs: Results for orders placed or performed during the hospital encounter of (from the past 24 hour(s)) CELL COUNT W/DIFF-CSF Collection Time: 10/29/17 6:20 PM Result Value Ref Range Cell Count Tube,CSF TUBE 4 White Blood Cells,CSF 3 <5 /UL Red Blood Cells,CSF 1 /UL Neutrophils, CSF 5 % Lymphocytes, CSF 35 % Monocyte/Hisotocyte, CSF 45 % Other, CSF 15 % Clarity,CSF CLEAR Path Interpretation, CSF Pathologist Signature TOTAL PROTEIN-CSF Collection Time: 10/29/17 6:20 PM Result Value Ref Range Total Protein,CSF 40 15 - 45 MG/DL GLUCOSE-CSF Collection Time: 10/29/17 6:20 PM Result Value Ref Range Glucose,CSF 56 40 - 75 MG/DL Xanthrochromia,CSF NONE CULTURE-CSF W/SENSITIVITY Collection Time: 10/29/17 6:20 PM Result Value Ref Range Battery Name CSF CULTURE Specimen Description CSF Special Requests NONE Direct Gram Stain NO NEUTROPHILS SEEN NO ORGANISMS SEEN Culture Report Status GRAM STAIN Collection Time: 10/29/17 6:20 PM Result Value Ref Range Battery Name GRAM STAIN Specimen Description CSF Special Requests NONE Gram Stain NO NEUTROPHILS SEEN NO ORGANISMS SEEN Report Status FINAL 10/29/2017 COMPREHENSIVE METABOLIC PANEL Collection Time: 10/29/17 6:55 PM Result Value Ref Range Sodium 133 (L) 137 - 147 MMOL/L Potassium 3.2 (L) 3.5 - 5.1 MMOL/L Chloride 100 98 - 110 MMOL/L Glucose 119 (H) 70 - 100 MG/DL Blood Urea Nitrogen 13 7 - 25 MG/DL Creatinine 0.88 0.4 - 1.24 MG/DL Calcium 8.0 (L) 8.5 - 10.6 MG/DL Total Protein 6.8 6.0 - 8.0 G/DL Total Bilirubin 0.7 0.3 - 1.2 MG/DL Albumin 4.3 3.5 - 5.0 G/DL Alk Phosphatase 57 25 - 110 U/L AST (SGOT) 11 7 - 40 U/L CO2 25 21 - 30 MMOL/L ALT (SGPT) 11 7 - 56 U/L Anion Gap 8 3 - 12 eGFR Non >60 >60 mL/min eGFR >60 >60 mL/min CBC AND DIFF Collection Time: 10/29/17 6:55 PM Result Value Ref Range White Blood Cells 11.3 (H) 4.5 - 11.0 K/UL RBC 4.93 4.4 - 5.5 M/UL Hemoglobin 15.1 13.5 - 16.5 GM/DL Hematocrit 43.4 40 - 50 % MCV 88.0 80 - 100 FL MCH 30.7 26 - 34 PG MCHC 34.9 32.0 - 36.0 G/DL RDW 14.3 11 - 15 % Platelet Count 157 150 - 400 K/UL MPV 10.0 7 - 11 FL Neutrophils 78 (H) 41 - 77 % Lymphocytes 16 (L) 24 - 44 % Monocytes 6 4 - 12 % Eosinophils 0 0 - 5 % Basophils 0 0 - 2 % Absolute Neutrophil Count 8.80 (H) 1.8 - 7.0 K/UL Absolute Lymph Count 1.80 1.0 - 4.8 K/UL Absolute Monocyte Count 0.70 0 - 0.80 K/UL Absolute Eosinophil Count 0.00 0 - 0.45 K/UL Absolute Basophil Count 0.00 0 - 0.20 K/UL MAGNESIUM Collection Time: 10/29/17 6:55 PM Result Value Ref Range Magnesium 2.6 1.6 - 2.6 mg/dL URINALYSIS DIPSTICK REFLEX TO CULTURE Collection Time: 10/29/17 8:23 PM Result Value Ref Range Color,UA STRAW Turbidity,UA CLEAR CLEAR-CLEAR Specific [place]-Urine 1.003 1.003 - 1.035 pH,UA 7.0 5.0 - 8.0 Protein,UA NEG NEG-NEG Glucose,UA NEG NEG-NEG Ketones,UA NEG NEG-NEG Bilirubin,UA NEG NEG-NEG Blood,UA NEG NEG-NEG Urobilinogen,UA NORMAL NORM-NORMAL Nitrite,UA NEG NEG-NEG Leukocytes,UA NEG NEG-NEG Urine Ascorbic Acid, UA NEG NEG-NEG URINALYSIS MICROSCOPIC REFLEX TO CULTURE Collection Time: 10/29/17 8:23 PM Result Value Ref Range WBCs,UA 0-2 0 - 2 /HPF RBCs,UA NONE 0 - 3 /HPF Comment,UA Urine submitted for reflex culture if criteria are met:WBC>10, positive nitrite and/or >=1+ leukocyte esterase. If quantity is not sufficient, an addendum will follow. MucousUA TRACE Glucose: (!) 119 (10/29/17 4189) Pertinent radiology reviewed. Phillip Almanza MD Pager [phone] Associated attestation - Dianne Valenzuela MD - 10/30/2017 9:24 PM TRASH COLLECTOR Formatting of this note may be different from the original. ATTESTATION I reviewed the history and exam documented by the resident last night. Please see my additional notes for documentation of my exam, assessment and plan. Staff name: Dianne Valenzuela MD Date: 10/30/2017 * Geovanni Doss MD - 10/29/2017 6:05 PM TRASH COLLECTOR Formatting of this note may be different from the original. History and Physical Update Note Admission Date: 10/29/2017 Planned Procedure(s): LP Indication: Melanoma, possible meningitis Sedation/Medication Plan: Other Discussion/Reviews: Physician has discussed risks and alternatives of this type of sedation and above planned procedures with patient, Reviewed appropriate : allergies, lab/diagnostic tests, patient history, review of systems and time and route of recently administered narcotics and sedatives and I have privileges for the planned sedation. Allergies: Patient has no known allergies. Vital Signs: Last Filed Vital Signs: 24 Hour Range BP: 102/47 (10/29 1709) Temp: 36.4 C (97.6 F) (10/29 1709) Pulse: 56 (10/29 1709) Respirations: 16 PER MINUTE (10/29 1709) SpO2: 100 % (10/29 1709) O2 Delivery: None (Room Air) (10/29 1709) Height: 177.8 cm (70") (10/29 1221) BP: (102-114)/(47-71) Temp: [36.4 C (97.6 F)-36.7 C (98.1 F)] Pulse: [42-56] Respirations: [16 PER MINUTE] SpO2: [100 %] O2 Delivery: None (Room Air) Intensity Pain Scale 0-10 (Pain 1): 3 (10/29/171709) Airway: airway assessment performed Mallampati I (soft palate, uvula, fauces, tonsillar pillars visible) Anesthesia Classification: ASA III (A patient with a severe systemic disease that limits activity, but is not incapacitating) Lab/Radiology/Other Diagnostic Tests: Lab Results Component Value Date/Time HGB 15.8 10/29/2017 12:16 PM PLTCT 202 10/29/2017 12:16 PM WBC 14.0 (H) 10/29/2017 12:16 PM CR 0.90 10/29/2017 12:16 PM BUN 14 10/29/2017 12:16 PM I have examined the patient, and there are no significant changes in their condition, from the previous H&P performed on 10/29/2017. I have discussed the risks of the procedure with the patient and obtained informed consent. Geovanni Doss MD in this encounter Consult Notes * Sonny Teixeira MD - 10/29/2017 7:17 PM TRASH COLLECTOR Associated Order(s): CONSULT NEUROLOGY PHYSICIAN Formatting of this note may be different from the original. Neurology Consult Note Admission Date: 10/29/2017 LOS: 0 days Reason for Consult: Abnormal brain MRI Consult type: Opinion with orders Assessment: Nickolas Ludwig is a 22 y.o. male. With medical history of metastatic melanoma, currently on adjuvant Dabrafenib + trametinib , was admitted after an abnormal brain MRI to get a lumbar puncture. Brain MRI: Development of scattered abnormal sulcal FLAIR hyperintensities without definitive associated abnormal leptomeningeal or intracranial enhancement. Suspicious for infectious meningitis or carcinomatosis. Examination is not suggestive of infectious meningitis. Impression: -Abnormal brain MRI, in a patient with metastatic melanoma, mainly suspicious for leptomeningeal carcinomatosis and less likely infectious meningitis. Recommendations: Agree with lumbar puncture, flow cytometry and cytology samples will be followed, if negative then a repeated dedicated large volume (10-15 ml) cytology tap might be required. Agree with broad-spectrum antibiotic until basic lumbar puncture labs comes back. Neurology Private Consult Service: Pager: [phone] . Pages will be returned by this service attending from the hours of 2PM-10PM Mon- Fri and 1200-1000PM Sat and Sun. Urgent questions can otherwise be directed to the Neurology teaching service at pager [phone]. History of Present Illness: Nickolas Ludwig is a 22 y.o. male. With medical history of metastatic melanoma, currently on adjuvant Dabrafenib + trametinib , was admitted after an abnormal brain MRI to get a lumbar puncture. Patient had a brain MRI last month part of routine follow-up/surveillance. 4 days ago he started having the mild intermittent headache with nausea and vomiting. This improved over the last couple of days but got much worse yesterday. He went to the clinic and a brain MRI was obtained today that showed subtle sulcal enhancement on FLAIR imaging without a definite leptomeningeal enhancement. Patient went to lumbar puncture with IR today. No current complaints besides a very mild headache. Patient denies nausea. He denies double vision, blurred vision, focal weakness, sensation loss. Patient denies medical rigidity, photophobia or phonophobia. Past Medical History: Diagnosis Date Cancer (HCC) [...] John Osborn MD at [facility]/ Periop CA ADJT/REARRGMT SCALP/ARM/LEG 10.1-30.0 SQ CM Right 05/16/2016 LOCAL TISSUE REARRANGEMENT SCALP performed by Ralf Velez MD at [facility]/ Periop CA CERVICAL LYMPHADEC MODIFIED RADICAL NECK DSJ Right 06/20/2016 RIGHT MODIFIED RADICAL NECK DISSECTION performed by John Osborn MD at [facility]/Periop CA ADJT/REARRGMT SCALP/ARM/LEG 10.1-30.0 SQ CM Right 08/28/2016 SCAR REVISION SCALP AND NECK WITH LOCAL TISSUE REARRANGEMENT performed by Ralf Velez MD at [facility]/Periop CA EXCISION MALIGNANT LESION S/N/H/F/G >4.0 CM Right 04/15/2017 EXCISION OF RIGHT SABIANISM MASS performed by John Osborn MD at [facility]/ Periop CA ADJT/REARRGMT SCALP/ARM/LEG 10.1-30.0 SQ CM Right 04/15/2017 LOCAL TISSUE REARRANGEMENT performed by Ralf Velez MD at [facility]iop CA EXCISION MALIGNANT LESION S/N/H/F/G >4.0 CM Right 05/13/2017 WIDE LOCAL EXCISION OF RIGHT SABIANISM performed by John Osborn MD at [facility]/ Periop CA SPLIT AGRFT F/S/N/H/F/G/M/D GT 1ST 100 CM/</1 % Left 05/13/2017 SPLIT THICKNESS SKIN GRAFT performed by Ralf Velez MD at [facility] OR/Periop CA ADJT TIS TRNSFR/REARGMT SCALP/ARM/LEG 10 SQ CM/< Right 05/13/2017 LOCAL TISSUE REARRANGEMENT RIGHT SABIANISM 5X5 CM, SPLIT THICKNESS SKIN GRAFT 25 CM2 performed by Ralf Velez MD at [facility] OR/Periop Social History Substance Use Topics Smoking status: Never Smoker Smokeless tobacco: Never Used Alcohol use 0.0 oz/week Comment: social Family History Problem Relation Age of Onset Depression Maternal Grandmother Heart Disease Maternal Grandfather Allergies: Patient has no known allergies. Scheduled Meds: acyclovir (ZOVIRAX) 722 mg in dextrose 5% (D5W) IVPB 10 mg/kg Intravenous Q8H* cefepime (MAXIPIME) 2 g/100 ml iso-osmotic IVPB 2 g Intravenous Q8H* [START ON 10/30/2017] cetirizine (ZYRTEC) tablet 10 mg 10 mg Oral QAM8 dronabinol (MARINOL) capsule 5 mg 5 mg Oral BID [START ON 10/30/2017] lactobacillus rhamnosus GG (CULTURELLE) 15 billion cell capsule 1 capsule 1 capsule Oral BID w/meals vancomycin (VANCOCIN) 1,500 mg in dextrose 5% (D5W) IVPB 20 mg/kg Intravenous Q8H* And vancomycin, pharmacy to manage 1 each Service Per Pharmacy Continuous Infusions: sodium chloride 0.9 % infusion PRN and Respiratory Meds:LORazepam Q4H PRN, melatonin QHS PRN, ondansetron Q8H PRN, oxyCODONE Q4H PRN, prochlorperazine maleate Q6H PRN Current Facility-Administered Medications on File Prior to Encounter Medication Dose Route Frequency Provider Last Rate Last Dose prochlorperazine (COMPAZINE) injection 10 mg 10 mg Intravenous Q6H PRN Kb North MD 10 mg at 10/29/17 1345 Current Outpatient Prescriptions on File Prior to Encounter Medication Sig Dispense Refill APPLE CIDER VINEGAR PO Take 1 Dose by mouth daily. BETA GLUCAN (1,3/1,4-D) MISC Take 1 tablet by mouth daily. cetirizine (ZYRTEC) 10 mg tablet Take 10 mg by mouth every morning. clindamycin(+) (CLEOCIN T; CLINDAMAX) 1 % topical lotion as Needed. Collagenase powd Take 1 Scoop by mouth daily. In morning shakes. dabrafenib (TAFINLAR) 75 mg capsule Take 2 capsules by mouth twice daily. Take at least 1 hour before or 2 hours after food. 120 capsule 2 dronabinol (MARINOL) 5 mg capsule Take 1 capsule by mouth twice daily. 60 capsule 0 ERGOCALCIFEROL (VITAMIN D2) (VITAMIN D PO) Take 1 tablet by mouth daily. FISH OIL/BORAGE/FLAX/OM3,6,9 1 (OMEGA 3-6-9 COMPLEX PO) Take 1 capsule by mouth daily. L.ACID/L.CASEI/B.BIF/B.BARRINGTON/FOS (PROBIOTIC BLEND PO) Take 1 capsule by mouth daily. LORazepam (ATIVAN) 0.5 mg tablet Take 1 tablet by mouth every 4 hours as needed for Nausea. 90 tablet 1 melatonin 10 mg tab Take 1 tablet by mouth at bedtime as needed. NON-FORMULARY five times weekly. Pre-Workout [facility] approved ondansetron (ZOFRAN) 8 mg tablet Take 1 tablet by mouth every 8 hours as needed for Nausea or Vomiting. 30 tablet 3 other medication Essiac Tea- Drink 1 cup of tea daily. other medication Mycelium complex blend 600 mg- Take 2 capsules by mouth daily. other medication Super Green- Take 1 scoop in shake every morning. other medication Bone Broth- Take 1 scoop in shake every morning. oxyCODONE (ROXICODONE, OXY-IR) 5 mg tablet Take 1-2 tablets by mouth every 4 hours as needed for Pain Earliest Fill Date: 05/13/17 50 tablet 0 prednisone (DELTASONE) 10 mg tablet Take 6 tablets by mouth daily. 180 tablet 0 prochlorperazine maleate (COMPAZINE) 10 mg tablet Take 1 tablet by mouth every 6 hours as needed for Nausea or Vomiting. 60 tablet 3 RESVERATROL-GRAPE SKIN EXTRACT PO Take 1 tablet by mouth daily. trametinib (MEKINIST) 2 mg tablet Take 1 tablet by mouth daily. Take at least 1 hour before or 2 hours after food. 30 tablet 2 turmeric root extract 500 mg cap Take 2 capsules by mouth daily. VITAMIN B COMPLEX (B COMPLEX PO) Take 1 tablet by mouth daily. vitamins, multiple tablet Take 1 Tab by mouth daily. Review of Systems: All other systems reviewed and are negative. Vital Signs: Last Filed in 24 hours Vital Signs: 24 hour Range BP: 99/56 (10/29 1827) Temp: 36.4 C (97.6 F) (10/29 1709) Pulse: 58 (10/29 1824) Respirations: 14 PER MINUTE (10/29 1824) SpO2: 100 % (10/29 1824) O2 Delivery: None (Room Air) (10/29 1827) SpO2 Pulse: 55 (10/29 1824) Height: 177.8 cm (70") (10/29 1221) BP: (99-127)/(46-71) Temp: [36.4 C (97.6 F)-36.7 C (98.1 F)] Pulse: [38-58] Respirations: [12 PER MINUTE-22 PER MINUTE] SpO2: [98 %-100 %] O2 Delivery: None (Room Air) General physical exam: HEENT: normocephalic, eyes open with no discharge, nares patent, oropharynx is clear with no lesions, palate intact CV: regular rate and rhythm, no murmur, distal pulses palpable Chest: normal configuration, lungs are clear bilaterally Ab: soft, non-tender, no masses, no organomegaly Neuro exam: No meningeal signs on examination Mental Status: sleepy but Oriented x3, normal attention, concentration and grossly intact memory. Speech: No dysarthria, no aphasia Cranial nerves: visual cadena intact in all quadrants to finger confrontation, normal EOM movements, no facial weakness and normal facial sensation, intact hearing to finger rub bilateral, intact SCM, tongue midline. Motor: Strength: 5/5 RUE, 5/5 RLE, 5/5 LUE, 5/5 LLE, normal tone and muscle bulk. DTRs: +1 in BJ, TJ, BRJ, KJ. Sensory: Intact for light touch in UEs, LEs Coordination: Intact finger to nose test. Gait: Not done for now. Lab/Radiology/Other Diagnostic Tests: 24-hour labs: Results for orders placed or performed during the hospital encounter of (from the past 24 hour(s)) GLUCOSE-CSF Collection Time: 10/29/17 6:20 PM Result Value Ref Range Glucose,CSF 40 - 75 MG/DL Xanthrochromia,CSF NONE @BBME@ in this encounter Miscellaneous Notes * Care Plan - Elly Matute RN - 10/30/2017 5:05 PM TRASH COLLECTOR Problem: Infection, Risk of Goal: Absence of infection Outcome: Goal Achieved Date Met: 10/30/17 Pt free from s/s of infection at time of discharge. Goal: Knowledge of Infection Control Procedures Outcome: Goal Achieved Date Met: 10/30/17 Pt was educated on the isolation precautions used during his stay, verbalized understanding. * Case Mgmt DC Plan - Lenora Carroll RN - 10/30/2017 2:33 PM TRASH COLLECTOR Case Management Progress Note NAME:Nickolas Ludwig : AGE: 22 y.o. ADMISSION DATE: 10/29/2017 DAYS ADMITTED: LOS: 1 day Todays Date: 10/30/2017 Plan NCM reviewed EMR for POC. NCM attempted to meet with patient for assessment/ support but pt was with another discipline. NCM will attempt at a later time or pass off to primary NCM. DC plan ongoing. Interventions ? Support Support: Pt/Family Updates re:POC or DC Plan ? Info or Referral ? Discharge Planning ? Medication Needs ? Financial ? Legal ? Other Disposition ? Discharge Preparation When ready for discharge, who will be responsible for transporting?: Parents Type of Residence: Private residence Patient expects to be discharged to: Private residence Was the patient receiving home care services?: No ? Expected Discharge Expected Discharge Date: 11/01/17 ? Discharge Disposition ? Next Level Care Lenora Carroll, AYALACM [phone] * Med Student Progress Note - Sherwin Ling, [place] - 10/30/2017 8:45 AM TRASH COLLECTOR Formatting of this note may be different from the original. Medical Student Progress Note Nickolas Ludwig Date of Admission: 10/29/2017 Length of Stay: 1 Active Problems: Meningitis Assessment/Plan Active Problems: Meningitis Nickolas Ludwig is a 22 y.o. male on LOS: 1 day with PMH significant for metastatic melanoma who presented with a 4 day history of nausea, vomiting, and worsening headache. He also complained of muscle aches in his chest and shoulders and his family reported a two day history of fatigue. 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 - Antibiotics discontinued after CSF results were inconsistent with bacterial meningitis - Respiratory virus panel: negative - LP cytology: negative for malignant cells - Plan: > Continue acyclovir until HSV PCR results come back > Repeat LP if HSV PCR is negative 2) Leukocytosis - WBC count 14 on presentation, ANC 11.3 - Broad spectrum antibiotics started for concern for meningitis - Patient afebrile, hemodynamically stable - Blood cultures show no growth to date - Urinalysis normal - CXR 10/29: No acute cardiopulmonary abnormality. - Plan: > Continue to monitor with daily CBC's 3) Metastatic Melanoma - Diagnosed in April 2016 - Follows Dr. North - s/p surgical removal of tumor on R scalp and skin graft - Known metastases to lung, liver, bones, and lymph nodes - Currently on Dobrafenib and Trametinib - Plan: > Hold Dobrafenib and Trametinib > Follow up with Can scheduled on 11/03/17 4) Hypokalemia - K 3.2 on presentation - Baseline 4 - Plan: > Oral Potassium Chloride PRN 5) Insomnia - Plan: > Continue melatonin 10mg at bedtime PRN FEN IVF: NS 1,000mL IV @ 100mL/hr Electrolytes: Replacing PRN Diet: DIET REGULAR Prophylaxis DVT: Enoxaparin 40mg SubQ QD Code status: Full Code Disposition: Continue stay on oncology unit until CSF cytology and HSV PCR are done. Pt seen and discussed with Dr. Valenzuela. Subjective Nickolas Ludwig is a 22 y.o. male. He was seen at bedside this morning with his mother and father present throughout the encounter. He had a headache last night after getting a lumbar puncture. He took some tylenol which mildly helped but ultimately went away after a dose of oxycodone. He had an episode of vomiting overnight as well, which was clear in color and watery. He denies any nausea or vomiting since the episode. The muscle pain in his shoulders and pectoral muscles has resolved since yesterday. He says he hast not been sleeping very well here and is anxious to get home. Review of Systems: Consitutional: Positive for sleepiness and low energy. Negative for fevers/ chills, night sweats. HEENT: Negative for changes in hearing or vision, rhinorrhea, or sore throat. Chest: Negative for chest pain, chest tightness, or palpitations. Lungs: Negative for shortness of breath, dyspnea, or cough. GI: Negative for abdominal pain, diarrhea, or constipation. : Negative for dysuria, hematuria, or changes in urinary frequency. Neuro: Negative for numbness/tingling. MSK: Negative for muscle or bone pain. Objective Vital Signs: Last Filed Vital Signs: 24 Hour Range BP: 96/40 (10/30 1308) Temp: 36.9 C (98.4 F) (10/30 1308) Pulse: 56 (10/30 1308) Respirations: 14 PER MINUTE (10/30 1308) SpO2: 98 % (10/30 1308) O2 Delivery: None (Room Air) (10/30 130) SpO2 Pulse: 55 (10/29 1825) BP: (96-132)/(40-67) Temp: [36.4 C (97.6 F)-36.9 C (98.4 F)] Pulse: [38-58] Respirations: [12 PER MINUTE-22 PER MINUTE] SpO2: [97 %-100 %] O2 Delivery: None (Room Air) Intake/Output Summary (Last 24 hours) at 10/30/17 1450 Last data filed at 10/30/17 0854 Gross per 24 hour Intake 2463 ml Output 715 ml Net 1748 ml Weight: Vitals: 10/29/17 1710 Weight: 72.2 kg (159 lb 2.8 oz) Physical Exam CONSTITUTIONAL: Alert and oriented x4, NAD, cooperative, appropriately participative in exam. Head: Normocephalic; scars from previous melanoma excision and skin graft. Eyes: PERRL bilaterally. No scleral icterus bilaterally. EOMI bilaterally. ENT: Oropharynx without erythema. Mucus membranes are moist. CHEST: Lungs CTA bilaterally without wheezes, rales or rhonchi. No accessory muscle use appreciated. Normal respiratory effort. CV: RRR. Normal S1 and S2. No murmurs, rubs or gallops. ABD: Soft, non-tender, non-distended. Active bowel sounds appreciated in all 4 quadrants. No rebounding, guarding, or peritoneal signs. No appreciable HSM. EXT: No edema. No cyanosis or clubbing. NEURO: CN II-XII grossly intact. PSYCH: Behavior, speech, mood, thought content appropriate. Lab/Radiology/Other Diagnostic Tests CMP: Recent Labs 10/29/17 1216 10/29/17 1855 10/30/17 0612 NA 133* 133* 131* K 3.2* 3.2* 3.2* CL 97* 100 101 CO2 27 25 21 BUN 14 13 13 CR 0.90 0.88 0.78 GFR >60 >60 >60 GLU 124* 119* 128* CA 9.0 8.0* 8.0* ALBUMIN 4.7 4.3 4.1 ALKPHOS 60 57 49 AST 13 11 12 ALT 11 11 9 TOTBILI 0.8 0.7 0.8 CBC: Recent Labs 10/29/17 1216 10/29/17 1855 10/30/17 0612 WBC 14.0* 11.3* 12.2* HGB 15.8 15.1 15.0 HCT 45.7 43.4 43.0 PLTCT 202 157 182 Microbiology: Microbiology - Resulted Micro Last 72 Hrs CULTURE-CSF W/SENSITIVITY Resulted: 10/30/17 0702, Result status: Preliminary result Ordering provider: Phillip Almanza MD 10/29/17 172 Resulting lab: [facility] Specimen Information Source Collected On Cerebrospinal Fluid 10/29/17 1820 Components Component Value Flag Battery Name CSF CULTURE Specimen Description CSF Special Requests NONE Direct Gram Stain -- Result: NO NEUTROPHILS SEEN NO ORGANISMS SEEN Culture NO GROWTH 1 DAY Report Status -- CULTURE-BLOOD W/SENSITIVITY Resulted: 10/30/17 0626, Result status: Preliminary result Ordering provider: Phillip Almanza MD 10/29/17 172 Resulting lab: [facility] Specimen Information Source Collected On Blood 10/29/17 1855 Components Component Value Flag Battery Name BLOOD CULTURE Specimen Description -- Result: BLOOD RIGHT ANTECUBITAL Special Requests NONE Culture NO GROWTH 1 DAY Report Status -- GRAM STAIN Resulted: 10/29/172048, Result status: Final result Ordering provider: Phillip Almanza MD 10/29/17 182 Resulting lab: [facility] Specimen Information Source Collected On Cerebrospinal Fluid 10/29/17 1820 Components Component Value Flag Battery Name GRAM STAIN Specimen Description CSF Special Requests NONE Gram Stain -- Result: NO NEUTROPHILS SEEN NO ORGANISMS SEEN Report Status -- Result: FINAL 10/29/2017 CULTURE-TB (AFB) Resulted: 10/29/17 1845, Result status: Preliminary result Ordering provider: Phillip Almanza MD 10/29/17 172 Resulting lab: [facility] Specimen Information Source Collected On Cerebrospinal Fluid 10/29/17 1820 Components Component Value Flag Battery Name AFB CULTURE Specimen Description CSF Special Requests NONE Culture -- Report Status -- Radiology: Pertinent radiology reviewed. Results for orders placed or performed during the hospital encounter of CHEST 2 VIEWS Narrative Procedure: CHEST 2 VIEWS Clinical Indication: Leukocytosis. Upper respiratory tract infection. Comparison: CT chest October 03, 2017. FINDINGS: Upright PA and lateral chest radiograph were obtained. Heart is normal in size without pulmonary venous congestion. No pneumothorax, pleural effusion, or focal consolidation. Previously described right upper lobe pulmonary nodule better seen on prior CT chest. Impression 1. No acute cardiopulmonary abnormality. 2. Previously [...] Amish Euceda M.D. on 10/30/2017 9:27 AM. Medications Scheduled Meds: acyclovir (ZOVIRAX) 722 mg in dextrose 5% (D5W) IVPB 10 mg/kg Intravenous Q8H* cetirizine (ZYRTEC) tablet 10 mg 10 mg Oral QAM8 dabrafenib (TAFINLAR) capsule 150 mg (Patient Own Med) 150 mg Oral BID dronabinol (MARINOL) capsule 5 mg 5 mg Oral BID enoxaparin (LOVENOX) syringe 40 mg 40 mg Subcutaneous QDAY(21) lactobacillus rhamnosus GG (CULTURELLE) 15 billion cell capsule 1 capsule 1 capsule Oral BID w/meals trametinib (MEKINIST) tablet 2 mg (Patient Own Med) 1 tablet Oral QDAY Continuous Infusions: sodium chloride 0.9 % infusion 1,000 mL (10/30/17 1237) PRN and Respiratory Meds:acetaminophen Q6H PRN, LORazepam Q4H PRN, melatonin QHS PRN, ondansetron Q8H PRN, oxyCODONE Q4H PRN, prochlorperazine maleate Q6H PRN Sherwin Ling MS3 * Advanced Care Planning/Resuscitation Status - Phillip Almanza MD - 2017 9:22 PM TRASH COLLECTOR Advance Care Planning/Resuscitation Status Conversation Individuals present for advance care planning conversation: resident/fellow physician, patient and other: Patient's mother Pertinent details of conversation (including direct quotes from patient or surrogate): Patient would like to be full code. Outcome of conversation: Full Code Documents completed as a result of this conversation: None Other documents present, which outline patient/surrogate wishes: None * Procedures (Immed Post or Bedside) - Geovanni Doss MD - 10/29/2017 6:07 PM TRASH COLLECTOR Immediate Post Procedure Note Date: 10/29/2017 Attending Physician: Walter Doss MD Procedure(s): LP Pre/Post Diagnosis: meningitis Description/Findings: Op of 25 cm h20 Anesthesia: 2% lidocaine Time out performed: Consent obtained, correct patient verified, correct procedure verified, correct site verified, patient marked as necessary. Estimated Blood Loss: None/Negligible Specimen(s) Removed/Disposition: 15 cc clear csf Complications: None Geovanni Doss MD in this encounter Plan of Treatment Name Priority Associated Diagnoses Date/Time CULTURE-TB (AFB) STAT 10/29/2017 6:20 PM TRASH COLLECTOR CULTURE-FUNGAL,CSF STAT 10/29/2017 6:20 PM TRASH COLLECTOR as of this encounter Results * MONO SPOT (10/30/2017 1:49 PM) Component Value Ref Range Traill Screen NEG NEG-NEG Specimen Performing Laboratory Blood MAIN LAB [address] [place] [address] * MAGNESIUM (10/30/2017 6:12 AM) Component Value Ref Range Magnesium 2.6 1.6 - 2.6 mg/dL Specimen Performing Laboratory Blood MAIN LAB [address] [place] [address] * COMPREHENSIVE METABOLIC PANEL (10/30/2017 6:12 AM) Component Value Ref Range Sodium 131 (L) [...] Specimen Performing Laboratory Blood MAIN LAB [address] [place] [address] * CBC AND DIFF (10/30/2017 6:12 AM) Component Value Ref Range White Blood [...] Specimen Performing Laboratory Blood MAIN LAB [address] [place] [address] * RVP VIRAL PANEL PCR (10/30/2017 12:47 [...] NOT DETECTED Specimen Performing Laboratory Nasopharyngeal Swab [facility] [address] [place] [address] * CHEST 2 VIEWS (10/29/2017 9:59 PM) [...] Interface, Radiant Results - 10/30/2017 11:24 AM TRASH COLLECTOR Procedure: CHEST 2 VIEWS Clinical Indication: Leukocytosis. [...] Specimen Performing Laboratory Urine MAIN LAB [address] [place] [address] * URINALYSIS MICROSCOPIC REFLEX TO CULTURE (10/29/2017 8:23 PM) Component Value Ref Range WBCs,UA 0-2 0 - 2 /HPF RBCs,UA NONE 0 - 3 /HPF Comment,UA Urine submitted for reflex culture if criteria are met:WBC>10, positive nitrite and/or >=1+ leukocyte esterase. If quantity is not sufficient, an addendum will follow. MucousUA TRACE Specimen Performing Laboratory Urine MAIN LAB [address] [place] [id number] * URINALYSIS DIPSTICK REFLEX TO CULTURE (10/29/2017 8:23 PM) Component Value Ref Range Color,UA STRAW Turbidity,UA CLEAR CLEAR-CLEAR Specific [place]-Urine 1.003 1.003 - 1.035 pH,UA 7.0 5.0 - 8.0 Protein,UA NEG NEG-NEG Glucose,UA NEG NEG-NEG Ketones,UA NEG NEG-NEG Bilirubin,UA NEG NEG-NEG Blood,UA NEG NEG-NEG Urobilinogen,UA NORMAL NORM-NORMAL Nitrite,UA NEG NEG-NEG Leukocytes,UA NEG NEG-NEG Urine Ascorbic Acid, UA NEG NEG-NEG Specimen Performing Laboratory Urine MAIN LAB [address] [place] [address] * LYMPHOCYTIC CHORIOMENINGITIS AB (10/29/2017 8:15 PM) [...] time. Test developed and characteristics determined by [facility]. See Compliance Statement D: [email or web address]/CS LCM Virus AB, IgM <1:10 Reference range: [...] time. Test developed and characteristics determined by [facility]. See Compliance Statement D: [employer]/CS Performed by [facility], [address] [place] [id number] [email or web address], Jame Lorenzo MD, Lab. Director Specimen Performing Laboratory Blood REFERENCE LAB * [place] IGG/IGM SERUM (10/29/2017 8:15 PM) Component Value Ref Range [place] IGG, Serum Negative Reference range: Negative [address] [address] [place] IGM, Serum Negative Reference range: Negative [address] [address] WNS INTERPRETATION No antibodies to WNV detected. Repeat testing in 10-14 days if clinical suspicion persists. [facility], [address] [place] [address] Specimen Performing Laboratory Blood REFERENCE LAB * CULTURE-BLOOD W/SENSITIVITY (10/29/2017 6:55 PM) Component Value Ref Range Battery Name BLOOD CULTURE Specimen Description BLOOD RIGHT ANTECUBITAL Special Requests NONE Culture NO GROWTH 5 DAYS Report Status FINAL 11/04/2017 Specimen Performing Laboratory Blood MAIN LAB [address] [place] [address] * MAGNESIUM (10/29/2017 6:55 PM) Component Value Ref Range Magnesium 2.6 1.6 - 2.6 mg/dL Specimen Performing Laboratory Blood MAIN LAB [address] [place] [address] * CBC AND DIFF (10/29/2017 6:55 PM) Component Value Ref Range White Blood Cells 11.3 (H) 4.5 - 11.0 K/UL RBC 4.93 4.4 - 5.5 M/UL Hemoglobin 15.1 13.5 - 16.5 GM/DL Hematocrit 43.4 40 - 50 % MCV 88.0 80 - 100 FL MCH 30.7 26 - 34 PG MCHC 34.9 32.0 - 36.0 G/DL RDW 14.3 11 - 15 % Platelet Count 157 150 - 400 K/UL MPV 10.0 7 - 11 FL Neutrophils 78 (H) 41 - 77 % Lymphocytes 16 (L) 24 - 44 % Monocytes 6 4 - 12 % Eosinophils 0 0 - 5 % Basophils 0 0 - 2 % Absolute Neutrophil Count 8.80 (H) 1.8 - 7.0 K/UL Absolute Lymph Count 1.80 1.0 - 4.8 K/UL Absolute Monocyte Count 0.70 0 - 0.80 K/UL Absolute Eosinophil Count 0.00 0 - 0.45 K/UL Absolute Basophil Count 0.00 0 - 0.20 K/UL Specimen Performing Laboratory Blood [facility] MAIN LAB [address] [place] [address] * COMPREHENSIVE METABOLIC PANEL (10/29/2017 6:55 PM) Component Value Ref Range Sodium 133 (L) 137 - 147 MMOL/L Potassium 3.2 (L) 3.5 - 5.1 MMOL/L Chloride 100 98 - 110 MMOL/L Glucose 119 (H) 70 - 100 MG/DL Blood Urea Nitrogen 13 7 - 25 MG/DL Creatinine 0.88 0.4 - 1.24 MG/DL Calcium 8.0 (L) 8.5 - 10.6 MG/DL Total Protein 6.8 6.0 - 8.0 G/DL Total Bilirubin 0.7 0.3 - 1.2 MG/DL Albumin 4.3 3.5 - 5.0 G/DL Alk Phosphatase 57 25 - 110 U/L AST (SGOT) 11 7 - 40 U/L CO2 25 21 - 30 MMOL/L ALT (SGPT) 11 7 - 56 U/L Anion Gap 8 [...] Performing Laboratory Blood [facility] MAIN LAB [address] [place] [address] * GRAM STAIN (10/29/2017 6:20 PM) Component Value Ref Range Battery Name GRAM STAIN Specimen Description CSF Special Requests NONE Gram Stain NO NEUTROPHILS SEEN NO ORGANISMS SEEN Report Status FINAL 10/29/2017 Specimen Performing Laboratory Cerebrospinal Fluid [facility] MAIN LAB [address] [place] [address] * [place] IGG/IGM-CSF (10/29/2017 6:20 PM) Component Value Ref Range [place] IGG, CSF Negative Reference range: Negative [facility], [address] [place] [address] [place] IGM, CSF Negative Reference range: Negative [facility], [address] [place] [address] WNC INTERPRETATION No antibodies to WNV detected. Repeat testing in 10-14 days if clinical suspicion persists. ADDITIONAL INFORMATION This test has been modified from the fibrous wallboard inspector's instructions. Its performance characteristics were determined by [facility] in a manner consistent with CLIA requirements. This test has not been cleared or approved by the U.S. Food and Drug Administration. [facility], [address] [place] [address] Specimen Performing Laboratory Cerebrospinal fluid - REFERENCE LAB Cerebrospinal Fluid * ABIGAIL BESS QNT CSF (10/29/2017 6:20 PM) Component Value Ref Range EBV CSF Quant Not Detected Unit: IU/mL Assay Range: 52 IU/mL to 1.35r90k9 IU/mL Expected Value: Not Detected- As of December 28, 2012 results for quantitative EBV testing are resulted in International Units (IU).-One IU is equal to 0.59 copies of EBV. The limit of quantitation (LOQ) is 52 IU/mL.- EBV DNA detected below the LOQ will be reported as Detected: <52 IU/mL. This test was developed and its performance characteristics determined by [facility]. It has not been cleared or approved by the U.S. Food and Drug Administration.-Results should be used in conjunction with clinical findings, and should not form the sole basis for a diagnosis or treatment decision.- PCR tests are performed pursuant to a license agreement with [employer]. Testing Performed At: [facility] [address] [place], [place] [id number] CLIA ID: [id number] Specimen Performing Laboratory Cerebrospinal Fluid REFERENCE LAB [...] developed and its performance characteristics determined by [facility]. It has not been cleared or approved by the U.S. Food and Drug Administration. Results should be used in conjunction with clinical findings, and should not form the sole basis for a diagnosis or treatment decision. PCR tests are performed pursuant to a license agreement with [employer]. Testing Performed At: [facility] [address] [place], [place] [id number] CLIA ID: [id number] Specimen Performing Laboratory Cerebrospinal Fluid REFERENCE LAB * HERPES SIMPLEX PCR - NON-BLOOD (10/29/2017 6:20 PM) Component Value Ref Range Specimen, Herpes CSF Herpes Simplex PCR HSV 1 and 2 NOT DETECTED [employer] HSV 1&2 Assay is a qualitative real-time PCR test for the direct detection and differentiation of HSV 1 and 2 DNA. This assay is FDA approved for testing cutaneous or mucocutaneous lesions from symptomatic patients. Performance on modifications of this test as well as other specimen types has been validated by the Department of Pathology and Laboratory Medicine at the [facility]. Specimen Performing Laboratory Cerebrospinal Fluid [facility] MAIN LAB [address] [place] [address] * CRYPTOCOCCUS AG-CSF (10/29/2017 6:20 PM) Component Value Ref Range Cryptococcal AG NEG NEG-NEG Screen,CSF Specimen Performing Laboratory Cerebrospinal fluid - [facility] MAIN LAB Cerebrospinal Fluid [address] [place] [address] * CULTURE-CSF W/SENSITIVITY (10/29/2017 6:20 PM) Component Value Ref Range Battery Name CSF CULTURE Specimen Description CSF Special Requests NONE Direct Gram Stain NO NEUTROPHILS SEEN NO ORGANISMS SEEN Culture NO GROWTH 3 DAYS Report Status FINAL 11/01/2017 Specimen Performing Laboratory Cerebrospinal fluid - [facility] MAIN LAB Cerebrospinal Fluid [address] [place] [address] * GLUCOSE-CSF (10/29/2017 6:20 PM) Component Value Ref Range Glucose,CSF 56 40 - 75 MG/DL Xanthrochromia,CSF NONE Specimen Performing Laboratory Cerebrospinal fluid - MAIN LAB Cerebrospinal Fluid [address] [place] [address] * TOTAL PROTEIN-CSF (10/29/2017 6:20 PM) Component Value Ref Range Total Protein,CSF 40 15 - 45 MG/DL Specimen Performing Laboratory Cerebrospinal fluid - MAIN LAB Cerebrospinal Fluid [address] [place] [address] * CELL COUNT W/DIFF-CSF (10/29/2017 6:20 PM) [...] report. Specimen Performing Laboratory Cerebrospinal fluid - MAIN LAB Cerebrospinal Fluid [address] [place] [address] * IR LUMBAR PUNCTURE (10/29/2017 5:56 PM) [...] Interface, Radiant Results - 10/30/2017 9:08 AM TRASH COLLECTOR Lumbar puncture under fluoroscopic guidance: Clinical Indication: [...] Doss M.D. on 10/30/2017 9:04 AM. * NON-SALES AND CATERING COORDINATOR CYTOLOGY (BODY FLUIDS/TISSUE) (10/29/2017 8:52 AM) Component Value Ref Range Cytology [facility] [email or web address] Department of Pathology and Laboratory Medicine [address] [place] [address] Surgical Pathology Office: [phone] CYTOLOGY REPORT NAME: NICKOLAS LUDWIG CYTOLOGY #: [id number] MR #: [id number] ALT ID #: BILLING #: [id number] LOCATION: [address] [place] [address] DATE OF PROCEDURE: 10/29/2017 AGE: 22 SEX: [...] in this report. +++Electronically Signed Out By+++ ik/10/30/2017 Interpreted by: Xochitl Mcneill MD, PhD Reilly Caballero MD Resident Specimen Performing Laboratory [facility] LAB RESULTS in this encounter Visit Diagnoses Diagnosis Melanoma of scalp (HCC) - Primary Malignant melanoma of skin of scalp and neck Meningitis Admitting Diagnoses Diagnosis N/v Meningitis Administered Medications Medication Order MAR Action Action Date Dose Rate Site acetaminophen (TYLENOL) tablet 650 mg Given 10/30/2017 650 mg 650 mg, Oral, EVERY 6 HOURS PRN, 00:01 TRASH COLLECTOR Starting Fri10/29/17 at 2350, Until Fri10/30/17 at 1906, Pain non-opioid: may be used alone or in combination with opioid analgesia, TOTAL ACETAMINOPHEN DOSE NOT TO EXCEED 4GM DAILY Given 10/30/2017 650 mg 08:51 TRASH COLLECTOR acyclovir (ZOVIRAX) 722 mg in dextrose Given - New 10/29/2017 722 mg 150 mL/hr 5% (D5W) IVPB Bag 22:26 TRASH COLLECTOR 722 mg (10 mg/kg 72.2 kg), Intravenous, 150 mL, Administer over 60 Minutes, EVERY 8 HOURS, First dose on Fri10/29/17 at 2100, Until Discontinued Given - New Bag 10/30/2017 722 mg 150 mL/hr 06:40 TRASH COLLECTOR acyclovir (ZOVIRAX) 722 mg in dextrose Given - New 10/30/2017 722 mg 150 mL/hr 5% (D5W) IVPB Bag 15:10 TRASH COLLECTOR 722 mg (10 mg/kg 72.2 kg), Intravenous, 150 mL, Administer over 60 Minutes, EVERY 8 HOURS, First dose on Fri10/30/17 at 1500, Until Discontinued cefepime (MAXIPIME) 2 g/100 ml Given 10/29/2017 2 g 200 mL/hr iso-osmotic IVPB 20:34 TRASH COLLECTOR 2 g, Intravenous, 100 mL, Administer over 30 Minutes, EVERY 8 HOURS, First dose on Fri10/29/17 at 1900, Until Discontinued Given 10/30/2017 2 g 200 mL/hr 04:39 TRASH COLLECTOR cetirizine (ZYRTEC) tablet 10 mg Given 10/30/2017 10 mg 10 mg, Oral, EVERY MORNING, First dose 08:52 TRASH COLLECTOR on Fri10/30/17 at 0900, Until Discontinued dabrafenib (TAFINLAR) capsule 150 mg Given 10/30/2017 150 mg (Patient Own Med) 13:05 TRASH COLLECTOR 150 mg, Oral, TWICE DAILY, First dose on Fri10/30/17 at 1200, Until Discontinued, Patient Own Medication Take at least 1 hour before or 2 hours after a meal. Do not open, crush, or break capsules. NOTE: This is a HIGH ALERT Medication. dronabinol (MARINOL) capsule 5 mg Given 10/29/2017 5 mg 5 mg, Oral, TWICE DAILY, First dose on 20:40 TRASH COLLECTOR Fri10/29/17 at 2100, Until Discontinued Given 10/30/2017 5 mg 08:51 TRASH COLLECTOR lactobacillus rhamnosus GG (CULTURELLE) Given 10/30/2017 1 capsule 15 billion cell capsule 1 capsule 08:52 TRASH COLLECTOR 1 capsule, Oral, TWICE DAILY WITH MEALS, First dose on Fri10/30/17 at 0800, Until Discontinued LORazepam (ATIVAN) tablet 0.5 mg Given 10/30/2017 0.5 mg 0.5 mg, Oral, EVERY 4 HOURS PRN, 05:30 TRASH COLLECTOR Starting Fri10/29/17 at 1729, Until Fri10/30/17 at 1906, Anxiety PO melatonin tablet 10 mg Given 10/29/2017 10 mg 10 mg, Oral, AT BEDTIME PRN, Starting 23:48 TRASH COLLECTOR Fri10/29/17 at 1729, Until Fri10/30/17 at 1906, Insomnia ondansetron (ZOFRAN) tablet 8 mg Given 10/29/2017 8 mg 8 mg, Oral, EVERY 8 HOURS PRN, Starting 22:55 TRASH COLLECTOR Fri10/29/17 at 1729, Until Fri10/30/17 at 1906, Nausea/Vomiting PO oxyCODONE (ROXICODONE, OXY-IR) tablet 5 Given 10/30/2017 5 mg mg 03:36 TRASH COLLECTOR 5 mg, Oral, EVERY 4 HOURS PRN, Starting Fri10/30/17 at 0330, Until Fri10/30/17 at 1906, Pain PO oxyCODONE (ROXICODONE, OXY-IR) tablet Given 10/29/2017 5 mg 5-10 mg 20:40 TRASH COLLECTOR 5-10 mg, Oral, EVERY 4 HOURS PRN, Starting Fri10/29/17 at 1729, Until Fri10/30/17 at 0331, Pain with Dressing Changes/Procedure potassium chloride SR (K-DUR) tablet 40 Given 10/30/2017 40 mEq mEq 08:52 TRASH COLLECTOR 40 mEq, Oral, EVERY 4 HOURS, 2 doses, First dose on Fri10/30/17 at 0830, Last dose on Fri10/30/17 at 1230, Do NOT break or crush tablet Given 10/30/2017 40 mEq 13:05 TRASH COLLECTOR sodium chloride 0.9 % infusion Given - New 10/29/2017 1,000 mL 100 mL /hr 1,000 mL, 1,000 mL, Intravenous, at 100 Bag 20:33 TRASH COLLECTOR mL/hr, CONTINUOUS, Starting Fri10/29/17 at 1900, Until Haether 10/30/17 at 1906 Infusion Restarted 10/30/2017 1,000 mL 100 mL/hr 08:44 TRASH COLLECTOR Given - New Bag 10/30/2017 1,000 mL 100 mL/hr 12:37 TRASH COLLECTOR vancomycin (VANCOCIN) 1,500 mg in Given - New 10/29/2017 1,500 mg 200 mL/hr dextrose 5% (D5W) IVPB Bag 23:48 TRASH COLLECTOR 1,500 mg (rounded from 1,444 mg=20 mg/kg 72.2 kg), Intravenous, 300 mL, Administer over 90 Minutes, ONCE, 1 dose, Fri10/29/17 at 2200, Note Pharmacokinetic Monitoring: Please record infusion start time (Action=Given) and stop time (Action=Completed) of dose when blood levels are drawn. Meningitis in this encounter
--- OUTSIDE RECORDS SUMMARY | 2017-11-08 12:15 | XMS REPORT | Encounter Summary ---
Author Author [facility] Organization [facility] Address Unknown Phone Unavailable Care Team Providers Care Doll Repairer Name Role Phone Benjamín Herron MD PCP John Osborn MD Unavailable Ralf Velez MD Unavailable Trisha Fiore RN Unavailable Unavailable Mónica Waddell PA-C Unavailable Karla Mandel RN Unavailable Unavailable Edson Lyn MD Unavailable Adri Russell 7 Encounter Details Date Type Department Care Team Description 10/29/2017 Documentation [facility] Kb North MD Cancer [facility] - [facility] Exam [address] [place] [address] [place] [address] [phone] Social History Tobacco Use Types Packs/Day Years [...] this encounter Progress Notes * Sherrie Barksdale, RN - 10/29/2017 3:55 PM SKI BINDING FITTER AND REPAIRER Formatting of this note may be different from the original. [place] [facility] - WW EXAM [facility] [address] [facility] [address] Cancer Center Transfer of Care Transfer Type: To Hospital- Direct Admit (via Personal vehicle) Current Location: Cancer center exam Transferring Provider: Dr Kb North Pager #: [phone] Transferring RN: Sherrie Barksdale RN Phone or Pager #: [phone] Reason for Transfer: Headache x 4 days Cancer Diagnosis: Metastatic melanoma C43.9 Last Chemotherapy Treatment: Type: dabrafenib/ MEKINIST Date: daily oral therapy started on Jul 2017 Last Vital Signs: There were no vitals taken for this visit. see cancer exam vitals Oxygen Needs: On Room Air IV/Port Access: Peripheral (20 ga) Line Status: Left forearm Ambulation Status: Ambulatory Interventions Done Today : Labs : cbc chem12 ldh influ swab - MRI HEAD Meds Given Prior to Transfer: Medications - No data to display IVF NS + KCL 20 meq tro 3 hours x 1 lliter , IV compazine 10 mg @ 12:45pm, IV ativan 0.5 mg @ 12 :30pm. Labs Collected Prior to Transfer: CBC and CMP Imaging Completed Prior to Transfer: MRI of head Other pertinent history: Patient c/o headache X 4 days (02/15). Patient c/o nausea/vomiting x 3 days. Today, patient has nausea, chills, shortness of air, and dizziness. Patient is afebrile. o2 sat 100%. Reviewed with Dr North and orders given. KCL 3.2 and NA 133. IVF + 20KCL tro over 2-4 hours. IV compazine 10 mg for nausea. IV Ativan 0.5 mg . Unit Receiving Pt: Unit 42 RN Receiving Report: Pending placement Read Back : pending room in this encounter Plan of Treatment Not on fileas of this encounter Visit Diagnoses Not on filein this encounter
--- OUTSIDE RECORDS SUMMARY | 2017-11-08 12:15 | XMS REPORT | Encounter Summary ---
Author Author [facility] Organization [facility] Address Unknown Phone Unavailable Care Team Providers Care Lamp Developer Name Role Phone Benjamín Herron MD PCP John Osborn MD Unavailable aRlf Velez MD Unavailable Trisha Fiore RN Unavailable Unavailable Mónica Waddell PA-C Unavailable Karla Mandel RN Unavailable Unavailable Edson Lyn MD Unavailable Adri Russell 7 Reason for Visit * Radiology Services Status Reason Specialty Diagnoses / Referred By Referred To Procedures Contact Contact New Request Radiology Procedures Kb North NECK MD Alfredo W/CONTRAST [address] [address] [place] [address] Encounter Details Date Type Department Care Team Description 10/29/2017 Hospital [facility] Kb North MD Encounter Cancer Center - [facility] [address] [address] [place] [address] [address] [place] [address] [phone] Social History Tobacco Use Types Packs/Day Years [...] Dose by mouth daily. BETA GLUCAN (1,3/1,4-D) Take 1 Scoop by mouth MISC daily. [...] as needed. NON-FORMULARY five times weekly. Pre-Workout [facility] approved ondansetron (ZOFRAN) 8 mg Take [...] 2017 tablet bedtime as needed for Sleep. FISH Take 1 capsule by mouth 10/30/2017 OIL/BORAGE/FLAX/OM3,6,9 1 daily. (OMEGA 3-6-9 COMPLEX PO) other medication Mycelium complex blend 10/30/2017 600 mg- Take 2 capsules by mouth daily. oxyCODONE (ROXICODONE, Take 1-2 tablets by mouth 50 tablet 0 201610/30/2017 OXY-IR) 5 mg tablet every 4 hours as needed for Pain Earliest Fill Date: 05/13/17 prednisone (DELTASONE) 10 Take 6 tablets by mouth 180 tablet 0 201610/30/2017 mg tablet daily. RESVERATROL-GRAPE SKIN Take 1 tablet by mouth 10/30/2017 EXTRACT PO daily. turmeric root extract 500 Take 2 capsules by mouth 10/30/2017 mg cap daily. vitamins, multiple tablet Take 1 Tab by mouth 10/30/2017 daily. as of this encounter Plan of Treatment Not on fileas of this encounter Results * INFLUENZA A/B AG (RAPID TEST) (10/29/2017 12:40 PM) Component Value Ref Range Battery Name INFLUENZA A/B ANTIGEN Specimen Description NASOPHARYNGEAL SWAB Special Requests NONE Direct Antigen NEGATIVE FOR INFLUENZA A/B Report Status FINAL 10/29/2017 Specimen Performing Laboratory Nasopharyngeal Swab MAIN LAB [address] [place] [address] in this encounter Visit Diagnoses Diagnosis Fatigue, unspecified type Fever, unspecified fever cause Administered Medications Medication Order MAR Action Action Date Dose Rate Site LORazepam (ATIVAN) injection 0.5 mg Given 10/29/2017 0.5 mg 0.5 mg, Intravenous, ONCE, 1 dose, Fri 13:30 CHANGE ROOM ATTENDANT 10/29/17 at 1315, PROTECT FROM LIGHT prochlorperazine (COMPAZINE) injection Given 10/29/2017 10 mg 10 mg 13:45 CHANGE ROOM ATTENDANT 10 mg, Intravenous, EVERY 6 HOURS PRN, Starting Fri10/29/17 at 1314, Until Fri11/03/17 at 0211, Nausea/Vomiting Injectable, PROTECT FROM LIGHT -- May be given undiluted, or each 5mg may be diluted with 9 mL of NS to facilitate titration. sodium chloride 0.9 % with KCl 20 Given - New 10/29/2017 1,000 mL 300 mL/hr mEq/L infusion Bag 13:30 CHANGE ROOM ATTENDANT 1,000 mL, 1,000 mL, Intravenous, at 300 mL/hr, ONCE, 1 dose, Fri10/29/17 at 1330 in this encounter
--- OUTSIDE RECORDS SUMMARY | 2017-11-08 12:15 | XMS REPORT | Encounter Summary ---
Author Author [facility] Organization [facility] Address Unknown Phone Unavailable Care Team Providers Care Pearl Technician Name Role Phone Benjamín Herron MD PCP John Osborn MD Unavailable Ralf Velez MD Unavailable Trisha Fiore RN Unavailable Unavailable Mónica Waddell PA-C Unavailable Karla Mandel RN Unavailable Unavailable Edson Lyn MD Unavailable Adri Russell 7 Encounter Details Date Type Department Care Team Description 10/29/2017 Documentation [facility] Kb North MD Cancer Center - [facility] Exam [address] [place] [address] [place] [address] [phone] Social History Tobacco Use Types Packs/Day Years [...] of this encounter Progress Notes * Sherrie Barksadle, RN - 10/29/2017 1:48 PM INSPECTOR RETURNED MATERIALS Patient arrive with accompanied with his father. Patient completed MRI Head; pending results. Patient c/o headache X 4 days (02/15). Patient c/o nausea/ vomiting x 3 days. Today, patient has nausea, chills, shortness of air, and dizziness. Patient is afebrile. o2 sat 100%. Reviewed with Dr North and orders given. KCL 3.2 and NA 133. IVF + 20KCL tro over 2-4 hours. IV compazine 10 mg for nausea. IV Ativan 0.5 mg . Patient resting comfortably. Will continue to monitor. Patient father at bedside. in this encounter Plan of Treatment Not on fileas of this encounter Visit Diagnoses Not on filein this encounter
--- OUTSIDE RECORDS SUMMARY | 2017-11-08 12:15 | XMS REPORT | Encounter Summary ---
Author Author [facility] Organization [facility] Address Unknown Phone Unavailable Care Team Providers Care Tying Machine Operator Name Role Phone Benjamín Herron MD PCP John Osborn MD Unavailable Ralf Velez MD Unavailable Trisha Fiore RN Unavailable Unavailable Mónica Waddell PA-C Unavailable Karla Mandel RN Unavailable Unavailable Edson Lyn MD Unavailable Adri RussellP 7 Encounter Details Date Type Department Care Team Description 10/29/2017 Documentation [facility] Sherrie Barksdale RN Fatigue, unspecified type Cancer Center - [facility] Exam (Primary Dx); [address] [place], [place] [address] cause [phone] Social History Tobacco Use Types Packs/Day Years [...] Performing Laboratory Nasopharyngeal Swab MAIN LAB [address] [place] [address] in this encounter Visit Diagnoses Diagnosis Fatigue, unspecified type - Primary Fever, unspecified fever cause
--- OUTSIDE RECORDS SUMMARY | 2017-11-08 12:16 | XMS REPORT | Encounter Summary ---
Author Author [facility] Organization [facility] Address Unknown Phone Unavailable Care Team Providers Care Stage Setting Painter Apprentice Name Role Phone Benjamín Herron MD PCP John Osborn MD Unavailable Ralf Velez MD Unavailable Trisha Fiore RN Unavailable Unavailable Mónica Waddell PA-C Unavailable Karla Mandel RN Unavailable Unavailable Edson Lyn MD Unavailable Adri RussellP 7 Reason for Visit * Reason Comments Heme/Onc Care Encounter Details Date Type Department Care Team Description 10/29/2017 Office Visit [facility] Kb North MD [facility] - WW Exam [address] headache, unspecified [address] [place] [address] [place] [address] [phone] Social History Tobacco Use Types Packs/Day Years Used Date Never Smoker Smokeless Tobacco: Never Used Alcohol Use Drinks/Week oz/Week Comments Yes 0 Standard 0.0 social drinks or equivalent Sex Assigned at Date Recorded Not on file as of this encounter Last Filed Vital Signs Vital Sign Reading Time Taken Blood Pressure 114/71 10/29/2017 12:21 PM OXYGEN THERAPIST Pulse 42 10/29/2017 12:21 PM OXYGEN THERAPIST Temperature 36.7 C (98.1 F) 10/29/2017 12:21 PM OXYGEN THERAPIST Respiratory Rate 16 10/29/2017 12:21 PM OXYGEN THERAPIST Oxygen Saturation 100% 10/29/2017 12:21 PM OXYGEN THERAPIST Inhaled Oxygen - - Concentration Weight 71.6 kg (157 lb 12.8 oz) 10/29/2017 12:21 PM OXYGEN THERAPIST Height 177.8 cm (5' 10") 10/29/2017 12:21 PM OXYGEN THERAPIST Body Mass Index 22.64 10/29/2017 12:21 PM OXYGEN THERAPIST in this encounter Functional Status Functional Status [...] as of this encounter Progress Notes * Kb North MD - 10/29/2017 4:00 PM OXYGEN THERAPIST Formatting of this note may be different from the original. Name: Nickolas Mccurdy : 1995 AGE: 22 y.o. DATE OF SERVICE: 10/29/2017 Subjective: Reason for Visit: Severe headache Heme/Onc Care Nickolas Mccurdy is a 22 y.o. male. Melanoma of scalp (HCC) Staging form: Melanoma of the Skin, AJCC 7th Edition - Clinical: Stage Unknown (T4b, NX, M0) - Unsigned History of Present Illness Nickolas presents for follow-up earlier than his scheduled visit. He has had a very severe headache for the last 5 days. I first heard from him this past weekend, when he texted me. He had considerable nausea and was unable to hold food down. He took antiemetics, with some improvement. Since that time, his headache has become progressively worse. There are no associated neurologic findings otherwise. He has no eyesight deficits or problems. It was significant enough, but his dad drove to [facility] to pick him up and bring him back for evaluation in clinic. Review of Systems Constitutional: Positive for activity change and appetite change (Appetite is diminished). Negative for chills, fatigue, fever and unexpected weight change. HENT: Negative for sore throat and trouble swallowing. Eyes: Negative for visual disturbance. Respiratory: Negative for cough, choking, chest tightness and shortness of breath. Cardiovascular: Negative for chest pain, palpitations and leg swelling. Gastrointestinal: Negative for abdominal distention, abdominal pain, blood in stool, constipation, diarrhea, nausea and vomiting. Musculoskeletal: Negative for arthralgias, myalgias and neck stiffness. Negative bone pain Skin: Negative for rash. Neurological: Negative for dizziness, speech difficulty, weakness, light- headedness and numbness. Hematological: Negative for adenopathy. Does not bruise/bleed easily. Psychiatric/Behavioral: Negative for confusion, dysphoric mood and sleep disturbance. The patient is not nervous/anxious. All other systems reviewed and are negative. Objective: APPLE CIDER VINEGAR PO Take 1 Dose by mouth daily. BETA GLUCAN (1,3/1,4-D) MISC Take 1 Scoop by mouth daily. In morning shakes cetirizine (ZYRTEC) 10 mg tablet Take 10 mg by mouth daily as needed for Allergy symptoms. clindamycin(+) (CLEOCIN T; CLINDAMAX) 1 % topical lotion Apply topically to affected area as Needed. Collagenase powd Take 1 Scoop by mouth daily. In morning shakes. dabrafenib (TAFINLAR) 75 mg capsule Take 2 capsules by mouth twice daily. Take at least 1 hour before or 2 hours after food. dronabinol (MARINOL) 5 mg capsule Take 1 capsule by mouth twice daily. ERGOCALCIFEROL (VITAMIN D2) (VITAMIN D PO) Take 1 tablet by mouth daily. L.ACID/L.CASEI/B.BIF/B.BARRINGTON/FOS (PROBIOTIC BLEND PO) Take 1 Scoop by mouth daily. In morning shake LORazepam (ATIVAN) 0.5 mg tablet Take 1 tablet by mouth every 4 hours as needed for Nausea. melatonin 10 mg tab Take 1 tablet by mouth at bedtime as needed. NON-FORMULARY five times weekly. Pre-Workout [facility] approved ondansetron (ZOFRAN) 8 mg tablet [...] every 4 hours as needed for Pain prochlorperazine maleate (COMPAZINE) 10 mg tablet Take 1 tablet by mouth every 6 hours as needed for Nausea or Vomiting. trametinib (MEKINIST) 2 mg tablet Take 1 tablet by mouth daily. Take at least 1 hour before or 2 hours after food. VITAMIN B COMPLEX (B COMPLEX PO) Take 1 Scoop by mouth daily. In morning shake zolpidem (AMBIEN) 5 mg tablet Take 1 tablet by mouth at bedtime as needed for Sleep. Vitals: 10/29/17 1221 BP: 114/71 Pulse: 42 Resp: 16 Temp: 36.7 C (98.1 F) TempSrc: Oral SpO2: 100% Weight: 71.6 kg (157 lb 12.8 oz) Height: 177.8 cm (70") Body mass index is 22.64 kg/m. Pain Addressed: Prescription provided for pain management and And we will admit check for pain management. Patient Evaluated for a Clinical Trial: Patient not eligible for a treatment trial (including not needing treatment, needs palliative care, in remission). Eastern Cooperative Oncology Group performance status is 0, Fully active, able to carry on all pre-disease performance without restriction.. Physical Exam Constitutional: He is oriented to person, place, and time. He appears well- developed and well-nourished. Appears ill but not toxic HENT: Head: Normocephalic and atraumatic. Eyes: EOM are normal. Pupils are equal, round, and reactive to light. Right eye exhibits no discharge. Left eye [...] side): No submandibular adenopathy present. He has no cervical adenopathy. He has no axillary adenopathy. Right: No supraclavicular adenopathy present. Left: No supraclavicular adenopathy present. Neurological: He is alert and oriented to person, place, and time. No cranial nerve deficit. Coordination normal. Skin: Skin is warm and dry. No rash noted. No erythema. Psychiatric: He has a normal mood and affect. His behavior is normal. Judgment and thought content normal. Vitals reviewed. CBC w/Diff Lab Results Component Value Date/Time WBC 12.2 (H) 10/30/2017 06:12 AM RBC 4.91 10/30/2017 06:12 AM HGB 15.0 10/30/2017 06:12 AM HCT 43.0 10/30/2017 06:12 AM MCV 87.5 10/30/2017 06:12 AM MCH 30.5 10/30/2017 06:12 AM MCHC 34.9 10/30/2017 06:12 AM RDW 14.3 10/30/2017 06:12 AM PLTCT 182 10/30/2017 06:12 AM MPV 9.3 10/30/2017 06:12 AM Lab Results Component Value Date/Time NEUT 79 (H) 10/30/2017 06:12 AM ANC 9.60 (H) 10/30/2017 06:12 AM LYMA 15 (L) 10/30/2017 06:12 AM ALC 1.80 10/30/2017 06:12 AM MARITZA 6 10/30/2017 06:12 AM AMC 0.80 10/30/2017 06:12 AM EOSA 0 10/30/2017 06:12 AM AEC 0.00 10/30/2017 06:12 AM BASA 0 10/30/2017 06:12 AM ABC 0.00 10/30/2017 06:12 AM Comprehensive Metabolic Profile Lab Results Component Value Date/Time NA 131 (L) 10/30/2017 06:12 AM K 3.2 (L) 10/30/2017 06:12 AM CL 101 10/30/2017 06:12 AM CO2 21 10/30/2017 06:12 AM GAP 9 10/30/2017 06:12 AM BUN 13 10/30/2017 06:12 AM CR 0.78 10/30/2017 06:12 AM GLU 128 (H) 10/30/2017 06:12 AM Lab Results Component Value Date/Time CA 8.0 (L) 10/30/2017 06:12 AM ALBUMIN 4.1 10/30/2017 06:12 AM TOTPROT 6.7 10/30/2017 06:12 AM ALKPHOS 49 10/30/2017 06:12 AM AST 12 10/30/2017 06:12 AM ALT 9 10/30/2017 06:12 AM TOTBILI 0.8 10/30/2017 06:12 AM GFR >60 10/30/2017 06:12 AM GFRAA >60 10/30/2017 06:12 AM Other labs No results found for: ESR Lab Results Component Value Date/Time LDH 185 10/29/2017 12:16 PM IMPRESSION 1. Development of scattered abnormal sulcal FLAIR hyperintensities, without definite associated abnormal intracranial enhancement, suspicious for infectious meningitis or carcinomatosis. 2. 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 Assessment and Plan: Problem Headache Melanoma (Hcc) Melanoma (HCC) No clear progression of disease noted today on exam. Headache Etiology uncertain. It is severe, requiring narcotic medications. There has been some associated nausea. MRI does not show clear evidence of melanoma. It is concerning for possible meningitis. 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 Plan: At this time given the severity of the disease, I believe he should be admitted to the hospital. He will need pain medications to manage the severe headache. He also should undergo a lumbar tap, like to be sure this does not represent a meningitis, viral or bacterial. Further, we will send the fluid for cytology, to rule out a melanoma cause. He will be admitted to the oncology inpatient service. in this encounter Miscellaneous Notes * Assessment & Plan Note - Kb North MD - 11/03/2017 7:31 PM OXYGEN THERAPIST Associated Problem(s): Headache Etiology uncertain. It is severe, requiring narcotic medications. There has been some associated nausea. MRI does not show clear evidence of melanoma. It is concerning for possible meningitis. 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 * Assessment & Plan Note - Kb North MD - 11/03/2017 7:30 PM OXYGEN THERAPIST Associated Problem(s): Melanoma (HCC) No clear progression of disease noted today on exam. in this encounter Plan of Treatment Not on fileas of this encounter Visit Diagnoses Diagnosis Intractable episodic headache, unspecified headache type
--- OUTSIDE RECORDS SUMMARY | 2017-11-08 12:16 | XMS REPORT | Encounter Summary ---
Author Author [facility] Organization [facility] Address Unknown Phone Unavailable Care Team Providers Care Requisition Approver Name Role Phone Benjamín Herron MD PCP John Osborn MD Unavailable Ralf Velez MD Unavailable Trisha Fiore RN Unavailable Unavailable Mónica Waddell PA-C Unavailable Karla Mandel RN Unavailable Unavailable Edson Lyn MD Unavailable Adri RussellP 7 Reason for Visit * Reason Comments Heme/Onc Care Encounter Details Date Type Department Care Team Description 10/29/2017 Lab Only [facility] Kb North MD Malignant melanoma, Cancer Center - [facility] Exam [address] [facility] unspecified site (HCC) [address] [place] [address] [place] [address] [phone] Social History Tobacco Use Types Packs/Day Years [...] on fileas of this encounter Results * LDH-LACTATE DEHYDROGENASE (10/29/2017 12:16 PM) Component Value Ref Range Lactate Dehydrogenase 185 100 - 210 U/L Specimen Performing Laboratory Blood [facility] hospital[facility] [place] [id number] * CBC AND DIFF (10/29/2017 12:16 PM) Component Value Ref Range White Blood Cells 14.0 (H) 4.5 - 11.0 K/UL RBC 5.17 4.4 - 5.5 M/UL Hemoglobin 15.8 13.5 - 16.5 GM/DL Hematocrit 45.7 40 - 50 % MCV 88.4 80 - 100 FL MCH 30.4 26 - 34 PG MCHC 34.4 32.0 - 36.0 G/DL RDW 14.5 11 - 15 % Platelet Count 202 150 - 400 K/UL MPV 9.2 7 - 11 FL Neutrophils 81 (H) 41 - 77 % Lymphocytes 13 (L) 24 - 44 % Monocytes 6 4 - 12 % Eosinophils 0 0 - 5 % Basophils 0 0 - 2 % Absolute Neutrophil Count 11.30 (H) 1.8 - 7.0 K/UL Absolute Lymph Count 1.80 1.0 - 4.8 K/UL Absolute Monocyte Count 0.80 0 - 0.80 K/UL Absolute Eosinophil Count 0.00 0 - 0.45 K/UL Absolute Basophil Count 0.00 0 - 0.20 K/UL Specimen Performing Laboratory Blood [facility] [address] [place] [address] * COMPREHENSIVE METABOLIC PANEL (10/29/2017 12:16 PM) Component Value Ref Range Sodium 133 (L) 137 - 147 MMOL/L Potassium 3.2 (L) 3.5 - 5.1 MMOL/L Chloride 97 (L) 98 - 110 MMOL/L Glucose 124 (H) 70 - 100 MG/DL Blood Urea Nitrogen 14 7 - 25 MG/DL Creatinine 0.90 0.4 - 1.24 MG/DL Calcium 9.0 8.5 - 10.6 MG/DL Total Protein 7.4 6.0 - 8.0 G/DL Total Bilirubin 0.8 0.3 - 1.2 MG/DL Albumin 4.7 3.5 - 5.0 G/DL Alk Phosphatase 60 25 - 110 U/L AST (SGOT) 13 7 - 40 U/L CO2 27 21 - 30 MMOL/L ALT (SGPT) 11 7 - 56 U/L Anion Gap 9 [...] Pharmacist for questions. Specimen Performing Laboratory Blood [facility] [address] [place] [address] in this encounter Visit Diagnoses Diagnosis Malignant melanoma, unspecified site (HCC)
--- OUTSIDE RECORDS SUMMARY | 2017-11-08 12:16 | XMS REPORT | Encounter Summary ---
Author Author [facility] Organization [facility] Address Unknown Phone Unavailable Care Team Providers Care Department Head [employer] Name Role Phone Benjamín Herron MD PCP John Osborn MD Unavailable Ralf Velez MD Unavailable Trisha Fiore RN Unavailable Unavailable Mónica Waddell PA-C Unavailable Karla Mandel RN Unavailable Unavailable Edson Lyn MD Unavailable Adri RussellP 7 Reason for Visit * Reason Comments Heme/Onc Care Encounter Details Date Type Department Care Team Description 10/06/2017 Office Visit [facility] Kb North MD Melanoma of scalp ([facility]) Cancer Center - [facility] Exam [address] [place] [address] [place] [address] [phone] Social History Tobacco Use Types Packs/Day Years Used Date Never Smoker Smokeless Tobacco: Never Used Alcohol Use Drinks/Week oz/Week Comments Yes 0 Standard 0.0 social drinks or equivalent Sex Assigned at Date Recorded Not on file as of this encounter Last Filed Vital Signs Vital Sign Reading Time Taken Blood Pressure 120/68 10/06/2017 9:13 AM POSTAL WORKER Pulse 64 10/06/2017 9:13 AM POSTAL WORKER Temperature - - Respiratory Rate 14 10/06/2017 9:13 AM POSTAL WORKER Oxygen Saturation 100% 10/06/2017 9:13 AM POSTAL WORKER Inhaled Oxygen - - Concentration Weight 73.4 kg (161 lb 12.8 oz) 10/06/2017 9:13 AM POSTAL WORKER Height 177.8 cm (5' 10") 10/06/2017 9:13 AM POSTAL WORKER Body Mass Index 23.22 10/06/2017 9:13 AM POSTAL WORKER in this encounter Functional Status Functional Status [...] Progress Notes * Kb North MD - 10/06/2017 10:40 AM POSTAL WORKER Formatting of this note may be different from the original. Name: Nickolas Mccurdy : 1995 AGE: 22 y.o. DATE OF SERVICE: 10/06/2017 Subjective: Reason for Visit: melanoma Heme/Onc Care Nickolas Mccurdy is a 22 y.o. male. Melanoma of scalp (HCC) Staging form: Melanoma of the Skin, AJCC 7th Edition - Clinical: Stage Unknown (T4b, NX, M0) - Unsigned History of Present Illness Nickolas presents presents for follow up of malignant melanoma. There are no new complaints. There are no signs or symptoms consistent with infection or bleeding. Energy is baseline. No pain. He has occasional vomiting, with little nausea. He appears to be tolerating the dabrafenib/ trametinib well. Review of Systems Constitutional: Negative for appetite [...] as needed. NON-FORMULARY five times weekly. Pre-Workout [facility] approved ondansetron (ZOFRAN) 8 mg tablet Take [...] Take 1 Tab by mouth daily. Vitals: 10/06/17 0913 BP: 120/68 Pulse: 64 Resp: 14 SpO2: 100% Weight: 73.4 kg (161 lb 12.8 oz) Height: 177.8 cm (70") Body mass index is 23.22 kg/m. Pain Score: Zero Pain Addressed: N/A Patient Evaluated for a Clinical Trial: Patient not eligible for a treatment trial (including not needing treatment, needs palliative care, in remission). Eastern Cooperative Oncology Group performance status is 0, Fully active, able to carry on all pre-disease performance without restriction.. Physical Exam No exam today. CBC w/Diff Lab Results Component Value Date/Time WBC 7.4 10/03/2017 02:20 PM RBC 4.70 10/03/2017 02:20 PM HGB 14.1 10/03/2017 02:20 PM HCT 42.4 10/03/2017 02:20 PM MCV 90.1 10/03/2017 02:20 PM MCH 30.0 10/03/2017 02:20 PM MCHC 33.3 10/03/2017 02:20 PM RDW 14.5 10/03/2017 02:20 PM PLTCT 123 (L) 10/03/2017 02:20 PM MPV 9.2 10/03/2017 02:20 PM Lab Results Component Value Date/Time NEUT 63 10/03/2017 02:20 PM ANC 4.70 10/03/2017 02:20 PM LYMA 25 10/03/2017 02:20 PM ALC 1.80 10/03/2017 02:20 PM MARITZA 7 10/03/2017 02:20 PM AMC 0.50 10/03/2017 02:20 PM EOSA 4 10/03/2017 02:20 PM AEC 0.30 10/03/2017 02:20 PM BASA 1 10/03/2017 02:20 PM ABC 0.00 10/03/2017 02:20 PM Comprehensive Metabolic Profile Lab Results Component Value Date/Time NA 137 10/03/2017 02:20 PM K 4.0 10/03/2017 02:20 PM CL 106 10/03/2017 02:20 PM CO2 26 10/03/2017 02:20 PM GAP 5 10/03/2017 02:20 PM BUN 14 10/03/2017 02:20 PM CR 0.92 10/03/2017 02:20 PM GLU 100 10/03/2017 02:20 PM Lab Results Component Value Date/Time CA 8.5 10/03/2017 02:20 PM ALBUMIN 3.8 10/03/2017 02:20 PM TOTPROT 6.0 10/03/2017 02:20 PM ALKPHOS 57 10/03/2017 02:20 PM AST 15 10/03/2017 02:20 PM ALT 12 10/03/2017 02:20 PM TOTBILI 0.3 10/03/2017 02:20 PM GFR >60 10/03/2017 02:20 PM GFRAA >60 10/03/2017 02:20 PM Other labs No results found for: ESR Lab Results Component Value Date/Time LDH 160 01/20/2017 10:19 AM IMPRESSION: Normal MRI of the brain without evidence of intracranial metastatic Disease. IMPRESSION: Neck: 1. Postsurgical changes of prior right [...] Luiz Warren M.D. on 10/03/2017 3:30 PM. Assessment and Plan: Problem Melanoma of Scalp (Hcc) Current Therapy: Dabrafenib + trametinib started 08/09/2007 Melanoma of scalp (HCC) Responding to oral targeted agents. PLAN: Continue dabrafenib and trametinib ECHO every 12 weeks Zofran for nausea RTC in four weeks with lab testing/ visit with Brook Bose APRN in this encounter Miscellaneous Notes * Assessment & Plan Note - Kb North MD - 10/07/2017 11:24 AM POSTAL WORKER Associated Problem(s): Melanoma of scalp (HCC) Responding to oral targeted agents. in this encounter Plan of Treatment Not on fileas of this encounter Visit Diagnoses Diagnosis Melanoma of scalp (HCC) Malignant melanoma of skin of scalp and neck
--- OUTSIDE RECORDS SUMMARY | 2017-11-08 12:16 | XMS REPORT | Encounter Summary ---
Author Author [facility] Organization [facility] Address Unknown Phone Unavailable Care Team Providers Care Ball Shagger Name Role Phone Benjamín Herron MD PCP John Osborn MD Unavailable Ralf Velez MD Unavailable Trisha Fiore RN Unavailable Unavailable Mónica Waddell PA-C Unavailable Karla Mandel RN Unavailable Unavailable Edson Lyn MD Unavailable Adri Russell 7 Encounter Details Date Type Department Care Team Description 10/27/2017 Procedure Pass [facility] [place] [address] Social History Tobacco Use Types Packs/Day Years [...]
--- OUTSIDE RECORDS SUMMARY | 2017-11-08 12:16 | XMS REPORT | Encounter Summary ---
Author Author [facility] Organization [facility] Address Unknown Phone Unavailable Care Team Providers Care Crusher Feeder Name Role Phone Benjamín Herron MD PCP John Osborn MD Unavailable Ralf Velez MD Unavailable Trisha Fiore RN Unavailable Unavailable Mónica Waddell PA-C Unavailable Karla Mandel RN Unavailable Unavailable Edson Lyn MD Unavailable Adri RussellP 7 Encounter Details Date Type Department Care Team Description 10/22/2017 Documentation [facility] Mario Mccoy MD [facility] - [facility] Exam [address] [place] [address] [place] [address] [phone] Social History Tobacco Use Types Packs/Day Years [...]
--- OUTSIDE RECORDS SUMMARY | 2017-11-08 12:16 | XMS REPORT | Encounter Summary ---
Author Author [facility] Organization [facility] Address Unknown Phone Unavailable Care Team Providers Care Peoplesoft Consultant Name Role Phone Benjamín Herron MD PCP John Osborn MD Unavailable Ralf Velez MD Unavailable Trisha Fiore RN Unavailable Unavailable Mónica Waddell PA-C Unavailable Karla Mandel RN Unavailable Unavailable Edson Lyn MD Unavailable Adri RussellP 7 Reason for Visit * Reason Comments Medication Refill Encounter Details Date Type Department Care Team Description 10/27/2017 Refill [facility] Kb North MD Cancer Center - [facility] Exam [address] [place] [address] [place] [address] [phone] Social History Tobacco Use Types Packs/Day Years [...]
--- OUTSIDE RECORDS SUMMARY | 2017-11-08 12:16 | XMS REPORT | Encounter Summary ---
Author Author [facility] Organization [facility] Address Unknown Phone Unavailable Care Team Providers Care Singing Teacher Name Role Phone Benjamín Herron MD PCP John Osborn MD Unavailable Ralf Velez MD Unavailable Trisha Fiore RN Unavailable Unavailable Mónica Waddell PA-C Unavailable Karla Mandel RN Unavailable Unavailable Edson Lyn MD Unavailable Adri Russell 7 Encounter Details Date Type Department Care Team Description 10/27/2017 Documentation [facility] Kb North MD Malignant melanoma, Cancer Center - [facility] Exam [address] [facility] unspecified site (HCC) [address] [address] (Primary Dx) [place] [address] [place] [address] [phone] Social History Tobacco Use Types Packs/Day Years [...] Treatment Name Priority Associated Diagnoses Order Schedule COMPREHENSIVE METABOLIC PANEL Routine Malignant melanoma, Expected: unspecified site (HCC) (Approximate), Expires: 10/27/2018 CBC AND DIFF Routine Malignant melanoma, Expected: 10/28/2017 unspecified site (HCC) (Approximate), Expires: 10/27/2018 as of this encounter Visit Diagnoses Diagnosis Malignant melanoma, unspecified site (HCC) - Primary
--- OUTSIDE RECORDS SUMMARY | 2017-11-08 12:16 | XMS REPORT | Encounter Summary ---
Author Author [facility] Organization [facility] Address Unknown Phone Unavailable Care Team Providers Care Sales Product Manager Name Role Phone Benjamín Herron MD PCP John Osborn MD Unavailable Ralf Velez MD Unavailable Trisha Fiore RN Unavailable Unavailable Mónica Waddell PA-C Unavailable Karla Mandel RN Unavailable Unavailable Edson Lyn MD Unavailable Adri Russell 7 Reason for Referral * Radiology Services Status Reason Specialty Diagnoses / Referred By Referred To Procedures Contact Contact No Auth Needed Radiology Diagnoses Kb North Mri Malignant MD Alfredo ONE JESICA MANNING melanoma, [address] [place], [place] unspecified site [place] [id number] ([facility]) [address] Phone: [place], [place] [phone] [employer] [address] MRI HEAD WO/W Phone: CONTRAST [phone] * Radiology Services Status Reason Specialty Diagnoses / Referred By Referred To Procedures Contact Contact No Auth Needed Radiology Diagnoses Kb North Malignant MD Alfredo ONE JESICA MANNING melanoma, [address] [place], [place] unspecified site [place] [id number] ([facility]) [address] Phone: [place], [place] [phone] [employer] [address] MRI HEAD WO/W Phone: CONTRAST [phone] Reason for Visit * Radiology Services Status Reason Specialty Diagnoses / Referred By Referred To Procedures Contact Contact No Auth Needed Radiology Diagnoses Kb North Mri Malignant Alfredo, ONE [place]ROW[place] melanoma, [address] [place], [place] unspecified site [place] [id number] ([facility]) [address] Phone: [place], [place] [phone] [facility] [address] MRI HEAD WO/W Phone: CONTRAST [phone] Encounter Details Date Type Department Care Team Description 10/29/2017 [facility] Kb North MD Encounter [facility] [address] [place] [address] [place] [address] [phone] Social History Tobacco Use Types Packs/Day Years [...] as needed. NON-FORMULARY five times weekly. Pre-Workout [facility] approved ondansetron (ZOFRAN) 8 mg Take [...] on fileas of this encounter Results * MRI HEAD WO/W CONTRAST (10/29/2017 11:19 AM) Specimen Performing Laboratory [facility] RAD RESULTS [...] Interface, Radiant Results - 10/29/2017 3:58 PM COILED TUBING OPERATOR EXAM: MRI BRAIN HISTORY: 22-year-old male, [...] Yvan Rosado M.D. on 10/29/2017 1:26 PM. in this encounter Visit Diagnoses Diagnosis Malignant melanoma, unspecified site (HCC) Administered Medications Medication Order MAR Action Action Date Dose Rate Site gadobenate dimeglumine (MULTIHANCE) Given 10/29/2017 15 mL injection 15 mL 10:45 COILED TUBING OPERATOR 15 mL, Intravenous, ONCE, 1 dose, 10/29/17 at 1045, NOTE: This is a HIGH ALERT Medication. in this encounter
--- OUTSIDE RECORDS SUMMARY | 2017-11-08 12:16 | XMS REPORT | Encounter Summary ---
Author Author [facility] Organization [facility] Address Unknown Phone Unavailable Care Team Providers Care Electrostatic Paint Operator Name Role Phone Benjamín Herron MD PCP John Osborn MD Unavailable Ralf Velez MD Unavailable Trisha Fiore RN Unavailable Unavailable Mónica Waddell PA-C Unavailable Karla Mandel RN Unavailable Unavailable Edson Lyn MD Unavailable Adri RussellP 7 Reason for Referral * Radiology Services Status Reason Specialty Diagnoses / Referred By Referred To Procedures Contact Contact No Auth Needed Radiology Diagnoses Kb North MD ONE [place] melanoma, [address] [place], [place] unspecified site [place] [id number] (HCC) [address] Phone: [place], [place] [phone] [facility] [address] MRI HEAD WO/W Phone: CONTRAST [phone] Encounter Details Date Type Department Care Team Description 10/27/2017 Documentation [facility] Kb North MD Malignant melanoma, [facility] Exam [address] [place] [place] unspecified site (HCC) [address] (Primary Dx) [place] [address] [place] [address] [phone] Social History Tobacco Use Types Packs/Day Years [...] M.D. on 10/29/2017 3:55 PM. Dictated by Yvna Rosado M.D. on 10/29/2017 1:26 PM. Narrative [...] Interface, Radiant Results - 10/29/2017 3:58 PM PLASTIC SHEETING CUTTER EXAM: MRI BRAIN HISTORY: 22-year-old male, melanoma, [...]
--- OUTSIDE RECORDS SUMMARY | 2017-11-08 12:16 | XMS REPORT | Encounter Summary ---
Author Author [facility] Organization [facility] Address Unknown Phone Unavailable Care Team Providers Care Research Technologist Name Role Phone Benjamín Herron MD PCP John Osborn MD Unavailable Ralf Velez MD Unavailable Trisha Fiore RN Unavailable Unavailable Mónica Waddell PA-C Unavailable Karla Mandel RN Unavailable Unavailable Edson Lyn MD Unavailable Adri RussellP 7 Reason for Visit * Reason Comments Medication Refill Encounter Details Date Type Department Care Team Description 10/22/2017 Refill [facility] Kb North MD [facility] Center - [facility] Exam [address] [place] [address] [place] [address] [place] [address] [phone] Social History Tobacco Use Types Packs/Day Years [...]
--- OUTSIDE RECORDS SUMMARY | 2017-11-08 12:16 | XMS REPORT | Encounter Summary ---
Author Author [facility] Organization [facility] Address Unknown Phone Unavailable Care Team Providers Care Shake Cutter Name Role Phone Benjamín Herron MD PCP John Osborn MD Unavailable Ralf Velez MD Unavailable Trisha Fiore RN Unavailable Unavailable Mónica Waddell PA-C Unavailable Karla Mandel RN Unavailable Unavailable Edson Lyn MD Unavailable Adri RussellP 7 Encounter Details Date Type Department Care Team Description 10/28/2017 Documentation [facility] Kb North MD Malignant melanoma, [facility] - [facility] Exam [address] [facility] unspecified site (HCC) [address] [facility] [address] (Primary Dx) [place] [address] [place] [address] [phone] Social History Tobacco Use Types Packs/Day Years [...] - 210 U/L Specimen Performing Laboratory Blood [facility] [address] [place], [place] [id number] * CBC AND DIFF (10/29/2017 12:16 PM) [...] - 0.20 K/UL Specimen Performing Laboratory Blood [facility] [address] [place], [place] [id number] * COMPREHENSIVE METABOLIC PANEL (10/29/2017 12:16 PM) [...] Pharmacist for questions. Specimen Performing Laboratory Blood [facility] [address] [place] [address] in this encounter Visit Diagnoses Diagnosis Malignant melanoma, unspecified site (HCC) - Primary
--- OUTSIDE RECORDS SUMMARY | 2017-11-08 12:16 | XMS REPORT | Encounter Summary ---
Author Author [facility] Organization [facility] Address Unknown Phone Unavailable Care Team Providers Care Brewery Representative Name Role Phone Benjamín Herron MD PCP John Osborn MD Unavailable Ralf Velez MD Unavailable Trisha Fiore RN Unavailable Unavailable Mónica Waddell PA-C Unavailable Karla Mandel RN Unavailable Unavailable Edson Lyn MD Unavailable Adri Russell 7 Encounter Details Date Type Department Care Team Description 10/27/2017 Documentation The [facility] Kb North MD Cancer Center - [facility] Exam [address] [place] [facility] [address] [place] [address] [place] [address] [phone] Social History Tobacco Use Types Packs/Day Years [...] Progress Notes * Sherrie Barksdale, RN - 10/27/2017 9:18 AM SEAWEED HARVESTER Patient mother reports headache x 3 days with nausea/vomiting. Is tolerating fluids today and is resting, will review with Dr North with a plan of care. in this encounter Plan of Treatment Not on fileas of this encounter Visit Diagnoses Not on filein this encounter
--- OUTSIDE RECORDS SUMMARY | 2017-11-08 12:17 | XMS REPORT | Encounter Summary ---
Author Author [facility] Organization [facility] Address Unknown Phone Unavailable Care Team Providers Care Cleater Name Role Phone Benjamín Herron MD PCP John Osborn MD Unavailable Ralf Velez MD Unavailable Trisha Fiore RN Unavailable Unavailable Mónica Waddell PA-C Unavailable Karla Mandel RN Unavailable Unavailable Edson Lyn MD Unavailable Adri Russell 7 Encounter Details Date Type Department Care Team Description 09/09/2017 Procedure Pass [facility] Radiology [address] [place] [address] Social History Tobacco Use Types Packs/Day Years [...]
--- OUTSIDE RECORDS SUMMARY | 2017-11-08 12:17 | XMS REPORT | Encounter Summary ---
Author Author [facility] Organization [facility] Address Unknown Phone Unavailable Care Team Providers Care Production Statistical Clerk Name Role Phone Benjamín Herron MD PCP John Osborn MD Unavailable Ralf Velez MD Unavailable Trisha Fiore RN Unavailable Unavailable Mónica Waddell PA-C Unavailable Karla Mandel RN Unavailable Unavailable Edson Lyn MD Unavailable Adri Russell 7 Reason for Referral * Radiology Services Status Reason Specialty Diagnoses / Referred By Referred To Procedures Contact Contact New Request Radiology Procedures Kb North CT NECK MD Alfredo W/CONTRAST [address] [place] [address] * Radiology Services Status Reason Specialty Diagnoses / Referred By Referred To Procedures Contact Contact New Request Radiology Procedures Kb North NECK MD Alfredo W/CONTRAST [address] [place] [address] [place] [address] * Radiology Services Status Reason Specialty Diagnoses / Referred By Referred To Procedures Contact Contact New Request Radiology Procedures Kb North CT CHEST W MD Alfredo CONTRAST [address] [place] [address] * Radiology Services Status Reason Specialty Diagnoses / Referred By Referred To Procedures Contact Contact New Request Radiology Procedures Kb Norht CT CHEST Sandra Fuentes MD CONTRAST [address] [place] [address] [place] [address] * Radiology Services Status Reason Specialty Diagnoses / Referred By Referred To Procedures Contact Contact No Auth Needed Radiology Procedures Kb North [place] Nuclear CT ABD/PELV Sandra Fuentes MD Med CONTRAST [address] [place] [address] [place] [address] CONTRAST [address] [place], [place] [address] W/CONTRAST [address] Phone: * Radiology Services Status Reason Specialty Diagnoses / Referred By Referred To Procedures Contact Contact No Auth Needed Radiology Procedures Kb North Nuclear CT ABD/PELV Sandra Fuentes MD Med CONTRAST [address] [place] [address] [place] [address]AST [address] [place], [place] [address] W/CONTRAST [address] Phone: Reason for Visit * Radiology Services Status Reason Specialty Diagnoses / Referred By Referred To Procedures Contact Contact No Auth Needed Radiology Procedures Kb North Nuclear CT ABD/PELV Sandra Fuentes MD Med CONTRAST [address] [place] [address] [place] [address] CONTRAST [address] [place], [place] [address] W/CONTRAST [address] Phone: Encounter Details Date Type Department Care Team Description 10/03/2017 [facility] Kb North MD [facility] Radiology [address] [place] [address] [place] [address] [place] [address] [phone] Social History Tobacco Use Types Packs/Day Years [...] 2 unspecified site (HCC) hours after food. ERGOCALCIFEROL (VITAMIN Take 1 tablet by mouth [...] as needed. NON-FORMULARY five times weekly. Pre-Workout [facility] approved other medication Essiac Tea- Drink 1 cup [...] mouth COMPLEX PO) daily. In morning shake dronabinol (MARINOL) 5 mg Take 1 capsule by mouth 60 capsule 0 201710/22/2017 capsule twice daily. FISH Take 1 capsule by mouth 10/30/2017 OIL/BORAGE/FLAX/OM3,6,9 1 daily. (OMEGA 3-6-9 COMPLEX PO) ondansetron (ZOFRAN) 8 mg Take 1 tablet by mouth 30 tablet 3 201610/27/2017 tablet every 8 hours as needed for Nausea or Vomiting. other medication Mycelium complex blend 10/30/2017 600 [...] this encounter Results * CT NECK W/CONTRAST (10/03/2017 3:06 PM) [...] which have mostly decreased in size. A goodwill representative lesion in the inferior right lobe [...] Interface, Radiant Results - 10/03/2017 4:[address] Neck, Chest, Abdomen and Pelvis with [...] which have mostly decreased in size. A goodwill representative lesion in the inferior right lobe [...] which have mostly decreased in size. A goodwill representative lesion in the inferior right lobe [...] Interface, Radiant Results - 10/03/2017 4:[address] Neck, Chest, Abdomen and Pelvis with [...] which have mostly decreased in size. A goodwill representative lesion in the inferior right lobe [...] M.D. on 10/03/2017 3:30 PM. * CT ABD/PELV W CONTRAST (10/03/2017 3:06 [...] which have mostly decreased in size. A goodwill representative lesion in the inferior right lobe [...] Interface, Radiant Results - 10/03/2017 4:[address] Neck, Chest, Abdomen and Pelvis with [...] which have mostly decreased in size. A goodwill representative lesion in the inferior right lobe [...] Specimen Performing Laboratory [facility] [address] [place] [address] in this encounter Visit Diagnoses Not on filein this encounter Administered Medications Medication Order MAR Action Action Date Dose Rate Site iohexol (OMNIPAQUE-240) 240 mg/mL Given 10/03/2017 150 mL injection 150 mL 14:30 PROCESS TECHNICIAN 150 mL, Intravenous, ONCE, 1 dose, 10/03/17 at 1430, NOTE: This is a HIGH ALERT Medication. in this encounter
--- OUTSIDE RECORDS SUMMARY | 2017-11-08 12:17 | XMS REPORT | Encounter Summary ---
Author Author [facility] Organization [facility] Address Unknown Phone Unavailable Care Team Providers Care Rf Design Engineer Name Role Phone Benjamín Herron MD PCP John Osborn MD Unavailable Ralf Velez MD Unavailable Trisha Fiore RN Unavailable Unavailable Mónica Waddell PA-C Unavailable Karla Mandel RN Unavailable Unavailable Edson Lyn MD Unavailable Adri Russell 7 Encounter Details Date Type Department Care Team Description 09/09/2017 Procedure Pass [facility] Radiology [address] [place] [address] Social History Tobacco Use Types Packs/Day Years [...]
--- OUTSIDE RECORDS SUMMARY | 2017-11-08 12:17 | XMS REPORT | Encounter Summary ---
Author Author [facility] Organization [facility] Address Unknown Phone Unavailable Care Team Providers Care Lubricating Engineer Name Role Phone Benjamín Herron MD PCP John Osborn MD Unavailable Ralf Velez MD Unavailable Trisha Fiore RN Unavailable Unavailable Mónica Waddell PA-C Unavailable Karla Mandel RN Unavailable Unavailable Edson Lyn MD Unavailable Adri Russell 7 Encounter Details Date Type Department Care Team Description 10/03/2017 [facility] Kb North MD [facility] [address] [place] [address] [place] [address] Social History Tobacco Use Types Packs/Day Years [...] needed. NON-FORMULARY five times weekly. Pre-Workout [facility] approved other medication Essiac Tea- Drink 1 [...] on fileas of this encounter Results * CBC AND DIFF (10/03/2017 2:20 PM) Component Value Ref Range White Blood Cells 7.4 4.5 - 11.0 K/UL RBC 4.70 4.4 - 5.5 M/UL Hemoglobin 14.1 13.5 - 16.5 GM/DL Hematocrit 42.4 40 - 50 % MCV 90.1 80 - 100 FL MCH 30.0 26 - 34 PG MCHC 33.3 32.0 - 36.0 G/DL RDW 14.5 11 - 15 % Platelet Count 123 (L) 150 - 400 K/UL MPV 9.2 7 - 11 FL Neutrophils 63 41 - 77 % Lymphocytes 25 24 - 44 % Monocytes 7 4 - 12 % Eosinophils 4 0 - 5 % Basophils 1 0 - 2 % Absolute Neutrophil Count 4.70 1.8 - 7.0 K/UL Absolute Lymph Count 1.80 1.0 - 4.8 K/UL Absolute Monocyte Count 0.50 0 - 0.80 K/UL Absolute Eosinophil Count 0.30 0 - 0.45 K/UL Absolute Basophil Count 0.00 0 - 0.20 K/UL Specimen Performing Laboratory Blood [facility] [address] [place] [address] * COMPREHENSIVE METABOLIC PANEL (10/03/2017 2:20 PM) Component Value Ref Range Sodium 137 137 - 147 MMOL/L Potassium 4.0 3.5 - 5.1 MMOL/L Chloride 106 98 - 110 MMOL/L Glucose 100 70 - 100 MG/DL Blood Urea Nitrogen 14 7 - 25 MG/DL Creatinine 0.92 0.4 - 1.24 MG/DL Calcium 8.5 8.5 - 10.6 MG/DL Total Protein 6.0 6.0 - 8.0 G/DL Total Bilirubin 0.3 0.3 - 1.2 MG/DL Albumin 3.8 3.5 - 5.0 G/DL Alk Phosphatase 57 25 - 110 U/L AST (SGOT) 15 7 - 40 U/L CO2 26 21 - 30 MMOL/L ALT (SGPT) 12 7 - 56 U/L Anion Gap 5 3 - 12 eGFR Non >60 >60 [...] Performing Laboratory Blood [facility] [address] [place] [address] in this encounter Visit Diagnoses Not on filein this encounter
--- OUTSIDE RECORDS SUMMARY | 2017-11-08 12:17 | XMS REPORT | Encounter Summary ---
Author Author [facility] Organization [facility] Address Unknown Phone Unavailable Care Team Providers Care Circuit Board Assembler Name Role Phone Benjamín Herron MD PCP John Osborn MD Unavailable Ralf Velez MD Unavailable Trisha Fiore RN Unavailable Unavailable Mónica Waddell PA-C Unavailable Karla Mandel RN Unavailable Unavailable Edson Lyn MD Unavailable Adri Russell 7 Encounter Details Date Type Department Care Team Description 09/09/2017 Procedure Pass [facility] Radiology [address] [place] [address] Social History Tobacco Use Types Packs/Day Years [...]
--- OUTSIDE RECORDS SUMMARY | 2017-11-08 12:17 | XMS REPORT | Encounter Summary ---
Author Author [facility] Organization [facility] Address Unknown Phone Unavailable Care Team Providers Care Card Runner Name Role Phone Benjamín Herron MD PCP John Osborn MD Unavailable Ralf Velez MD Unavailable Trisha Fiore RN Unavailable Unavailable Mónica Waddell PA-C Unavailable Karla Mandel RN Unavailable Unavailable Edson Lyn MD Unavailable Adri RussellP 7 Encounter Details Date Type Department Care Team Description 09/09/2017 Procedure Pass [facility] Radiology [address] [place] [address] Social History Tobacco Use Types Packs/Day Years [...] - Inhaled Oxygen - - Concentration Weight 72.6 kg (160 lb) 10/01/2017 2:18 PM DYE ROOM HELPER Height 180.3 cm (5' 11") 10/01/2017 2:18 PM DYE ROOM HELPER Body Mass Index 22.32 10/01/2017 2:18 PM DYE ROOM HELPER in this encounter Functional Status Functional Status [...]
--- OUTSIDE RECORDS SUMMARY | 2017-11-08 12:17 | XMS REPORT | Encounter Summary ---
Author Author [facility] Organization [facility] Address Unknown Phone Unavailable Care Team Providers Care Access Liaison Name Role Phone Benjamín Herron MD PCP John Osborn MD Unavailable Ralf Velez MD Unavailable Trisha Fiore RN Unavailable Unavailable Mónica Waddell PA-C Unavailable Karla Mandel RN Unavailable Unavailable Edson Lyn MD Unavailable Adri RussellP 7 Reason for Referral * Radiology Services Status Reason Specialty Diagnoses / Referred By Referred To Procedures Contact Contact No Auth Needed Radiology Procedures Kb North MRI HEAD WO/W MD Alfredo CONTRAST [address] [place] [address] * Radiology Services Status Reason Specialty Diagnoses / Referred By Referred To Procedures Contact Contact No Auth Needed Radiology Procedures Kb North MRI HEAD WO/Sandra Fuentes MD CONTRAST [address] [place] [address] [place] [address] Reason for Visit * Radiology Services Status Reason Specialty Diagnoses / Referred By Referred To Procedures Contact Contact No Auth Needed Radiology Procedures Kb North MRI HEAD WO/Sandra Fuentes MD CONTRAST [address] [place] [address] [place] [address] Encounter Details Date Type Department Care Team Description 10/05/2017 [facility] Can, Kb Fuentes MD Encounter Hospital Radiology [address] [place] [address] [facility] [address] [place] [address] [place] [address] [phone] Social History Tobacco Use Types Packs/Day Years [...] as needed. NON-FORMULARY five times weekly. Pre-Workout [facility] approved other medication Essiac Tea- Drink [...] encounter Results * MRI HEAD WO/W CONTRAST (10/05/2017 9:33 AM) Specimen Performing Laboratory [facility] RAD RESULTS Impressions Normal MRI of the brain without evidence of intracranial metastatic disease. These findings were discussed with Sherrie Barksdale RN at 8:26 AM 10/06/2017. Approved by Rodolfo Godoy M.D. on 10/06/2017 9:04 AM By my electronic signature, I attest that I have personally reviewed the images for this examination and formulated the interpretations and opinions expressed in this report Finalized by Fredy Crespo M.D. on 10/06/2017 11:20 AM. Dictated by Rodolfo Godoy M.D. on 10/06/2017 8:24 AM. Narrative MRI HEAD WO/W CONTRAST Clinical Indication: Male, 22 years old.Melanoma. TECHNIQUE: Multiplanar and multisequence MR imaging of the head was performed. This was done both before and after the administration of gadolinium contrast. COMPARISON: May 04, 2017 FINDINGS: The ventricles and subarachnoid spaces are normal in size and configuration. Brain parenchyma is normal in signal. There is no midline shift or mass effect. There is no area of abnormal contrast enhancement. The vascular flow-voids are unremarkable. Diffusion weighted imaging is not indicative of acute or recent infarct. Procedure Note Interface, Radiant Results - 10/06/2017 11:23 AM OR ASSISTANT MRI HEAD WO/W CONTRAST Clinical Indication: Male, 22 years old. Melanoma. TECHNIQUE: Multiplanar and multisequence MR imaging of the head was performed. This was done both before and after the administration of gadolinium contrast. COMPARISON: May 04, 2017 FINDINGS: The ventricles and subarachnoid spaces are normal in size and configuration. Brain parenchyma is normal in signal. There is no midline shift or mass effect. There is no area of abnormal contrast enhancement. The vascular flow-voids are unremarkable. Diffusion weighted imaging is not indicative of acute or recent infarct. IMPRESSION Normal MRI of the brain without evidence of intracranial metastatic disease. These findings were discussed with Sherrie Barksdale RN at 8:26 AM 10/06/2017. Approved by Rodolfo Godoy M.D. on 10/06/2017 9:04 AM By my electronic signature, I attest that I have personally reviewed the images for this examination and formulated the interpretations and opinions expressed in this report Finalized by Fredy Crespo M.D. on 10/06/2017 11:20 AM. Dictated by Rodolfo Godoy M.D. on 10/06/2017 8:24 AM. in this encounter Visit Diagnoses Not on filein this encounter Administered Medications Medication Order MAR Action Action Date Dose Rate Site gadobenate dimeglumine (MULTIHANCE) Given 10/05/2017 15 mL injection 15 mL 09:20 OR ASSISTANT 15 mL, Intravenous, ONCE, 1 dose, 10/05/17 at 0930, NOTE: This is a HIGH ALERT Medication. in this encounter
--- OUTSIDE RECORDS SUMMARY | 2017-11-08 12:18 | XMS REPORT | Encounter Summary ---
Author Author [facility] Organization [facility] Address Unknown Phone Unavailable Care Team Providers Care College Counselor Name Role Phone Benjamín Herron MD PCP John Osborn MD Unavailable Ralf Velez MD Unavailable Trisha Fiore RN Unavailable Unavailable Mónica Waddell PA-C Unavailable Karla Mandel RN Unavailable Unavailable Edson Lyn MD Unavailable Adri Russell 7 Encounter Details Date Type Department Care Team Description 08/28/2017 Documentation [facility] Kb North MD Cancer Center - WW Exam [address] [place] [address] [place] [address] [phone] Social History Tobacco Use Types Packs/Day Years [...]
--- OUTSIDE RECORDS SUMMARY | 2017-11-08 12:18 | XMS REPORT | Encounter Summary ---
Author Author [facility] Organization [facility] Address Unknown Phone Unavailable Care Team Providers Care Truss Assembler Name Role Phone Benjamín Herron MD PCP John Osborn MD Unavailable Ralf Velez MD Unavailable Trisha Fiore RN Unavailable Unavailable Mónica Waddell PA-C Unavailable Karla Mandel RN Unavailable Unavailable Edson Lyn MD Unavailable Adri Russell 7 Encounter Details Date Type Department Care Team Description 09/15/2017 Documentation [facility] Kristina Awad [facility] [place] [facility] [address] [place] [phone] Social History Tobacco Use Types Packs/Day Years [...] as of this encounter Progress Notes * Kristina Awad - 09/15/2017 11:59 AM SIZING SPRAYER I have verified with [facility] speciality pharmacy, the prescription for Tafinlar + Mekinist are set to ship out to patient on 09/16/17. They have been in contact with patiens parents as well. in this encounter Plan of Treatment Not on fileas of this encounter Visit Diagnoses Not on filein this encounter
--- OUTSIDE RECORDS SUMMARY | 2017-11-08 12:18 | XMS REPORT | Encounter Summary ---
Author Author [facility] Organization [facility] Address Unknown Phone Unavailable Care Team Providers Care Sports Internship Name Role Phone Benjamín Herron MD PCP John Osborn MD Unavailable Ralf Velez MD Unavailable Trisha Fiore RN Unavailable Unavailable Mónica Waddell PA-C Unavailable Karla Mandel RN Unavailable Unavailable Edson Lyn MD Unavailable Adri Russell 7 Encounter Details Date Type Department Care Team Description 09/11/2017 Orders Only [facility] Leatha Rogers PHARMD Malignant melanoma, Cancer Center - Exam unspecified site (HCC) [address] (Primary Dx) [place] [address] Social History Tobacco Use Types Packs/Day Years [...]
--- OUTSIDE RECORDS SUMMARY | 2017-11-08 12:18 | XMS REPORT | Encounter Summary ---
Author Author [facility] Organization [facility] Address Unknown Phone Unavailable Care Team Providers Care Exercise Instructor Name Role Phone Benjamín Herron MD PCP John Osborn MD Unavailable Ralf Velez MD Unavailable Trisha Fiore RN Unavailable Unavailable Mónica Waddell PA-C Unavailable Karla Mandel RN Unavailable Unavailable Edson Lyn MD Unavailable Adri Russell 7 Encounter Details Date Type Department Care Team Description 09/11/2017 Orders Only [facility] Leatha Rogers PHARMD Cancer Center - WW Exam [address] [place] [address] Social History Tobacco Use Types Packs/Day Years [...]
--- OUTSIDE RECORDS SUMMARY | 2017-11-08 12:18 | XMS REPORT | Encounter Summary ---
Author Author [facility] Organization [facility] Address Unknown Phone Unavailable Care Team Providers Care Graduate Teaching Associate Name Role Phone Benjamín Herron MD PCP John Osborn MD Unavailable Ralf Velez MD Unavailable Trisha Fiore RN Unavailable Unavailable Mónica Waddell PA-C Unavailable Karla Mandel RN Unavailable Unavailable Edson Lyn MD Unavailable Adri RussellP 7 Encounter Details Date Type Department Care Team Description 09/19/2017 Documentation [facility] Brook Bose APRN Cancer Center - WW Lab [address] [facility] [address] [facility] [place] [address] [address] [place] [address] [phone] Social History Tobacco Use Types Packs/Day Years [...] Progress Notes * Sherrie Barksdale, RN - 09/19/2017 9:58 AM DIESEL TECHNICIAN Returned call to [facility] with Dr Parkinson office. # [phone], Faxed last office note to # [phone]. in this encounter Plan of Treatment Not on fileas of this encounter Visit Diagnoses Not on filein this encounter
--- OUTSIDE RECORDS SUMMARY | 2017-11-08 12:18 | XMS REPORT | Encounter Summary ---
Author Author [facility] Organization [facility] Address Unknown Phone Unavailable Care Team Providers Care Social Services Director Name Role Phone Benjamín Herron MD PCP John Osborn MD Unavailable Ralf Velez MD Unavailable Trisha Fiore RN Unavailable Unavailable Mónica Waddell PA-C Unavailable Karla Mandel RN Unavailable Unavailable Edson Lyn MD Unavailable Adri Russell 7 Reason for Referral * Consult, Test & Treat Status Reason Specialty Diagnoses / Referred By Referred To Procedures Contact Contact New Request Specialty Nutrition Diagnoses Kb North MD Required melanoma, [address] [place] [place] unspecified site [address] (HCC) [address] [place] [address] Encounter Details Date Type Department Care Team Description 09/03/2017 Documentation [facility] Kb North MD Malignant melanoma, Cancer Center - WW Exam [address] [place] unspecified site (HCC) [address] (Primary Dx) [place] [address] [place] [address] [phone] Social History Tobacco Use Types Packs/Day Years [...] Associated Diagnoses Order Schedule AMB REFERRAL TO NUTRITION Routine Malignant melanoma, Ordered: 2016 unspecified site (HCC) as of this encounter Visit Diagnoses Diagnosis Malignant melanoma, unspecified site (HCC) - Primary
--- OUTSIDE RECORDS SUMMARY | 2017-11-08 12:18 | XMS REPORT | Encounter Summary ---
Author Author [facility] Organization [facility] Address Unknown Phone Unavailable Care Team Providers Care Pharmacist Helper Name Role Phone Benjamín Herron MD PCP John Osborn MD Unavailable Ralf Velez MD Unavailable Trisha Fiore RN Unavailable Unavailable Mónica Waddell PA-C Unavailable Karla Mandel RN Unavailable Unavailable Edson Lyn MD Unavailable Adri RussellP 7 Reason for Visit * Reason Comments Appointment Request Encounter Details Date Type Department Care Team Description 09/03/2017 Telephone [facility] Kb North MD Appointment Request Cancer Center - Exam [address] [place] [address] [place] [address] [phone] Social History Tobacco Use Types Packs/Day Years [...] encounter Miscellaneous Notes * Telephone Encounter - Dyan Arango - 09/03/2017 1:00 PM LEARNING PROGRAM MANAGER ----- Message from Sherrie Barksdale RN sent at 09/03/2017 12:12 PM LEARNING PROGRAM MANAGER ----- Dx C43.9 Can Set Meat Clerk consult for Friday09/09/[address] Per orders above pt has been scheduled for a business asst to see while in clinic/ in this encounter Plan of Treatment Not on fileas of this encounter Visit Diagnoses Not on filein this encounter
--- OUTSIDE RECORDS SUMMARY | 2017-11-08 12:18 | XMS REPORT | Encounter Summary ---
Author Author [facility] Organization [facility] Address Unknown Phone Unavailable Care Team Providers Care Ceramic Tiler Name Role Phone Benjamín Herron MD PCP John Osborn MD Unavailable Ralf Velez MD Unavailable Trisha Fiore RN Unavailable Unavailable Mónica Waddell PA-C Unavailable Karla Mandel RN Unavailable Unavailable Edson Lyn MD Unavailable Adri Russell 7 Encounter Details Date Type Department Care Team Description 09/23/2017 Documentation [facility] Kb North MD Cancer Center - WW Exam [address] [place] [address] [place] [address] [phone] Social History Tobacco Use Types Packs/Day Years [...]
--- OUTSIDE RECORDS SUMMARY | 2017-11-08 12:18 | XMS REPORT | Encounter Summary ---
Author Author [facility] Organization [facility] Address Unknown Phone Unavailable Care Team Providers Care Wool Fleece Sorter Name Role Phone Benjamín Herron MD PCP John Osborn MD Unavailable Ralf Velez MD Unavailable Trisha Fiore RN Unavailable Unavailable Mónica Waddell PA-C Unavailable Karla Mandel RN Unavailable Unavailable Edson Lyn MD Unavailable Adri Russell SENIOR PREMIUM AUDITOR 7 Reason for Referral * Radiology Services Status Reason Specialty Diagnoses / Referred By Referred To Procedures Contact Contact No Auth Needed Radiology Procedures Kb North MRI HEAD WO/W MD Alfredo CONTRAST [address] [facility] [address] [place] [address] * Radiology Services Status Reason Specialty Diagnoses / Referred By Referred To Procedures Contact Contact New Request Radiology Procedures Kb North CT NECK MD Alfredo W/CONTRAST [address] [place] [address] * Radiology Services Status Reason Specialty Diagnoses / Referred By Referred To Procedures Contact Contact New Request Radiology Procedures Kb North CT CHEST Sandra Fuentes MD CONTRAST [address] [place] [address] [place] [address] * Radiology Services Status Reason Specialty Diagnoses / Referred By Referred To Procedures Contact Contact No Auth Needed Radiology Procedures Kb North [facility] ABD/PELV Sandra Fuentes MD Med CONTRAST [address] CONTRAST [address] [facility] [place] [address] W/CONTRAST [address] Phone: Reason for Visit * Reason Comments Heme/Onc Care Encounter Details Date Type Department Care Team Description 09/09/2017 Office Visit [facility] Kb North MD Melanoma of scalp (HCC) Cancer Center - WW Exam [address] (Primary Dx); [address] Fatigue, [place] [address] [place] [address] type; [phone] On prednisone therapy Social History Tobacco Use Types Packs/Day Years Used Date Never Smoker Smokeless Tobacco: Never Used Alcohol Use Drinks/Week oz/Week Comments Yes 0 Standard 0.0 social drinks or equivalent Sex Assigned at Date Recorded Not on file as of this encounter Last Filed Vital Signs Vital Sign Reading Time Taken Blood Pressure 120/70 09/09/2017 3:23 PM VETERINARY PATHOLOGIST Pulse 75 09/09/2017 3:23 PM VETERINARY PATHOLOGIST Temperature 36.8 C (98.3 F) 09/09/2017 3:23 PM VETERINARY PATHOLOGIST Respiratory Rate 12 09/09/2017 3:23 PM VETERINARY PATHOLOGIST Oxygen Saturation 96% 09/09/2017 3:23 PM VETERINARY PATHOLOGIST Inhaled Oxygen - - Concentration Weight 71.6 kg (157 lb 12.8 oz) 09/09/2017 3:23 PM VETERINARY PATHOLOGIST Height 177.8 cm (5' 10") 09/09/2017 3:23 PM VETERINARY PATHOLOGIST Body Mass Index 22.64 09/09/2017 3:23 PM VETERINARY PATHOLOGIST in this encounter Functional Status Functional Status [...] * Patient Instructions - Nader Bassett - 09/09/2017 3:00 PM VETERINARY PATHOLOGIST We understand that your time is important [...] floor. in this encounter Progress Notes * Kb North MD - 09/09/2017 3:00 PM VETERINARY PATHOLOGIST Formatting of this note may be different from the original. Name: Nickolas Mccurdy : 1995 AGE: 22 y.o. DATE OF SERVICE: 09/09/2017 Subjective: Reason for Visit: f/u Heme/Onc Care Nickolas Mccurdy is a 22 y.o. male. Melanoma of scalp (HCC) Staging form: Melanoma of the Skin, AJCC 7th Edition - Clinical: Stage Unknown (T4b, NX, M0) - Unsigned History of Present Illness Nickolas presents with his father for follow up of his metastatic melanoma. He is currently taking dabrafenib + trametinib, he started targeted agents 08/09. He has tolerated oral therapy well without adverse symptoms other than nausea. He feels well today but takes nausea pills regularly.He denies signs or symptoms suggestive of infection. He has had some fatigue but this has been regular. Pt is in a better mood today as he is starting to get his diet better under control. He met with a responder which he states helped him know what he should be doing in terms of eating. States only pain he has is occasionally sternal pain, right in low middle of his sternum, but this has continued to improve as treatment has gone on. Review of Systems Constitutional: Negative for appetite [...] as needed. NON-FORMULARY five times weekly. Pre-Workout [facility] approved ondansetron (ZOFRAN) 8 mg tablet [...] Take 1 Tab by mouth daily. Vitals: 09/09/17 1523 BP: 120/70 Pulse: 75 Resp: 12 Temp: 36.8 C (98.3 F) TempSrc: Oral SpO2: 96% Weight: 71.6 kg (157 lb 12.8 oz) Height: 177.8 cm (70") Body mass index is 22.64 kg/(m^2). Pain Score: Zero Pain Addressed: N/A [...] to light. Neck: Normal range of motion. Cardiovascular: Normal rate, regular rhythm and normal heart sounds. Pulmonary/Chest: Effort normal and breath sounds normal. No respiratory distress. He has no wheezes. Abdominal: Soft. Bowel sounds are normal. There is no hepatosplenomegaly, splenomegaly or hepatomegaly. Musculoskeletal: Normal range of motion. He exhibits no edema or tenderness. Lymphadenopathy: Head (right side): No submental and no submandibular adenopathy present. Head (left side): No submental and no submandibular adenopathy present. Right: No inguinal and no supraclavicular adenopathy present. Left: No inguinal and no supraclavicular adenopathy present. Neurological: He is alert and oriented to person, place, and time. Skin: Skin is warm, dry and intact. No rash noted. Psychiatric: He has a normal mood and affect. His behavior is normal. Judgment and thought content normal. Cognition and memory are normal. Vitals reviewed. CBC w/Diff Lab Results Component Value Date/Time WBC 10.7 08/15/2017 01:11 PM RBC 4.98 08/15/2017 01:11 PM HGB 15.3 08/15/2017 01:11 PM HCT 44.2 08/15/2017 01:11 PM MCV 88.8 08/15/2017 01:11 PM MCH 30.6 08/15/2017 01:11 PM MCHC 34.5 08/15/2017 01:11 PM RDW 13.0 08/15/2017 01:11 PM PLTCT 286 08/15/2017 01:11 PM MPV 7.5 08/15/2017 01:11 PM Lab Results Component Value Date/Time NEUT 63 08/15/2017 01:11 PM ANC 6.80 08/15/2017 01:11 PM LYMA 25 08/15/2017 01:11 PM ALC 2.70 08/15/2017 01:11 PM MARITZA 7 08/15/2017 01:11 PM AMC 0.70 08/15/2017 01:11 PM EOSA 4 08/15/2017 01:11 PM AEC 0.50 (H) 08/15/2017 01:11 PM BASA 1 08/15/2017 01:11 PM ABC 0.10 08/15/2017 01:11 PM Comprehensive Metabolic Profile Lab Results Component Value Date/Time NA 135 (L) 08/26/2017 03:57 PM K 3.9 08/26/2017 03:57 PM CL 102 08/26/2017 03:57 PM CO2 26 08/26/2017 03:57 PM GAP 7 08/26/2017 03:57 PM BUN 13 08/26/2017 03:57 PM CR 1.00 08/26/2017 03:57 PM GLU 107 (H) 08/26/2017 03:57 PM Lab Results Component Value Date/Time CA 8.8 08/26/2017 03:57 PM ALBUMIN 3.9 08/26/2017 03:57 PM TOTPROT 6.7 08/26/2017 03:57 PM ALKPHOS 99 08/26/2017 03:57 PM AST 17 08/26/2017 03:57 PM ALT 16 08/26/2017 03:57 PM TOTBILI 0.3 08/26/2017 03:57 PM GFR >60 08/26/2017 03:57 PM GFRAA >60 08/26/2017 03:57 PM Other labs No results found for: ESR Lab Results Component Value Date/Time LDH 160 01/20/2017 10:19 AM Assessment and Plan: Problem On Prednisone Therapy Fatigue Melanoma of Scalp (Hcc) Current Therapy: Dabrafenib + trametinib started 08/09/2007 Melanoma of scalp (HCC) Continue on Dabrafenib + trametinib. Pt feels well. No signs of new or progressive disease. Will have restaging scans and f/u visit in 4 weeks. Fatigue Grade 1. Related to disease but getting better. On prednisone therapy Got prescription for prednisone but did not end up taking it. Will hang on to it just in case while he goes back to college. -Pt needs restaging scans in next 4 weeks. Will have these done in 4 weeks on Friday here at where we can see him at that time. -Discussed even though he is not always taking anxiety medication it is important he has some as he goes back to school where his schedule will be changing. -Discussed taking things slow back into school with all his medical issues. Instructed patient to see doctor on site at [place] who can communicate with Dr. North if something more urgent is needed. -Pt is currently feeling well at this point. -Patient will follow up in the interim should they develop adverse symptoms. Patient verbalized understanding and agrees to plan of care. Total time: 25 minutes, with > 50% time spent counseling with regard to disease status, treatment options, necessity for further testing, and outlining a follow up plan. This conversation was had with patient and his father. The patient was seen and examined by Dr. Kb North who formulated the above assessment and plan. - Walter ManTc Mason, acting as scribe. I have seen and examined this patient. I've reviewed the pertinent portions of the history as well as laboratory studies and radiology studies. I agree with the assessment and plan as documented in this note. Kb North MD in this encounter Miscellaneous Notes * Assessment & Plan Note - Walter Mason - 09/09/2017 4:01 PM VETERINARY PATHOLOGIST Associated Problem(s): On prednisone therapy Got prescription for prednisone but did not end up taking it. Will hang on to it just in case while he goes back to college. * Assessment & Plan Note - Walter Mason - 09/09/2017 4:00 PM VETERINARY PATHOLOGIST Associated Problem(s): Fatigue Grade 1. Related to disease but getting better. * Assessment & Plan Note - Walter Mason - 09/09/2017 3:59 PM VETERINARY PATHOLOGIST Associated Problem(s): Melanoma of scalp (HCC) Continue on Dabrafenib + trametinib. Pt feels well. No signs of new or progressive disease. Will have restaging scans and f/u visit in 4 weeks. in this encounter Plan of Treatment Not [...] Interface, Radiant Results - 10/06/2017 11:23 AM VETERINARY PATHOLOGIST MRI HEAD WO/W CONTRAST Clinical Indication: Male, [...] Rodolfo Godoy M.D. on 10/06/2017 8:24 AM. * CT NECK W/CONTRAST (10/03/2017 3:06 PM) [...] which have mostly decreased in size. A commercial pest control representative lesion in the inferior right lobe [...] Interface, Radiant Results - 10/03/2017 4:[address] Neck, Chest, Abdomen and Pelvis with [...] which have mostly decreased in size. A commercial pest control representative lesion in the inferior right lobe [...] which have mostly decreased in size. A commercial pest control representative lesion in the inferior right lobe [...] Interface, Radiant Results - 10/03/2017 4:[address] Neck, Chest, Abdomen and Pelvis with [...] which have mostly decreased in size. A commercial pest control representative lesion in the inferior right lobe [...] M.D. on 10/03/2017 4:39 PM. Dictated by uLiz Warren M.D. on 10/03/2017 3:30 PM. Narrative [...] which have mostly decreased in size. A commercial pest control representative lesion in the inferior right lobe [...] Interface, Radiant Results - 10/03/2017 4:[address] Neck, Chest, Abdomen and Pelvis with [...] which have mostly decreased in size. A commercial pest control representative lesion in the inferior right lobe [...] Warren M.D. on 10/03/2017 3:30 PM. * CBC AND DIFF (10/03/2017 2:20 PM) [...] K/UL Specimen Performing Laboratory Blood [facility] [address] [facility] [place] [address] * COMPREHENSIVE METABOLIC PANEL (10/03/2017 2:20 PM) [...] Pharmacist for questions. Specimen Performing Laboratory Blood [facility] [address] [place] [address] in this encounter Visit Diagnoses Diagnosis Melanoma of scalp (HCC) - Primary Malignant melanoma of skin of scalp and neck Fatigue, unspecified type On prednisone therapy
--- OUTSIDE RECORDS SUMMARY | 2017-11-08 12:18 | XMS REPORT | Encounter Summary ---
Author Author [facility] Organization [facility] Address Unknown Phone Unavailable Care Team Providers Care Portfolio Management Marketing Name Role Phone Benjamín Herron MD PCP John Osborn MD Unavailable Ralf Velez MD Unavailable Trisha Fiore RN Unavailable Unavailable Mónica Waddell PA-C Unavailable Karla Mandel RN Unavailable Unavailable Edson Lyn MD Unavailable Adri RussellP 7 Encounter Details Date Type Department Care Team Description 09/11/2017 Documentation [facility] [address] [place] [address] Social History Tobacco Use Types Packs/Day Years [...] as of this encounter Progress Notes * [facility] - 09/11/2017 12:05 PM ORDAINED MINISTER Nickolas Mccurdy's prescription for Tafinlar and Mekinist is not able to be filled by [facility] with low copays due to the patient's prescription insurance. Pharmacy has contacted Nickolas Mccurdy to notify them that their prescription will be sent to [facility] [phone] as required by their prescription insurance. [facility] Patient Advocate in this encounter Plan of Treatment Not on fileas of this encounter Visit Diagnoses Not on filein this encounter
--- OUTSIDE RECORDS SUMMARY | 2017-11-08 12:18 | XMS REPORT | Encounter Summary ---
Author Author [facility] Organization [facility] Address Unknown Phone Unavailable Care Team Providers Care Warehouse Man Name Role Phone Benjamín Herron MD PCP John Osborn MD Unavailable Ralf Velez MD Unavailable Trisha Fiore RN Unavailable Unavailable Mónica Waddell PA-C Unavailable Karla Mandel RN Unavailable Unavailable Edson Lyn MD Unavailable Adri RussellP 7 Encounter Details Date Type Department Care Team Description 09/11/2017 Pharmacy Visit [facility] [address] [place] [address] Social History Tobacco Use Types Packs/Day Years [...]
--- OUTSIDE RECORDS SUMMARY | 2017-11-08 12:18 | XMS REPORT | Encounter Summary ---
Author Author [facility] Organization [facility] Address Unknown Phone Unavailable Care Team Providers Care Substance Abuse Therapist Name Role Phone Benjamín Herron MD PCP John Osborn MD Unavailable Ralf Velez MD Unavailable Trisha Fiore RN Unavailable Unavailable Mónica Waddell PA-C Unavailable Karla Mandel RN Unavailable Unavailable Edson Lyn MD Unavailable Adri Russell 7 Encounter Details Date Type Department Care Team Description 08/26/2017 Nurse Only [facility] Kb North MD Bone metastases ([facility]) Cancer Center - [facility] Exam [address] [facility] (Primary Dx); [address] [place] [address] [place] [address] scalp ([facility]) [phone] Social History Tobacco Use Types Packs/Day Years [...] on fileas of this encounter Results * COMPREHENSIVE METABOLIC PANEL (08/26/2017 3:57 PM) Component Value Ref Range Sodium 135 (L) 137 - 147 MMOL/L Potassium 3.9 3.5 - 5.1 MMOL/L Chloride 102 98 - 110 MMOL/L Glucose 107 (H) 70 - 100 MG/DL Blood Urea Nitrogen 13 7 - 25 MG/DL Creatinine 1.00 0.4 - 1.24 MG/DL Calcium 8.8 8.5 - 10.6 MG/DL Total Protein 6.7 6.0 - 8.0 G/DL Total Bilirubin 0.3 0.3 - 1.2 MG/DL Albumin 3.9 3.5 - 5.0 G/DL Alk Phosphatase 99 25 - 110 U/L AST (SGOT) 17 7 - 40 U/L CO2 26 21 - 30 MMOL/L ALT (SGPT) 16 7 - 56 U/L Anion Gap 7 [...] Pharmacist for questions. Specimen Performing Laboratory Blood [facility] [address] [place] [address] in this encounter Visit Diagnoses Diagnosis Bone metastases (HCC) - Primary Secondary malignant neoplasm of bone and bone marrow Malignant melanoma of scalp (HCC) Malignant melanoma of skin of scalp and neck
--- OUTSIDE RECORDS SUMMARY | 2017-11-08 12:18 | XMS REPORT | Encounter Summary ---
Author Author [facility] Organization [facility] Address Unknown Phone Unavailable Care Team Providers Care Funeral Service Practitioner/Embalmer Name Role Phone Benjamín Herron MD PCP John Osborn MD Unavailable Ralf Velez MD Unavailable Trisha Fiore RN Unavailable Unavailable Mónica Waddell PA-C Unavailable Karla Mandel RN Unavailable Unavailable Edson Lyn MD Unavailable Adri Russell 7 Encounter Details Date Type Department Care Team Description 09/09/2017 Documentation [facility] Eli Cruz RD Cancer [facility] - [facility] Exam [address] [place] [address] Social History Tobacco Use Types Packs/Day Years [...] as of this encounter Progress Notes * Diggett, Eli, RD - 09/09/2017 2:58 PM JAVA TECHNICAL ARCHITECT Formatting of this note may be different from the original. Clinical Nutrition Assessment Summary Nickolas Mccurdy is a 22 y.o. male with metastatic melanoma Current Treatment Plan: OP MELANOMA DABRAFENIB + TRAMETINIB Nutrition Assessment of Patient: BMI Categories Adult: Acceptable: 18.5-24.9 (BMI 22.41) Estimated Calorie Needs: 5460-9335 (30-35 kcals/kg) Estimated Protein Needs: 103-119 (1.3-1.5 g/kg) Wt Readings from Last 5 Encounters: 08/26/17 70.9 kg (156 lb 3.2 oz) 08/15/17 75.8 kg (167 lb 3.2 oz) 08/15/17 76.9 kg (169 lb 9.6 oz) 08/06/17 76.9 kg (169 lb 9.6 oz) 07/25/17 78.1 kg (172 lb 3.2 oz) RD met with patient and his father today to discuss nutrition recommendations for cancer. Pt endorses a recent 10# loss - patient attributes it to nausea/ vomiting which began after starting new medications as well as stopping protein supplementation. They were told to stop all protein supplementation as patient was on "work-out" specific kind. RD clarified that pure protein powder would be okay, without added stimulants for working out. Pt consumes 3 meals per day with snacks. He also juices. Follows organic and GMO free diet. Taking CBD oil and medical cannabis which helps stimulate his appetite. Malnutrition Assessment: Does not meet criteria Nutrition Diagnosis: Food & nutrition-related knowledge deficit Etiology: recommendations for cancer on tx Signs & Symptoms: appt requested Intervention/Plan: Discussed kcal and protein needs during cancer treatment. Provided patient with list of foods high in protein and healthy shake recipes/recommendations for ready to drink shakes. Encouraged small, frequent meals and snacks, every 2-3 hours. Reviewed dietary guidelines to help manage nausea. Discussed nutritional/lifestyle guidelines for cancer such as healthy diet ( focus on fruits/vegetables, whole grains, lean protein sources), and importance of physical activity. I reinforced need for adequate hydration. Patient was provided with RD's contact information for further assistance if needed. Will be available PRN. Nutrition Monitoring and Evaluation: Goal: prevent weight loss Time Frame: ongoing The patient was allowed to ask questions and actively participated in creating plan of care. I provided the patient with my contact information and instructed pt on how to get in touch with me if questions or concerns arise. Thank you for allowing nutrition services to participate in this patients care. Follow up Date: PRN Time spent in Consultation: 30 minutes Eli Cruz [place], [place], [place] Phone: [phone] Pgr: [phone] in this encounter Plan of Treatment Not on fileas of this encounter Visit Diagnoses Not on filein this encounter
--- OUTSIDE RECORDS SUMMARY | 2017-11-08 12:18 | XMS REPORT | Encounter Summary ---
Author Author [facility] Organization [facility] Address Unknown Phone Unavailable Care Team Providers Care Home Care Provider Name Role Phone Benjamín Herron MD PCP John Osborn MD Unavailable Ralf Velez MD Unavailable Trisha Fiore RN Unavailable Unavailable Mónica Waddell PA-C Unavailable Karla Mandel RN Unavailable Unavailable Edson Lyn MD Unavailable Adri RussellP 7 Encounter Details Date Type Department Care Team Description 09/10/2017 Pharmacy Visit [facility] [address] [place] [address] Social History Tobacco Use Types Packs/Day Years [...]
--- OUTSIDE RECORDS SUMMARY | 2017-11-08 12:19 | XMS REPORT | Encounter Summary ---
Author Author [facility] Organization [facility] Address Unknown Phone Unavailable Care Team Providers Care Extractor Puller Name Role Phone Benjamín Herron MD PCP John Osborn MD Unavailable Ralf Velez MD Unavailable Trisha Fiore RN Unavailable Unavailable Mónica Waddell PA-C Unavailable Karla Mandel RN Unavailable Unavailable Edson Lyn MD Unavailable Adri Russell 7 Encounter Details Date Type Department Care Team Description 08/12/2017 Documentation [facility] Kb North MD Cancer [facility] - [facility] Exam [address] [place] [place] [address] [place] [address] [phone] Social History Tobacco Use Types Packs/Day Years [...]
--- OUTSIDE RECORDS SUMMARY | 2017-11-08 12:19 | XMS REPORT | Encounter Summary ---
Author Author [facility] Organization [facility] Address Unknown Phone Unavailable Care Team Providers Care Molder Foam Rubber Name Role Phone Benjamín Herron MD PCP John Osborn MD Unavailable Ralf Velez MD Unavailable Trisha Fiore RN Unavailable Unavailable Mónica Waddell PA-C Unavailable Karla Mandel RN Unavailable Unavailable Edson Lyn MD Unavailable Adri RussellP 7 Reason for Visit * Reason Comments Heme/Onc Care Xgeva injection Encounter Details Date Type Department Care Team Description 08/26/2017 [facility] Kb North MD Encounter Cancer Center - [address] [facility] Treatment [address] [facility] [address] [place] [address] [place] [address] [phone] Social History Tobacco Use Types Packs/Day Years [...] Scoop by mouth daily. In morning shakes. ERGOCALCIFEROL (VITAMIN Take 1 tablet by mouth D2) (VITAMIN D PO) daily. L.ACID/L.CASEI/B.BIF/B.LO Take 1 Scoop by mouth N/FOS (PROBIOTIC BLEND daily. In morning shake PO) melatonin 10 mg tab Take 1 tablet by mouth at bedtime as needed. NON-FORMULARY five times weekly. Pre-Workout [facility] approved other medication Essiac Tea- Drink 1 cup of tea daily. other medication Super Green- Take 1 scoop in shake every morning. other medication Bone Broth- Take 1 scoop in shake every morning. VITAMIN B COMPLEX (B Take 1 Scoop by mouth COMPLEX PO) daily. In morning shake dabrafenib (TAFINLAR) 75 Take 2 capsules by mouth 120 capsule 3 201609/11/2017 mg capsuleIndications: twice daily. Take at Malignant melanoma, least 1 hour before or 2 unspecified site (HCC) hours after food. dronabinol (MARINOL) 5 mg Take 1 capsule by mouth 60 capsule 0 201609/09/2017 capsule twice daily. FISH Take 1 capsule by mouth 10/30/2017 OIL/BORAGE/FLAX/OM3,6,9 1 daily. (OMEGA 3-6-9 COMPLEX PO) ondansetron (ZOFRAN) 8 mg Take 1 tablet by mouth 30 tablet 3 201608/28/2017 tablet every 8 hours as needed for [...] tablet by mouth 10/30/2017 EXTRACT PO daily. trametinib (MEKINIST) 2 Take 1 tablet by mouth 30 tablet 3 08/06/2017 09/11/2017 mg tabletIndications: daily. Take at least 1 Malignant melanoma, hour before or 2 hours unspecified site (HCC) after food. turmeric root extract 500 Take 2 capsules by mouth 10/30/2017 mg cap daily. vitamins, multiple tablet Take 1 Tab by mouth 10/30/2017 daily. as of this encounter Progress Notes * Mili Watkins - 08/26/2017 5:29 PM INSTALLMENT AGENT Patient received Xgeva injection and tolerated without difficulty. No pertinent changes since last assessment. in this encounter Miscellaneous Notes * Addendum Note - Fady Pagan - 08/26/2017 11:59 PM INSTALLMENT AGENT Encounter addended by: Fady Pagan on: 2017 11:28 AM
Actions taken: Charge Capture section accepted in this encounter Plan of Treatment Not on fileas of this encounter Visit Diagnoses Diagnosis Bone metastases (HCC) Secondary malignant neoplasm of bone and bone marrow Malignant melanoma of scalp (HCC) Malignant melanoma of skin of scalp and neck Administered Medications Medication Order MAR Action Action Date Dose Rate Site denosumab (XGEVA) injection 120 mg Given 08/26/2017 120 mg Abdomen: RLQ 120 mg, Subcutaneous, ONCE, 1 dose, Tue 17:23 INSTALLMENT AGENT 08/26/17 at 1730, Allow vial to come to room temperature prior to administration. NOTE: This is a HIGH ALERT Medication. in this encounter
--- OUTSIDE RECORDS SUMMARY | 2017-11-08 12:19 | XMS REPORT | Encounter Summary ---
Author Author [facility] Organization [facility] Address Unknown Phone Unavailable Care Team Providers Care Regulatory Product Manager Name Role Phone Benjamín Herron MD PCP John Osborn MD Unavailable Ralf Velez MD Unavailable Trisha Fiore RN Unavailable Unavailable Mónica Waddell PA-C Unavailable Karla Mandel RN Unavailable Unavailable Edson Lyn MD Unavailable Adri RussellP 7 Reason for Visit * Reason Comments Heme/Onc Care Encounter Details Date Type Department Care Team Description 08/15/2017 Office Visit [facility] Kb North MD Melanoma of scalp (HCC); Cancer Center - [facility] Exam [address] [facility] Bone metastases (HCC); [address] [facility] [address] [place], [place] [address] [place] [address] [phone] B Brook de los santos APRN [address] [place], [place] [id number] Social History Tobacco Use Types Packs/Day Years Used Date Never Smoker Smokeless Tobacco: Never Used Alcohol Use Drinks/Week oz/Week Comments Yes 0 Standard 0.0 social drinks or equivalent Sex Assigned at Date Recorded Not on file as of this encounter Last Filed Vital Signs Vital Sign Reading Time Taken Blood Pressure 122/69 08/15/2017 1:33 PM SOCIAL SERVICES AIDE Pulse 69 08/15/2017 1:33 PM SOCIAL SERVICES AIDE Temperature 37 C (98.6 F) 08/15/2017 1:33 PM SOCIAL SERVICES AIDE Respiratory Rate 18 08/15/2017 1:33 PM SOCIAL SERVICES AIDE Oxygen Saturation 100% 08/15/2017 1:33 PM SOCIAL SERVICES AIDE Inhaled Oxygen - - Concentration Weight 75.8 kg (167 lb 3.2 oz) 08/15/2017 1:33 PM SOCIAL SERVICES AIDE Height 177.8 cm (5' 10") 08/15/2017 1:33 PM SOCIAL SERVICES AIDE Body Mass Index 23.99 08/15/2017 1:33 PM SOCIAL SERVICES AIDE in this encounter Functional Status Functional Status [...] Progress Notes * Brook Bose APRN - 08/15/2017 1:30 PM SOCIAL SERVICES AIDE Formatting of this note may be different from the original. Name: Nickolas Mccurdy : 1995 AGE: 21 y.o. DATE OF SERVICE: 08/15/2017 Subjective: Reason for Visit: Heme/Onc Care Nickolas Mccurdy is a 21 y.o. male. Melanoma of scalp (HCC) Staging form: Melanoma of the Skin, AJCC 7th Edition - Clinical: Stage Unknown (T4b, NX, M0) - Unsigned History of Present Illness Nickolas presents with his father for follow up of his metastatic melanoma. He is currently taking dabrafenib + trametinib, he started targeted agents last Friday, 08/09. He has tolerated oral therapy well without adverse symptoms. He feels well today. He continues to have sternal chest pain, this has improved to some degree since starting targeted agents. His back pain has improved significantly. He denies signs or symptoms suggestive of infection. He has had some fatigue. He had echo today and is here to discuss results. Review of Systems Constitutional: Positive for fatigue. Negative for activity change, appetite change, chills and fever. HENT: Negative for mouth sores. Respiratory: Negative for shortness of breath. Cardiovascular: Positive for chest pain. Negative for leg swelling. Gastrointestinal: Negative for diarrhea, nausea and vomiting. Musculoskeletal: Negative for arthralgias and myalgias. Skin: Negative for rash. Neurological: Negative for seizures, weakness, light-headedness and headaches. Psychiatric/Behavioral: The patient is nervous/anxious. Objective: APPLE CIDER VINEGAR PO Take 1 [...] hour before or 2 hours after food. ERGOCALCIFEROL (VITAMIN D2) (VITAMIN D PO) Take 1 tablet by mouth daily. FISH OIL/BORAGE/FLAX/OM3,6,9 1 (OMEGA 3-6-9 COMPLEX PO) Take 1 capsule by mouth daily. L.ACID/L.CASEI/B.BIF/B.[place]/FOS (PROBIOTIC BLEND PO) Take 1 capsule by mouth daily. melatonin 10 mg tab Take 1 tablet by mouth at bedtime as needed. NON-FORMULARY five times weekly. Pre-Workout [facility] approved ondansetron (ZOFRAN) 8 mg tablet Take [...] needed for Pain Earliest Fill Date: 05/13/17 RESVERATROL-GRAPE SKIN EXTRACT PO Take 1 tablet [...] Take 1 Tab by mouth daily. Vitals: 08/15/17 1333 BP: 122/69 Pulse: 69 Resp: 18 Temp: 37 C (98.6 F) TempSrc: Oral SpO2: 100% Weight: 75.8 kg (167 lb 3.2 oz) Height: 177.8 cm (70") Body mass index is 23.99 kg/(m^2). Pain Score: Four Pain Loc: Chest Pain Addressed: Patient declines intervention Patient Evaluated for a Clinical Trial: No [...] clear and moist. Postsurgical changes to right neck, scalp Eyes: Conjunctivae and EOM are normal. Pupils are equal, round, and reactive to light. Cardiovascular: Normal rate, regular rhythm and normal heart sounds. Pulmonary/Chest: Effort normal and breath sounds normal. Abdominal: Soft. Bowel sounds are normal. He exhibits no mass. There is no hepatosplenomegaly. There is no tenderness. There is no guarding. Musculoskeletal: He exhibits no edema. Lymphadenopathy: He has no cervical adenopathy. Significant improvement in right cervical and preauricular adenopathy Neurological: He is alert and oriented to [...] Lab Results Component Value Date/Time NA 137 08/15/2017 01:11 PM K 4.0 08/15/2017 01:11 PM CL 103 08/15/2017 01:11 PM CO2 31 (H) 08/15/2017 01:11 PM GAP 3 08/15/2017 01:11 PM BUN 17 08/15/2017 01:11 PM CR 0.97 08/15/2017 01:11 PM GLU 86 08/15/2017 01:11 PM Lab Results Component Value Date/Time CA 9.7 08/15/2017 01:11 PM ALBUMIN 4.2 08/15/2017 01:11 PM TOTPROT 7.7 08/15/2017 01:11 PM ALKPHOS 91 08/15/2017 01:11 PM AST 12 08/15/2017 01:11 PM ALT 15 08/15/2017 01:11 PM TOTBILI 0.3 08/15/2017 01:11 PM GFR >60 08/15/2017 01:11 PM GFRAA >60 08/15/2017 01:11 PM Assessment and Plan: Problem Fatigue Bone Metastases (Hcc) Melanoma of Scalp (Hcc) Current Therapy: Dabrafenib + trametinib started 08/09/2007 Melanoma of scalp (HCC) Nickolas has had improvement in pain, cervical adenopathy nearly resolved since starting targeted agents last week He will continue on dabrafenib + trametenib as prescribed and restage in 8 weeks Bone metastases (HCC) Scheduled for Xgeva next week Fatigue Grade 1. This is likely due to his disease as well as his treatment PLAN -Nickolas appears to have already had a response to targeted agents. He is to continue as prescribed -ECHO reviewed with patient, this is unremarkable. Will repeat in 3 months -RTC to see Dr. North in one week, CBC, CMP prior to visit -Encouraged close F/U in the interim as needed. Both patient and his dad verbalized understanding and agrees to plan as outlined above PIERRE Ortega in this encounter Miscellaneous Notes * Assessment & Plan Note - Brook Bose, SIXTO - 08/15/2017 2:08 PM SOCIAL SERVICES AIDE Associated Problem(s): Fatigue Grade 1. This is likely due to his disease as well as his treatment * Assessment & Plan Note - Brook Bose, - 08/15/2017 2:04 PM SOCIAL SERVICES AIDE Associated Problem(s): Bone metastases (HCC) Scheduled for Xgeva next week * Assessment & Plan Note - Brook Bose, CASKET UPHOLSTERER - 08/15/2017 1:59 PM SOCIAL SERVICES AIDE Associated Problem(s): Melanoma of scalp (HCC) Nickolas has had improvement in pain, cervical adenopathy nearly resolved since starting targeted agents last week He will continue on dabrafenib + trametenib as prescribed and restage in 8 weeks in this encounter Plan of Treatment Not on fileas of this encounter Visit Diagnoses Diagnosis Melanoma of scalp (HCC) Malignant melanoma of skin of scalp and neck Bone metastases (HCC) Secondary malignant neoplasm of bone and bone marrow Fatigue, unspecified type
--- OUTSIDE RECORDS SUMMARY | 2017-11-08 12:19 | XMS REPORT | Encounter Summary ---
Author Author [facility] Organization [facility] Address Unknown Phone Unavailable Care Team Providers Care Clinical Program Director Name Role Phone Benjamín Herron MD PCP John Osborn MD Unavailable Ralf Velez MD Unavailable Trisha Fiore RN Unavailable Unavailable Mónica Waddell PA-C Unavailable Karla Mandel RN Unavailable Unavailable Edson Lyn MD Unavailable Adri Russell 7 Encounter Details Date Type Department Care Team Description 08/15/2017 Nurse Only [facility] Kb North MD Malignant melanoma, Cancer Center - [facility] Exam [address] [facility] unspecified site (HCC) [address] [facility] [address] [place] [address] [place] [address] [phone] Social History Tobacco Use Types Packs/Day Years [...] this encounter Results * COMPREHENSIVE METABOLIC PANEL (08/15/2017 1:11 PM) Component Value Ref Range Sodium 137 137 - 147 MMOL/L Potassium 4.0 3.5 - 5.1 MMOL/L Chloride 103 98 - 110 MMOL/L Glucose 86 70 - 100 MG/DL Blood Urea Nitrogen 17 7 - 25 MG/DL Creatinine 0.97 0.4 - 1.24 MG/DL Calcium 9.7 8.5 - 10.6 MG/DL Total Protein 7.7 6.0 - 8.0 G/DL Total Bilirubin 0.3 0.3 - 1.2 MG/DL Albumin 4.2 3.5 - 5.0 G/DL Alk Phosphatase 91 25 - 110 U/L AST (SGOT) 12 7 - 40 U/L CO2 31 (H) 21 - 30 MMOL/L ALT (SGPT) 15 7 - 56 U/L Anion Gap 3 [...] Pharmacist for questions. Specimen Performing Laboratory Blood [facility] [address] [place] [address] * CBC AND DIFF (08/15/2017 1:11 PM) Component Value Ref Range White Blood Cells 10.7 4.5 - 11.0 K/UL RBC 4.98 4.4 - 5.5 M/UL Hemoglobin 15.3 13.5 - 16.5 GM/DL Hematocrit 44.2 40 - 50 % MCV 88.8 80 - 100 FL MCH 30.6 26 - 34 PG MCHC 34.5 32.0 - 36.0 G/DL RDW 13.0 11 - 15 % Platelet Count 286 150 - 400 K/UL MPV 7.5 7 - 11 FL Neutrophils 63 41 - 77 % Lymphocytes 25 24 - 44 % Monocytes 7 4 - 12 % Eosinophils 4 0 - 5 % Basophils 1 0 - 2 % Absolute Neutrophil Count 6.80 1.8 - 7.0 K/UL Absolute Lymph Count 2.70 1.0 - 4.8 K/UL Absolute Monocyte Count 0.70 0 - 0.80 K/UL Absolute Eosinophil Count 0.50 (H) 0 - 0.45 K/UL Absolute Basophil Count 0.10 0 - 0.20 K/UL Specimen Performing Laboratory Blood [facility] [address] [place] [address] in this encounter Visit Diagnoses Diagnosis Malignant melanoma, unspecified site (HCC)
--- OUTSIDE RECORDS SUMMARY | 2017-11-08 12:19 | XMS REPORT | Encounter Summary ---
Author Author [facility] Organization [facility] Address Unknown Phone Unavailable Care Team Providers Care Finger Grip Machine Operator Name Role Phone Benjamín Herron MD PCP John Osborn MD Unavailable Ralf Velez MD Unavailable Trisha Fiore RN Unavailable Unavailable Mónica Waddell PA-C Unavailable Karla Mandel RN Unavailable Unavailable Edson Lyn MD Unavailable Adri RussellP 7 Reason for Referral * Test Status Reason Specialty Diagnoses / Referred By Referred To Procedures Contact Contact No Auth Needed Cardiology Diagnoses Kb North Card Echopv Malignant MD Alfredo [address] melanoma of [address] [place] scalp (HCC) [place], [place] [address] [address] [place], [place] Phone: 2-D + DOPPLER [phone] ECHOCARDIOGRAM Phone: AR ECHO TTHRC [phone] R-T 2D Fax: W/WOM-MODE COMPL [phone] SPEC&COLR D * Test Status Reason Specialty Diagnoses / Referred By Referred To Procedures Contact Contact No Auth Needed Cardiology Diagnoses Kb North Card Echopv Malignant MD Alfredo [address] melanoma of [address] [place] scalp (HCC) [place], [place] [address] [address] [place], [place] Phone: 2-D + DOPPLER [phone] ECHOCARDIOGRAM Phone: AR ECHO TTHRC [phone] R-T 2D Fax: W/WOM-MODE COMPL [phone] SPEC&COLR D Reason for Visit * Test Status Reason Specialty Diagnoses / Referred By Referred To Procedures Contact Contact No Auth Needed Cardiology Diagnoses Kb [facility] Card Echopv Aisha Fuentes MD [address] melanoma of [address] [place] scalp (HCC) [place], [place] [address] [address] rocedures [place], [place] Phone: 2-D + DOPPLER [phone] ECHOCARDIOGRAM Phone: AR ECHO TTHRC [phone] R-T 2D Fax: W/WOM-MODE COMPL [phone] SPEC&COLR D Encounter Details Date Type Department Care Team Description 08/15/2017 [facility] Cardiology Kb North MD Encounter [id number] [address] [place] [address] [place] [address] [phone] Social History Tobacco Use Types Packs/Day Years Used Date Never Smoker Smokeless Tobacco: Never Used Alcohol Use Drinks/Week oz/Week Comments Yes 0 Standard 0.0 social drinks or equivalent Sex Assigned at Date Recorded Not on file as of this encounter Last Filed Vital Signs Vital Sign Reading Time Taken Blood Pressure 120/74 08/15/2017 11:40 AM CLAY PREPARATION SUPERVISOR Pulse - - Temperature - - Respiratory Rate - - Oxygen Saturation - - Inhaled Oxygen - - Concentration Weight 76.9 kg (169 lb 9.6 oz) 08/15/2017 11:40 AM CLAY PREPARATION SUPERVISOR Height 177.8 cm (5' 10") 08/15/2017 11:40 AM CLAY PREPARATION SUPERVISOR Body Mass Index 24.34 08/15/2017 11:40 AM CLAY PREPARATION SUPERVISOR in this encounter Functional Status Functional Status [...] as needed. NON-FORMULARY five times weekly. Pre-Workout [facility] approved other medication Essiac Tea- [...] 2 unspecified site (HCC) hours after food. FISH Take 1 capsule by mouth 10/30/2017 [...] Pain Earliest Fill Date: 05/13/17 RESVERATROL-GRAPE SKIN Take 1 tablet by mouth [...] on fileas of this encounter Results * 2-D + DOPPLER ECHOCARDIOGRAM (08/15/2017 11:40 [...] Peak A Alli 0.300 m/s Interp Only Pro Shop Attendant ST: Shawna Burdick FS 33.96 28 - 44 % EF [...] are no previous studies available for comparison. in this encounter Visit Diagnoses Diagnosis Malignant melanoma of scalp (HCC) Malignant melanoma of skin of scalp and neck
--- OUTSIDE RECORDS SUMMARY | 2017-11-08 12:19 | XMS REPORT | Encounter Summary ---
Author Author [facility] Organization [facility] Address Unknown Phone Unavailable Care Team Providers Care Land Leasing Examiner Name Role Phone Benjamín Herron MD PCP John Osborn MD Unavailable Ralf Velez MD Unavailable Trisha Fiore RN Unavailable Unavailable Mónica Waddell PA-C Unavailable Karla Mandel RN Unavailable Unavailable Edson Lyn MD Unavailable Adri RussellP 7 Encounter Details Date Type Department Care Team Description 08/19/2017 Pharmacy Visit [facility] [address] [place] [address] Social History Tobacco Use Types Packs/Day Years [...]
--- OUTSIDE RECORDS SUMMARY | 2017-11-08 12:19 | XMS REPORT | Encounter Summary ---
Author Author [facility] Organization [facility] Address Unknown Phone Unavailable Care Team Providers Care Service Team Leader Name Role Phone Benjamín Herron MD PCP John Osborn MD Unavailable Ralf Velez MD Unavailable Trisha Fiore RN Unavailable Unavailable Mónica Waddell PA-C Unavailable Karla Mandel RN Unavailable Unavailable Edson Lyn MD Unavailable Adri RussellP 7 Encounter Details Date Type Department Care Team Description 08/12/2017 Documentation [facility] [address] [place] [address] Social History Tobacco Use Types Packs/Day Years [...] as of this encounter Progress Notes * [facility] - 08/12/2017 1:03 PM LOCOMOTIVE OILER The Prior Authorization for Mekinist and Tafinlar was approved for Nickolas Mccurdy from 08/11/17 to 08/11/18. The copay is $0. I spoke to his mom and she would like a call back in about a week to order the medication. [facility] Patient Advocate in this encounter Plan of Treatment Not on fileas of this encounter Visit Diagnoses Not on filein this encounter
--- OUTSIDE RECORDS SUMMARY | 2017-11-08 12:19 | XMS REPORT | Encounter Summary ---
Author Author [facility] Organization [facility] Address Unknown Phone Unavailable Care Team Providers Care Agronomy Supervisor Name Role Phone Benjamín Herron MD PCP John Osborn MD Unavailable Ralf Velez MD Unavailable Trisha Fiore RN Unavailable Unavailable Mónica Waddell PA-C Unavailable Karla Mandel RN Unavailable Unavailable Edson Lyn MD Unavailable Adri RussellP 7 Reason for Visit * Reason Comments Heme/Onc Care Encounter Details Date Type Department Care Team Description 08/26/2017 Office Visit [facility] Kb Norht MD Bone metastases (HCC); [facility] Exam [address] [facility] Melanoma of scalp (HCC); [address] [facility] [address] [facility] [address] [place], [place] [address] [place] [address] [phone] Social History Tobacco Use Types Packs/Day Years Used Date Never Smoker Smokeless Tobacco: Never Used Alcohol Use Drinks/Week oz/Week Comments Yes 0 Standard 0.0 social drinks or equivalent Sex Assigned at Date Recorded Not on file as of this encounter Last Filed Vital Signs Vital Sign Reading Time Taken Blood Pressure 129/89 08/26/2017 4:17 PM AUTOMOTIVE SERVICE TECHNICIAN Pulse 72 08/26/2017 4:17 PM AUTOMOTIVE SERVICE TECHNICIAN Temperature 36.7 C (98.1 F) 08/26/2017 4:17 PM AUTOMOTIVE SERVICE TECHNICIAN Respiratory Rate 12 08/26/2017 4:17 PM AUTOMOTIVE SERVICE TECHNICIAN Oxygen Saturation 96% 08/26/2017 4:17 PM AUTOMOTIVE SERVICE TECHNICIAN Inhaled Oxygen - - Concentration Weight 70.9 kg (156 lb 3.2 oz) 08/26/2017 4:17 PM AUTOMOTIVE SERVICE TECHNICIAN Height 177.8 cm (5' 10") 08/26/2017 4:17 PM AUTOMOTIVE SERVICE TECHNICIAN Body Mass Index 22.41 08/26/2017 4:17 PM AUTOMOTIVE SERVICE TECHNICIAN in this encounter Functional Status Functional Status [...] Progress Notes * Kb North MD - 08/26/2017 4:00 PM AUTOMOTIVE SERVICE TECHNICIAN Formatting of this note may be different from the original. Name: Nickolas Mccurdy : 1995 AGE: 21 y.o. DATE OF SERVICE: 08/26/2017 Subjective: Reason for Visit: f/u Heme/Onc Care Nickolas Mccurdy is a 21 y.o. male. Melanoma of scalp (HCC) Staging form: Melanoma of the Skin, AJCC 7th Edition - Clinical: Stage Unknown (T4b, NX, M0) - Unsigned History of Present Illness Nickolas presents with his father and mother for follow up of his metastatic melanoma. He is currently taking dabrafenib + trametinib, he started targeted agents 08/09. He has tolerated oral therapy well without adverse symptoms. He feels well today. He continues to have sternal chest pain, this has continued to improve since starting targeted agents. His back pain has gone away. He denies signs or symptoms suggestive of infection. He has had some fatigue but this has been regular. Pt became emotional at visit, just been overwhelming with all his medical issues, specially his weight loss (10lbs in 11 days). Review of Systems Constitutional: Positive for appetite change. Negative for chills, fatigue, fever and unexpected [...] sleep disturbance. The patient is not nervous/anxious. Objective: APPLE CIDER VINEGAR PO Take [...] NON-FORMULARY five times weekly. Pre-Workout [facility] approved ondansetron (ZOFRAN) 8 mg tablet Take [...] Take 1 Tab by mouth daily. Vitals: 08/26/17 1617 BP: 129/89 Pulse: 72 Resp: 12 Temp: 36.7 C (98.1 F) TempSrc: Oral SpO2: 96% Weight: 70.9 kg (156 lb 3.2 oz) Height: 177.8 cm (70") Body mass index is 22.41 kg/(m^2). Pain Score: Zero Pain Addressed: Current regimen working to control pain. Patient Evaluated for a Clinical Trial: Patient [...] and Plan: Problem On Prednisone Therapy Fatigue Bone Metastases (Hcc) Melanoma of Scalp (Hcc) Current Therapy: Dabrafenib + trametinib started 08/09/2007 Bone metastases (HCC) Xgeva treatment today. Melanoma of scalp (HCC) Continue on Dabrafenib + trametinib as prescribed. Will have restaging scans in another month. Discussed if pt pain was worsening than we would have scans but as pt has started to feel better will look to have scans at the 3 month frandy from last scans. Pt feels really well today. Fatigue Grade 1. Related to disease state. On prednisone therapy Pt will be prescribed prednisone. He will start at 60mg a day. This will be 2 days, then down to 50mg for 2 days, then to 40mg and etc. This will be attempted to help improve weight and appetite. -Will have restaging scans in another month. Pt feels really well today. Denies pain or complications. He had an episode last week where he was very nauseous and vomiting but this all has resided. -Discussed pt weight loss (has lost 10lbs between 08/15 - 08/26). He has had a challenge eating as food has not tasted good. We instructed no calorie is a bad calorie right now. Discussed could talk to a trailer mechanic which might help him find ways to eat more. Pt will be prescribed prednisone. He will start at 60mg a day. This will be 2 days, then down to 50mg for 2 days, then to 40mg and etc. This will be attempted to help improve weight and appetite. -Discussed patient herbal medication / medical marijuana. Instructed pt should use what helps him eat, appetite, and control weight. -Pt will be prescribed marinol if it gets approved through his insurance. -Conversed with pt and his parents about pt emotional state. Pt claims he is well, he doesn't feel emotional at school. He feels well supported at both home and school. Confirms no need for additional therapy for mood. -Will have xgeva treatment today. -Dr. Rivera f/u 10/09/17. -Pt will f/u in 2 weeks. -Patient will follow up in the interim should they develop adverse symptoms. Patient verbalized understanding and agrees to plan of care. Total time: 25 minutes, with > 50% time spent counseling with regard to disease status, treatment options, necessity for further testing, and outlining a follow up plan. This conversation was had with patient and his parents. The patient was seen and examined by Dr. Kb North who formulated the above assessment and plan. - Walter Mason, acting as scribe. I have seen and examined this patient. I've reviewed the pertinent portions of the history as well as laboratory studies and radiology studies. I agree with the assessment and plan as documented in this note. Kb North MD in this encounter Miscellaneous Notes * Assessment & Plan Note - Walter Mason - 08/26/2017 5:16 PM AUTOMOTIVE SERVICE TECHNICIAN Associated Problem(s): On prednisone therapy Pt will be prescribed prednisone. He will start at 60mg a day. This will be 2 days, then down to 50mg for 2 days, then to 40mg and etc. This will be attempted to help improve weight and appetite. * Assessment & Plan Note - Walter Mason - 08/26/2017 5:14 PM AUTOMOTIVE SERVICE TECHNICIAN Associated Problem(s): Fatigue Grade 1. Related to disease state. * Assessment & Plan Note - Walter Mason 08/26/2017 5:12 PM AUTOMOTIVE SERVICE TECHNICIAN Associated Problem(s): Melanoma of scalp (HCC) Continue on Dabrafenib + trametinib as prescribed. Will have restaging scans in another month. Discussed if pt pain was worsening than we would have scans but as pt has started to feel better will look to have scans at the 3 month frandy from last scans. Pt feels really well today. * Assessment & Plan Note - Walter Mason - 08/26/2017 5:12 PM AUTOMOTIVE SERVICE TECHNICIAN Associated Problem(s): Bone metastases (HCC) Xgeva treatment today. in this encounter Plan of Treatment Not on fileas of this encounter Visit Diagnoses Diagnosis Bone metastases (HCC) Secondary malignant neoplasm of bone and bone marrow Melanoma of scalp (HCC) Malignant melanoma of skin of scalp and neck Fatigue, unspecified type
--- OUTSIDE RECORDS SUMMARY | 2017-11-08 12:19 | XMS REPORT | Encounter Summary ---
Author Author [facility] Organization [facility] Address Unknown Phone Unavailable Care Team Providers Care Lead Customer Service Representative Name Role Phone Benjamín Herron MD PCP John Osborn MD Unavailable Ralf Velez MD Unavailable Trisha Fiore RN Unavailable Unavailable Mónica Waddell PA-C Unavailable Karla Mandel RN Unavailable Unavailable Edson Lyn MD Unavailable Adri Russell 7 Reason for Visit * Reason Comments Pt Ed Encounter Details Date Type Department Care Team Description 08/22/2017 Telephone [facility] Luisa Edwards, CESARIOD Pt Ed [facility] [address] [place] [phone] Social History Tobacco Use Types Packs/Day Years [...] encounter Miscellaneous Notes * Telephone Encounter - LesivoneLuisa, PHARMD - 08/22/2017 4:01 PM FULL STACK DEVELOPER Formatting of this note may be different from the original. Oral Chemotherapy Reassessment Note This toxicity check was done over the phone with his mother, Lenora. Appropriateness of Therapy Nickolas Mccurdy continues on dabrafenib/trametinib for the treatment of melanoma. Cycle 1 start date was 08/09/17. The regimen of dabrafenib 150mg BID and trametinib 2mg daily is appropriate to continue at this time. No dose adjustments based on toxicity are required at this time. Treatment will continue until progression or unacceptable toxicity. CBC w/Diff Lab Results Component Value Date/Time [...] 01:11 PM GFRAA >60 08/15/2017 01:11 PM CREATININE: 0.97 MG/DL (08/15/17 1311) Estimated creatinine clearance: 129.2 mL/min Response to Therapy Patients electronic medical record has been reviewed. No evidence of progression that would necessitate a change of therapy has been identified. Adverse Effects Assessment Nickolas Anuj Mccurdy is having the following adverse effects: nausea. None of the adverse effects were severe enough to interfere with adherence. Dr. North prescribed him Zofran and this is helping. Adherence Assessment Nickolas Mccurdy reports missing 0 doses over the past 2 weeks not related to toxicity. Patient was re-educated on importance of adherence. Medication Reconciliation A medication history and reconciliation was performed (including prescription medications, supplements, over the counter medications, and herbal products). The medication list was updated and the patients current medication list is included below. Prior to Admission medications Medication Sig Start Date End Date Taking? Authorizing Provider APPLE CIDER VINEGAR PO Take 1 Dose by mouth daily. HISTORICAL PROVIDER BETA GLUCAN (1,3/1,4-D) MISC Take 1 tablet by mouth daily. Historical Provider cetirizine (ZYRTEC) 10 mg tablet Take 10 mg by mouth every morning. Historical Provider clindamycin(+) (CLEOCIN T; CLINDAMAX) 1 % topical lotion as Needed. 06/03/17 HISTORICAL PROVIDER Collagenase powd Take 1 Scoop by mouth daily. In morning shakes. HISTORICAL PROVIDER dabrafenib (TAFINLAR) 75 mg capsule Take 2 capsules by mouth twice daily. Take at least 1 hour before or 2 hours after food. 08/06/17 Kb North MD ERGOCALCIFEROL (VITAMIN D2) (VITAMIN D PO) Take 1 tablet by mouth daily. HISTORICAL PROVIDER FISH OIL/BORAGE/FLAX/OM3,6,9 1 (OMEGA 3-6-9 COMPLEX PO) Take 1 capsule by mouth daily. HISTORICAL PROVIDER L.ACID/L.CASEI/B.BIF/B.BARRINGTON/FOS (PROBIOTIC BLEND PO) Take 1 capsule by mouth daily. HISTORICAL PROVIDER melatonin 10 mg tab Take 1 tablet by mouth at bedtime as needed. HISTORICAL PROVIDER NON-FORMULARY five times weekly. Pre-Workout [facility] approved HISTORICAL PROVIDER ondansetron (ZOFRAN) 8 mg tablet Take 1 tablet by mouth every 8 hours as needed for Nausea or Vomiting. 07/04/17 Brook Bose APRN other medication Essiac Tea- Drink 1 cup of tea daily. HISTORICAL PROVIDER other medication Mycelium complex blend 600 mg- Take 2 capsules by mouth daily. HISTORICAL PROVIDER other medication Super Green- Take 1 scoop in shake every morning. HISTORICAL PROVIDER other medication Bone Broth- Take 1 scoop in shake every morning. HISTORICAL PROVIDER oxyCODONE (ROXICODONE, OXY-IR) 5 mg tablet Take 1-2 tablets by mouth every 4 hours as needed for Pain Earliest Fill Date: 05/13/17 05/13/17 John Osborn MD RESVERATROL-GRAPE SKIN EXTRACT PO Take 1 tablet by mouth daily. Historical Provider trametinib (MEKINIST) 2 mg tablet Take 1 tablet by mouth daily. Take at least 1 hour before or 2 hours after food. 08/06/17 Kb North MD turmeric root extract 500 mg cap Take 2 capsules by mouth daily. HISTORICAL PROVIDER VITAMIN B COMPLEX (B COMPLEX PO) Take 1 tablet by mouth daily. HISTORICAL PROVIDER vitamins, multiple tablet Take 1 Tab by mouth daily. Historical Provider Drug-drug and drug-food interactions between the patients specialty medication and their medication list were assessed and reviewed with the patient. The following drug-drug interactions were identified: reservatrol and turmeric and they will be managed by recommending to stop these medications. He is on several herbal medications which are hard to check for drugs interactions but I was able to check these two medications and both have effects on CY which could result in higher concentrations of dabrafenib. His mom seemed open to stopping these but will also send an email to Dr. [place]. The patient was instructed to speak with their health care provider and/or the oral chemotherapy pharmacist before starting any new drug, including prescription or over the counter, natural / herbal products, or vitamins. No Known Allergies Reproductive Risk Assessment Nickolas Mccurdy is a 21 y.o. male As patient is a male, education was provided regarding adequate contraception for female partners of reproductive potential and contacting his physician immediately should his partner become . Risk Evaluation and Mitigation Strategy (REMS) Assessment No REMS is required for this medication. Followup Plan The patient was encouraged to call the oral chemotherapy pharmacist at [phone] with questions. Re-assessment has been completed. Next reassessment planned for 3 month(s). Luisa Edwards, CESARIOD Oncology Clinical Pharmacist 08/22/2017 in this encounter Plan of Treatment Not on fileas of this encounter Visit Diagnoses Not on filein this encounter
--- OUTSIDE RECORDS SUMMARY | 2017-11-08 12:20 | XMS REPORT | Encounter Summary ---
Author Author [facility] Organization [facility] Address Unknown Phone Unavailable Care Team Providers Care Machine Precision Etcher Name Role Phone Benjamín Herron MD PCP John Osborn MD Unavailable Ralf Velez MD Unavailable Trisha Fiore RN Unavailable Unavailable Mónica Waddell PA-C Unavailable Karla Mandel RN Unavailable Unavailable Edson Lyn MD Unavailable Adri Russell 7 Encounter Details Date Type Department Care Team Description 08/12/2017 Documentation [facility] Kb North MD [facility] [address] [place] [address] [place] [address] [phone] Social History Tobacco Use Types Packs/Day Years [...] Progress Notes * Sherrie Barksdale, AYALA - 08/12/2017 11:14 AM SCHOOL SUPERINTENDENT Called patient to follow up on new oral medication ; started on Friday and is tolerating well. Patient to call with any s/s. Follow up number given in this encounter Plan of Treatment Not on fileas of this encounter Visit Diagnoses Not on filein this encounter
--- OUTSIDE RECORDS SUMMARY | 2017-11-08 12:20 | XMS REPORT | Encounter Summary ---
Author Author [facility] Organization [facility] Address Unknown Phone Unavailable Care Team Providers Care Integrity Engineer Name Role Phone Benjamín Herron MD PCP John Osborn MD Unavailable Ralf Velez MD Unavailable Trisha Fiore RN Unavailable Unavailable Mónica Waddell PA-C Unavailable Karla Mandel RN Unavailable Unavailable Edson Lyn MD Unavailable Adri RussellP 7 Encounter Details Date Type Department Care Team Description 08/11/2017 Pharmacy Visit [facility] [address] [place] [address] Social History Tobacco Use Types Packs/Day Years [...]
--- OUTSIDE RECORDS SUMMARY | 2017-11-08 12:20 | XMS REPORT | Encounter Summary ---
Author Author [facility] Organization [facility] Address Unknown Phone Unavailable Care Team Providers Care Mechanical Pencils Assembler Name Role Phone Benjamín Herron MD PCP John Osborn MD Unavailable Ralf Velez MD Unavailable Trisha Fiore RN Unavailable Unavailable Mónica Waddell PA-C Unavailable Karla Mandel RN Unavailable Unavailable Edson Lyn MD Unavailable Adri RussellP 7 Encounter Details Date Type Department Care Team Description 08/12/2017 Pharmacy Visit [facility] [address] [place] [address] Social History Tobacco Use Types Packs/Day Years [...]
[2017-11-08] MEDS ORDERED: cefTRIAXone INJECTION 2,000 MG in NS (IVPB) 100 ML IV ONE ×4 (12:30)
[2017-11-08 12:38] LABS: BASOPHILS % (AUTO) 0 % (0-10); EOSINOPHILS % (AUTO) 0 % (0-10); HEMATOCRIT 45 % (40-54); HEMOGLOBIN 16.7 G/DL (13.3-17.7); LYMPHOCYTES # (AUTO) 1.2 X 10^3 (1.0-4.0); LYMPHOCYTES % (AUTO) 5 % (12-44); MEAN CORPUSCULAR HEMOGLOBIN 31 PG (25-34); MEAN CORPUSCULAR HGB CONC 37 G/DL (32-36); MEAN CORPUSCULAR VOLUME 84 FL (80-99); MEAN PLATELET VOLUME 10.1 FL (7.4-10.4); MONOCYTES # (AUTO) 1.6 X 10^3 (0.0-1.0); MONOCYTES % (AUTO) 7 % (0-12); NEUTROPHILS # (AUTO) 22.4 X 10^3 (1.8-7.8); NEUTROPHILS % (AUTO) 89 % (42-75); PLATELET COUNT 254 10^3/uL (130-400); RED BLOOD COUNT 5.38 10^6/uL (4.35-5.85); RED CELL DISTRIBUTION WIDTH 13.7 % (10.0-14.5); WHITE BLOOD COUNT 25.3 10^3/uL (4.3-11.0)
[2017-11-08] MEDS ORDERED: fentaNYL INJECTION 100 MCG/2 ML AMP ONE (12:39)
[2017-11-08 12:49] LABS: BAND NEUTROPHILS 0 %; EOSINOPHILS % (MANUAL) 0 %; LYMPHOCYTES % (MANUAL) 2 %; MONOCYTES % (MANUAL) 6 %; NEUTROPHILS % (MANUAL) 92 %
--- NOTE | 2017-11-08 12:49 | ED Neurological Problem ---
General Chief Complaint: Altered Mental Status Stated Complaint: SYNCOPE Source: patient, family Exam Limitations: clinical condition History of Present Illness Date Seen by Provider: Nov 08, 2017 Time Seen by Provider: 13:02 Initial Comments This 22-year-old white male presents in an unresponsive state. Patient is under the care of Dr. Kb North at for his metastatic melanoma. Patient found unresponsive state by his brother in his apartment here in [facility] emergency department. Patient was minimally arousable and was brought to the emergency department by his family. Dr. North at called and asked the patient received 2 g Rocephin as he feared the patient had meningitis. He asked that the patient be transferred to to the neuro ICU by air. Allergies and Home Medications Allergies Coded Allergies: No Allergy Information Available (Unverified , 08/05/17) Home Medications Oxycodone HCl/Acetaminophen 1 Each Tablet, 1 EACH PO Q4H PRN for PAIN-MODERATE TO SEVERE Prescribed by: DUSTY BARRIOS on 08/05/17 7495 Patient Home Medication List Home Medication List Reviewed: Yes Constitutional: no symptoms reported Eyes: No Symptoms Reported Ears, Nose, Mouth, Throat: no symptoms reported Respiratory: no symptoms reported Cardiovascular: no symptoms reported Gastrointestinal: no symptoms reported Musculoskeletal: no symptoms reported Skin: no symptoms reported Psychiatric/Neurological: No Symptoms Reported Endocrine: No Symptoms Reported Hematologic/Lymphatic: No Symptoms Reported Past Ixdtsje-[id number]-[id number] Hx Patient Social History Drug of Choice: MARIJUANA 2nd Hand Smoke Exposure: No Recent Hopitalizations: Yes (SURGERY FOR MELANOMA) Seasonal Allergies Seasonal Allergies: No Surgeries History of Surgeries: Yes (5-7 SURGERIES R/T MELANOMA) Respiratory History of Respiratory Disorde: No Cardiovascular History of Cardiac Disorders: No Neurological History of Neurological Disord: No Genitourinary History of Genitourinary Disor: No Gastrointestinal History of Gastrointestinal Di: No Musculoskeletal History of Musculoskeletal Dis: No Endocrine History of Endocrine Disorders: No HEENT History of HEENT Disorders: No Cancer History of Cancer: Yes Cancer: Melanoma Did You Recieve Any Treatments: Yes Type of Tx Receive: Chemotherapy, Surgical Intervention Psychosocial History of Psychiatric Problem: No Integumentary History of Skin or Integumenta: No Blood Transfusions History of Blood Disorders: No Reviewed Nursing Assessment Reviewed/Agree w Nursing PMH: Yes Physical Exam Vital Signs Vital Signs - First Documented 11/08/17 12:08 Temp 100.8 Pulse 79 Resp 16 B/P (MAP) 154/73 (100) Pulse Ox 73 O2 Delivery Room Air Capillary Refill : General Appearance: other (patient is responsive only to painful stimuli, specifically flexion of the neck's apparent nuchal rigidity. The patient moves 4 extremities when stimulated.) HEENT: other (the patient's pupils are midrange and reactive.) Neck: other (General he) Respiratory: lungs clear Cardiovascular: regular rate, rhythm Gastrointestinal: normal bowel sounds, soft Back: normal inspection Extremities: normal inspection Neurologic/Psychiatric: other (patient responds to painful stimuli. He moves minimally spontaneously.) Crainal Nerves: other (no gross lateralizing localizing neurologic findings are noted) Skin: normal color, warm/dry Focused Exam Evaluation Lactate Level Laboratory Tests 11/08/17 12:20: Lactic Acid Level 2.16*H Lactic Acid Level Laboratory Tests Test 11/08/17 12:20 Lactic Acid Level 2.16 MMOL/L (0.50-2.00) *H Progress/Results/Core Measures Results/Orders Lab Results Laboratory Tests Test 11/08/17 12:20 11/08/17 12:21 Range/Units White Blood Count 25.3 H 4.3-11.0 10^3/uL Red Blood Count 5.38 4.35-5.85 10^6/uL Hemoglobin 16.7 13.3-17.7 G/DL Hematocrit 45 40-54 % Mean Corpuscular Volume 84 80-99 FL Mean Corpuscular Hemoglobin 31 25-34 PG Mean Corpuscular Hemoglobin Concent 37 H 32-36 G/DL Red Cell Distribution Width 13.7 10.0-14.5 % Platelet Count 254 130-400 10^3/uL Mean Platelet Volume 10.1 7.4-10.4 FL Neutrophils (%) (Auto) 89 H 42-75 % Lymphocytes (%) (Auto) 5 L 12-44 % Monocytes (%) (Auto) 7 0-12 % Eosinophils (%) (Auto) 0 0-10 % Basophils (%) (Auto) 0 0-10 % Neutrophils # (Auto) 22.4 H 1.8-7.8 X 10^3 Lymphocytes # (Auto) 1.2 1.0-4.0 X 10^3 Monocytes # (Auto) 1.6 H 0.0-1.0 X 10^3 Eosinophils # (Auto) 0.0 0.0-0.3 10^3/uL Basophils # (Auto) 0.0 0.0-0.1 10^3/uL Neutrophils % (Manual) 92 % Lymphocytes % (Manual) 2 % Monocytes % (Manual) 6 % Eosinophils % (Manual) 0 % Basophils % (Manual) 0 % Band Neutrophils 0 % Blood Morphology Comment NORMAL Sodium Level 136 135-145 MMOL/L Potassium Level 3.9 3.6-5.0 MMOL/L Chloride Level 102 98-107 MMOL/L Carbon Dioxide Level 23 21-32 MMOL/L Anion Gap 11 5-14 MMOL/L Blood Urea Nitrogen 14 7-18 MG/DL Creatinine 0.96 0.60-1.30 MG/DL Estimat Glomerular Filtration Rate > 60 BUN/Creatinine Ratio 15 Glucose Level 138 H 70-105 MG/DL Lactic Acid Level 2.16 *H 0.50-2.00 MMOL/L Calcium Level 9.7 8.5-10.1 MG/DL Total Bilirubin 0.7 0.1-1.0 MG/DL Aspartate Amino Transf (AST/SGOT) 32 5-34 U/L Alanine Aminotransferase (ALT/SGPT) 26 0-55 U/L Alkaline Phosphatase 76 40-136 U/L Total Protein 8.1 6.4-8.2 GM/DL Albumin 4.9 H 3.2-4.5 GM/DL Glucometer 130 H 70-110 MG/DL My Orders Orders - ABRAHAM PEÑA MD Ceftriaxone Injection (Rocephin Injectio (11/08/17 12:30) Cbc And Manual Diff (11/08/17 12:28) Lactic Acid Analyzer (11/08/17 12:28) Blood Culture (11/08/17 12:28) Comprehensive Metabolic Panel (11/08/17 12:28) Ceftriaxone Injection (Rocephin Injectio (11/08/17 12:30) Fentanyl Injection (Sublimaze Injection (11/08/17 12:39) Ct Head Wo (11/08/17 12:49) Lorazepam Injection (Ativan Injection) (11/08/17 13:00) Lorazepam Injection (Ativan Injection) (11/08/17 12:51) Medications Given in ED Current Medications Medications Dose Ordered Sig/Camille Route Start Time Stop Time Status Last Admin Dose Admin Ceftriaxone Sodium 2000 mg/ Sodium Chloride 100 ml @ 200 mls/hr ONCE ONCE IV 11/08/17 12:30 11/08/17 12:59 DC 11/08/17 13:00 200 MLS/HR Fentanyl Citrate 100 mcg STK-MED ONCE .ROUTE 11/08/17 12:39 11/08/17 12:42 DC 11/08/17 12:40 50 MCG Lorazepam 1 mg ONCE ONCE IVP 11/08/17 13:00 11/08/17 13:01 DC 11/08/17 12:55 1 MG Vital Signs/I&O Vital Sign - Last 12Hours 11/08/17 12:08 Temp 100.8 Pulse 79 Resp 16 B/P (MAP) 154/73 (100) Pulse Ox 73 O2 Delivery Room Air Point of Care Testing Finger Stick Blood Glucose: 130 Blood Glucose Action Taken: DR PEÑA NOTIFIED. Progress Note : Time: 13:19 Progress Note The patient received 2 g of Rocephin IV. Patient's initial laboratory evaluation and treatment white count of 25,300. His lactic acid was elevated at 2.16. Patient's bedside glucose was approximately 130. Patient had an IV of normal saline established. His pulse oximeter prior to initiation of supplemental nasal oxygen was 99 percent. I visited with Dr. Kb North and at who have accepted the patient in transfer to the neuro ICU at . Departure Impression Impression: Primary Impression: Meningitis Additional Impression: Metastatic melanoma Disposition: XF S[facility]-TRM HOSP Condition: Improved Transfer Time Spoke to Accepting Phy: 13:[address] Chan at neuro ICU Transfer Time: 13:27 Transfer Facility: Neuro ICU Departure-Patient Inst. Referrals: KB NORTH MD (PCP/Family) Primary Care Physician ABRAHAM PEÑA MD Nov 08, 2017 12:49
[2017-11-08 12:50] LABS: BASOPHILS % (MANUAL) 0 %; RBC MORPH NORMAL
[2017-11-08] MEDS ORDERED: LORazepam INJ 2 MG/ML (ATIVAN) VIAL ONE (12:51)
[2017-11-08 12:58] LABS: ALANINE AMINOTRANSFERASE 26 U/L (0-55); ALBUMIN 4.9 GM/DL (3.2-4.5); ALKALINE PHOSPHATASE 76 U/L (40-136); BILIRUBIN,TOTAL 0.7 MG/DL (0.1-1.0); BUN/CREATININE RATIO 15; CALCIUM 9.7 MG/DL (8.5-10.1); CARBON DIOXIDE 23 MMOL/L (21-32); CHLORIDE 102 MMOL/L (98-107); CREATININE SERUM 0.96 MG/DL (0.60-1.30); GFR ESTIMATED > 60; GLUCOSE 138 MG/DL (70-105); POTASSIUM 3.9 MMOL/L (3.6-5.0); SODIUM 136 MMOL/L (135-145); TOTAL PROTEIN 8.1 GM/DL (6.4-8.2)
[2017-11-08] MEDS ORDERED: LORazepam INJ 2 MG/ML (ATIVAN) VIAL IVP ONE (13:00)
--- NOTE | 2017-11-08 13:17 | Diagnostic Imaging Report ---
PROCEDURE: CT head without contrast. TECHNIQUE: Multiple contiguous axial images were obtained through the brain without the use of intravenous contrast. INDICATION: Altered mental status with history of metastatic melanoma. No comparison available. FINDINGS: There is no CT evidence of acute intracranial hemorrhage. There is no intracranial mass effect or shift. There is no hydrocephalus. There is questioned loss of morales-white differentiation demonstrated symmetrically and bilaterally within the occipital lobes. While this could potentially be artifactual in nature, the possibility of hypertensive encephalopathy would be a consideration if clinically appropriate. There is no evidence to suggest vasogenic edema. There is no mass effect. Basilar cisterns appear patent. Posterior fossa appears unremarkable. Mastoids appear clear. The paranasal sinuses appear clear. Orbital contents unremarkable. IMPRESSION: 1. Questioned abnormal hypodensity with indistinct morales matter differentiation within the occipital lobes. Given the bilateral nature, a primary consideration would be that of hypertensive encephalopathy. This conceivably could be artifactual in nature related to artifact arising from the adjacent calvarium. Given patient's history of an underlying neoplastic process and these findings, consider assessment with MRI. Dictated by: Dictated on workstation # [id number]
[2017-11-08] MEDS ORDERED: NS IV 1000 ML 1,000 ML ONE (13:22)
[2017-11-08 13:35] VITALS: BP 151/88
[2017-11-08] MEDS ORDERED: NS IV 1000 ML 1,000 ML IV SCH ×2 (14:15)
== END 2017-11-08 13:35 | disposition short-term general hospital (02) ==
LOC: ER 12:08 → EDUNIT# 12:08 → ER 13:35
DX: G03.9 Meningitis, unspecified (principal); C43.9 Malignant melanoma of skin, unspecified; C79.9 Secondary malignant neoplasm of unspecified site; F12.90 Cannabis use, unspecified, uncomplicated; Z92.21 Personal history of antineoplastic chemotherapy
CPT/HCPCS: 36415; 70450; 80053; 82962; 83605; 85007; 85027; 87040